=== PATIENT | male | born 1935 | race Caucasian/White ===

== ENCOUNTER 2017-12-01 13:43 | Observation (INO) | payer OTHER, MEDICARE ==
--- NOTE | 2017-12-01 14:15 | PDOC ---
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 PAtient fell and hit left forehead where a large hematoma is bulging. Patient alert and oriented. Primary: Dr. Shelly Green [phone] [place]: Dr. Robson Varma [phone] Past History - Past Medical History Allergies/Adverse Reactions: Allergies Allergy/AdvReac Type Severity Reaction Status Date / Time No Known Drug Allergies Allergy Verified 01/06/15 12:52 Home Medications: Ambulatory Orders Aspirin Coated [Ecotrin -] 81 mg PO DAILY 12/20/11 Lisinopril [Prinivil] 5 mg PO DAILY 12/20/11 Atorvastatin Ca [Lipitor] 40 mg PO HS 11/07/14 Carvedilol [Coreg] 6.25 mg PO BID 11/07/14 Warfarin Sodium [Coumadin] 2.5 mg PO HS 11/07/14 Hydrochlorothiazide [Hctz -] 12.5 mg PO DAILY 01/06/15 Amoxicillin/Potassium Clav [Augmentin 500-125 Tablet] 500 mg PO BID 12/01/17 Phenazopyridine HCl [Pyridium] 100 mg PO TID 12/01/17 Tamsulosin HCl [Flomax] 0.4 mg PO DAILY 12/01/17 Timolol 0.25% [Timoptic 0.25%] 1 drop OP BID 12/01/17 Anemia: Yes Cancer: Yes (prostate cancer) Cardiac Disorders: Yes (cabg x4, AAA, mitral valve repair & aortic valve repair , bovine valve) CVA: Yes COPD: (A-FIB) CHF: (v tach-TRANSFER TO [place] FOR ICD) HTN: Yes - Surgical History Abdominal Surgery: Yes Cardiac Surgery: Yes (VALVE REPAIR, DEFIB, AAA, BYPASS X 4.) Orthopedic Surgery: Yes (LEFT CARPAL TUNNEL, ACL REPAIR RIGHT KNEE) - Suicide/Smoking/Psychosocial Hx Smoking Status: No Smoking History: Unknown if ever smoked Have you smoked in the past 12 months: No Number of Cigarettes Smoked Daily: 0 Information on smoking cessation initiated: No Hx Alcohol Use: No Drug/Substance Use Hx: No Substance Use Type: None Hx Substance Use Treatment: No Review of Systems - Review of Systems Able to Perform ROS?: Yes Is the patient limited Sudanese proficient: No Constitutional: No: Symptoms Reported HEENTM: No: Symptoms Reported Respiratory: No: Symptoms reported Cardiac (ROS): No: Symptoms Reported ABD/GI: No: Symptoms Reported : No: Symptoms Reported Musculoskeletal: No: Symptoms Reported Integumentary: No: Symptoms Reported Neurological: No: Symptoms reported *Physical Exam - Vital Signs Last Vital Signs Temp Pulse Resp BP Pulse Ox 98.0 F 70 16 132/72 98 12/01/17 13:52 12/01/17 13:52 12/01/17 13:52 12/01/17 13:52 12/01/17 13:52 - Physical Exam General Appearance: Yes: Appropriately Dressed, Thin. No: Apparent Distress HEENT: positive: EOMI, MICKEY, Normal ENT Inspection, Other (hematoma over left forhead 5cm) Respiratory/Chest: positive: Lungs Clear, Normal Breath Sounds. negative: Chest Tender, Respiratory Distress Cardiovascular: positive: Irregularly Irregular Gastrointestinal/Abdominal: positive: Normal Bowel Sounds, Flat, Soft. negative : Tender Extremity: positive: Normal Capillary Refill, Normal Inspection, Normal Range of Motion Integumentary: positive: Normal Color, Dry, Warm Neurologic: positive: Fully Oriented, Alert, Normal Mood/Affect, Normal Response ED Treatment Course - LABORATORY CBC & Chemistry Diagram: 12/01/17 14:50 12/01/17 14:50 - RADIOLOGY Radiology Studies Ordered: Category Date Time Status CERVICAL SPINE CT W/O CONTR [CT] Stat CT Scan 12/01/17 13:[address] WITHOUT CONTRAST [CT] Stat CT Scan 12/01/17 13:50 Ordered Medical Decision Making - Medical Decision Making 12/01/17 16:49 Ct head and c-spine: normal BAsic labs, warfarin level. Elevated troponins at 0.08 EKG: A-Fib with pvcs, left axis deviation, RBBB Will admit to hospitalist to telemetry observation. *DC/Admit/Observation/Transfer Diagnosis at time of Disposition: Syncope and collapse - Discharge Dispostion Decision to Admit order: Yes - Referrals Referrals: ON STAFF,NOT [Primary Care Provider] - - Patient Instructions - Post Discharge Activity
[2017-12-01 15:14] LABS: BASO % 0.7 % (0-2.0); EOS % 2.8 % (0-4.5); HEMATOCRIT 27.1 % (35.4-49); HEMOGLOBIN 9.1 GM/dL (11.7-16.9); LYMPH % 11.5 % (8-40); MCH 33.1 pg (25.7-33.7); MCHC 33.7 g/dl (32.0-35.9); MEAN PLT VOLUME 9.6 fl (7.5-11.1); MONO % 10.1 % (3.8-10.2); NEUT % 74.9 % (42.8-82.8); PLATELET COUNT 170 K/MM3 (134-434); RBC 2.76 M/mm3 (4.00-5.60); RDW 17.4 % (11.9-15.9); WHITE BLOOD COUNT 5.2 K/mm3 (4.0-10.0)
[2017-12-01 15:21] LABS: INR 1.31 (0.82-1.09); PROTHROMBIN TIME (PATIENT) 14.8 SEC (9.7-13.0)
[2017-12-01 15:24] LABS: ACTIVATED PTT 27.9 SECONDS (25.2-36.5)
[2017-12-01 15:27] LABS: ANION GAP 8 (8-16); BLOOD UREA NITROGEN 49 mg/dL (7-18); CHLORIDE 108 mmol/L (98-107); CO2 24 mmol/L (21-32); CREATININE 1.7 mg/dL (0.7-1.3); GLUCOSE,RANDOM 114 mg/dL (74-106); SGPT/ALT 34 U/L (12-78); SODIUM 140 mmol/L (136-145)
[2017-12-01 15:28] LABS: BILIRUBIN,TOTAL 1.3 mg/dL (0.2-1.0); TOT PROT 6.5 g/dl (6.4-8.2)
[2017-12-01 15:31] LABS: ALK PHOS 169 U/L (45-117)
[2017-12-01 15:33] LABS: MAGNESIUM 2.1 mg/dL (1.8-2.4); POTASSIUM 5.3 mmol/L (3.5-5.1); SGOT/AST 63 U/L (15-37)
--- NOTE | 2017-12-01 16:30 | PDOC ---
Attending Attestation - Resident Resident Name: Juan Smith - ED Attending Attestation I have performed the following: I have examined & evaluated the patient, The case was reviewed & discussed with the resident, I agree w/resident's findings & plan, Exceptions are as noted - HPI HPI: 12/01/17 16:28 agree with residents hpi - Physicial Exam PE: 12/01/17 16:28 agree with residents PE - Medical Decision Making 12/01/17 16:28 82 years old multiple medical problems pacemaker defibrillator presents with syncope versus seizure Positive head trauma head CT negative for any intracranial pathology. Indeterminate troponin EKG demonstrates atrial fib with premature ventricular complexes left axis deviation right bundle-branch block. No ST elevations or T- wave inversions. We'll admit to medicine on telemetry consult cardiology for further management <Chepe Hamilton - Last Filed: 12/01/17 16:27> - HPI HPI: 12/01/17 16:34 The patient is an 82 year old with a significant past medical history of quad bypass (), prostate CA in , aortic and mitral valve replacement in , AAA stent in , LAFT Malcolm stroke in , Vtcah s/p ICD in , a-Fib in and Left ilio-femoral bypass with saphenous vein, who presents to the ED after syncope vs "seizure-like activity" with injury to his head today. Primary: Dr. 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 Robson Varma [phone] - Physicial Exam PE: ROS: A complete review of 10 out of 10 review of systems is taken and is negative apart from what is previously mentioned below and in the HPI. - Medical Decision Making 12/01/17 16:36 Documentation prepared by Lola العلي, acting as site medical director for Chepe Hamilton MD, <Lola العلي - Last Filed: 12/01/17 16:37>
--- NOTE | 2017-12-01 16:36 | HP ---
CHIEF COMPLAINT: Syncope PCP: Shelly Green MD HISTORY OF PRESENT ILLNESS: This is an 82 year old male with PMHx of quad bypass (02/1990), prostate cancer , aortic and mitral valve replacement, AAA stent, CVA, vtach s/p ICD, a.fib, left ilio-femoral bypass with saphenous vein, who presented to the ED after a syncopal episode. The patient reports being in the bathroom and losing consciousness and hitting his forehead on the floor. The reports the patient regained consciousness after about one minute. She does state the patient had some jerking movements. Off note: the patient was started on Coumadin today. The patient was seen on 10/18 by urology, Dr. Russell and had a stricture removal. On 10/[address] scan that showed a 1/6cm stone and a left stent was placed. On 11/08 he had a sol catheter placed for urinary retention. On clots were noted and the sol was replaced. On 11/28 the sol catheter was replaced and a new left stent was placed. On 11/30 clots were noted again in the sol and the sol was removed. On 11/30 the patient had labs and was noted to have an elevated Cr. ER course was notable for: (1) Temp 98, pulse 70, BP 132/72, resp 16, O2 98% on RA (2) INR 1.31 (3) K 5.3, Cr 1.7 (4) Trop 0.08 Recent Travel: denies PAST MEDICAL HISTORY: as above PAST SURGICAL HISTORY: as above Social History: Smoking: denies Alcohol: denies Drugs: denies Family History: Allergies No Known Drug Allergies Allergy (Verified 01/06/15 12:52) HOME MEDICATIONS: Home Medications Medication Instructions Recorded Aspirin Coated [Ecotrin -] 81 mg PO DAILY 12/20/11 Lisinopril [Prinivil] 5 mg PO DAILY 12/20/11 Atorvastatin Ca [Lipitor] 40 mg PO HS 11/07/14 Carvedilol [Coreg] 6.25 mg PO BID 11/07/14 Warfarin Sodium [Coumadin] 2.5 mg PO HS 11/07/14 Hydrochlorothiazide [Hctz -] 12.5 mg PO DAILY 01/06/15 Amoxicillin/Potassium Clav 500 mg PO BID 12/01/17 [Augmentin 500-125 Tablet] Phenazopyridine HCl [Pyridium] 100 mg PO TID 12/01/17 Tamsulosin HCl [Flomax] 0.4 mg PO DAILY 12/01/17 Timolol 0.25% [Timoptic 0.25%] 1 drop OP BID 12/01/17 REVIEW OF SYSTEMS CONSTITUTIONAL: Absent: fever, chills, diaphoresis, generalized weakness, malaise, loss of appetite, weight change HEENT: Forehead hematoma Absent: rhinorrhea, nasal congestion, throat pain, throat swelling, difficulty swallowing, mouth swelling, ear pain, eye pain, visual changes CARDIOVASCULAR: Syncopal episode with head trauma today. Absent: chest pain, palpitations, irregular heart rate, lightheadedness, peripheral edema RESPIRATORY: Absent: cough, shortness of breath, dyspnea with exertion, orthopnea, wheezing, stridor, hemoptysis GASTROINTESTINAL: Absent: abdominal pain, abdominal distension, nausea, vomiting, diarrhea, constipation, melena, hematochezia GENITOURINARY: Absent: dysuria, frequency, urgency, hesitancy, hematuria, flank pain, genital pain MUSCULOSKELETAL: Absent: myalgia, arthralgia, joint swelling, back pain, neck pain SKIN: Absent: rash, itching, pallor HEMATOLOGIC/IMMUNOLOGIC: Absent: easy bleeding, easy bruising, lymphadenopathy, frequent infections ENDOCRINE: Absent: unexplained weight gain, unexplained weight loss, heat intolerance, cold intolerance NEUROLOGIC: Absent: headache, focal weakness or paresthesias, dizziness, unsteady gait, seizure, mental status changes, bladder or bowel incontinence PSYCHIATRIC: Absent: anxiety, depression, suicidal or homicidal ideation, hallucinations. PHYSICAL EXAMINATION Vital Signs - 24 hr 12/01/17 13:52 Temperature 98.0 F Pulse Rate 70 Respiratory 16 Rate Blood Pressure 132/72 O2 Sat by Pulse 98 Oximetry (%) GENERAL: Awake, alert, and fully oriented, in no acute distress. HEAD: Normal with no signs of trauma. EYES: Pupils equal, round and reactive to light, extraocular movements intact, sclera anicteric, conjunctiva clear. No lid lag. EARS, NOSE, THROAT: Ears normal, nares patent, oropharynx clear without exudates. Moist mucous membranes. NECK: Normal range of motion, supple without lymphadenopathy, JVD, or masses. LUNGS: Breath sounds equal, clear to auscultation bilaterally. No wheezes, and no crackles. No accessory muscle use. HEART: Regular rate and rhythm, normal S1 and S2 without murmur, rub or gallop. ABDOMEN: Soft, nontender, not distended, normoactive bowel sounds, no guarding, no rebound, no masses. No hepatomegaly or splenomegaly. MUSCULOSKELETAL: Normal range of motion at all joints. No bony deformities or tenderness. No CVA tenderness. UPPER EXTREMITIES: 2+ pulses, warm, well-perfused. No cyanosis. No clubbing. No peripheral edema. LOWER EXTREMITIES: 2+ b/l lower extremity edema. 2+ pulses, warm, well- perfused. No calf tenderness. NEUROLOGICAL: Normal speech. PSYCHIATRIC: Cooperative. Good eye contact. Appropriate mood and affect. SKIN: Warm, dry, normal turgor, no rashes or lesions noted, normal capillary refill. Laboratory Results - last 24 hr 12/01/17 12/01/17 12/01/17 14:50 14:50 14:50 WBC 5.2 RBC 2.76 L Hgb 9.1 L Hct 27.1 L MCV 98.0 H MCH 33.1 MCHC 33.7 RDW 17.4 H Plt Count 170 D MPV 9.6 D Absolute Neuts (auto) 3.9 Neutrophils % 74.9 Lymphocytes % 11.5 D Monocytes % 10.1 Eosinophils % 2.8 D Basophils % 0.7 D Nucleated RBC % 0 PT with INR 14.80 H INR 1.31 H PTT (Actin FS) 27.9 Sodium 140 Potassium 5.3 H D Chloride 108 H Carbon Dioxide 24 Anion Gap 8 BUN 49 H Creatinine 1.7 H Creat Clearance w eGFR 38.68 Random Glucose 114 H Calcium 9.0 Magnesium 2.1 Total Bilirubin 1.3 H AST 63 H D ALT 34 Alkaline Phosphatase 169 H Troponin I 0.08 H D Total Protein 6.5 Albumin 3.0 L Assessment: This is an 82 year old male with PMHx of quad bypass (02/1990), prostate cancer, aortic and mitral valve replacement, AAA stent, CVA, vtach s/p ICD, a.fib, left ilio-femoral bypass with saphenous vein, who presented to the ED after a syncopal episode. Plan: 1) Syncope with head trauma - Forehead hematoma - Head CT with no evidence of acute intracranial hemorrhage, edema, midline shift, mass effect, or skull fracture - Repeat head CT as patient is taking Coumadin - Cervical spine CT with no acute bony abnormalities - Interrogate AICD - F/u carotid dopplers - F/u ECHO - Check orthostatics - R/o infectious etiology, awaiting UA and urine culture - Appreciate neuro consult 2) Elevated troponins - Flat trending - Demand ischemia in the setting on FELICE? - Continue to trend - F/u ECHO - F/u cardiology consult 3) FELICE - Will need to follow-up with outpatient urologist for previous Cr values - Renal ultrasound from today with left nephrolithiasis with no evidence of hydronephrosis or acute pathology - F/u urine studies - F/u nephrology consult - F/u urology consult 4) A.fib - Was started on Coumadin today? Per patient - INR subtherapeutic - Will hold tonights dose of Coumadin until repeat head CT 5) Vtach s/p AICD 6) F/E/N: - Hyperkalemia, monitor - Sodium controlled diet Visit type - Emergency Visit Emergency Visit: Yes ED Registration Date: 12/01/17 Care time: The patient presented to the Emergency Department on the above date and was hospitalized for further evaluation of their emergent condition. - New Patient This patient is new to me today: Yes Date on this admission: 12/02/17 - Critical Care Critical Care patient: No Hospitalist Screening - Colonoscopy Questionnaire Colonoscopy Questionnaire: Colonoscopy Questionnaire - Patient: 50 - 75 years old and never had a screening colonoscopy: No
[2017-12-01 17:34] LABS: URINE APPEARANCE CLOUDY; URINE BILIRUBIN NEGATIVE (<2.0 mg/dL); URINE COLOR AMBER; URINE GLUCOSE (UA) NEGATIVE (NEGATIVE); URINE KETONE NEGATIVE (NEGATIVE); URINE LEUK ESTERASE NEGATIVE (NEGATIVE); URINE NITRITE POSITIVE (NEGATIVE); URINE PROTEIN 2+ (NEGATIVE)
[2017-12-01 17:41] LABS: URINE BACTERIA RARE /hpf (NONE SEEN)
[2017-12-01 17:44] LABS: URINE CREATININE 66.6 mg/dL (20-370)
[2017-12-01 18:27] VITALS: BMI 25.2
[2017-12-01] MEDS ORDERED: CEFTRIAXONE 1 GM in DEXTROSE 5%-WATER - 50 ML IVPB ONE (20:38)
--- NOTE | 2017-12-01 20:38 | CONSULT ---
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 PMH sig for HTN, Chol and ASHD. S/P AR and CABG x 4. s/p PPM and defibrillator but has never had syncope. Maintained on: Aspirin 81; Lisinopril; Atorvastatin; Carvedilol; Warfarin; hydrochlorothiazide; and tamsulosin. In recent weeks Pt has had 2 surgeries for a large kidney stone including placement and removal of a ureteral stent. Sent home yesterday on amoxicillin. This AM had loss of consciousness on the toilet following defecation with head trauma. Rapidly reoriented. IN ER: CT of head (reviewed) shows mild atrophy, normal for age, and a large left frontal scalp hematoma. CT of cervical spine shows degenerative changes without fractures. VALERIE: Large left frontal scalp hematoma. Sl reduced neck ROM without tenderness. No bruits. S/P PPM/defibrillator NEURO: MS/speech: Normal CN II-XII: normal aside from reduced hearing. Motor: No drift or tremor. Normal strength. Normal reflexes except absent left AJ. Toes downgoing. Coord: No FTN dystaxia Sensory: Normal Gait: Normal IMP: Essentially normal neurological exam sig for possible S1 radiculopathy on the left. Syncope, probably on a vasovagal basis. Toxic-metabolic encephalopathy (UTI). SUUGEST: Cardiology consultation and interrogation of the defibrillator. Telemetry Check orthostatic BP's Antibiotics and hydration for UTI. Thank you very much, Wesley Smith MD
--- NOTE | 2017-12-01 20:46 | PN ---
Progress Note (short form) - Note Progress Note: NEUROLOGY ADDENDUM: Noted that patient is NOT on coumadin with INR=1.31 Please confirm AFib and resume anticoagulation to INR 2-2.5 Contact cardiology with any questions. Thank you, Dr. Smith
[2017-12-01] MEDS ORDERED: cefTRIAXone SODIUM 1 GM VIAL ONE (21:52)
[2017-12-01] MEDS ORDERED: DEXTROSE 5%-WATER - 50 ML IVPB ONE (21:53)
[2017-12-01] MEDS ORDERED: ATORVASTATIN CA 40 MG TABLET (FP) PO SCH (22:00)
[2017-12-01] MEDS: CARVEDILOL 6.25 MG TABLET (FP) PO SCH (22:06)
[2017-12-01] MEDS: TAMSULOSIN HCL 0.4 MG CAP.ER.24H (FP) PO SCH (22:29)
[2017-12-01] MEDS: PHENAZOPYRIDINE HCL 100 MG TABLET (FP) PO SCH (22:30)
[2017-12-01] MEDS: TIMOLOL 0.25% OPHTHALMIC SOL 5 ML BOTTLE OD SCH (22:31)
[2017-12-02 07:34] LABS: HEMATOCRIT 26.1 % (35.4-49); HEMOGLOBIN 8.9 GM/dL (11.7-16.9); MCH 33.1 pg (25.7-33.7); MEAN CELL VOLUME 97.4 fl (80-96); MEAN PLT VOLUME 8.9 fl (7.5-11.1); PLATELET COUNT 137 K/MM3 (134-434); RBC 2.68 M/mm3 (4.00-5.60); RDW 16.9 % (11.9-15.9); WHITE BLOOD COUNT 4.9 K/mm3 (4.0-10.0)
[2017-12-02 07:46] LABS: INR 1.24 (0.82-1.09)
--- NOTE | 2017-12-02 07:46 | PN ---
Progress Note (short form) - Note Progress Note: Subjective: The patient was seen and examined at the bedside, he reports he is feeling "fine but have felt better" Current Medications Generic Name Dose Route Start Last Admin Trade Name Selvin PRN Reason Stop Dose Admin Aspirin 81 mg 12/02/17 10:00 12/02/17 09:47 Ecotrin - PO 81 mg DAILY AUDIE Administration Atorvastatin Calcium 40 mg 12/01/17 22:00 12/01/17 22:05 Lipitor - PO 40 mg HS AUDIE Administration Carvedilol 6.25 mg 12/01/17 22:00 12/02/17 09:47 Coreg - PO 6.25 mg BID AUDIE Administration Enoxaparin Sodium 75 mg 12/02/17 11:30 Lovenox - SQ Q12H AUDIE Hydrochlorothiazide 12.5 mg 12/02/17 10:00 12/02/17 09:47 Hctz - PO 12.5 mg DAILY AUDIE Administration Lisinopril 5 mg 12/02/17 10:00 12/02/17 09:47 Prinivil PO 5 mg DAILY AUDIE Administration Phenazopyridine HCl 100 mg 12/01/17 22:00 12/02/17 09:47 Pyridium - PO 100 mg TID AUDIE Administration Tamsulosin HCl 0.4 mg 12/02/17 10:00 12/02/17 10:50 Flomax - PO Not Given DAILY AUDIE Timolol Maleate 1 drop 12/01/17 22:00 12/02/17 09:48 Timoptic 0.25% OD 1 drop BID AUDIE Administration Objective: Vital Signs Period Temp Pulse Resp BP Sys/Rodrigues Pulse Ox Last 24 Hr 97.3 F-98.1 F 64-86 16-86 109-132/58-72 97-99 Physical Exam: CBCD WBC 4.9 K/mm3 (4.0-10.0) 12/02/17 05:28 RBC 2.68 M/mm3 (4.00-5.60) L 12/02/17 05:28 Hgb 8.9 GM/dL (11.7-16.9) L 12/02/17 05:28 Hct 26.1 % (35.4-49) L 12/02/17 05:28 MCV 97.4 fl (80-96) H 12/02/17 05:28 MCHC 34.0 g/dl (32.0-35.9) 12/02/17 05:28 RDW 16.9 % (11.9-15.9) H 12/02/17 05:28 Plt Count 137 K/MM3 (134-434) 12/02/17 05:28 MPV 8.9 fl (7.5-11.1) 12/02/17 05:28 CMP Sodium 141 mmol/L (136-145) 12/02/17 05:28 Potassium 4.0 mmol/L (3.5-5.1) D 12/02/17 05:28 Chloride 108 mmol/L (98-107) H 12/02/17 05:28 Carbon Dioxide 24 mmol/L (21-32) 12/02/17 05:28 Anion Gap 9 (8-16) 12/02/17 05:28 BUN 43 mg/dL (7-18) H 12/02/17 05:28 Creatinine 1.5 mg/dL (0.7-1.3) H 12/02/17 05:28 Creat Clearance w eGFR 44.69 (>60) 12/02/17 05:28 Random Glucose 101 mg/dL (74-106) 12/02/17 05:28 Calcium 9.0 mg/dL (8.5-10.1) 12/02/17 05:28 Total Bilirubin 1.1 mg/dL (0.2-1.0) H 12/02/17 05:28 AST 25 U/L (15-37) D 12/02/17 05:28 ALT 31 U/L (12-78) 12/02/17 05:28 Alkaline Phosphatase 168 U/L (45-117) H 12/02/17 05:28 Total Protein 6.2 g/dl (6.4-8.2) L 12/02/17 05:28 Albumin 3.0 g/dl (3.4-5.0) L 12/02/17 05:28 CARDIAC ENZYMES Creatine Kinase 122 IU/L (39-308) 12/02/17 03:00 Troponin I 0.09 ng/ml (0.00-0.05) H 12/02/17 09:09 Assessment: This is an 82 year old male with PMHx of quad bypass (02/1990), prostate cancer, aortic and mitral valve replacement, AAA stent, CVA, vtach s/p ICD, a.fib, left ilio-femoral bypass with saphenous vein, who presented to the ED after a syncopal episode. Plan: 1) Syncope with head trauma - Forehead hematoma - Head CT with no evidence of acute intracranial hemorrhage, edema, midline shift, mass effect, or skull fracture - Repeat head CT with no acute intracranial bleed or fracture - Cervical spine CT with no acute bony abnormalities - Interrogate AICD - F/u carotid dopplers - F/u ECHO - Check orthostatics - Appreciate neuro consult 2) Elevated troponins - Flat trending - Demand ischemia in the setting on FELICE? - Continue to trend - F/u ECHO - F/u cardiology consult 3) B/l lower extremity edema - F/u doppler to r/o dvt ( reports it just started 2 weeks ago) - May be 2/2 worsening heart failure? reports patient is due to ECHO and that his last one had an EF in the 20s - F/u BNP - Awaiting cardiology and nephrology consult to discuss giving Lasix - F/u Chest X-ray to evaluate for effusions 3) UTI - UA with +nitrites, neg leuk estrase, 348 WBC - Given the patient has a stent placed, will continue abx until culture returns - No CVA tenderness, fever, or chills - Continue Ceftriaxone 3) FELICE - Improving - Will need to follow-up with outpatient urologist for previous Cr values - Renal ultrasound from today with left nephrolithiasis with no evidence of hydronephrosis or acute pathology - F/u urine studies - F/u nephrology consult - F/u urology consult 4) Permanent A.fib - Diagnosed in 2012 - Has been on Coumadin, but was recently switched to Lovenox due to multiple urologic procedures, was supposed to restart Coumadin yesterday - INR subtherapeutic - Start full dose Lovenox 5) Vtach s/p AICD 6) F/E/N: - Hyperkalemia- resolved - Sodium controlled diet Visit type - Emergency Visit Emergency Visit: Yes ED Registration Date: 12/01/17 Care time: The patient presented to the Emergency Department on the above date and was hospitalized for further evaluation of their emergent condition. - New Patient This patient is new to me today: No - Critical Care Critical Care patient: No
[2017-12-02 09:26] LABS: ANION GAP 9 (8-16); BLOOD UREA NITROGEN 43 mg/dL (7-18); CHLORIDE 108 mmol/L (98-107); CO2 24 mmol/L (21-32); CREATININE 1.5 mg/dL (0.7-1.3); GLUCOSE,RANDOM 101 mg/dL (74-106); MAGNESIUM 2.1 mg/dL (1.8-2.4); PHOSPHOROUS 3.1 mg/dL (2.5-4.9); SGOT/AST 25 U/L (15-37); SODIUM 141 mmol/L (136-145)
[2017-12-02 09:46] LABS: ALK PHOS 168 U/L (45-117); BILIRUBIN,TOTAL 1.1 mg/dL (0.2-1.0); SGPT/ALT 31 U/L (12-78); TOT PROT 6.2 g/dl (6.4-8.2)
[2017-12-02] MEDS: CARVEDILOL 6.25 MG TABLET (FP) PO SCH (09:47)
[2017-12-02] MEDS: TAMSULOSIN HCL 0.4 MG CAP.ER.24H (FP) PO SCH ×2 (09:47→10:50)
[2017-12-02] MEDS: PHENAZOPYRIDINE HCL 100 MG TABLET (FP) PO SCH ×2 (09:47→13:56)
[2017-12-02] MEDS: TIMOLOL 0.25% OPHTHALMIC SOL 5 ML BOTTLE OD SCH (09:48)
[2017-12-02] MEDS ORDERED: LISINOPRIL 5 MG TABLET (FP) PO SCH (10:00)
[2017-12-02] MEDS ORDERED: ASPIRIN COATED 81 MG TABLET.EC PO SCH (10:00)
[2017-12-02] MEDS ORDERED: HYDROCHLOROTHIAZIDE 12.5 MG CAPSULE (FP) PO SCH (10:00)
--- NOTE | 2017-12-02 10:11 | EKG ---
Test Reason : Blood Pressure : / mmHG Vent. Rate : 074 BPM Atrial Rate : 070 BPM P-R Int : 000 ms QRS Dur : 216 ms QT Int : 490 ms P-R-T Axes : 000 -86 063 degrees QTc Int : 543 ms ATRIAL FIBRILLATION WITH PREMATURE VENTRICULAR OR ABERRANTLY CONDUCTED COMPLEXES LEFT AXIS DEVIATION RIGHT BUNDLE BRANCH BLOCK ABNORMAL ECG WHEN COMPARED WITH ECG OF 06-JAN-2015 12:30, PREVIOUS ECG HAS UNDETERMINED RHYTHM, NEEDS REVIEW QUESTIONABLE CHANGE IN QRS DURATION Confirmed by MANUELITO AGUSTIN MD ([id number]) on 12/02/2017 10:11:18 AM Referred By: Confirmed By:MANUELITO AGUSTIN MD
[2017-12-02] MEDS ORDERED: ENOXAPARIN NA (PORCINE) 80 MG/0.8 ML DISP.SYRIN SQ SCH (11:30)
--- NOTE | 2017-12-02 13:13 | CON.NEP ---
Consult Consult Specialty:: nephrology Reason for Consultation:: felice - History of Present Illness History of Present Illness: 82M with pmh of quad bypass (), prostate CA in aortic and mitral valve replacement in , AAA stent , LAFT Malcolm stroke , Vtcah s/p ICD in , a- Fib in and Left ilio-femoral bypass with saphenous vein. He s also being followed by urology for a large left ureteral stone which required stent and then laser lithotrypsy recently. He had a sol which was blocked and removed 2 days ago. Apparently had some debris. HJkalli went to urinate and sat on the toilet and then passed out. Does not remember being dizzy at the time though his blood pressure is usually low. - History Source History Provided By: Patient, Family Member - Past Medical History Cardio/Vascular: Yes: AFIB, Aneurysm, CAD, HTN, Hyperlipdemia Renal/: Yes: Renal Inusuff, BPH Additional Medical History: prostate cancer S/p Lupron, casodex and radiation, TIA, anticoagulation therapy; glaucoma; DVT LE - Past Surgical History Past Surgical History: Yes: AAA Repair, AICD, CABG, Permanent Pacemaker, Valve Replacement - Alcohol/Substance Use Hx Alcohol Use: No - Smoking History Smoking history: Unknown if ever smoked Have you smoked in the past 12 months: No Aproximately how many cigarettes per day: 0 - Social History Usual Living Arrangement: With Spouse 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 History of Recent Travel: No Home Medications - Allergies Allergies/Adverse Reactions: Allergies Allergy/AdvReac Type Severity Reaction Status Date / Time No Known Drug Allergies Allergy Verified 01/06/15 12:52 - Home Medications Home Medications: Ambulatory Orders Aspirin Coated [Ecotrin -] 81 mg PO DAILY 12/20/11 Lisinopril [Prinivil] 5 mg PO DAILY 12/20/11 Atorvastatin Ca [Lipitor] 40 mg PO HS 11/07/14 Carvedilol [Coreg] 6.25 mg PO BID 11/07/14 Warfarin Sodium [Coumadin] 2.5 mg PO HS 11/07/14 Hydrochlorothiazide [Hctz -] 12.5 mg PO DAILY 01/06/15 Amoxicillin/Potassium Clav [Augmentin 500-125 Tablet] 500 mg PO BID 12/01/17 Phenazopyridine HCl [Pyridium] 100 mg PO TID 12/01/17 Tamsulosin HCl [Flomax] 0.4 mg PO DAILY 12/01/17 Timolol 0.25% [Timoptic 0.25%] 1 drop OP BID 12/01/17 Review of Systems - Review of Systems Constitutional: reports: No Symptoms Eyes: reports: No Symptoms HENT: reports: No Symptoms Neck: reports: No Symptoms Cardiovascular: reports: Edema Respiratory: reports: No Symptoms Gastrointestinal: reports: No Symptoms Genitourinary: reports: Other (had a sol) Breasts: reports: No Symptoms Reported Musculoskeletal: reports: No Symptoms Integumentary: reports: No Symptoms Neurological: reports: Syncope Endocrine: reports: No Symptoms Hematology/Lymphatic: reports: No Symptoms Psychiatric: reports: No Symptoms Nephrology Consult - Height Height: 5 ft 8 in - Weight Weight: 166 lb - BMI Body Mass Index (BMI): 25.2 - Lab Results CBC,BMP: CBC, BMP 12/02/17 05:28 12/02/17 05:28 Anion Gap: Anion Gap Anion Gap 9 (8-16) 12/02/17 05:28 - Imaging Chest X-ray: Report Reviewed Cat Scan: Report Reviewed (head ct- no intracranial lesion) - Physical Examination Vital Signs: Vital Signs Temperature 97.7 F 12/02/17 08:00 Pulse Rate 82 12/02/17 08:00 Respiratory Rate 18 12/02/17 09:00 Blood Pressure 109/69 12/02/17 08:00 O2 Sat by Pulse Oximetry (%) 99 12/02/17 09:00 Constitutional: Yes: Well Nourished, No Distress, Calm Eyes: Yes: Conjunctiva Clear HENT: Yes: Other (hematoma on forehead) Neck: Yes: Supple Cardiovascular: Yes: Pulse Irregular, Murmur Respiratory: Yes: Regular, CTA Bilaterally Gastrointestinal: Yes: Normal Bowel Sounds Renal/: Yes: WNL Musculoskeletal: Yes: WNL Extremities: Yes: WNL Edema: Yes Edema: LLE: 2+, RLE: 2+ Wound/Incision: Yes: Clean/Dry Neurological: Yes: Alert, Oriented Psychiatric: Yes: Alert, Oriented Assessment/Plan IMPRESSION -FELICE possibly from occluded sol which is already improved -Likely has CKD especially since he has had several procedures requiring contrast -Possible UTI since he had a sol -s/p syncope- may have dropped his BP, ?vasovagal- he was urinating sitting -complex cardiovascular history -nephrolithiasis PLAN monitor without sol if renal function not improving further obtain bladder scan agree with antibniotics follow cultures and adjust abx avoid hypotension monitor hgb MV
[2017-12-02] MEDS ORDERED: PT OWN MED DRAWER 7, Y5N ONE (13:50)
[2017-12-02 14:06] LABS: N-TERMINAL BNP 14849.35 pg/ml (5-450)
--- NOTE | 2017-12-02 14:52 | CON.CARD ---
Consult Consult Specialty:: Cardiology Referred by:: Anisha Jaimes Reason for Consultation:: syncope - History of Present Illness History of Present Illness: 82M with pmh of CAD s/p quad bypass (), chronic systolic CHF, prostate CA in , aortic and mitral valve replacement in 03, AAA stent 04, LAFT Malcolm stroke 11, Vtcah s/p ICD in at [facility], a-Fib in and Left ilio-femoral bypass with saphenous vein who presents with syncope. Was home when passed out. Had no chest pain, palpitations, or dizziness prior. Just collapsed and hit his head and reports "seizure like" activity. +Large hematoma on left forehead -AICD interrogated and was shocked at time of syncope for what appears to be VTACH. - History Source History Provided By: Patient, Family Member, Medical Record - Past Medical History Cardio/Vascular: Yes: AFIB, Aneurysm, CAD, HTN, Hyperlipdemia Renal/: Yes: Renal Inusuff, BPH Additional Medical History: prostate cancer S/p Lupron, casodex and radiation, TIA, anticoagulation therapy; glaucoma; DVT LE - Past Surgical History Past Surgical History: Yes: AAA Repair, AICD, CABG, Permanent Pacemaker, Valve Replacement - Alcohol/Substance Use Hx Alcohol Use: No - Smoking History Smoking history: Unknown if ever smoked Have you smoked in the past 12 months: No Aproximately how many cigarettes per day: 0 - Social History Usual Living Arrangement: With Spouse 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 History of Recent Travel: No Home Medications - Allergies Allergies/Adverse Reactions: Allergies Allergy/AdvReac Type Severity Reaction Status Date / Time No Known Drug Allergies Allergy Verified 01/06/15 12:52 - Home Medications Home Medications: Ambulatory Orders Aspirin Coated [Ecotrin -] 81 mg PO DAILY 12/20/11 Lisinopril [Prinivil] 5 mg PO DAILY 12/20/11 Atorvastatin Ca [Lipitor] 40 mg PO HS 11/07/14 Carvedilol [Coreg] 6.25 mg PO BID 11/07/14 Warfarin Sodium [Coumadin] 2.5 mg PO HS 11/07/14 Hydrochlorothiazide [Hctz -] 12.5 mg PO DAILY 01/06/15 Amoxicillin/Potassium Clav [Augmentin 500-125 Tablet] 500 mg PO BID 12/01/17 Phenazopyridine HCl [Pyridium] 100 mg PO TID 12/01/17 Tamsulosin HCl [Flomax] 0.4 mg PO DAILY 12/01/17 Timolol 0.25% [Timoptic 0.25%] 1 drop OP BID 12/01/17 Vital Signs: Vital Signs Temperature 97.7 F 12/02/17 08:00 Pulse Rate 82 12/02/17 08:00 Respiratory Rate 18 12/02/17 09:00 Blood Pressure 109/69 12/02/17 08:00 O2 Sat by Pulse Oximetry (%) 99 12/02/17 09:00 Constitutional: Yes: No Distress Neck: Yes: WNL Respiratory: Yes: CTA Bilaterally Gastrointestinal: Yes: Soft Cardiovascular: Yes: Pulse Irregular JVD: No Carotid Bruit: No PMI: Non-Displaced Heart Sounds: Yes: S1, S2 Murmur: No: Systolic Murmur Edema: Yes Edema: LLE: 1+, RLE: 1+ - Other Data Labs, Other Data: CBC, BMP 12/02/17 05:28 12/02/17 05:28 INR, PTT INR 1.24 (0.82-1.09) H 12/02/17 05:28 Troponin, BNP 12/01/17 12/01/17 12/01/17 14:50 16:57 21:20 Troponin I 0.08 H D 0.09 H 0.09 H B-Natriuretic Peptide 12/02/17 12/02/17 12/02/17 03:00 09:09 09:09 Troponin I 0.11 H 0.09 H B-Natriuretic Peptide 70157.35 H Cancelled Troponin, BNP 12/01/17 12/01/17 12/01/17 14:50 16:57 21:20 Troponin I 0.08 H D 0.09 H 0.09 H B-Natriuretic Peptide 12/02/17 12/02/17 12/02/17 03:00 09:09 09:09 Troponin I 0.11 H 0.09 H B-Natriuretic Peptide 66243.35 H Cancelled Imaging - Results Chest X-ray: Report Reviewed EKG: Image Reviewed Problem List - Problems (1) Syncope and collapse Code(s): R55 - SYNCOPE AND COLLAPSE Assessment/Plan 82M with pmh of CAD s/p quad bypass (), prostate CA in 99, aortic and mitral valve replacement in 03, AAA stent 04, LAFT Malcolm stroke 11, Vtcah s/p ICD in at [facility], a-Fib in and Left ilio-femoral bypass with saphenous vein who presents with syncope. Was home when passed out. Had no chest pain, palpitations, or dizziness prior. Just collapsed and hit his head and reports "seizure like" activity. +Large hematoma on left forehead -AICD interrogated and was shocked at time of syncope for what appears to be VTACH. 1) Syncope due to VTach -received what appears to be appropriate shock Currently stable and asymptomatic Will plan for transfer to [facility] as likely will need ischemia evaluation (possible cath) and arrhythmia evaluation. Will likely start amiodarone after transfer Continue beta samuel and will uptitrate if can. Continue aspirin/statin Coumadin on hold CT head no subdural hematoma
[2017-12-02 15:29] VITALS: TEMP 97.9
[2017-12-02 15:40] VITALS: BP 107/59; PULSE 65
--- NOTE | 2017-12-03 10:53 | DS ---
Physical Examination Vital Signs: Vital Signs Temperature 97.9 F 12/02/17 14:00 Pulse Rate 83 12/02/17 14:00 Respiratory Rate 18 12/02/17 09:00 Blood Pressure 108/65 12/02/17 14:00 O2 Sat by Pulse Oximetry (%) 99 12/02/17 09:00 Labs: CBC, BMP 12/02/17 05:28 12/02/17 05:28 Discharge Summary Reason For Visit: SYNCOPE AND COLLAPSE Condition: Guarded - Instructions Referrals: ON STAFF,NOT [Primary Care Provider] - Disposition: TRANSFER ACUTE CARE/OTHER HOSP - Home Medications Comprehensive Discharge Medication List: Ambulatory Orders Aspirin Coated [Ecotrin -] 81 mg PO DAILY 12/20/11 Lisinopril [Prinivil] 5 mg PO DAILY 12/20/11 Atorvastatin Ca [Lipitor] 40 mg PO HS 11/07/14 Carvedilol [Coreg] 6.25 mg PO BID 11/07/14 Warfarin Sodium [Coumadin] 2.5 mg PO HS 11/07/14 Hydrochlorothiazide [Hctz -] 12.5 mg PO DAILY 01/06/15 Amoxicillin/Potassium Clav [Augmentin 500-125 Tablet] 500 mg PO BID 12/01/17 Phenazopyridine HCl [Pyridium] 100 mg PO TID 12/01/17 Tamsulosin HCl [Flomax] 0.4 mg PO DAILY 12/01/17 Timolol 0.25% [Timoptic 0.25%] 1 drop OP BID 12/01/17
== END 2017-12-02 16:27 | disposition short-term general hospital (02) ==
LOC: JER 13:43 → JERBED 16:35 → J4W 18:13
PROVIDERS: ADMIT Internal Medicine; ATTEND Registered Nurse
PROC: 3E03329 Introduction of Other Anti-infective into Peripheral Vein, Percutaneous Approach (ICD-10-PCS; principal; 2017-12-01)
PROC: 3E013GC Introduction of Other Therapeutic Substance into Subcutaneous Tissue, Percutaneous Approach (ICD-10-PCS; 2017-12-01)
DX: R55 Syncope and collapse (principal); S00.83XA Contusion of other part of head, initial encounter; R77.8 Other specified abnormalities of plasma proteins; I10 Essential (primary) hypertension; I25.10 Atherosclerotic heart disease of native coronary artery without angina pectoris; I25.2 Old myocardial infarction; I48.2 Chronic atrial fibrillation; I50.22 Chronic systolic (congestive) heart failure; E78.5 Hyperlipidemia, unspecified; D64.9 Anemia, unspecified; N17.9 Acute kidney failure, unspecified; N39.0 Urinary tract infection, site not specified; N20.0 Calculus of kidney; Z95.2 Presence of prosthetic heart valve; G92 Toxic encephalopathy; Z95.810 Presence of automatic (implantable) cardiac defibrillator; Z95.1 Presence of aortocoronary bypass graft; Z85.46 Personal history of malignant neoplasm of prostate; Z86.73 Personal history of transient ischemic attack (TIA), and cerebral infarction without residual deficits; Z79.01 Long term (current) use of anticoagulants; Z79.82 Long term (current) use of aspirin; W19.XXXA Unspecified fall, initial encounter; Y93.9 Activity, unspecified; Y92.9 Unspecified place or not applicable; Z86.79 Personal history of other diseases of the circulatory system
CPT/HCPCS: 36415; 70450-TC; 72125-TC; 76775-TC; 80053; 81003; 81015; 82436; 82550; 82570; 83735; 83880; 84100; 84133; 84300; 84484; 85025; 85027; 85610; 85730; 86850; 86900; 86901; 87086; 93005; 93010; 93880-TC; 96365; 96372; 99285-25; G0378

== ENCOUNTER 2017-12-24 20:42 | Inpatient (IN) | payer OTHER, MEDICARE ==
[2017-12-24] MEDS: SODIUM CHLORIDE 1,000 ML IV STA ×2 (20:50→22:50)
--- NOTE | 2017-12-24 20:50 | PDOC ---
History of Present Illness - General Chief Complaint: Rectal Bleed Stated Complaint: RECTAL BLEEDING Time Seen by Provider: 12/24/17 20:50 - History of Present Illness Initial Comments: 12/24/17 20:55 This is an 82 year old male with PMHx of quad bypass (02/1990), prostate cancer , aortic and mitral valve replacement, AAA stent, CVA, vtach s/p ICD, a.fib, left ilio-femoral bypass with saphenous vein, with recent discharge on 12/16 from [facility] s/p ablation and pacemaker c/o rectal bleeding x 3 hours. patient now with active bleeding from rectum. reports that patient usually have episodes of rectal bleeding with BM this time patient is noted to have copious bleeding. last hgb at [facility] prior to discharge 7.9 as per . denies SOB , chest pain, weakness. as per patient with b/l LE edema and congested chest since recent hospital stay. patient is currently not on anticoagulant therapy. last eloquis dose 1 week ago. 12/29/17 06:46 Past History - Past Medical History Allergies/Adverse Reactions: Allergies Allergy/AdvReac Type Severity Reaction Status Date / Time No Known Drug Allergies Allergy Verified 12/24/17 20:55 Home Medications: Ambulatory Orders Atorvastatin Ca [Lipitor] 40 mg PO HS 11/07/14 Tamsulosin HCl [Flomax] 0.4 mg PO DAILY 12/01/17 Timolol 0.25% [Timoptic 0.25%] 1 drop OP BID 12/01/17 Apixaban [Eliquis -] 2.5 mg PO BID #60 tablet 12/28/17 Carvedilol [Coreg -] 3.125 mg PO BID #60 tablet 12/28/17 Furosemide [Lasix -] 20 mg PO DAILY #30 tablet 12/28/17 Mesalamine Enema [Rowasa Enema -] 4 gm AR HS #52 enema 12/28/17 Mupirocin Ointment [Bactroban 2% Ointment -] 1 applic TP BID #1 applic 12/28/17 Sucralfate Oral Suspension [Carafate Oral Suspension -] 1 gm PO QID #28 ml 12/28 Anemia: Yes Cancer: Yes (prostate cancer) Cardiac Disorders: Yes (cabg x4, AAA, mitral valve repair & aortic valve repair , bovine valve) CVA: Yes COPD: (A-FIB) CHF: (v tach-TRANSFER TO [place] FOR ICD) HTN: Yes - Surgical History Abdominal Surgery: Yes Cardiac Surgery: Yes (VALVE REPAIR, DEFIB, AAA, BYPASS X 4.) Neurologic Surgery: No Orthopedic Surgery: Yes (LEFT CARPAL TUNNEL, ACL REPAIR RIGHT KNEE) - Immunization History Immunization Up to Date: No - Suicide/Smoking/Psychosocial Hx Smoking Status: No Smoking History: Unknown if ever smoked Have you smoked in the past 12 months: No Number of Cigarettes Smoked Daily: 0 Hx Alcohol Use: No Drug/Substance Use Hx: No Substance Use Type: None Hx Substance Use Treatment: No Review of Systems - Review of Systems Able to Perform ROS?: Yes Is the patient limited [place] proficient: No Constitutional: No: Symptoms Reported, See HPI, Chills, Diaphoresis, Fever, Loss of Appetite, Malaise, Night Sweats, Weakness, Weight Stable, Unintentional Wgt. Loss, Unexplained wgt Loss, Other : Yes: Other (rectal bleeding) *Physical Exam - Vital Signs 12/24/17 21:24 Last Vital Signs Temp Pulse Resp BP Pulse Ox 98.1 F 88 17 96/52 97 12/24/17 20:50 12/24/17 20:50 12/24/17 20:50 12/24/17 20:50 12/24/17 20:50 - Physical Exam General Appearance: Yes: Appropriately Dressed Respiratory/Chest: positive: Crackles (at the bases) Cardiovascular: positive: Regular Rate, Murmur Gastrointestinal/Abdominal: positive: Normal Bowel Sounds, Soft Rectal Exam: positive: other (active bleeding noted at the rectum. no external hemorrhoids noted) Extremity: positive: Swelling (b/l lower extremity + 3 edemqa) Integumentary: positive: Pale Neurologic: positive: Alert, Normal Mood/Affect Heart Score/ECG Review - History History: Slightly suspicious - Electrocardiogram EKG: Normal - Age Age: >/= 65 - Risk Factors Risk Factors Heart Score: Yes Hx Hypertension, Yes Positive family hx of cardiac disease Based on the list above the patient has:: >/=3 risk factors or Hx atherosclerotic disease - Troponin Troponin: 1-3x normal limit - Score Heart Score - Total: 5 - ECG Intrepretation Rhythm: Regular Rhythm Comment:: 12/24/17 22:51 AV dual paced rhythm: 80bpm ED Treatment Course - LABORATORY CBC & Chemistry Diagram: 12/28/17 12:14 12/28/17 05:30 Progress Note - Progress Note Progress Note: A: rectal bleeding P: cbc cmp type screen guaiac conservative IVF considering edema Medical Decision Making - Medical Decision Making 12/24/17 23:16 patient to be admitted for GI service evaluation, chf exacerbation with peripheral edema. patient to be admitted under hospitalist service. 0 *DC/Admit/Observation/Transfer Diagnosis at time of Disposition: Rectal bleeding, Elevated troponin Acute exacerbation of CHF (congestive heart failure) Qualifiers: Heart failure type: unspecified Qualified Code(s): I50.9 - Heart failure, unspecified - Discharge Dispostion Condition at time of disposition: Stable Decision to Admit order: Yes - Prescriptions - Referrals - Patient Instructions - Post Discharge Activity
[2017-12-24] MEDS ORDERED: SODIUM CHLORIDE 250 ML IV STA (21:14)
[2017-12-24 21:45] LABS: BASO % 0.4 % (0-2.0); EOS % 0.8 % (0-4.5); HEMATOCRIT 23.3 % (35.4-49); HEMOGLOBIN 7.7 GM/dL (11.7-16.9); LYMPH % 9.3 % (8-40); MCH 32.1 pg (25.7-33.7); MCHC 32.9 g/dl (32.0-35.9); MEAN CELL VOLUME 97.5 fl (80-96); MEAN PLT VOLUME 9.1 fl (7.5-11.1); MONO % 11.4 % (3.8-10.2); NEUT % 78.1 % (42.8-82.8); PLATELET COUNT 132 K/MM3 (134-434); RBC 2.39 M/mm3 (4.00-5.60); RDW 18.2 % (11.9-15.9); WHITE BLOOD COUNT 7.5 K/mm3 (4.0-10.0)
[2017-12-24 22:03] LABS: INR 1.27 (0.83-1.09); PROTHROMBIN TIME (PATIENT) 14.3 SEC (9.7-13.0)
[2017-12-24 22:11] LABS: ALBUMIN 2.5 g/dl (3.4-5.0); ANION GAP 11 (8-16); BILIRUBIN,TOTAL 1.3 mg/dL (0.2-1.0); BLOOD UREA NITROGEN 69 mg/dL (7-18); CALCIUM 8.6 mg/dL (8.5-10.1); CHLORIDE 109 mmol/L (98-107); CO2 24 mmol/L (21-32); CREATININE 2.3 mg/dL (0.7-1.3); GLUCOSE,RANDOM 99 mg/dL (74-106); SGPT/ALT 69 U/L (12-78); SODIUM 144 mmol/L (136-145)
[2017-12-24 22:12] LABS: URINE APPEARANCE CLOUDY; URINE BILIRUBIN NEGATIVE (<2.0 mg/dL); URINE COLOR YELLOW; URINE GLUCOSE (UA) NEGATIVE (NEGATIVE); URINE KETONE NEGATIVE (NEGATIVE); URINE NITRITE NEGATIVE (NEGATIVE); URINE UROBILINOGEN NEGATIVE mg/dL (0.2-1.0)
[2017-12-24 22:17] LABS: ALK PHOS 197 U/L (45-117); POTASSIUM 4.4 mmol/L (3.5-5.1); SGOT/AST 51 U/L (15-37); TOT PROT 5.4 g/dl (6.4-8.2)
[2017-12-24 22:42] LABS: URINE LEUK ESTERASE 2+ (NEGATIVE); URINE PROTEIN 2+ (NEGATIVE)
[2017-12-24 22:45] LABS: URINE MUCUS RARE
[2017-12-24] MEDS ORDERED: FUROSEMIDE 40 MG/4 ML INJECTABLE VIAL IVPUSH ONE (22:53)
[2017-12-25] MEDS ORDERED: FUROSEMIDE 40 MG/4 ML INJECTABLE VIAL ONE ×2 (00:31→06:10)
[2017-12-25] MEDS ORDERED: CEFTRIAXONE 2 GM in DEXTROSE 5%-WATER 100 ML IVPB ONE (01:30)
[2017-12-25] MEDS ORDERED: CEFTRIAXONE 2 GM/100 ML BAG IVPB ONE (01:51)
--- NOTE | 2017-12-25 02:10 | HP ---
CHIEF COMPLAINT: Bleeding per rectum PCP: HISTORY OF PRESENT ILLNESS: 82 yo male with PMH CABG (X4), Prostate CA (claims remission for many years), renal calculus with ureteral stent (s/p lithotripsy) aortic and mitral valve replacements, a-fib (s/p ablation and pacemaker), CVA, ICD insertion for VTach, Left ileo-femoral bypass graft, presented to the ED with bright red blood per rectum that began this afternoon after a bowel movement. He states that at baseline he has some bleeding sometimes with bowel movements, though it is usually minimal and self-limiting. He states that this episode is much worse and longer than ever before, and that he has probably lost about a pint of blood. Pt states he was discharged from [facility] last week after an ablation and pacemaker placement. He was on eliquis until 8 days ago when they stopped it. Since the discharge he has been having some progressive swelling in his legs , and states that he was not discharged on any lasix. He also has a recent hx of Left renal calculus which he underwent lithotripsy recently and stent placement. He states he has been having hematuria since then that has not improved or worsened. He states that his Hbg was 7.9 last week at [facility]. Also claims his Cr was 2.1 in the office 2 days ago. Pt also states that at baseline he has some constipation, 3 days ago he states he took some colace and senna. Since that time his stools have been somewhat loose. ER course was notable for: (1) Still having some minimal bleeding with (2) 250 cc NS bolus, 40 mg IV Lasix (3) CXR noted with possible small effusion on left base, CT Abdomen yesterday ( free pelvic fluid and diverticulosis, no masses or diverticulitis) Recent Travel: none PAST MEDICAL HISTORY: Prostate CA (claims remission for many years), a-fib (s/p ablation and pacemaker ), CVA, PAST SURGICAL HISTORY: Left ileo-femoral bypass graft CABG (X4) aortic and mitral valve replacements ICD insertion for VTach Social History: Smoking: none Alcohol: none Drugs: none Family History: Allergies No Known Drug Allergies Allergy (Verified 12/24/17 20:55) HOME MEDICATIONS: Home Medications Medication Instructions Recorded Aspirin Coated [Ecotrin -] 81 mg PO DAILY 12/20/11 Lisinopril [Prinivil] 5 mg PO DAILY 12/20/11 Atorvastatin Ca [Lipitor] 40 mg PO HS 11/07/14 Carvedilol [Coreg] 6.25 mg PO BID 11/07/14 Warfarin Sodium [Coumadin] 2.5 mg PO HS 11/07/14 Hydrochlorothiazide [Hctz -] 12.5 mg PO DAILY 01/06/15 Amoxicillin/Potassium Clav 500 mg PO BID 12/01/17 [Augmentin 500-125 Tablet] Phenazopyridine HCl [Pyridium] 100 mg PO TID 12/01/17 Tamsulosin HCl [Flomax] 0.4 mg PO DAILY 12/01/17 Timolol 0.25% [Timoptic 0.25%] 1 drop OP BID 12/01/17 REVIEW OF SYSTEMS CONSTITUTIONAL: Absent: fever, chills, diaphoresis, generalized weakness, malaise, loss of appetite, weight change HEENT: Absent: rhinorrhea, nasal congestion, throat pain, throat swelling, difficulty swallowing, mouth swelling, ear pain, eye pain, visual changes CARDIOVASCULAR: Absent: chest pain, syncope, palpitations, irregular heart rate, lightheadedness , peripheral edema RESPIRATORY: Absent: cough, shortness of breath, dyspnea with exertion, orthopnea, wheezing, stridor, hemoptysis GASTROINTESTINAL:hematochezia Absent: abdominal pain, abdominal distension, nausea, vomiting, diarrhea, constipation, melena, GENITOURINARY: hematuria Absent: dysuria, frequency, urgency, hesitancy, , flank pain, genital pain MUSCULOSKELETAL: Absent: myalgia, arthralgia, joint swelling, back pain, neck pain SKIN: Absent: rash, itching, pallor HEMATOLOGIC/IMMUNOLOGIC: Absent: easy bleeding, easy bruising, lymphadenopathy, frequent infections ENDOCRINE: Absent: unexplained weight gain, unexplained weight loss, heat intolerance, cold intolerance NEUROLOGIC: Absent: headache, focal weakness or paresthesias, dizziness, unsteady gait, seizure, mental status changes, bladder or bowel incontinence PSYCHIATRIC: Absent: anxiety, depression, suicidal or homicidal ideation, hallucinations. PHYSICAL EXAMINATION Vital Signs - 24 hr 12/24/17 20:50 Temperature 98.1 F Pulse Rate 88 Respiratory 17 Rate Blood Pressure 96/52 O2 Sat by Pulse 97 Oximetry (%) GENERAL: A&O, pale, no acute distress HEAD: Normocephalic, small hematoma on left forehead residual from fall few weeks ago. EYES: PERRL, EOMI, no scleral icterus, residual bruising below eyes b/l (says is improving) EARS, NOSE, THROAT: oropharynx clear without exudates. DRY mucous membranes. NECK: supple without lymphadenopathy LUNGS: Some rhonchi moreso in the left base, otherwise CTA HEART: Regular rate, systolic murmur ABDOMEN: Soft, nontender to palpation, normoactive bowel sounds MUSCULOSKELETAL: No bony deformities or tenderness. No CVA tenderness. UPPER EXTREMITIES: 2+ pulses, warm, well-perfused. No cyanosis. No clubbing. No peripheral edema. LOWER EXTREMITIES: 2+ pulses, warm, well-perfused. No calf tenderness. 2+ pitting edema, worse on Left NEUROLOGICAL: Cranial nerves II-XII grossly intact. Normal speech. RECTAL: Bright red blood noted on diaper with few clots present on perirectal area, small nodule felt on inferior wall of anal canal PSYCHIATRIC: Cooperative. Good eye contact. Appropriate mood and affect. SKIN: Warm, dry, normal turgor, no rashes or lesions noted Laboratory Results - last 24 hr 12/24/17 12/24/17 12/24/17 21:05 21:05 21:05 WBC 7.5 RBC 2.39 L Hgb 7.7 L Hct 23.3 L MCV 97.5 H MCH 32.1 MCHC 32.9 RDW 18.2 H Plt Count 132 L MPV 9.1 Absolute Neuts (auto) 5.8 Neutrophils % 78.1 Lymphocytes % 9.3 Monocytes % 11.4 H Eosinophils % 0.8 Basophils % 0.4 Nucleated RBC % 0 PT with INR 14.30 H INR 1.27 H Sodium 144 Potassium 4.4 Chloride 109 H Carbon Dioxide 24 Anion Gap 11 BUN 69 H D Creatinine 2.3 H Creat Clearance w eGFR 27.29 Random Glucose 99 Calcium 8.6 Total Bilirubin 1.3 H AST 51 H D ALT 69 D Alkaline Phosphatase 197 H D Troponin I B-Natriuretic Peptide Total Protein 5.4 L Albumin 2.5 L Urine Color Urine Appearance Urine pH Ur Specific [place] Urine Protein Urine Glucose (UA) Urine Ketones Urine Blood Urine Nitrite Urine Bilirubin Urine Urobilinogen Ur Leukocyte Esterase Urine WBC (Auto) Urine RBC (Auto) Urine Mucus Stool Occult Blood Blood Type Antibody Screen 12/24/17 12/24/17 12/24/17 21:05 21:05 21:05 WBC RBC Hgb Hct MCV MCH MCHC RDW Plt Count MPV Absolute Neuts (auto) Neutrophils % Lymphocytes % Monocytes % Eosinophils % Basophils % Nucleated RBC % PT with INR INR Sodium Potassium Chloride Carbon Dioxide Anion Gap BUN Creatinine Creat Clearance w eGFR Random Glucose Calcium Total Bilirubin AST ALT Alkaline Phosphatase Troponin I 0.26 H D B-Natriuretic Peptide 35350.23 H Total Protein Albumin Urine Color Urine Appearance Urine pH Ur Specific [place] Urine Protein Urine Glucose (UA) Urine Ketones Urine Blood Urine Nitrite Urine Bilirubin Urine Urobilinogen Ur Leukocyte Esterase Urine WBC (Auto) Urine RBC (Auto) Urine Mucus Stool Occult Blood Blood Type A POSITIVE Antibody Screen Negative 12/24/17 12/24/17 21:11 22:00 WBC RBC Hgb Hct MCV MCH MCHC RDW Plt Count MPV Absolute Neuts (auto) Neutrophils % Lymphocytes % Monocytes % Eosinophils % Basophils % Nucleated RBC % PT with INR INR Sodium Potassium Chloride Carbon Dioxide Anion Gap BUN Creatinine Creat Clearance w eGFR Random Glucose Calcium Total Bilirubin AST ALT Alkaline Phosphatase Troponin I B-Natriuretic Peptide Total Protein Albumin Urine Color Yellow Urine Appearance Cloudy Urine pH 5.0 Ur Specific [place] 1.015 Urine Protein 2+ H Urine Glucose (UA) Negative Urine Ketones Negative Urine Blood 3+ H Urine Nitrite Negative Urine Bilirubin Negative Urine Urobilinogen Negative Ur Leukocyte Esterase 2+ H Urine WBC (Auto) 137 Urine RBC (Auto) 597 Urine Mucus Rare Stool Occult Blood Positive Blood Type Antibody Screen ASSESSMENT/PLAN: 82 yo male with PMH CABG (X4), Prostate CA (claims remission for many years), renal calculus with L ureteral stent, aortic and mitral valve replacements, a- fib (s/p ablation and pacemaker), CVA, ICD insertion for VTach, Left ileo- femoral bypass graft, admitted for evaluation of gross blood per rectum and acute on chronic CHF exacerbation Hematochezia with anemia most likely blood loss anemia -Pt with hx of blood on bowel movements, though this is stated much worse -Likely caused by Diverticulosis, as seen on CT yesterday -Could less likely also be caused by hemmorrhoids or malignancy -GI consult ordered -Hbg 7.7, noted down from 7.9 last week at [facility] -Acute bleeding decreased now, though states about a pint lost today at home -Transfuse 1 units PRBCs Acute on Chronic CHF -Pt's states most recent echo showed EF of 20% -Pt discharged last week without any home lasix dosing -2+ pitting edema b/l LE, somewhat worse in left leg -CXR noted with mild effusion on left base -Repeat in AM after transfusion -Lasix 40 mg IV given in ED -Lasix 40 mg IV BID -Cardiology consult ordered -Telemetry monitoring -Fluid and salt restriction (currently NPO for bleed) Afib -S/p ablation and pacemaker placement -Pt recently had other meds stopped at [facility] and started on Amiodarone 200 mg PO Daily -Dual paced rythm noted on ECG CKD -unknown cause, could possibly be due to nephrotic syndrome -Nephrology consult ordered Renal Calculi with stent s/p lithotripsy -Urology consult ordered -Pt scheduled for f/u procedure this week DVT Prophylaxis -SCD's as tolerated as pt acutely bleeding FEN -No fluids -No abnormalities -NPO until GI recommendation Disposition Med/Surg Visit type - Emergency Visit Emergency Visit: Yes ED Registration Date: 12/24/17 Care time: The patient presented to the Emergency Department on the above date and was hospitalized for further evaluation of their emergent condition. - New Patient This patient is new to me today: Yes Date on this admission: 12/25/17 - Critical Care Critical Care patient: No Hospitalist Screening - Colonoscopy Questionnaire Colonoscopy Questionnaire: Colonoscopy Questionnaire - Patient: 50 - 75 years old and never had a screening colonoscopy: No History of colon or rectal polyps, or CA: No History of IBD, Crohn's disease or UC: No History of abdominal radiation therapy as a child: No - Relative: 1 with colon or rectal CA, or polyps at age 60 or younger: Unknown Colon or rectal CA diagnosed at age 45 or younger: Unknown Multiple relatives with colon or rectal CA: Unknown - Outcome: Screening Result: Negative Screen
--- NOTE | 2017-12-25 02:59 | PN ---
Teaching Attending Note Name of Resident: Arpan Dickerson ATTENDING PHYSICIAN STATEMENT I saw and evaluated the patient. I reviewed the resident's note and discussed the case with the resident. I agree with the resident's findings and plan as documented. SUBJECTIVE: Pateint is an 82 year old man who presents with rectal bleeding for one day. He has a PMH of quad bypass (02/1990), prostate cancer, aortic and mitral valve replacement, AAA stent, CVA, vtach s/p ICD, A.fib, left ilio-femoral bypass with saphenous vein, with recent discharge on 12/16/18 from [facility] after ablation and pacemaker placement. reports that patient usually has episodes of rectal bleeding with BM, but this time patient is noted to have copious bleeding. Last hgb at [facility] prior to discharge was 7.9 as per . He denies SOB, chest pain, weakness. As per patient has had leg edema and crackle since recent hospital stay. His lasix was recently stopped as well as his anticoagulant therapy. Has had gross hematuria since recent left ureteral stent? Last eloquis dose 1 week ago. Fell down recently while on coumadin. OBJECTIVE: Alert but weak Vital Signs Period Temp Pulse Resp BP Sys/Rodrigues Pulse Ox Last 24 Hr 98.1 F 88 17 96/52 97 HEENT: No Jaundice, hematoma on forehead, periorbital ecchymosis; pallor; no redness or discharge, PERRLA, EOMI. Normocephalic, atraumatic. External ears are normal and hearing is diminished. No nasal discharge. Neck: Supple, nontender. No palpable adenopathy or thyromegaly. No JVD Chest: Good effort. Bibasilar rales - R>L; Clear to percussion. Heart: Irregular. No S3 or rub; 2/6 RENNY Abdomen: Not distended, soft, nontender and no HSM. No rebound or guarding. Normoactive bowel sounds. Ext: Peripheral pulses intact. No leg edema - L>R. Skin: Warm and dry. No petechiae, rash or ecchymosis. Neuro: Alert. Oriented x3. CN 2-12 grossly intact. Sensation grossly intact in all four extremities and DTR are symmetric. Current Medications Generic Name Dose Route Start Last Admin Trade Name Freq PRN Reason Stop Dose Admin Furosemide 40 mg 12/25/17 06:00 Lasix Injection - IVPUSH BIDLASIX AUDIE Home Medications Medication Instructions Recorded Aspirin Coated [Ecotrin -] 81 mg PO DAILY 12/20/11 Lisinopril [Prinivil] 5 mg PO DAILY 12/20/11 Atorvastatin Ca [Lipitor] 40 mg PO HS 11/07/14 Carvedilol [Coreg] 6.25 mg PO BID 11/07/14 Warfarin Sodium [Coumadin] 2.5 mg PO HS 11/07/14 Hydrochlorothiazide [Hctz -] 12.5 mg PO DAILY 01/06/15 Amoxicillin/Potassium Clav 500 mg PO BID 12/01/17 [Augmentin 500-125 Tablet] Phenazopyridine HCl [Pyridium] 100 mg PO TID 12/01/17 Tamsulosin HCl [Flomax] 0.4 mg PO DAILY 12/01/17 Timolol 0.25% [Timoptic 0.25%] 1 drop OP BID 12/01/17 Abnormal Lab Results 12/24/17 12/24/17 12/24/17 21:05 21:05 21:05 RBC 2.39 L Hgb 7.7 L Hct 23.3 L MCV 97.5 H RDW 18.2 H Plt Count 132 L Monocytes % 11.4 H PT with INR 14.30 H INR 1.27 H Chloride 109 H BUN 69 H D Creatinine 2.3 H Total Bilirubin 1.3 H AST 51 H D Alkaline Phosphatase 197 H D Troponin I B-Natriuretic Peptide Total Protein 5.4 L Albumin 2.5 L Urine Protein Urine Blood Ur Leukocyte Esterase Crossmatch 12/24/17 12/24/17 12/24/17 21:05 21:05 21:05 RBC Hgb Hct MCV RDW Plt Count Monocytes % PT with INR INR Chloride BUN Creatinine Total Bilirubin AST Alkaline Phosphatase Troponin I 0.26 H D B-Natriuretic Peptide 65161.23 H Total Protein Albumin Urine Protein Urine Blood Ur Leukocyte Esterase Crossmatch See Detail 12/24/17 22:00 RBC Hgb Hct MCV RDW Plt Count Monocytes % PT with INR INR Chloride BUN Creatinine Total Bilirubin AST Alkaline Phosphatase Troponin I B-Natriuretic Peptide Total Protein Albumin Urine Protein 2+ H Urine Blood 3+ H Ur Leukocyte Esterase 2+ H Crossmatch ASSESSMENT AND PLAN: 1. Rectal Bleeding etc - Likely related to recent exposure to anticoagulants, but needs GI evaluation. Keep him NPO. Will give IV protonix, transfuse 1 unit PRBC slowly - has CAD,CHF and ongoing hematemesis and hematuria. Will treat with Zosyn for UTI pending culture (recent hospital stay). Unclear why his lasix was stopped recently in view of CHF. CXR shows cardiomegaly and pulmonary congestion. No evidence of ACS on EKG, but troponin is elevated, so will rule out ACS on telemetry. Will diurese gently with IV lasix - CKD and low albumin likely making edema worse. Implement fall precautions. Consult GI, ID, Urology and Cardiology. 2. Hypoalbuminemia - Possibly due to combined effects of malnutrition and inflammation associated with comorbid chronic conditions. Will ensure adequate dietary protein intake and also consult hire car driver. 3. CKD? - Cause unclear. Consult nephrology and avoid nephrotoxic agents such as NSAIDS, aminoglycosides, contrast dyes and certain Alternative medicine products. 4. DVT prophylaxis - SCD and Heparin 5000u sq tid. 5. Advance directives - Full code
[2017-12-25] MEDS ORDERED: FUROSEMIDE 40 MG/4 ML INJECTABLE VIAL IVPUSH SCH (06:00)
[2017-12-25 06:38] LABS: BASO % 0.7 % (0-2.0); EOS % 0.5 % (0-4.5); HEMATOCRIT 25.5 % (35.4-49); HEMOGLOBIN 8.7 GM/dL (11.7-16.9); LYMPH % 9.1 % (8-40); MCH 32.8 pg (25.7-33.7); MCHC 34.1 g/dl (32.0-35.9); MEAN CELL VOLUME 96.3 fl (80-96); MEAN PLT VOLUME 8.4 fl (7.5-11.1); MONO % 10.6 % (3.8-10.2); NEUT % 79.1 % (42.8-82.8); PLATELET COUNT 108 K/MM3 (134-434); RBC 2.65 M/mm3 (4.00-5.60); RDW 17.3 % (11.9-15.9)
[2017-12-25 07:07] LABS: ALBUMIN 2.5 g/dl (3.4-5.0); ANION GAP 11 (8-16); BLOOD UREA NITROGEN 62 mg/dL (7-18); CALCIUM 8.3 mg/dL (8.5-10.1); CHLORIDE 109 mmol/L (98-107); CO2 25 mmol/L (21-32); CREATININE 2.2 mg/dL (0.7-1.3); GLUCOSE,RANDOM 95 mg/dL (74-106); MAGNESIUM 2.2 mg/dL (1.8-2.4); PHOSPHOROUS 3.6 mg/dL (2.5-4.9); POTASSIUM 3.3 mmol/L (3.5-5.1); SGOT/AST 46 U/L (15-37); SGPT/ALT 67 U/L (12-78); SODIUM 145 mmol/L (136-145)
[2017-12-25 07:08] LABS: ALK PHOS 190 U/L (45-117); BILIRUBIN,TOTAL 1.5 mg/dL (0.2-1.0); TOT PROT 5.3 g/dl (6.4-8.2)
[2017-12-25] MEDS ORDERED: TAMSULOSIN HCL 0.4 MG CAP.ER.24H (FP) PO SCH (08:30)
[2017-12-25] MEDS: TAMSULOSIN HCL 0.4 MG CAP.ER.24H (FP) PO SCH (08:48)
[2017-12-25] MEDS ORDERED: ASPIRIN COATED 81 MG TABLET.EC PO SCH (10:00)
[2017-12-25] MEDS: AMIODARONE HCL 200 MG TABLET (FP) PO SCH (10:24)
--- NOTE | 2017-12-25 14:00 | EKG ---
Test Reason : Blood Pressure : / mmHG Vent. Rate : 080 BPM Atrial Rate : 073 BPM P-R Int : 000 ms QRS Dur : 198 ms QT Int : 542 ms P-R-T Axes : 000 -46 100 degrees QTc Int : 625 ms AV dual-paced rhythm ABNORMAL ECG WHEN COMPARED WITH ECG OF 01-DEC-2017 14:50, ELECTRONIC VENTRICULAR PACEMAKER HAS REPLACED ATRIAL FIBRILLATION Confirmed by TOI LEZAMA MD ([id number]) on 12/25/2017 1:59:44 PM Referred By: Confirmed By:TOI LEZAMA MD
--- NOTE | 2017-12-25 14:17 | CON.CARD ---
Consult Consult Specialty:: Cardiology Reason for Consultation:: GIB. AFIB - History of Present Illness Chief Complaint: BRBPR History of Present Illness: This is an 82 year old male with a PMH of sCHF (Ef 25%), CAD, S/P CABG x4 in 1989, bioprothetic AVR, mitral valve repair, AAA s/p repair, VT in 2011 with ICD ([employer] placed at [place] [facility]), AFIB (was on AC), Prostate (s/p Lupron, casodex, developed radiation proctitis), S/P CVS in 2010, and PVD (S/P left ilio-fem bypass). He was recently hospitalized at [facility] for an ICD shock and syncope, transferred to [facility], and discharged 12/15/17. During the hospitalization, he was started on amiodarone and anticoagulation was held because of hematuria. He was seen by , and was scheduled for a urethral stent removal next week at [facility]. He was D/C's to [facility]. He presents now a GIB with BRBPR. He denies cardiac symptoms at this time. - Past Medical History Cardio/Vascular: Yes: AFIB, Aneurysm, CAD, HTN, Hyperlipdemia Renal/: Yes: Renal Inusuff, BPH Additional Medical History: prostate cancer S/p Lupron, casodex and radiation, TIA, anticoagulation therapy; glaucoma; DVT LE - Past Surgical History Past Surgical History: Yes: AAA Repair, AICD, CABG, Permanent Pacemaker, Valve Replacement - Alcohol/Substance Use Hx Alcohol Use: No - Smoking History Smoking history: Unknown if ever smoked Have you smoked in the past 12 months: No Aproximately how many cigarettes per day: 0 - Social History Usual Living Arrangement: With Spouse 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 History of Recent Travel: No Home Medications - Allergies Allergies/Adverse Reactions: Allergies Allergy/AdvReac Type Severity Reaction Status Date / Time No Known Drug Allergies Allergy Verified 12/24/17 20:55 - Home Medications Home Medications: Ambulatory Orders Aspirin Coated [Ecotrin -] 81 mg PO DAILY 12/20/11 Atorvastatin Ca [Lipitor] 40 mg PO HS 11/07/14 Tamsulosin HCl [Flomax] 0.4 mg PO DAILY 12/01/17 Timolol 0.25% [Timoptic 0.25%] 1 drop OP BID 12/01/17 Review of Systems Findings/Remarks: As per HPI Vital Signs: Vital Signs Temperature 98.2 F 12/25/17 06:05 Pulse Rate 81 12/25/17 10:07 Respiratory Rate 17 12/25/17 06:05 Blood Pressure 108/62 12/25/17 06:05 O2 Sat by Pulse Oximetry (%) 97 12/25/17 10:07 Constitutional: Yes: No Distress, Thin HENT: Yes: WNL Neck: Yes: WNL Respiratory: Yes: Rhonchi (Scattered rhonchi) Gastrointestinal: Yes: Normal Bowel Sounds Cardiovascular: Yes: Regular Rate and Rhythm (S1S2 1/6 RENNY RUSB) Extremities: Yes: WNL Edema: LLE: Trace, RLE: Trace Neurological: Yes: Alert, Oriented (Grossly nonfocal) - Other Data Labs, Other Data: CBC, BMP 12/25/17 06:00 12/25/17 06:00 INR, PTT INR 1.27 (0.83-1.09) H 12/24/17 21:05 Troponin, BNP 12/24/17 12/24/17 12/25/17 21:05 21:05 06:00 Troponin I 0.26 H D 0.26 H B-Natriuretic Peptide 67352.23 H Troponin, BNP 12/24/17 12/24/17 12/25/17 21:05 21:05 06:00 Troponin I 0.26 H D 0.26 H B-Natriuretic Peptide 92160.23 H Assessment/Plan 82 year old male with a PMH of sCHF (Ef 25%), CAD, S/P CABG x4 in 1989, bioprothetic AVR, mitral valve repair, AAA s/p repair, VT in 2011 with ICD ( [employer] placed at [facility]), AFIB (was on AC), Prostate (s/p Lupron, casodex, developed radiation proctitis), S/P CVS in 2010, and PVD (S/P left ilio-fem bypass). He was recently hospitalized at [facility] for an ICD shock and syncope, transferred to [facility], and discharged 12/15/17. During the hospitalization, he was started on amiodarone and anticoagulation was held because of hematuria. He was seen by , and was scheduled for a urethral stent removal next week at [facility]. He was D/C's to [facility] Now presents with BRBPR GI Bleed Continue to Hold A/C No aspirin at this time GI consult appreciated There are no direct cardiac contraindications to Colonoscopy and/or endoscopy Arrhythmia Continue amiodarone 200 mg daily HLD Continue Atorvastatin 40 mg PO daily
[2017-12-25] MEDS ORDERED: CEFTRIAXONE 1 GM/50 ML BAG ONE (14:32)
[2017-12-25] MEDS: CEFTRIAXONE 1 GM in DEXTROSE 5%-WATER 100 ML IVPB SCH (14:38)
--- NOTE | 2017-12-25 14:44 | CON.GI ---
Consult Consult Specialty:: GI Reason for Consultation:: hematochezia - History of Present Illness History of Present Illness: Chart reviewed. Recent events, procedures and hospitalizations noted. Histroy provided by the patient and his . Per H&P: 82 yo male with PMH CABG (X4), Prostate CA (claims remission for many years), renal calculus with ureteral stent (s/p lithotripsy) aortic and mitral valve replacements, a-fib (s/p ablation and pacemaker), CVA, ICD insertion for VTach, Left ileo-femoral bypass graft, presented to the ED with bright red blood per rectum that began this afternoon after a bowel movement. He states that at baseline he has some bleeding sometimes with bowel movements, though it is usually minimal and self-limiting. He states that this episode is much worse and longer than ever before, and that he has probably lost about a pint of blood. Pt states he was discharged from [facility] last week after an ablation and pacemaker placement. He was on eliquis until 8 days ago when they stopped it. Since the discharge he has been having some progressive swelling in his legs , and states that he was not discharged on any lasix. He also has a recent hx of Left renal calculus which he underwent lithotripsy recently and stent placement. He states he has been having hematuria since then that has not improved or worsened. He states that his Hbg was 7.9 [facility] [place] [facility] [place] Also claims his Cr was 2.1 in the office 2 days ago. Pt also states that at baseline he has some constipation, 3 days ago he states he took some colace and senna. Since that time his stools have been somewhat loose. 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 He reports large volume, spontaneous, painless brbpr with and w/o bowel movements. Not associated with nausea, vomiting, or abdominal pain. No fever, chills, jauindice, chest pain, palpitations, or SOB. Was on eliquis up until 1 week ago. BRBPR noted on exam. - History Source History Provided By: Patient, Family Member, Medical Record - Past Medical History Cardio/Vascular: Yes: AFIB, Aneurysm, CAD, HTN, Hyperlipdemia Renal/: Yes: Renal Inusuff, BPH Additional Medical History: prostate cancer S/p Lupron, casodex and radiation, TIA, anticoagulation therapy; glaucoma; DVT LE - Past Surgical History Past Surgical History: Yes: AAA Repair, AICD, CABG, Permanent Pacemaker, Valve Replacement - Alcohol/Substance Use Hx Alcohol Use: No - Smoking History Smoking history: Unknown if ever smoked Have you smoked in the past 12 months: No Aproximately how many cigarettes per day: 0 - Social History Usual Living Arrangement: With Spouse 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 History of Recent Travel: No Home Medications - Allergies Allergies/Adverse Reactions: Allergies Allergy/AdvReac Type Severity Reaction Status Date / Time No Known Drug Allergies Allergy Verified 12/24/17 20:55 - Home Medications Home Medications: Ambulatory Orders Aspirin Coated [Ecotrin -] 81 mg PO DAILY 12/20/11 Atorvastatin Ca [Lipitor] 40 mg PO HS 11/07/14 Tamsulosin HCl [Flomax] 0.4 mg PO DAILY 12/01/17 Timolol 0.25% [Timoptic 0.25%] 1 drop OP BID 12/01/17 Family Disease History - Family Disease History Family History: Unremarkable (non-contrib) Review of Systems Findings/Remarks: as per h&P, ed, hpi Physical Exam-GI Vital Signs: Vital Signs Temperature 98.2 F 12/25/17 06:05 Pulse Rate 81 12/25/17 10:07 Respiratory Rate 17 12/25/17 06:05 Blood Pressure 108/62 12/25/17 06:05 O2 Sat by Pulse Oximetry (%) 97 12/25/17 10:07 Constitutional: Yes: No Distress, Calm, Cachectic, Pallor, Thin HENT: Yes: Other (b/l resolving bematomas) Neck: Yes: Supple Cardiovascular: Yes: Regular Rate and Rhythm Respiratory: Yes: Regular Gastrointestinal Inspection: No: Ascites, Distention ...Auscultate: Yes: Normoactive Bowel Sounds ...Palpate: Yes: Soft. No: Firm/Rigid, Guarding, Mass, Tenderness, Tenderness, Epigastium, Tenderness, Rebound ...Rectal Exam: Yes: Other (brbpr) Neurological: Yes: Alert, Oriented Labs: CBC, BMP 12/25/17 06:00 12/25/17 06:00 INR, PTT INR 1.27 (0.83-1.09) H 12/24/17 21:05 Laboratory Last Values WBC 7.0 K/mm3 (4.0-10.0) 12/25/17 06:00 RBC 2.65 M/mm3 (4.00-5.60) L 12/25/17 06:00 Hgb 8.7 GM/dL (11.7-16.9) L 12/25/17 06:00 Hct 25.5 % (35.4-49) L 12/25/17 06:00 MCV 96.3 fl (80-96) H 12/25/17 06:00 MCH 32.8 pg (25.7-33.7) 12/25/17 06:00 MCHC 34.1 g/dl (32.0-35.9) 12/25/17 06:00 RDW 17.3 % (11.9-15.9) H 12/25/17 06:00 Plt Count 108 K/MM3 (134-434) L 12/25/17 06:00 MPV 8.4 fl (7.5-11.1) 12/25/17 06:00 Absolute Neuts (auto) 5.5 # 12/25/17 06:00 Neutrophils % 79.1 % (42.8-82.8) 12/25/17 06:00 Lymphocytes % 9.1 % (8-40) 12/25/17 06:00 Monocytes % 10.6 % (3.8-10.2) H 12/25/17 06:00 Eosinophils % 0.5 % (0-4.5) 12/25/17 06:00 Basophils % 0.7 % (0-2.0) 12/25/17 06:00 Nucleated RBC % 0 % (0-0) 12/25/17 06:00 PT with INR 14.30 SEC (9.7-13.0) H 12/24/17 21:05 INR 1.27 (0.83-1.09) H 12/24/17 21:05 Sodium 145 mmol/L (136-145) 12/25/17 06:00 Potassium 3.3 mmol/L (3.5-5.1) L D 12/25/17 06:00 Chloride 109 mmol/L (98-107) H 12/25/17 06:00 Carbon Dioxide 25 mmol/L (21-32) 12/25/17 06:00 Anion Gap 11 (8-16) 12/25/17 06:00 BUN 62 mg/dL (7-18) H 12/25/17 06:00 Creatinine 2.2 mg/dL (0.7-1.3) H 12/25/17 06:00 Creat Clearance w eGFR 28.73 (>60) 12/25/17 06:00 Random Glucose 95 mg/dL (74-106) 12/25/17 06:00 Calcium 8.3 mg/dL (8.5-10.1) L 12/25/17 06:00 Phosphorus 3.6 mg/dL (2.5-4.9) 12/25/17 06:00 Magnesium 2.2 mg/dL (1.8-2.4) 12/25/17 06:00 Total Bilirubin 1.5 mg/dL (0.2-1.0) H 12/25/17 06:00 AST 46 U/L (15-37) H 12/25/17 06:00 ALT 67 U/L (12-78) 12/25/17 06:00 Alkaline Phosphatase 190 U/L (45-117) H 12/25/17 06:00 Troponin I 0.26 ng/ml (0.00-0.05) H 12/25/17 06:00 B-Natriuretic Peptide 03767.23 pg/ml (5-450) H 12/24/17 21:05 Total Protein 5.3 g/dl (6.4-8.2) L 12/25/17 06:00 Albumin 2.5 g/dl (3.4-5.0) L 12/25/17 06:00 Urine Color Yellow 12/24/17 22:00 Urine Appearance Cloudy 12/24/17 22:00 Urine pH 5.0 (5.0-8.0) 12/24/17 22:00 Ur Specific Richardson 1.015 (1.001-1.035) 12/24/17 22:00 Urine Protein 2+ (NEGATIVE) H 12/24/17 22:00 Urine Glucose (UA) Negative (NEGATIVE) 12/24/17 22:00 Urine Ketones Negative (NEGATIVE) 12/24/17 22:00 Urine Blood 3+ (NEGATIVE) H 12/24/17 22:00 Urine Nitrite Negative (NEGATIVE) 12/24/17 22:00 Urine Bilirubin Negative (<2.0 mg/dL) 12/24/17 22:00 Urine Urobilinogen Negative mg/dL (0.2-1.0) 12/24/17 22:00 Ur Leukocyte Esterase 2+ (NEGATIVE) H 12/24/17 22:00 Urine WBC (Auto) 137 /hpf (3-5) 12/24/17 22:00 Urine RBC (Auto) 597 /hpf (0-3) 12/24/17 22:00 Urine Mucus Rare 12/24/17 22:00 Stool Occult Blood Positive (NEGATIVE) 12/24/17 21:11 Blood Type A POSITIVE 12/24/17 21:05 Antibody Screen Negative 12/24/17 21:05 Crossmatch See Detail 12/24/17 21:05 Assessment/Plan An 82M on ASA with hematochezia. Hx of radiation proctopathy and sigmoid diverticulosis. Last colonoscopy 1 y ago was normal. Plan flex sig today Transfuse to Hgb above 7 Hold ASA
--- NOTE | 2017-12-25 15:27 | HOSP ---
Subjective - Review of Symptoms Subjective: pt seen and examined. He denies further hematoschzia, sob, chest pain. Physical Examination Vital Signs: Vital Signs Temperature 98.2 F 12/25/17 06:05 Pulse Rate 81 12/25/17 10:07 Respiratory Rate 17 12/25/17 06:05 Blood Pressure 108/62 12/25/17 06:05 O2 Sat by Pulse Oximetry (%) 97 12/25/17 10:07 Findings/Remarks: PE Neuro: alert, awake, cn 2-12intact HEENT: bilateral cheek bone ecchymosis , frontal head bruise Pulm: scattered crackles, mostly clear CV: s1 s2 irregular rate Abd: s nt nd +bs Ext: LLE +2 >in ankle area Labs: CBC, BMP 12/25/17 06:00 12/25/17 06:00 Hospitalist Encounter Assessment: Assessment: 82 year old male with BRBPR Plan: 1. Rectal bleeding - For flex sigmoidoscopy today - Continue protonix - Transfused 1uprbc 12/24 - GI seeing 2. A fib - Cont home meds - Off AC - DC ASA - Cont amiodarone 3. prostate ca, proctatitis - Flomax 4. FELICE - Baseline cr 1.3 - Kidney bladder us ordered - Stop lasix - Caution fluids d/t CHF - Urine studies ordered - D/W renal 5. HLD - Statin 6. Hypokalemia - Replete 40meq x1 7. CHF, systolic - Currently, does not appear overloaded - Stop lasix - Caution with fluids 8. UTI - Started ceftriaxone - Follow urine cx
--- NOTE | 2017-12-25 15:54 | CONSULT ---
Consult Consult Specialty:: Nephrology Reason for Consultation:: FELICE - History of Present Illness Chief Complaint: rectal bleeding History of Present Illness: Pt is an 82 year old male with pmhx of CAD, prostate cancer, aortic and mitral valve replacement, AAA with stent, CVA, a-fib, and PVD who presents to the ER with rectal bleeding. He does get rectal bleeding with bowel movements at times. The bleeding however did not stop this time. He was found to have elevated creatinine and I was called to evaluate him. He does have history of nephrolithiasis and had a stent recently placed. He denies shortness of breath. He does have lower ext edema. - History Source History Provided By: Patient, Family Member, Medical Record - Past Medical History Cardio/Vascular: Yes: AFIB, Aneurysm, CAD, HTN, Hyperlipdemia Renal/: Yes: Renal Inusuff, BPH Additional Medical History: prostate cancer S/p Lupron, casodex and radiation, TIA, anticoagulation therapy; glaucoma; DVT LE - Past Surgical History Past Surgical History: Yes: AAA Repair, AICD, CABG, Permanent Pacemaker, Valve Replacement - Alcohol/Substance Use Hx Alcohol Use: No - Smoking History Smoking history: Unknown if ever smoked Have you smoked in the past 12 months: No Aproximately how many cigarettes per day: 0 - Social History Usual Living Arrangement: With Spouse 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 History of Recent Travel: No Home Medications - Allergies Allergies/Adverse Reactions: Allergies Allergy/AdvReac Type Severity Reaction Status Date / Time No Known Drug Allergies Allergy Verified 12/24/17 20:55 - Home Medications Home Medications: Ambulatory Orders Aspirin Coated [Ecotrin -] 81 mg PO DAILY 12/20/11 Atorvastatin Ca [Lipitor] 40 mg PO HS 11/07/14 Tamsulosin HCl [Flomax] 0.4 mg PO DAILY 12/01/17 Timolol 0.25% [Timoptic 0.25%] 1 drop OP BID 12/01/17 Family Disease History - Family Disease History Family History: Denies Review of Systems - Review of Systems Constitutional: reports: No Symptoms Eyes: reports: No Symptoms HENT: reports: No Symptoms Neck: reports: No Symptoms Cardiovascular: reports: No Symptoms Respiratory: reports: No Symptoms Gastrointestinal: reports: Rectal Bleeding Genitourinary: reports: No Symptoms Musculoskeletal: reports: No Symptoms Integumentary: reports: No Symptoms Neurological: reports: No Symptoms Endocrine: reports: No Symptoms Physical Exam Vital Signs: Vital Signs Temperature 98.2 F 12/25/17 06:05 Pulse Rate 81 12/25/17 10:07 Respiratory Rate 17 12/25/17 06:05 Blood Pressure 108/62 12/25/17 06:05 O2 Sat by Pulse Oximetry (%) 97 12/25/17 10:07 Constitutional: Yes: Calm Eyes: Yes: Conjunctiva Clear HENT: Yes: Atraumatic Cardiovascular: Yes: Murmur, S1, S2 Respiratory: Yes: CTA Bilaterally Gastrointestinal: Yes: Soft Renal/: Yes: Incontinence Musculoskeletal: Yes: Muscle Weakness Edema: Yes Edema: LLE: 1+, RLE: 1+ Neurological: Yes: Oriented Psychiatric: Yes: Oriented Labs: CBC, BMP 12/25/17 06:00 12/25/17 06:00 Laboratory Tests 01/13/15 01/14/15 01/15/15 05:35 06:00 07:35 Hgb Sodium Potassium BUN Creatinine 0.9 D 0.9 0.9 B-Natriuretic Peptide 12/01/17 12/02/17 12/24/17 14:50 05:28 21:05 Hgb 7.7 L Sodium Potassium BUN Creatinine 1.7 H 1.5 H B-Natriuretic Peptide 12/24/17 12/24/17 12/25/17 21:05 21:05 06:00 Hgb 8.7 L Sodium 144 Potassium 4.4 BUN 69 H D Creatinine 2.3 H B-Natriuretic Peptide 40646.23 H 12/25/17 06:00 Hgb Sodium 145 Potassium 3.3 L D BUN 62 H Creatinine 2.2 H B-Natriuretic Peptide Imaging - Results Chest X-ray: Report Reviewed Problem List - Problems (1) FELICE (acute kidney injury) Code(s): N17.9 - ACUTE KIDNEY FAILURE, UNSPECIFIED (2) Rectal bleeding Code(s): K62.5 - HEMORRHAGE OF ANUS AND RECTUM Assessment/Plan Current Medications Generic Name Dose Route Start Last Admin Trade Name Freq PRN Reason Stop Dose Admin Amiodarone HCl 200 mg 12/25/17 10:00 12/25/17 10:24 Cordarone - PO 200 mg DAILY AUDIE Administration Atorvastatin Calcium 40 mg 12/25/17 22:00 Lipitor - PO HS AUDIE Ceftriaxone Sodium 1 gm/ 100 mls @ 200 mls/hr 12/25/17 12:30 12/25/17 14:38 Dextrose IVPB 200 mls/hr DAILY AUDIE Administration Protocol Tamsulosin HCl 0.4 mg 12/25/17 08:30 12/25/17 08:48 Flomax - PO 0.4 mg DAILY@0830 AUDIE Administration Impression 1. FELICE 2. hx prostate cancer 3. GI bleed 4. anemia 5. HLD 6. valvular heart disease 7. nephrolithiasis s/p stent Plan - renal function is starting to improve - repeat in am - GI eval for bleeding - hold lasix for now - check ua and urine lytes - follow renal ultrasound - discussed with medical team Dr Boles
[2017-12-25] MEDS ORDERED: POTASSIUM CHLORIDE ORAL LIQUID 20 MEQ/15 ML PO ONE (16:15)
[2017-12-25] MEDS ORDERED: PROPOFOL 20 ML ONE (16:48)
[2017-12-25] MEDS ORDERED: MIDAZOLAM HCL 2 MG/2 ML SINGLE DOSE VIAL ONE (16:57)
[2017-12-25] MEDS ORDERED: EPINEPHrine INTRACARD 1:10,000 1 MG/10 ML DISP.SYRIN IVPUSH ONE (17:30)
--- NOTE | 2017-12-25 18:34 | PROC ---
Endoscopy Procedure Endoscopy procedure completed. Please see scanned procedure report. A pulsating bleeding vessel in the rectum brar-affected by radiation proctopathy was found, 7 clipps in total were deployed, however they would not grab the scarred rectal mucosa. The bleeding vessel then was injected with 6 cc of epinephrine, which slowed the rate of bleeding. A heater probe @20 with multiple applications to the now oozing blood vessel was applied with complete hemostasis achieved and observed for 5 minutes. All the loose clips were retrieved from the rectum with a [place]irano basket. ICU x 24 hrs 2 units of PRBC in process Liquid carafate IN QID Rowasa IN QHS
--- NOTE | 2017-12-25 22:37 | CONSULT ---
Consultation: REQUESTING PROVIDER: CONSULT REQUEST: We have been asked to medically evaluate this patient for ( Hematochezia). HISTORY OF PRESENT ILLNESS: Pt is an 82 y/o gentleman with an extensive past medical history of CAD, prostate cancer(s/p Lupron, casodex, developed radiation proctitis), aortic and mitral valve replacement, AAA with stent, CVA, a-fib, and PVD (Left ileo- femoral bypass graft). Pt was recently discharged from [facility] on 12/16/18 after ablation and pacemaker placement. Pt presented to [facility] c/o BRBPR x 2 hours. Pt subsequently underwent a flexible sigmoidoscopy w/ Dr Church earlier today which revealed a pulsating bleeding vessel in the rectum. Bleeding vessel was injected with 6 cc of epinephrine and cauterized until hemostasis. Pt 's Hgb on admission was 7.7. Pt has been receiving PRBC's. REVIEW OF SYSTEMS: CONSTITUTIONAL: Absent: fever, chills, diaphoresis, generalized weakness, malaise, loss of appetite, weight change HEENT: Absent: rhinorrhea, nasal congestion, throat pain, throat swelling, difficulty swallowing, mouth swelling, ear pain, eye pain, visual changes CARDIOVASCULAR: PRESENT: palpitations, irregular heart rate, peripheral edema RESPIRATORY: Absent: cough, shortness of breath, dyspnea with exertion, orthopnea, wheezing, stridor, hemoptysis GASTROINTESTINAL: Absent: abdominal pain, abdominal distension, nausea, vomiting, diarrhea, constipation, melena, hematochezia GENITOURINARY: PRESENT: hematuria, flank pain MUSCULOSKELETAL: Absent: myalgia, arthralgia, joint swelling, back pain, neck pain SKIN: Absent: rash, itching, pallor HEMATOLOGIC/IMMUNOLOGIC: PRESENT: easy bleeding, easy bruising ENDOCRINE: Absent: unexplained weight gain, unexplained weight loss, heat intolerance, cold intolerance NEUROLOGIC: Absent: headache, focal weakness or paresthesias, dizziness, unsteady gait, seizure, mental status changes, bladder or bowel incontinence PSYCHIATRIC: Absent: anxiety, depression, suicidal or homicidal ideation, hallucinations. PHYSICAL EXAMINATION Vital Signs - 24 hr 12/25/17 12/25/17 12/25/17 03:00 03:25 05:11 Temperature 98.0 F 98.0 F 97.2 F L Pulse Rate Pulse Rate [ 80 80 80 Right] Respiratory 17 17 16 Rate Blood Pressure Blood Pressure 106/61 105/62 102/62 [Right Arm] O2 Sat by Pulse 99 100 Oximetry (%) 12/25/17 12/25/17 12/25/17 05:35 06:05 10:07 Temperature 98.1 F 98.2 F Pulse Rate Pulse Rate [ 88 82 81 Right] Respiratory 18 17 Rate Blood Pressure Blood Pressure 104/61 108/62 [Right Arm] O2 Sat by Pulse 98 98 97 Oximetry (%) 12/25/17 12/25/17 12/25/17 18:45 19:00 19:15 Temperature 97.6 F 97.6 F Pulse Rate 84 80 80 Pulse Rate [ Right] Respiratory 16 20 16 Rate Blood Pressure 81/54 87/53 93/55 Blood Pressure [Right Arm] O2 Sat by Pulse 100 100 100 Oximetry (%) 12/25/17 12/25/17 12/25/17 19:30 19:45 20:40 Temperature 97.6 F 97.8 F Pulse Rate 80 86 80 Pulse Rate [ Right] Respiratory 16 16 20 Rate Blood Pressure 78/56 86/56 88/48 Blood Pressure [Right Arm] O2 Sat by Pulse 100 94 L Oximetry (%) GENERAL: AAOX3 HEAD: Bruising left side of face EYES:Glasses. PERRLA, EOMI. EARS, NOSE, THROAT: MMM NECK: Supple. no JVD. LUNGS: CTA B/L HEART: Pacemaker. RRR ABDOMEN: Soft, nontender, not distended, normoactive bowel sounds, no guarding, no rebound, no masses. No hepatomegaly or splenomegaly. MUSCULOSKELETAL: Normal range of motion at all joints. No bony deformities or tenderness. No CVA tenderness. UPPER EXTREMITIES: 2+ pulses, warm, well-perfused. No cyanosis. No clubbing. Cap refill <2 seconds. No peripheral edema. LOWER EXTREMITIES: 2+ pulses, warm, well-perfused. No calf tenderness. No peripheral edema. NEUROLOGICAL: Cranial nerves II-XII intact. Normal speech. Normal gait. PSYCHIATRIC: Cooperative. Good eye contact. Appropriate mood and affect. SKIN: Warm, dry, normal turgor, no rashes or lesions noted. Laboratory Results - last 24 hr 12/24/17 12/24/17 12/24/17 21:05 21:05 21:05 WBC RBC Hgb Hct MCV MCH MCHC RDW Plt Count MPV Absolute Neuts (auto) Neutrophils % Lymphocytes % Monocytes % Eosinophils % Basophils % Nucleated RBC % PT with INR 14.30 H INR 1.27 H Sodium 144 Potassium 4.4 Chloride 109 H Carbon Dioxide 24 Anion Gap 11 BUN 69 H D Creatinine 2.3 H Creat Clearance w eGFR 27.29 Random Glucose 99 Calcium 8.6 Phosphorus Magnesium Total Bilirubin 1.3 H AST 51 H D ALT 69 D Alkaline Phosphatase 197 H D Troponin I B-Natriuretic Peptide Total Protein 5.4 L Albumin 2.5 L Urine Color Urine Appearance Urine pH Ur Specific [place] Urine Protein Urine Glucose (UA) Urine Ketones Urine Blood Urine Nitrite Urine Bilirubin Urine Urobilinogen Ur Leukocyte Esterase Urine WBC (Auto) Urine RBC (Auto) Urine Mucus Blood Type A POSITIVE Antibody Screen Negative Crossmatch See Detail 12/24/17 12/24/17 12/24/17 21:05 21:05 22:00 WBC RBC Hgb Hct MCV MCH MCHC RDW Plt Count MPV Absolute Neuts (auto) Neutrophils % Lymphocytes % Monocytes % Eosinophils % Basophils % Nucleated RBC % PT with INR INR Sodium Potassium Chloride Carbon Dioxide Anion Gap BUN Creatinine Creat Clearance w eGFR Random Glucose Calcium Phosphorus Magnesium Total Bilirubin AST ALT Alkaline Phosphatase Troponin I 0.26 H D B-Natriuretic Peptide 00338.23 H Total Protein Albumin Urine Color Yellow Urine Appearance Cloudy Urine pH 5.0 Ur Specific [place] 1.015 Urine Protein 2+ H Urine Glucose (UA) Negative Urine Ketones Negative Urine Blood 3+ H Urine Nitrite Negative Urine Bilirubin Negative Urine Urobilinogen Negative Ur Leukocyte Esterase 2+ H Urine WBC (Auto) 137 Urine RBC (Auto) 597 Urine Mucus Rare Blood Type Antibody Screen Crossmatch 12/25/17 12/25/17 12/25/17 06:00 06:00 06:00 WBC 7.0 RBC 2.65 L Hgb 8.7 L Hct 25.5 L MCV 96.3 H MCH 32.8 MCHC 34.1 RDW 17.3 H Plt Count 108 L MPV 8.4 Absolute Neuts (auto) 5.5 Neutrophils % 79.1 Lymphocytes % 9.1 Monocytes % 10.6 H Eosinophils % 0.5 Basophils % 0.7 Nucleated RBC % 0 PT with INR INR Sodium 145 Potassium 3.3 L D Chloride 109 H Carbon Dioxide 25 Anion Gap 11 BUN 62 H Creatinine 2.2 H Creat Clearance w eGFR 28.73 Random Glucose 95 Calcium 8.3 L Phosphorus 3.6 Magnesium 2.2 Total Bilirubin 1.5 H AST 46 H ALT 67 Alkaline Phosphatase 190 H Troponin I 0.26 H B-Natriuretic Peptide Total Protein 5.3 L Albumin 2.5 L Urine Color Urine Appearance Urine pH Ur Specific [place] Urine Protein Urine Glucose (UA) Urine Ketones Urine Blood Urine Nitrite Urine Bilirubin Urine Urobilinogen Ur Leukocyte Esterase Urine WBC (Auto) Urine RBC (Auto) Urine Mucus Blood Type Antibody Screen Crossmatch Active Medications Generic Name Dose Route Start Last Admin Trade Name Freq PRN Reason Stop Dose Admin Amiodarone HCl 200 mg 12/25/17 10:00 12/25/17 10:24 Cordarone - PO 200 mg DAILY [facility] Administration Atorvastatin Calcium 40 mg 12/25/17 22:00 Lipitor - PO HS [facility] Ceftriaxone Sodium 1 gm/ 100 mls @ 200 mls/hr 12/25/17 12:30 12/25/17 14:38 Dextrose IVPB 200 mls/hr DAILY [facility] Administration Protocol Mesalamine 4 gm 12/25/17 22:00 Rowasa Enema - KS HS [facility] Sucralfate 1 gm 12/25/17 22:00 Carafate Oral Suspension - PO QID [facility] Tamsulosin HCl 0.4 mg 12/25/17 08:30 12/25/17 08:48 Flomax - PO 0.4 mg DAILY@0830 [facility] Administration Timolol Maleate 1 drop 12/26/17 10:00 Timoptic 0.5% OU BID [facility] ASSESSMENT/PLAN: Hematochezia with anemia 2/2 radiation proctitis -s/p Flexible sigmoidoscopy w/ cauterization. -Hbg 7.7 on admission, now 8.7. -Transfuse if Hgb below 7 -Hold Aspirin -CBC Q12H - Received 3 U PRBC A fib Amiodarone 200 mg PO Daily -AC on hold s/p GI Bleed -Cardio On Board -EKG 12/24--> No longer in A-Fib Chest X-ray 12/24--> No acute chest pathology. 4. FELICE possibly 2/2 distributive shock 2/2 CHF -Nephro on board - lasix on hold -Bladder/Renal Ultrasound FEN No Fluids Monitor Electrolytes NPO DVT ppx: Mechanical Dispo: We will continue to follow the patient. Thank you for this consultative opportunity. Visit type - Emergency Visit Emergency Visit: Yes ED Registration Date: 12/24/17 Care time: The patient presented to the Emergency Department on the above date and was hospitalized for further evaluation of their emergent condition. - New Patient This patient is new to me today: Yes Date on this admission: 12/25/17 - Critical Care Critical Care patient: Yes Total Critical Care Time (in minutes): 35 Critical Care Statement: The care of this patient involved high complexity decision making to prevent further life threatening deterioration of the patient 's condition and/or to evaluate & treat vital organ system(s) failure or risk of failure.
[2017-12-25] MEDS: ATORVASTATIN CA 40 MG TABLET (FP) PO SCH (23:39)
[2017-12-25] MEDS: SUCRALFATE 1 GM/10 ML UNIT DOSE CUPS PO SCH (23:39)
[2017-12-25] MEDS: MESALAMINE 4 GM/60 ML ENEMA PR SCH (23:40)
[2017-12-26] MEDS: MESALAMINE 4 GM/60 ML ENEMA PR SCH ×2 (01:00→21:12)
[2017-12-26 06:20] LABS: BASO % 0.3 % (0-2.0); EOS % 0.7 % (0-4.5); HEMATOCRIT 24.7 % (35.4-49); HEMOGLOBIN 8.5 GM/dL (11.7-16.9); LYMPH % 8.7 % (8-40); MCH 31.7 pg (25.7-33.7); MCHC 34.3 g/dl (32.0-35.9); MEAN CELL VOLUME 92.3 fl (80-96); MEAN PLT VOLUME 8.6 fl (7.5-11.1); MONO % 9.7 % (3.8-10.2); NEUT % 80.6 % (42.8-82.8); PLATELET COUNT 93 K/MM3 (134-434); RBC 2.68 M/mm3 (4.00-5.60); RDW 18.2 % (11.9-15.9); WHITE BLOOD COUNT 7.5 K/mm3 (4.0-10.0)
[2017-12-26 06:46] LABS: ALBUMIN 2.1 g/dl (3.4-5.0); ANION GAP 9 (8-16); BLOOD UREA NITROGEN 54 mg/dL (7-18); CHLORIDE 110 mmol/L (98-107); CO2 28 mmol/L (21-32); GLUCOSE,RANDOM 92 mg/dL (74-106); MAGNESIUM 2.3 mg/dL (1.8-2.4); PHOSPHOROUS 3.9 mg/dL (2.5-4.9); POTASSIUM 3.4 mmol/L (3.5-5.1); SGOT/AST 38 U/L (15-37); SODIUM 147 mmol/L (136-145)
[2017-12-26 06:49] LABS: ALK PHOS 145 U/L (45-117); BILIRUBIN,TOTAL 2.3 mg/dL (0.2-1.0); CREATININE 1.9 mg/dL (0.7-1.3); SGPT/ALT 48 U/L (12-78); TOT PROT 4.4 g/dl (6.4-8.2)
--- NOTE | 2017-12-26 07:35 | PN ---
Physical Exam: SUBJECTIVE: Patient seen and examined at bedside in ICU. OBJECTIVE: Vital Signs Period Temp Pulse Resp BP Sys/Rodrigues Pulse Ox Last 24 Hr 97.6 F-98.2 F 79-104 16-20 78-130/40-82 94-100 GENERAL: The patient is awake, alert, and fully oriented, in no acute distress. LUNGS: Bibasilar rhonchi HEART: Irregular, S1, S2 ABDOMEN: Soft, nontender, nondistended EXTREMITIES: 2+ pulses, warm, well-perfused, no edema, no calf tenderness NEUROLOGICAL: Cranial nerves II through XII grossly intact. Normal speech Laboratory Results - last 24 hr 12/24/17 12/26/17 12/26/17 21:05 05:30 05:30 WBC 7.5 RBC 2.68 L Hgb 8.5 L Hct 24.7 L MCV 92.3 MCH 31.7 MCHC 34.3 RDW 18.2 H Plt Count 93 L MPV 8.6 Absolute Neuts (auto) 6.0 Neutrophils % 80.6 Lymphocytes % 8.7 Monocytes % 9.7 Eosinophils % 0.7 Basophils % 0.3 Nucleated RBC % 0 Sodium 147 H Potassium 3.4 L Chloride 110 H Carbon Dioxide 28 Anion Gap 9 BUN 54 H Creatinine 1.9 H Creat Clearance w eGFR 34.02 Random Glucose 92 Calcium 8.0 L Phosphorus 3.9 Magnesium 2.3 Total Bilirubin 2.3 H AST 38 H ALT 48 D Alkaline Phosphatase 145 H D Total Protein 4.4 L Albumin 2.1 L Blood Type A POSITIVE Antibody Screen Negative Crossmatch See Detail Active Medications Generic Name Dose Route Start Last Admin Trade Name Freq PRN Reason Stop Dose Admin Amiodarone HCl 200 mg 12/25/17 10:00 12/25/17 10:24 Cordarone - PO 200 mg DAILY AUDIE Administration Atorvastatin Calcium 40 mg 12/25/17 22:00 12/25/17 23:39 Lipitor - PO 40 mg HS AUDIE Administration Ceftriaxone Sodium 1 gm/ 100 mls @ 200 mls/hr 12/25/17 12:30 12/25/17 14:38 Dextrose IVPB 200 mls/hr DAILY AUDIE Administration Protocol Mesalamine 4 gm 12/25/17 22:00 12/26/17 01:00 Rowasa Enema - [place] 4 gm HS AUDIE Administration Sucralfate 1 gm 12/25/17 22:00 12/25/17 23:39 Carafate Oral Suspension - PO 1 gm QID AUDIE Administration Tamsulosin HCl 0.4 mg 12/25/17 08:30 12/25/17 08:48 Flomax - PO 0.4 mg DAILY@0830 AUDIE Administration Timolol Maleate 1 drop 12/26/17 10:00 Timoptic 0.5% OU BID [facility] ASSESSMENT/PLAN: 82 year old male with a PMH of CAD s/p CABG x 4 in 1989, sCHF (Ef 25%), bioprosthetic AVR, mitral valve repair, AAA s/p repair, VT in 2011 with ICD, afib (was on Eliquis), 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 Now admitted for lower GI bleed and FELICE. Rectal bleeding --multifactorial: h/o radiation proctitis, on aspirin and Eliquis --12/25 endoscopy: pulsating bleeding vessel in rectum, hemostasis achieved --last transfused 12/25; total 3 units PRBC so far --repeat cbc today at 5pm --liquid carafate OK QID --mesalamine OK QHS Acute on chronic kidney injury --Cr 2.3 on admission, 1.9 today, baseline ~1.5 --12/25 US renal: minimal to mild right hydro; post-void residual 400ccs; left nephroureteral stent; trace ascites right abdomen --continue to hold lasix --continue tamsulosin Left renal calculus s/p lithotripsy and ureteral stent --stent in place, was scheduled to be removed next week at outside hospital --consider urology consult when more stable Urinary tract infection/prostatitis --pyuria, culture pending --continue ceftriaxone (day #2) Atrial fibrillation --continue amiodarone PO --had been on Eliquis Coronary artery disease --no ASA due to bleeding --continue statin Chronic systolic heart failure --appears euvolemic --holding lasix for now --monitor closely for signs of volume overload Hypokalemia --repleted FEN Fluids: PO intake adequate Electrolytes: replete as indicated Nutrition: full liquids DVT prophylaxis: SCDs, oob, ambulation Physical therapy Dispo: continues to require ICU level care. Full code. Visit type - Emergency Visit Emergency Visit: Yes ED Registration Date: 12/24/17 Care time: The patient presented to the Emergency Department on the above date and was hospitalized for further evaluation of their emergent condition. - New Patient This patient is new to me today: Yes Date on this admission: 12/26/17 - Critical Care Critical Care patient: Yes Total Critical Care Time (in minutes): 45 Critical Care Statement: The care of this patient involved high complexity decision making to prevent further life threatening deterioration of the patient 's condition and/or to evaluate & treat vital organ system(s) failure or risk of failure.
[2017-12-26] MEDS ORDERED: DEXTROSE 5%-WATER 100 ML IVPB ONE (07:47)
[2017-12-26] MEDS ORDERED: PT OWN MED DRAWER 7, Y5N ONE ×3 (07:47→11:57)
[2017-12-26] MEDS ORDERED: cefTRIAXone SODIUM 1 GM VIAL ONE (07:47)
[2017-12-26] MEDS ORDERED: POTASSIUM CHLORIDE TABS 20 MEQ TABLET.ER (FP) PO ONE (08:00)
[2017-12-26] MEDS: TAMSULOSIN HCL 0.4 MG CAP.ER.24H (FP) PO SCH (08:27)
[2017-12-26] MEDS: AMIODARONE HCL 200 MG TABLET (FP) PO SCH (09:01)
[2017-12-26] MEDS: SUCRALFATE 1 GM/10 ML UNIT DOSE CUPS PO SCH ×4 (09:10→21:13)
[2017-12-26] MEDS: CEFTRIAXONE 1 GM in DEXTROSE 5%-WATER 100 ML IVPB SCH (09:10)
[2017-12-26 09:51] LABS: URINE APPEARANCE TURBID; URINE BILIRUBIN NEGATIVE (<2.0 mg/dL); URINE COLOR RED; URINE GLUCOSE (UA) 1+ (NEGATIVE); URINE KETONE NEGATIVE (NEGATIVE); URINE NITRITE NEGATIVE (NEGATIVE); URINE UROBILINOGEN NEGATIVE mg/dL (0.2-1.0)
[2017-12-26] MEDS ORDERED: fentaNYL CITRATE 250 MCG/5 ML VIAL ONE (09:54)
[2017-12-26 09:55] LABS: URINE LEUK ESTERASE 1+ (NEGATIVE); URINE PROTEIN 2+ (NEGATIVE)
[2017-12-26] MEDS ORDERED: TIMOLOL 0.5% OPHTHALMIC SOL 5 ML BOTTLE OU SCH (10:00)
[2017-12-26 10:39] LABS: URINE CREATININE 74.3 mg/dL (20-370)
--- NOTE | 2017-12-26 11:47 | PN ---
Progress Note, Physician Chief Complaint: no aicd shocks. comfortable tele with some ATP. History of Present Illness: 82 year old male with a PMH of sCHF (Ef 25%), CAD, S/P CABG x4 in 1989, bioprothetic AVR, mitral valve repair, AAA s/p repair, VT in 2011 with ICD ( [employer] placed at [place]), AFIB (was on AC), Prostate (s/p Lupron, casodex, developed radiation proctitis), S/P CVS in 2010, and PVD (S/P left ilio-fem bypass). He was recently hospitalized at [facility] for an ICD shock and syncope, transferred to [facility], and discharged 12/15/17. During the hospitalization, he was started on amiodarone and anticoagulation was held because of hematuria. He was seen by , and was scheduled for a urethral stent removal next week at [facility]. He was D/C's to Rehab. Now presents with BRBPR Underwent flex sig 12/25/17 with visible bleeding, s/p complex cautery. - Current Medication List Current Medications: Active Medications Amiodarone HCl (Cordarone -) 200 mg PO DAILY [facility] Last Admin: 12/26/17 09:01 Dose: 200 mg Atorvastatin Calcium (Lipitor -) 40 mg PO HS [facility] Last Admin: 12/25/17 23:39 Dose: 40 mg Ceftriaxone Sodium 1 gm/ (Dextrose) 100 mls @ 200 mls/hr IVPB DAILY [facility]; Protocol Last Admin: 12/26/17 09:10 Dose: 200 mls/hr Mesalamine (Rowasa Enema -) 4 gm [place] HS [facility] Last Admin: 12/26/17 01:00 Dose: 4 gm Sucralfate (Carafate Oral Suspension -) 1 gm PO QID [facility] Last Admin: 12/26/17 09:10 Dose: 1 gm Tamsulosin HCl (Flomax -) 0.4 mg PO DAILY@0830 [facility] Last Admin: 12/26/17 08:27 Dose: 0.4 mg Timolol Maleate (Timoptic 0.5%) 1 drop OU BID [facility] - Objective Vital Signs: Vital Signs Temperature 98.2 F 12/26/17 06:00 Pulse Rate 80 12/26/17 10:00 Respiratory Rate 14 12/26/17 10:00 Blood Pressure 93/54 12/26/17 10:00 O2 Sat by Pulse Oximetry (%) 100 12/26/17 09:00 Constitutional: Yes: No Distress, Calm Eyes: Yes: Conjunctiva Clear, EOM Intact HENT: Yes: Atraumatic, Normocephalic Neck: Yes: Trachea Midline Cardiovascular: Yes: Regular Rate and Rhythm Respiratory: Yes: CTA Bilaterally Gastrointestinal: Yes: Normal Bowel Sounds, Soft Musculoskeletal: Yes: WNL Extremities: Yes: WNL Edema: No Peripheral Pulses WNL: Yes Labs: CBC, BMP 12/26/17 05:30 12/26/17 05:30 INR, PTT INR 1.27 (0.83-1.09) H 12/24/17 21:05 Assessment/Plan 82 year old male with a PMH of sCHF (Ef 25%), CAD, S/P CABG x4 in 1989, bioprothetic AVR, mitral valve repair, AAA s/p repair, VT in 2011 with ICD ( [employer] placed at [place] [facility]), AFIB (was on AC), Prostate (s/p Lupron, casodex, developed radiation proctitis), S/P CVS in 2010, and PVD (S/P left ilio-fem bypass). He was recently hospitalized at [facility] for an ICD shock and syncope, transferred to [facility], and discharged 12/15/17. During the hospitalization, he was started on amiodarone and anticoagulation was held because of hematuria. He was seen by , and was scheduled for a urethral stent removal next week at [facility]. He was D/C's to Rehab. Now presents with BRBPR Colonoscopy showed bleeding vessel underwent cautery. GI Bleed Continue to Hold A/C, but will need to restart Eliquis at some point when considered stable from GI. No aspirin at this time GI consult appreciated Arrhythmia Continue amiodarone 200 mg daily HLD Continue Atorvastatin 40 mg PO daily
--- NOTE | 2017-12-26 12:26 | PN ---
Teaching Attending Note Name of Resident: Isidro Buckley ATTENDING PHYSICIAN STATEMENT I saw and evaluated the patient. I reviewed the resident's note and discussed the case with the resident. I agree with the resident's findings and plan as documented. SUBJECTIVE: Patient seen and examined in the ICU. Awake and alert. No active bleeding noted this AM. No CP or SOB. Telemetry noted. Findings discussed with Cardiology. Remains NPO. Still with some discomfort in his heels. Intake & Output 12/23/17 12/24/17 12/25/17 12/26/17 23:59 23:59 23:59 23:59 Intake Total 1300 Output Total 400 800 Balance 900 -800 Weight 167 lb 167 lb 156 lb 1 oz Last Vital Signs Temp Pulse Resp BP Pulse Ox 98.2 F 80 14 93/54 100 12/26/17 06:00 12/26/17 10:00 12/26/17 10:00 12/26/17 10:00 12/26/17 09:00 Active Medications Amiodarone HCl (Cordarone -) 200 mg PO DAILY [facility] Last Admin: 12/26/17 09:01 Dose: 200 mg Atorvastatin Calcium (Lipitor -) 40 mg PO HS [facility] Last Admin: 12/25/17 23:39 Dose: 40 mg Ceftriaxone Sodium 1 gm/ (Dextrose) 100 mls @ 200 mls/hr IVPB DAILY [facility]; Protocol Last Admin: 12/26/17 09:10 Dose: 200 mls/hr Mesalamine (Rowasa Enema -) 4 gm [place] HS [facility] Last Admin: 12/26/17 01:00 Dose: 4 gm Sucralfate (Carafate Oral Suspension -) 1 gm PO QID [facility] Last Admin: 12/26/17 09:10 Dose: 1 gm Tamsulosin HCl (Flomax -) 0.4 mg PO DAILY@0830 [facility] Last Admin: 12/26/17 08:27 Dose: 0.4 mg Timolol Maleate (Timoptic 0.5%) 1 drop OU BID [facility] HEENT: (-) Icterus,, PERRLA, EOMI. Neck: Supple, nontender. No palpable adenopathy or thyromegaly. No JVD Chest: Few bibasilar rhonchi Heart: Irregular. No S3 or rub; 2/6 RENNY Abdomen: Not distended, soft, nontender and no HSM. No rebound or guarding. Normoactive bowel sounds. Ext: Peripheral pulses intact. No leg edema - L>R. Skin: Warm and dry. No petechiae, rash or ecchymosis. Neuro: Alert. Non-focal Laboratory Results - last 24 hr 12/24/17 12/26/17 12/26/17 21:05 05:30 05:30 WBC 7.5 RBC 2.68 L Hgb 8.5 L Hct 24.7 L MCV 92.3 MCH 31.7 MCHC 34.3 RDW 18.2 H Plt Count 93 L MPV 8.6 Absolute Neuts (auto) 6.0 Neutrophils % 80.6 Lymphocytes % 8.7 Monocytes % 9.7 Eosinophils % 0.7 Basophils % 0.3 Nucleated RBC % 0 Sodium 147 H Potassium 3.4 L Chloride 110 H Carbon Dioxide 28 Anion Gap 9 BUN 54 H Creatinine 1.9 H Creat Clearance w eGFR 34.02 Random Glucose 92 Calcium 8.0 L Phosphorus 3.9 Magnesium 2.3 Total Bilirubin 2.3 H AST 38 H ALT 48 D Alkaline Phosphatase 145 H D Total Protein 4.4 L Albumin 2.1 L Urine Color Urine Appearance Urine pH Ur Specific [place] Urine Protein Urine Glucose (UA) Urine Ketones Urine Blood Urine Nitrite Urine Bilirubin Urine Urobilinogen Ur Leukocyte Esterase Urine WBC (Auto) Urine RBC (Auto) U Random Total Protein Ur Random Sodium Ur Random Potassium Ur Random Chloride Urine Creatinine Blood Type A POSITIVE Antibody Screen Negative Crossmatch See Detail 12/26/17 12/26/17 12/26/17 06:10 06:10 06:10 WBC RBC Hgb Hct MCV MCH MCHC RDW Plt Count MPV Absolute Neuts (auto) Neutrophils % Lymphocytes % Monocytes % Eosinophils % Basophils % Nucleated RBC % Sodium Potassium Chloride Carbon Dioxide Anion Gap BUN Creatinine Creat Clearance w eGFR Random Glucose Calcium Phosphorus Magnesium Total Bilirubin AST ALT Alkaline Phosphatase Total Protein Albumin Urine Color Red Urine Appearance Turbid Urine pH 5.0 Ur Specific [place] 1.015 Urine Protein 2+ H Urine Glucose (UA) 1+ H Urine Ketones Negative Urine Blood 3+ H Urine Nitrite Negative Urine Bilirubin Negative Urine Urobilinogen Negative Ur Leukocyte Esterase 1+ H Urine WBC (Auto) 24 Urine RBC (Auto) 209 U Random Total Protein 141 H Ur Random Sodium 24 Ur Random Potassium 33.0 Ur Random Chloride 13 Urine Creatinine 74.3 Cancelled Blood Type Antibody Screen Crossmatch ASSESSMENT AND PLAN: GI bleeding etc likely due to radiation injury and being on antiplatelets/ anticoagulants FELICE on possible CKD Left renal calculus / ureteral stent UTI Hypoalbuminemia CAD CHF Transfusion to 9 gm/dL O2 as needed Wound care evaluation Amiodarone Rocephin daily PO when cleared by GI Restart AC when cleared by GI ICU monitoring Dr Cintron Critical care time spent in reviewing chart, evaluating patient and formulating plan - 36 minutes.
[2017-12-26] MEDS ORDERED: ONDANSETRON 4 MG/2 ML VIAL IVPUSH ONE (13:26)
[2017-12-26 14:44] VITALS: BMI 23.7
--- NOTE | 2017-12-26 14:53 | PN ---
Progress Note, Physician History of Present Illness: Pt seen and examined at bedside. He is awake and alert. He had endoscopy and a bleeding vessel was found. - Current Medication List Current Medications: Active Medications Amiodarone HCl (Cordarone -) 200 mg PO DAILY [facility] Last Admin: 12/26/17 09:01 Dose: 200 mg Atorvastatin Calcium (Lipitor -) 40 mg PO HS [facility] Last Admin: 12/25/17 23:39 Dose: 40 mg Ceftriaxone Sodium 1 gm/ (Dextrose) 100 mls @ 200 mls/hr IVPB DAILY [facility]; Protocol Last Admin: 12/26/17 09:10 Dose: 200 mls/hr Mesalamine (Rowasa Enema -) 4 gm [place] HS [facility] Last Admin: 12/26/17 01:00 Dose: 4 gm Sucralfate (Carafate Oral Suspension -) 1 gm PO QID [facility] Last Admin: 12/26/17 09:10 Dose: 1 gm Tamsulosin HCl (Flomax -) 0.4 mg PO DAILY@0830 [facility] Last Admin: 12/26/17 08:27 Dose: 0.4 mg Timolol Maleate (Timoptic 0.5%) 1 drop OU BID [facility] - Objective Vital Signs: Vital Signs Temperature 98.2 F 12/26/17 06:00 Pulse Rate 80 12/26/17 10:00 Respiratory Rate 14 12/26/17 10:00 Blood Pressure 93/54 12/26/17 10:00 O2 Sat by Pulse Oximetry (%) 100 12/26/17 09:00 Constitutional: Yes: Calm Eyes: Yes: Conjunctiva Clear HENT: Yes: Atraumatic Neck: Yes: Supple Cardiovascular: Yes: S1, S2 Respiratory: Yes: CTA Bilaterally Gastrointestinal: Yes: Normal Bowel Sounds, Soft Genitourinary: Yes: WNL Musculoskeletal: Yes: WNL Edema: No Neurological: Yes: Oriented Psychiatric: Yes: Oriented Labs: CBC, BMP 12/26/17 05:30 12/26/17 05:30 INR, PTT INR 1.27 (0.83-1.09) H 12/24/17 21:05 Problem List - Problems (1) FELICE (acute kidney injury) Code(s): N17.9 - ACUTE KIDNEY FAILURE, UNSPECIFIED (2) Rectal bleeding Code(s): K62.5 - HEMORRHAGE OF ANUS AND RECTUM Assessment/Plan Current Medications Generic Name Dose Route Start Last Admin Trade Name Freq PRN Reason Stop Dose Admin Amiodarone HCl 200 mg 12/25/17 10:00 12/26/17 09:01 Cordarone - PO 200 mg DAILY AUDIE Administration Atorvastatin Calcium 40 mg 12/25/17 22:00 12/25/17 23:39 Lipitor - PO 40 mg HS AUDIE Administration Ceftriaxone Sodium 1 gm/ 100 mls @ 200 mls/hr 12/25/17 12:30 12/26/17 09:10 Dextrose IVPB 200 mls/hr DAILY AUDIE Administration Protocol Mesalamine 4 gm 12/25/17 22:00 12/26/17 01:00 Rowasa Enema - [place] 4 gm HS AUDIE Administration Sucralfate 1 gm 12/25/17 22:00 12/26/17 09:10 Carafate Oral Suspension - PO 1 gm QID AUDIE Administration Tamsulosin HCl 0.4 mg 12/25/17 08:30 12/26/17 08:27 Flomax - PO 0.4 mg DAILY@0830 AUDIE Administration Timolol Maleate 1 drop 12/26/17 10:00 Timoptic 0.5% OU BID AUDIE Impression 1. FELICE 2. hx prostate cancer 3. GI bleed 4. anemia 5. HLD 6. valvular heart disease 7. nephrolithiasis s/p stent Plan - renal function is improving - pt has elevated residual urine and possible hydro on u/s, sol was placed - consider urology eval - monitor renal function - monitor hg and transfuse as needed - GI follow up - discussed with family Dr Boles
--- NOTE | 2017-12-26 16:06 | PN ---
Physical Exam: SUBJECTIVE: Patient seen and examined this am in icu. Pt fully alert, at bedside. C/o heel pain b/l. Denies cp or sob. OBJECTIVE: Vital Signs Period Temp Pulse Resp BP Sys/Rodrigues Pulse Ox Last 24 Hr 97.6 F-98.2 F 79-104 13-20 78-130/40-82 94-100 GENERAL: aaox3 HEAD: NC/AT EYES: EOMI, PERRLA. ENT: MMM NECK: Supple LUNGS: CTA B/L HEART: Irregular ABDOMEN: NT, No HSM, ND EXTREMITIES: 1+ edema lower extremities. Bandages b/l feet NEUROLOGICAL: no neuro deficits PSYCH: Normal mood, normal affect. SKIN: Bruising face. Laboratory Results - last 24 hr 12/24/17 12/26/17 12/26/17 21:05 05:30 05:30 WBC 7.5 RBC 2.68 L Hgb 8.5 L Hct 24.7 L MCV 92.3 MCH 31.7 MCHC 34.3 RDW 18.2 H Plt Count 93 L MPV 8.6 Absolute Neuts (auto) 6.0 Neutrophils % 80.6 Lymphocytes % 8.7 Monocytes % 9.7 Eosinophils % 0.7 Basophils % 0.3 Nucleated RBC % 0 Sodium 147 H Potassium 3.4 L Chloride 110 H Carbon Dioxide 28 Anion Gap 9 BUN 54 H Creatinine 1.9 H Creat Clearance w eGFR 34.02 Random Glucose 92 Calcium 8.0 L Phosphorus 3.9 Magnesium 2.3 Total Bilirubin 2.3 H AST 38 H ALT 48 D Alkaline Phosphatase 145 H D Troponin I Total Protein 4.4 L Albumin 2.1 L Urine Color Urine Appearance Urine pH Ur Specific [place] Urine Protein Urine Glucose (UA) Urine Ketones Urine Blood Urine Nitrite Urine Bilirubin Urine Urobilinogen Ur Leukocyte Esterase Urine WBC (Auto) Urine RBC (Auto) U Random Total Protein Ur Random Sodium Ur Random Potassium Ur Random Chloride Urine Creatinine Blood Type A POSITIVE Antibody Screen Negative Crossmatch See Detail 12/26/17 12/26/17 12/26/17 06:10 06:10 06:10 WBC RBC Hgb Hct MCV MCH MCHC RDW Plt Count MPV Absolute Neuts (auto) Neutrophils % Lymphocytes % Monocytes % Eosinophils % Basophils % Nucleated RBC % Sodium Potassium Chloride Carbon Dioxide Anion Gap BUN Creatinine Creat Clearance w eGFR Random Glucose Calcium Phosphorus Magnesium Total Bilirubin AST ALT Alkaline Phosphatase Troponin I Total Protein Albumin Urine Color Red Urine Appearance Turbid Urine pH 5.0 Ur Specific [place] 1.015 Urine Protein 2+ H Urine Glucose (UA) 1+ H Urine Ketones Negative Urine Blood 3+ H Urine Nitrite Negative Urine Bilirubin Negative Urine Urobilinogen Negative Ur Leukocyte Esterase 1+ H Urine WBC (Auto) 24 Urine RBC (Auto) 209 U Random Total Protein 141 H Ur Random Sodium 24 Ur Random Potassium 33.0 Ur Random Chloride 13 Urine Creatinine 74.3 Cancelled Blood Type Antibody Screen Crossmatch 12/26/17 12:28 WBC RBC Hgb Hct MCV MCH MCHC RDW Plt Count MPV Absolute Neuts (auto) Neutrophils % Lymphocytes % Monocytes % Eosinophils % Basophils % Nucleated RBC % Sodium Potassium Chloride Carbon Dioxide Anion Gap BUN Creatinine Creat Clearance w eGFR Random Glucose Calcium Phosphorus Magnesium Total Bilirubin AST ALT Alkaline Phosphatase Troponin I 0.32 H Total Protein Albumin Urine Color Urine Appearance Urine pH Ur Specific [place] Urine Protein Urine Glucose (UA) Urine Ketones Urine Blood Urine Nitrite Urine Bilirubin Urine Urobilinogen Ur Leukocyte Esterase Urine WBC (Auto) Urine RBC (Auto) U Random Total Protein Ur Random Sodium Ur Random Potassium Ur Random Chloride Urine Creatinine Blood Type Antibody Screen Crossmatch Active Medications Generic Name Dose Route Start Last Admin Trade Name Freq PRN Reason Stop Dose Admin Amiodarone HCl 200 mg 12/25/17 10:00 12/26/17 09:01 Cordarone - PO 200 mg DAILY AUDIE Administration Atorvastatin Calcium 40 mg 12/25/17 22:00 12/25/17 23:39 Lipitor - PO 40 mg HS AUDIE Administration Ceftriaxone Sodium 1 gm/ 100 mls @ 200 mls/hr 12/25/17 12:30 12/26/17 09:10 Dextrose IVPB 200 mls/hr DAILY AUDIE Administration Protocol Mesalamine 4 gm 12/25/17 22:00 12/26/17 01:00 Rowasa Enema - [place] 4 gm HS AUDIE Administration Sucralfate 1 gm 12/25/17 22:00 12/26/17 15:00 Carafate Oral Suspension - PO 1 gm QID AUDIE Administration Tamsulosin HCl 0.4 mg 12/25/17 08:30 12/26/17 08:27 Flomax - PO 0.4 mg DAILY@0830 AUDIE Administration Timolol Maleate 1 drop 12/26/17 10:00 Timoptic 0.5% OU BID AUDIE ASSESSMENT/PLAN: -s/p Flexible sigmoidoscopy w/ cauterization. -Hbg 7.7 on admission, now 8.8 (12/26/17). Transfuse until Hgb of 9. -Transfuse if Hgb below 7 -Hold Aspirin -CBC Q12H - Received 3 U PRBC A fib Amiodarone 200 mg PO Daily -AC on hold s/p GI Bleed. Spoke w/ Dr Church today, will withhold AC for 2-3 days. -Cardio On Board -EKG 12/24--> No longer in A-Fib Chest X-ray 12/24--> No acute chest pathology. FELICE possibly 2/2 distributive shock 2/2 CHF -Nephro on board - lasix gtt switched to 80 mg po tid. -Bladder/Renal Ultrasound--> non obstructing left renal calculi. Left ureteral stent is seen in place within urinary bladder lumen. post-void residual volume 400 ml.Trace amount of ascites within right abdomen. -Ceftriaxone 1 gm FEN No Fluids Monitor Electrolytes Full Liquid Diet DVT ppx: Mechanical Dispo: Continue to monitor in icu. Visit type - Emergency Visit Emergency Visit: Yes ED Registration Date: 12/24/17 Care time: The patient presented to the Emergency Department on the above date and was hospitalized for further evaluation of their emergent condition. - New Patient This patient is new to me today: No - Critical Care Critical Care patient: Yes Total Critical Care Time (in minutes): 35 Critical Care Statement: The care of this patient involved high complexity decision making to prevent further life threatening deterioration of the patient 's condition and/or to evaluate & treat vital organ system(s) failure or risk of failure.
[2017-12-26] MEDS: ATORVASTATIN CA 40 MG TABLET (FP) PO SCH (21:12)
[2017-12-26] MEDS: TIMOLOL 0.5% OPHTHALMIC SOL 5 ML BOTTLE OU SCH (21:12)
[2017-12-26 21:19] LABS: HEMOGLOBIN 9.8 GM/dL (11.7-16.9); MCH 31.3 pg (25.7-33.7); MCHC 33.8 g/dl (32.0-35.9); MEAN CELL VOLUME 92.6 fl (80-96); MEAN PLT VOLUME 9.2 fl (7.5-11.1); PLATELET COUNT 116 K/MM3 (134-434); RBC 3.13 M/mm3 (4.00-5.60); RDW 18.5 % (11.9-15.9); WHITE BLOOD COUNT 7.4 K/mm3 (4.0-10.0)
[2017-12-26] MEDS ORDERED: TIMOLOL 0.25% OPHTHALMIC SOL 5 ML BOTTLE OU SCH (22:00)
[2017-12-26] MEDS ORDERED: ATORVASTATIN CA 40 MG TABLET (FP) PO SCH (22:00)
[2017-12-27 06:18] LABS: HEMATOCRIT 25.8 % (35.4-49); MCH 31.9 pg (25.7-33.7); MCHC 34.7 g/dl (32.0-35.9); MEAN CELL VOLUME 91.7 fl (80-96); MEAN PLT VOLUME 9.1 fl (7.5-11.1); PLATELET COUNT 89 K/MM3 (134-434); RBC 2.81 M/mm3 (4.00-5.60); RDW 18.1 % (11.9-15.9); WHITE BLOOD COUNT 7.4 K/mm3 (4.0-10.0)
[2017-12-27 06:36] LABS: ALBUMIN 2.2 g/dl (3.4-5.0); ANION GAP 7 (8-16); BLOOD UREA NITROGEN 47 mg/dL (7-18); CALCIUM 8.3 mg/dL (8.5-10.1); CHLORIDE 110 mmol/L (98-107); CO2 28 mmol/L (21-32); GLUCOSE,RANDOM 111 mg/dL (74-106); MAGNESIUM 2.2 mg/dL (1.8-2.4); PHOSPHOROUS 2.8 mg/dL (2.5-4.9); SGOT/AST 45 U/L (15-37); SGPT/ALT 52 U/L (12-78); SODIUM 145 mmol/L (136-145)
[2017-12-27 06:40] LABS: ALK PHOS 171 U/L (45-117); BILIRUBIN,TOTAL 1.7 mg/dL (0.2-1.0); CREATININE 1.9 mg/dL (0.7-1.3); TOT PROT 4.7 g/dl (6.4-8.2)
[2017-12-27] MEDS ORDERED: PT OWN MED DRAWER 7, Y5N ONE ×5 (08:41→23:12)
[2017-12-27] MEDS ORDERED: DEXTROSE 5%-WATER 100 ML IVPB ONE (08:41)
[2017-12-27] MEDS ORDERED: cefTRIAXone SODIUM 1 GM VIAL ONE (08:41)
[2017-12-27] MEDS: TAMSULOSIN HCL 0.4 MG CAP.ER.24H (FP) PO SCH (08:47)
--- NOTE | 2017-12-27 09:18 | PN ---
Physical Exam: SUBJECTIVE: Patient seen and examined. Complaining of bilateral heel pain, states he developed pressure ulcers during prolonged inpatient stay at [facility]. Also developed buttock pressure ulcers at [facility]. OBJECTIVE: Vital Signs Period Temp Pulse Resp BP Sys/Rodrigues Pulse Ox Last 24 Hr 97.8 F-98.0 F 80-87 14-22 85-100/54-72 100 GENERAL: The patient is awake, alert, and fully oriented, in no acute distress. LUNGS: Bilateral crackles intermediate up; mild expiratory wheezing HEART: Regular rate and rhythm, S1, S2 ABDOMEN: Soft, nontender, nondistended LOWER EXTREMITIES: * 3+ pitting edema bilaterally, right pedal edema * Left heel: stage III pressure ulcer * Right heel: DTI - blood filled blister * Right foot: Stage II - fluid filled blister 3rd toe * Left foot: Skin tear 3rd toe * Buttocks: pressure wounds not visualized, dressings c/d/i Laboratory Results - last 24 hr 12/24/17 12/26/17 12/26/17 21:05 06:10 06:10 WBC RBC Hgb Hct MCV MCH MCHC RDW Plt Count MPV Sodium Potassium Chloride Carbon Dioxide Anion Gap BUN Creatinine Creat Clearance w eGFR Random Glucose Calcium Phosphorus Magnesium Total Bilirubin AST ALT Alkaline Phosphatase Troponin I Total Protein Albumin Urine Color Red Urine Appearance Turbid Urine pH 5.0 Ur Specific [place] 1.015 Urine Protein 2+ H Urine Glucose (UA) 1+ H Urine Ketones Negative Urine Blood 3+ H Urine Nitrite Negative Urine Bilirubin Negative Urine Urobilinogen Negative Ur Leukocyte Esterase 1+ H Urine WBC (Auto) 24 Urine RBC (Auto) 209 U Random Total Protein 141 H Ur Random Sodium 24 Ur Random Potassium 33.0 Ur Random Chloride 13 Urine Creatinine 74.3 Blood Type A POSITIVE Antibody Screen Negative Crossmatch See Detail 12/26/17 12/26/17 12/26/17 06:10 12:28 21:00 WBC 7.4 RBC 3.13 L Hgb 9.8 L Hct 29.0 L D MCV 92.6 MCH 31.3 MCHC 33.8 RDW 18.5 H Plt Count 116 L D MPV 9.2 Sodium Potassium Chloride Carbon Dioxide Anion Gap BUN Creatinine Creat Clearance w eGFR Random Glucose Calcium Phosphorus Magnesium Total Bilirubin AST ALT Alkaline Phosphatase Troponin I 0.32 H Total Protein Albumin Urine Color Urine Appearance Urine pH Ur Specific [place] Urine Protein Urine Glucose (UA) Urine Ketones Urine Blood Urine Nitrite Urine Bilirubin Urine Urobilinogen Ur Leukocyte Esterase Urine WBC (Auto) Urine RBC (Auto) U Random Total Protein Ur Random Sodium Ur Random Potassium Ur Random Chloride Urine Creatinine Cancelled Blood Type Antibody Screen Crossmatch 12/27/17 12/27/17 12/27/17 05:30 05:30 05:30 WBC 7.4 RBC 2.81 L Hgb 9.0 L Hct 25.8 L MCV 91.7 MCH 31.9 MCHC 34.7 RDW 18.1 H Plt Count 89 L D MPV 9.1 Sodium 145 Potassium 4.0 Chloride 110 H Carbon Dioxide 28 Anion Gap 7 L BUN 47 H Creatinine 1.9 H Creat Clearance w eGFR 34.02 Random Glucose 111 H D Calcium 8.3 L Phosphorus 2.8 D Magnesium 2.2 Total Bilirubin 1.7 H AST 45 H ALT 52 Alkaline Phosphatase 171 H D Troponin I 0.29 H Total Protein 4.7 L Albumin 2.2 L Urine Color Urine Appearance Urine pH Ur Specific [place] Urine Protein Urine Glucose (UA) Urine Ketones Urine Blood Urine Nitrite Urine Bilirubin Urine Urobilinogen Ur Leukocyte Esterase Urine WBC (Auto) Urine RBC (Auto) U Random Total Protein Ur Random Sodium Ur Random Potassium Ur Random Chloride Urine Creatinine Blood Type Antibody Screen Crossmatch Active Medications Generic Name Dose Route Start Last Admin Trade Name Freq PRN Reason Stop Dose Admin Amiodarone HCl 200 mg 12/25/17 10:00 12/26/17 09:01 Cordarone - PO 200 mg DAILY AUDIE Administration Atorvastatin Calcium 40 mg 12/25/17 22:00 12/26/17 21:12 Lipitor - PO 40 mg HS AUDIE Administration Ceftriaxone Sodium 1 gm/ 100 mls @ 200 mls/hr 12/25/17 12:30 12/26/17 09:10 Dextrose IVPB 200 mls/hr DAILY AUDIE Administration Protocol Mesalamine 4 gm 12/25/17 22:00 12/26/17 21:12 Rowasa Enema - NM 4 gm HS AUDIE Administration Sucralfate 1 gm 12/25/17 22:00 12/26/17 21:13 Carafate Oral Suspension - PO 1 gm QID AUDIE Administration Tamsulosin HCl 0.4 mg 12/25/17 08:30 12/27/17 08:47 Flomax - PO 0.4 mg DAILY@0830 AUDIE Administration Timolol Maleate 1 drop 12/26/17 22:00 12/26/17 21:12 Timoptic 0.5% OU 1 drop BID AUDIE Administration ASSESSMENT/PLAN: 82 year old male with a PMH of CAD s/p CABG x 4 in 1989, sCHF (Ef 25%), bioprosthetic AVR, mitral valve repair, AAA s/p repair, VT in 2011 with ICD, afib (was on Eliquis), 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). Now admitted for lower GI bleed and FELICE. Rectal bleeding --multifactorial: h/o radiation proctitis, on aspirin and Eliquis --12/25 endoscopy: pulsating bleeding vessel in rectum, hemostasis achieved --last transfused 12/25; total 3 units PRBC so far; Hgb 9.8 last night, 9.0 this morning --liquid carafate NM QID --mesalamine NM QHS --GI following Acute on chronic kidney injury Left ureteral stent --Cr 2.3 on admission, 1.9 today, since stay at [facility], baseline is now ~2 --12/25 renal: minimal to mild right hydro; post-void residual 400ccs; left nephroureteral stent; trace ascites right abdomen --renal following; will do bladder scan, if not large residual may give low dose PO lasix --continue tamsulosin Left renal calculus s/p lithotripsy and ureteral stent --stent in place, was scheduled to be removed next week at outside hospital --urology consult requested Urinary tract infection/prostatitis --pyuria --afebrile, no leukocytosis and urine culture negative --observe off antibiotics Atrial fibrillation --continue amiodarone PO --had been on Eliquis Coronary artery disease --no ASA due to bleeding --continue statin Chronic systolic heart failure --bilateral lower extremity edema, bilateral rales and mild expiratory wheezing --would benefit from lasix, but concern for renal function --keep legs elevated --compression stockings Peripheral vascular disease s/p left ilio-fem bypass --has been treated in past by Dr. Blakely; made appt for patient [facility] with Dr. Blakely Jan. at 3:00pm Pressure ulcers --Allevyn heel protectors both heels --mupirocin and sterile dressing to skin tear on right toe --xerofoam and sterile dressing to blister on left toe --optifoam to buttocks --follow up outpatient at [facility] Hypokalemia --resolved FEN Fluids: PO intake adequate Electrolytes: replete as indicated Nutrition: full liquids DVT prophylaxis: SCDs, oob, ambulation Physical therapy Dispo: continues to require ICU level care. Full code. Visit type - Emergency Visit Emergency Visit: Yes ED Registration Date: 12/24/17 Care time: The patient presented to the Emergency Department on the above date and was hospitalized for further evaluation of their emergent condition. - New Patient This patient is new to me today: No - Critical Care Critical Care patient: Yes Total Critical Care Time (in minutes): 60 Critical Care Statement: The care of this patient involved high complexity decision making to prevent further life threatening deterioration of the patient 's condition and/or to evaluate & treat vital organ system(s) failure or risk of failure.
[2017-12-27] MEDS: AMIODARONE HCL 200 MG TABLET (FP) PO SCH (09:28)
[2017-12-27] MEDS: SUCRALFATE 1 GM/10 ML UNIT DOSE CUPS PO SCH ×4 (09:28→23:00)
[2017-12-27] MEDS: TIMOLOL 0.5% OPHTHALMIC SOL 5 ML BOTTLE OU SCH ×2 (09:30→23:00)
[2017-12-27] MEDS ORDERED: TAMSULOSIN HCL 0.4 MG CAP.ER.24H (FP) PO SCH (10:00)
--- NOTE | 2017-12-27 12:02 | PN ---
Teaching Attending Note Name of Resident: Isidro [facility] ATTENDING PHYSICIAN STATEMENT I saw and evaluated the patient. I reviewed the resident's note and discussed the case with the resident. I agree with the resident's findings and plan as documented. SUBJECTIVE: Pt seen and examined in the ICU. Had 3 bowel movements overnight, all without blood. Tolerating PO. OBJECTIVE: Vital Signs Period Temp Pulse Resp BP Sys/Rodrigues Pulse Ox Last 24 Hr 97.8 F-98.0 F 80-87 16-22 85-100/59-72 100 Intake & Output 12/24/17 12/25/17 12/26/17 12/27/17 23:59 23:59 23:59 23:59 Intake Total 1300 1300 100 Output Total 400 1650 300 Balance 900 -350 -200 Weight 75.75 kg 75.75 kg 70.76 kg 73.51 kg Gen: NAD at rest Heart: RRR Lung: decreased breath sounds at the bases Abd: soft, nontender Ext: + edema CBC, BMP 12/27/17 05:30 12/27/17 05:30 Active Medications Amiodarone HCl (Cordarone -) 200 mg PO DAILY [facility] Last Admin: 12/27/17 09:28 Dose: 200 mg Atorvastatin Calcium (Lipitor -) 40 mg PO HS [facility] Last Admin: 12/26/17 21:12 Dose: 40 mg Mesalamine (Rowasa Enema -) 4 gm MN HS [facility] Last Admin: 12/26/17 21:12 Dose: 4 gm Sucralfate (Carafate Oral Suspension -) 1 gm PO QID [facility] Last Admin: 12/27/17 09:28 Dose: 1 gm Tamsulosin HCl (Flomax -) 0.4 mg PO DAILY@0830 [facility] Last Admin: 12/27/17 08:47 Dose: 0.4 mg Timolol Maleate (Timoptic 0.5%) 1 drop OU BID [facility] Last Admin: 12/27/17 09:30 Dose: 1 drop ASSESSMENT AND PLAN: Lower GI Bleed Acute Blood Loss Anemia Acute on Chronic Renal Failure LV Systolic Dysfunction CAD s/p CABG h/o AVR/MV repair Atrial Fibrillation h/o VT s/p ICD Prostate Ca/Radiation Proctitis h/o CVA - monitor H/H - PO as tolerated - rate control - resume anticoagulation when ok with GI - monitor urine output, creatinine - DVT prophylaxis - wound care - can monitor on telemetry
--- NOTE | 2017-12-27 12:50 | PN ---
Progress Note, Physician History of Present Illness: Pt seen and examined at bedside. He denies shortness of breath. He does complain of edema of his legs. He denies chest pain. - Current Medication List Current Medications: Active Medications Amiodarone HCl (Cordarone -) 200 mg PO DAILY [facility] Last Admin: 12/27/17 09:28 Dose: 200 mg Atorvastatin Calcium (Lipitor -) 40 mg PO [facility] Last Admin: 12/26/17 21:12 Dose: 40 mg Mesalamine (Rowasa Enema -) 4 gm NV HS [facility] Last Admin: 12/26/17 21:12 Dose: 4 gm Mupirocin (Bactroban 2% Ointment -) 1 applic TP DAILY [facility] Sucralfate (Carafate Oral Suspension -) 1 gm PO QID [facility] Last Admin: 12/27/17 09:28 Dose: 1 gm Tamsulosin HCl (Flomax -) 0.4 mg PO DAILY@0830 [facility] Last Admin: 12/27/17 08:47 Dose: 0.4 mg Timolol Maleate (Timoptic 0.5%) 1 drop OU BID [facility] Last Admin: 12/27/17 09:30 Dose: 1 drop - Objective Vital Signs: Vital Signs Temperature 97.8 F 12/27/17 06:00 Pulse Rate 80 12/27/17 06:00 Respiratory Rate 18 12/27/17 06:00 Blood Pressure 92/65 12/27/17 06:00 O2 Sat by Pulse Oximetry (%) 100 12/26/17 20:30 Constitutional: Yes: Calm Eyes: Yes: Conjunctiva Clear HENT: Yes: Atraumatic Neck: Yes: Supple Cardiovascular: Yes: S1, S2 Respiratory: Yes: On Nasal O2, Rhonchi Gastrointestinal: Yes: Soft Genitourinary: Yes: WNL Musculoskeletal: Yes: WNL Edema: Yes Edema: LLE: 1+, RLE: 1+ Neurological: Yes: Oriented Psychiatric: Yes: Oriented Labs: CBC, BMP 12/27/17 05:30 12/27/17 05:30 INR, PTT INR 1.27 (0.83-1.09) H 12/24/17 21:05 Problem List - Problems (1) FELICE (acute kidney injury) Code(s): N17.9 - ACUTE KIDNEY FAILURE, UNSPECIFIED (2) Rectal bleeding Code(s): K62.5 - HEMORRHAGE OF ANUS AND RECTUM Assessment/Plan Current Medications Generic Name Dose Route Start Last Admin Trade Name Freq PRN Reason Stop Dose Admin Amiodarone HCl 200 mg 12/25/17 10:00 12/27/17 09:28 Cordarone - PO 200 mg DAILY AUDIE Administration Atorvastatin Calcium 40 mg 12/25/17 22:00 12/26/17 21:12 Lipitor - PO 40 mg HS AUDIE Administration Mesalamine 4 gm 12/25/17 22:00 12/26/17 21:12 Rowasa Enema - NV 4 gm HS AUDIE Administration Mupirocin 1 applic 12/28/17 10:00 Bactroban 2% Ointment - TP DAILY [facility] Sucralfate 1 gm 12/25/17 22:00 12/27/17 09:28 Carafate Oral Suspension - PO 1 gm QID AUDIE Administration Tamsulosin HCl 0.4 mg 12/25/17 08:30 12/27/17 08:47 Flomax - PO 0.4 mg DAILY@0830 AUDIE Administration Timolol Maleate 1 drop 12/26/17 22:00 12/27/17 09:30 Timoptic 0.5% OU 1 drop BID AUDIE Administration Impression 1. FELICE 2. hx prostate cancer 3. GI bleed 4. anemia 5. HLD 6. valvular heart disease 7. nephrolithiasis s/p stent Plan - renal function is close to baseline - per pts he had a compliance intern of about 2.1 on discharge from [facility] - check bladder scan and if PVR is not too high give 40 mg of lasix PO - repeat labs in am - urology eval - monitor hg - discussed with family Dr Boles
--- NOTE | 2017-12-27 14:01 | PN ---
Progress Note, Physician Chief Complaint: Heel pain History of Present Illness: This is an 82 year old male with a PMH of sCHF (Ef 25%), CAD, S/P CABG x4 in 1989, bioprothetic AVR, mitral valve repair, AAA s/p repair, VT in 2011 with ICD ([employer] placed at [facility]), AFIB (was on AC), Prostate (s/p Lupron, casodex, developed radiation proctitis), S/P CVS in 2010, and PVD (S/P left ilio-fem bypass). He was recently hospitalized at [facility] for an ICD shock and syncope, transferred to [facility], and discharged 12/15/17. During the hospitalization, he was started on amiodarone and anticoagulation was held because of hematuria. He was seen by , and was scheduled for a urethral stent removal next week at [facility]. He was D/C's to [facility]. He presents now a [facility] with BRBPR. He denies cardiac symptoms at this time. 12/27/17 Increase LE edema. Weight increased by 3 Kg. Will start IV Lasix 40 mg IVSS BID. - Current Medication List Current Medications: Active Medications Amiodarone HCl (Cordarone -) 200 mg PO DAILY [facility] Last Admin: 12/27/17 09:28 Dose: 200 mg Atorvastatin Calcium (Lipitor -) 40 mg PO HS [facility] Last Admin: 12/26/17 21:12 Dose: 40 mg Mesalamine (Rowasa Enema -) 4 gm [place] HS [facility] Last Admin: 12/26/17 21:12 Dose: 4 gm Mupirocin (Bactroban 2% Ointment -) 1 applic TP BID [facility] Sucralfate (Carafate Oral Suspension -) 1 gm PO QID [facility] Last Admin: 12/27/17 09:28 Dose: 1 gm Tamsulosin HCl (Flomax -) 0.4 mg PO DAILY@0830 [facility] Last Admin: 12/27/17 08:47 Dose: 0.4 mg Timolol Maleate (Timoptic 0.5%) 1 drop OU BID [facility] Last Admin: 12/27/17 09:30 Dose: 1 drop - Objective Vital Signs: Vital Signs Temperature 97.8 F 12/27/17 06:00 Pulse Rate 80 12/27/17 12:00 Respiratory Rate 18 12/27/17 12:00 Blood Pressure 90/50 12/27/17 12:00 O2 Sat by Pulse Oximetry (%) 95 12/27/17 09:00 Constitutional: Yes: No Distress HENT: Yes: WNL Neck: Yes: WNL Cardiovascular: Yes: Regular Rate and Rhythm (NL S1S2, 1/6 navjot) Respiratory: Yes: Rales (Bibasilar) Gastrointestinal: Yes: Normal Bowel Sounds Edema: LLE: 1+, RLE: 1+ Neurological: Yes: Alert, Oriented (Nonfocal) Labs: CBC, BMP 12/27/17 05:30 12/27/17 05:30 INR, PTT INR 1.27 (0.83-1.09) H 12/24/17 21:05 Assessment/Plan 82 year old male with a PMH of sCHF (Ef 25%), CAD, S/P CABG x4 in 1989, bioprothetic AVR, mitral valve repair, AAA s/p repair, VT in 2011 with ICD ( [employer] placed at [facility]), AFIB (was on AC), Prostate (s/p Lupron, casodex, developed radiation proctitis), S/P CVS in 2010, and PVD (S/P left ilio-fem bypass). He was recently hospitalized at [facility] for an ICD shock and syncope, transferred to [facility], and discharged 12/15/17. During the hospitalization, he was started on amiodarone and anticoagulation was held because of hematuria. He was seen by , and was scheduled for a urethral stent removal next week at [facility]. He was D/C's to [facility] Now presents with BRBPR Systolic CHF 12/27/17 Increase LE edema. Weight increased by 3 Kg. Will start IV Lasix 40 mg IVSS BID. Daily Wt's/Lytes/I's/Os Eventually would restart COREG once more euvolemic. GI Bleed Holding A/C as per GI No aspirin at this time Given high CHADs score and past CVA, would restart AC as soon as deemed safe by GI Would use Eliquis 2.5 mg PO BID Would hold off on aspirin for now Arrhythmia Continue amiodarone 200 mg daily HLD Continue Atorvastatin 40 mg PO daily
--- NOTE | 2017-12-27 14:07 | CONSULT ---
Consult Consult Specialty:: Plastic Surgery Referred by:: Dr Jun Chance. Reason for Consultation:: Bilateral Pressure Heel injury, Present on Admission - History of Present Illness Chief Complaint: Recent GI bleed, Underwent Endoscopy and Cauterization of Bleeder in Rectal area. History of Present Illness: Recently discharged from [facility] under AAA 3 stent/Ablation . Patient brought to ER for active bleeding and admitted.Undergone Cauterization successfully. Reason for consultation : Bilateral Heel Pressure Injury Management . Laboratory Tests 12/26/17 12/26/17 12/26/17 05:30 05:30 21:00 Hgb 8.5 L Hct 24.7 L RDW 18.2 H Plt Count 93 L 116 L D Sodium 147 H Chloride 110 H BUN 54 H Creatinine 1.9 H Creat Clearance w eGFR 34.02 Calcium 8.0 L Total Bilirubin 2.3 H AST 38 H Alkaline Phosphatase 145 H D Total Protein 4.4 L Albumin 2.1 L 12/27/17 12/27/17 05:30 05:30 Hgb 9.0 L Hct 25.8 L RDW 18.1 H Plt Count 89 L D Sodium 145 Chloride 110 H BUN 47 H Creatinine 1.9 H Creat Clearance w eGFR 34.02 Calcium 8.3 L Total Bilirubin 1.7 H AST 45 H Alkaline Phosphatase 171 H D Total Protein Albumin Patient seen in ICU IN PRESENCE OF FAMILY > Previous Medical conditions reviewed including heart failure resulting lower extremity swellings NUTRITION : Poor, low albumin, total proteins. Low HB Hct, required 3 Units of PC. High Alkaline Phosphatase Examination : Right heel Pressure Injury , blister skin intact, no active drainage, no erythema, no odor. Unstage-able Pressure Injury ( Impression 2nd degree or deeper injury) Left Heel: Blister skin is peeled of, Underlying dermis visible, pink color, not indurated, minimal discharge, edges flat, Dorcas-wound skin intact, Plan 1. Pressure relief; Keep heels off Hard surface. 2. Avoid Breaking Blister skin 3. Use mild antiseptic for skin cleaning, no friction, no massage 4. Encourage leg exercise as demonstrated, full flexion, full extension at ankle level to encourage CALF Pump function assisting drainage of leg edema 5. Cover with soft padded dressing 6 .Observe daily for blister skin, if breaks than mild cleaning, non adherent dressing Healing dependent on patient's general status, nutrition, movements exercise Follow Up in wound clinic at [facility] 2weeks - Past Medical History Cardio/Vascular: Yes: AFIB, Aneurysm, CAD, HTN, Hyperlipdemia Renal/: Yes: Renal Inusuff, BPH Additional Medical History: prostate cancer S/p Lupron, casodex and radiation, TIA, anticoagulation therapy; glaucoma; DVT LE - Past Surgical History Past Surgical History: Yes: AAA Repair, AICD, CABG, Permanent Pacemaker, Valve Replacement - Alcohol/Substance Use Hx Alcohol Use: No - Smoking History Smoking history: Never smoked Have you smoked in the past 12 months: No Aproximately how many cigarettes per day: 0 - Social History Usual Living Arrangement: With Spouse 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 History of Recent Travel: No Home Medications - Allergies Allergies/Adverse Reactions: Allergies Allergy/AdvReac Type Severity Reaction Status Date / Time No Known Drug Allergies Allergy Verified 12/24/17 20:55 - Home Medications Home Medications: Ambulatory Orders Aspirin Coated [Ecotrin -] 81 mg PO DAILY 12/20/11 Atorvastatin Ca [Lipitor] 40 mg PO HS 11/07/14 Tamsulosin HCl [Flomax] 0.4 mg PO DAILY 12/01/17 Timolol 0.25% [Timoptic 0.25%] 1 drop OP BID 12/01/17 Physical Exam Vital Signs: Vital Signs Temperature 97.8 F 12/27/17 06:00 Pulse Rate 80 12/27/17 12:00 Respiratory Rate 18 12/27/17 12:00 Blood Pressure 90/50 12/27/17 12:00 O2 Sat by Pulse Oximetry (%) 95 12/27/17 09:00 Labs: CBC, BMP 12/27/17 05:30 12/27/17 05:30
[2017-12-27] MEDS ORDERED: FUROSEMIDE 40 MG TABLET (FP) PO ONE (14:46)
[2017-12-27] MEDS: MUPIROCIN 2% TOPICAL OINTMENT 22 GM TUBE TP SCH ×2 (14:51→22:00)
--- NOTE | 2017-12-27 17:23 | PN ---
Progress Note (short form) - Note Progress Note: No events. No overt bleeding. HGB stable. at bedside. Endoscopic findings discussed with her and the pt again. Diet as tolerated, maintain regular soft stools, continue current management.
--- NOTE | 2017-12-27 19:06 | PN ---
Physical Exam: SUBJECTIVE: Patient seen and examined this am and evening in icu. C/o b/l heel pain. States he is feeling better, walking around unit. Denies cp or sob. Son at bedside. OBJECTIVE: Vital Signs Period Temp Pulse Resp BP Sys/Rodrigues Pulse Ox Last 24 Hr 97.8 F-98.7 F 80-87 13-22 85-101/50-72 95-100 GENERAL: aaox3, pleasent. HEAD: NC/AT EYES: EOMI, PERRLA.Glasses. ENT: MMM NECK: Supple LUNGS: CTA B/L HEART: Irregular ABDOMEN: NT, No HSM, ND EXTREMITIES: 1+ edema lower extremities. Bandages b/l feet, Ulcers present on both feet. Blistering 3rd toe right foor. NEUROLOGICAL: no neuro deficits PSYCH: Normal mood, normal affect. SKIN: Bruising face. Laboratory Results - last 24 hr 12/26/17 12/27/17 12/27/17 21:00 05:30 05:30 WBC 7.4 7.4 RBC 3.13 L 2.81 L Hgb 9.8 L 9.0 L Hct 29.0 L D 25.8 L MCV 92.6 91.7 MCH 31.3 31.9 MCHC 33.8 34.7 RDW 18.5 H 18.1 H Plt Count 116 L D 89 L D MPV 9.2 9.1 Sodium 145 Potassium 4.0 Chloride 110 H Carbon Dioxide 28 Anion Gap 7 L BUN 47 H Creatinine 1.9 H Creat Clearance w eGFR 34.02 Random Glucose 111 H D Calcium 8.3 L Phosphorus 2.8 D Magnesium 2.2 Total Bilirubin 1.7 H AST 45 H ALT 52 Alkaline Phosphatase 171 H D Troponin I Total Protein 4.7 L Albumin 2.2 L 12/27/17 05:30 WBC RBC Hgb Hct MCV MCH MCHC RDW Plt Count MPV Sodium Potassium Chloride Carbon Dioxide Anion Gap BUN Creatinine Creat Clearance w eGFR Random Glucose Calcium Phosphorus Magnesium Total Bilirubin AST ALT Alkaline Phosphatase Troponin I 0.29 H Total Protein Albumin Active Medications Generic Name Dose Route Start Last Admin Trade Name Freq PRN Reason Stop Dose Admin Amiodarone HCl 200 mg 12/25/17 10:00 12/27/17 09:28 Cordarone - PO 200 mg DAILY AUDIE Administration Apixaban 2.5 mg 12/27/17 22:00 Eliquis - PO BID AUDIE Atorvastatin Calcium 40 mg 12/25/17 22:00 12/26/17 21:12 Lipitor - PO 40 mg HS AUDIE Administration Furosemide 40 mg 12/28/17 06:00 Lasix Injection - IVPUSH BID@0600,1400 AUDIE Mesalamine 4 gm 12/25/17 22:00 12/26/17 21:12 Rowasa Enema - AR 4 gm HS AUDIE Administration Mupirocin 1 applic 12/27/17 13:15 12/27/17 14:51 Bactroban 2% Ointment - TP 1 applic BID AUDIE Administration Sucralfate 1 gm 12/25/17 22:00 12/27/17 18:15 Carafate Oral Suspension - PO 1 gm QID AUDIE Administration Tamsulosin HCl 0.4 mg 12/25/17 08:30 12/27/17 08:47 Flomax - PO 0.4 mg DAILY@0830 AUDIE Administration Timolol Maleate 1 drop 12/26/17 22:00 12/27/17 09:30 Timoptic 0.5% OU 1 drop BID AUDIE Administration ASSESSMENT/PLAN: -s/p Flexible sigmoidoscopy w/ cauterization w/ Dr Church. -Hbg 7.7 on admission, now 9 (12/27/17). -Transfuse if Hgb below 7 - Received 3 U PRBC Cardio-A fib -Amiodarone 200 mg PO Daily -Eliquis restart tonight 12/27 22:00 -Cardio On Board -EKG 12/24--> No longer in A-Fib -Chest X-ray 12/24--> No acute chest pathology. 12/27--> CP angles sharp, soft tissues intact -Per Dr Norton Cardio--> Increased LE edema. Weight increased by 3 Kg. IV Lasix 40 mg IVSS BID started. -Will restart Coreg when Euvolemic Renal- FELICE possibly 2/2 distributive shock 2/2 CHF -Nephro on board -Bladder/Renal Ultrasound--> non obstructing left renal calculi. Left ureteral stent is seen in place within urinary bladder lumen. post-void residual volume 400 ml.Trace amount of ascites within right abdomen. Nephrolithiasis--> Left renal calculus s/p lithotripsy and ureteral stent --stent in place, Follows Dr Russell, to be removed later this month --Urology consult requested FEN No Fluids Monitor Electrolytes Soft Diet DVT ppx: Eliquis 2.5 bid Dispo: To be transfered to tele. Visit type - Emergency Visit Emergency Visit: Yes ED Registration Date: 12/24/17 Care time: The patient presented to the Emergency Department on the above date and was hospitalized for further evaluation of their emergent condition. - New Patient This patient is new to me today: No - Critical Care Critical Care patient: Yes Total Critical Care Time (in minutes): 35 Critical Care Statement: The care of this patient involved high complexity decision making to prevent further life threatening deterioration of the patient 's condition and/or to evaluate & treat vital organ system(s) failure or risk of failure.
[2017-12-27] MEDS: ATORVASTATIN CA 40 MG TABLET (FP) PO SCH (22:08)
[2017-12-27] MEDS: APIXABAN 2.5 MG TABLET PO SCH (22:08)
[2017-12-27] MEDS: MESALAMINE 4 GM/60 ML ENEMA PR SCH (22:08)
[2017-12-28 02:48] VITALS: TEMP 98.9
[2017-12-28] MEDS ORDERED: FUROSEMIDE 40 MG/4 ML INJECTABLE VIAL IVPUSH SCH (06:00)
[2017-12-28 06:16] LABS: HEMATOCRIT 25.3 % (35.4-49); HEMOGLOBIN 8.7 GM/dL (11.7-16.9); MCH 31.9 pg (25.7-33.7); MCHC 34.4 g/dl (32.0-35.9); MEAN CELL VOLUME 92.6 fl (80-96); MEAN PLT VOLUME 8.7 fl (7.5-11.1); PLATELET COUNT 85 K/MM3 (134-434); RBC 2.73 M/mm3 (4.00-5.60); RDW 17.4 % (11.9-15.9); WHITE BLOOD COUNT 6.9 K/mm3 (4.0-10.0)
[2017-12-28 06:42] LABS: CHLORIDE 107 mmol/L (98-107); POTASSIUM 3.8 mmol/L (3.5-5.1); SODIUM 144 mmol/L (136-145)
[2017-12-28 06:47] LABS: ALBUMIN 2.3 g/dl (3.4-5.0); ALK PHOS 193 U/L (45-117); ANION GAP 6 (8-16); BILIRUBIN,TOTAL 1.2 mg/dL (0.2-1.0); BLOOD UREA NITROGEN 49 mg/dL (7-18); CO2 31 mmol/L (21-32); CREATININE 1.9 mg/dL (0.7-1.3); GLUCOSE,RANDOM 103 mg/dL (74-106); MAGNESIUM 2.2 mg/dL (1.8-2.4); PHOSPHOROUS 2.2 mg/dL (2.5-4.9); SGOT/AST 53 U/L (15-37); SGPT/ALT 58 U/L (12-78); TOT PROT 4.9 g/dl (6.4-8.2)
[2017-12-28] MEDS ORDERED: PT OWN MED DRAWER 7, Y5N ONE ×2 (08:29→12:54)
[2017-12-28 08:52] VITALS: BP 96/43
[2017-12-28 08:54] VITALS: PULSE 80
[2017-12-28] MEDS: AMIODARONE HCL 200 MG TABLET (FP) PO SCH (09:20)
[2017-12-28] MEDS: TAMSULOSIN HCL 0.4 MG CAP.ER.24H (FP) PO SCH (09:20)
[2017-12-28] MEDS: MUPIROCIN 2% TOPICAL OINTMENT 22 GM TUBE TP SCH (09:20)
[2017-12-28] MEDS: SUCRALFATE 1 GM/10 ML UNIT DOSE CUPS PO SCH ×2 (09:20→14:25)
[2017-12-28] MEDS: APIXABAN 2.5 MG TABLET PO SCH (09:20)
[2017-12-28] MEDS: TIMOLOL 0.5% OPHTHALMIC SOL 5 ML BOTTLE OU SCH (09:21)
--- NOTE | 2017-12-28 09:32 | PN ---
Physical Exam: SUBJECTIVE: Patient seen and examined in ICU. Pt reports feeling great. He is eager to go home. OBJECTIVE: Vital Signs Period Temp Pulse Resp BP Sys/Rodrigues Pulse Ox Last 24 Hr 98.4 F-98.9 F 80-80 13-18 85-103/43-65 95-95 PE Neuro: alert, awake, cn 2-12intact HEENT: bilateral cheek bone ecchymosis Pulm: scattered crackles L>R CV: s1 s2 irregular Abd: s nt nd +bs Ext: LLE +1 edema Skin: b/l heel wounds, posterior back dressing in place Laboratory Results - last 24 hr 12/24/17 12/28/17 12/28/17 21:05 05:30 05:30 WBC 6.9 RBC 2.73 L Hgb 8.7 L Hct 25.3 L MCV 92.6 MCH 31.9 MCHC 34.4 RDW 17.4 H Plt Count 85 L MPV 8.7 Sodium 144 Potassium 3.8 Chloride 107 Carbon Dioxide 31 Anion Gap 6 L BUN 49 H Creatinine 1.9 H Creat Clearance w eGFR 34.02 Random Glucose 103 Calcium 8.0 L Phosphorus 2.2 L D Magnesium 2.2 Total Bilirubin 1.2 H AST 53 H ALT 58 Alkaline Phosphatase 193 H D Total Protein 4.9 L Albumin 2.3 L Blood Type A POSITIVE Antibody Screen Negative Crossmatch See Detail Active Medications Generic Name Dose Route Start Last Admin Trade Name Freq PRN Reason Stop Dose Admin Amiodarone HCl 200 mg 12/25/17 10:00 12/28/17 09:20 Cordarone - PO 200 mg DAILY AUDIE Administration Apixaban 2.5 mg 12/27/17 22:00 12/28/17 09:20 Eliquis - PO 2.5 mg BID AUDIE Administration Atorvastatin Calcium 40 mg 12/25/17 22:00 12/27/17 22:08 Lipitor - PO 40 mg HS AUDIE Administration Furosemide 40 mg 12/28/17 06:00 12/28/17 06:41 Lasix Injection - IVPUSH 40 mg BID@0600,1400 AUDIE Administration Mesalamine 4 gm 12/25/17 22:00 12/27/17 22:08 Rowasa Enema - DE 4 gm HS AUDIE Administration Mupirocin 1 applic 12/27/17 13:15 12/28/17 09:20 Bactroban 2% Ointment - TP 1 applic BID AUDIE Administration Sucralfate 1 gm 12/25/17 22:00 12/28/17 09:20 Carafate Oral Suspension - PO 1 gm QID AUDIE Administration Tamsulosin HCl 0.4 mg 12/25/17 08:30 12/28/17 09:20 Flomax - PO 0.4 mg DAILY@0830 AUDIE Administration Timolol Maleate 1 drop 12/26/17 22:00 12/28/17 09:21 Timoptic 0.5% OU 1 drop BID AUDIE Administration Assessment: 82 year old male with a PMH of CAD s/p CABG x 4 in 1989, sCHF (Ef 25 %), bioprosthetic AVR, mitral valve repair, AAA s/p repair, VT in 2011 with ICD , afib (was on Eliquis), 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 Plan: 1. Acute GI bleed, hx of h/o radiation proctitis, on aspirin and Eliquis s/p endoscopy - Mild drop in hemoglobin - Eliquis restarted last night - Repeat CBC @12noon - 4 units prbc transfused thus far - Continue Liquid carafate DE QID - Continue Rowasa DE HS - 12/25 endoscopy: pulsating bleeding vessel in rectum with hemostasis achieved - GI seeing 2. FELICE on CKD - Cr around baseline - Cont Lasix BID - Renal US noted - Renal following 3. Left renal calculus s/p lithotripsy and ureteral stent - Stent in place, was scheduled to be removed next week at outside hospital - Pt reports chronic hematuria - Cont flomax 4. Urinary tract infection/prostatitis - Urine cx neg - Stable off abx 5. Atrial fibrillation - Continue amiodarone PO - Eliquis 2.5mg resumed 12/27 6. CAD - No ASA d/t gi bleed - Statin - Resume Coreg once euovolemic 7. Chronic systolic heart failure - Continue lasix 40mg IV BID - Will need to d/w cardiology if continue home po lasix with outpt follow up next week, as not part of home meds 8. Peripheral vascular disease s/p left ilio-fem bypass - [facility]. Blakely Jan. at 3:00pm 9. Pressure ulcers - Allevyn heel protectors both heels - Mupirocin and sterile dressing to skin tear on right toe - Xerofoam and sterile dressing to blister on left toe - Optifoam to buttocks - Follow up outpatient [facility] 10. Hypokalemia - Resolved Visit type - Emergency Visit Emergency Visit: Yes ED Registration Date: 12/24/17 Care time: The patient presented to the Emergency Department on the above date and was hospitalized for further evaluation of their emergent condition. - New Patient This patient is new to me today: Yes Date on this admission: 12/28/17 - Critical Care Critical Care patient: No
[2017-12-28] MEDS ORDERED: MUPIROCIN 2% TOPICAL OINTMENT 22 GM TUBE TP SCH (10:00)
--- NOTE | 2017-12-28 11:49 | PN ---
Teaching Attending Note Name of Resident: Isidro Buckley ATTENDING PHYSICIAN STATEMENT I saw and evaluated the patient. I reviewed the resident's note and discussed the case with the resident. I agree with the resident's findings and plan as documented. SUBJECTIVE: Patient seen and examined in the ICU. Feels overall better. CBC reveals slight drift of H&H. Tolerating PO intake. OBJECTIVE: Intake & Output 12/25/17 12/26/17 12/27/17 12/28/17 23:59 23:59 23:59 23:59 Intake Total 1300 1300 600 Output Total 400 1715 259 0929 Balance 900 -350 -300 -1050 Weight 167 lb 156 lb 162 lb 1 oz 161 lb Last Vital Signs Temp Pulse Resp BP Pulse Ox 98.9 F 80 14 96/43 95 12/28/17 04:00 12/28/17 08:34 12/28/17 08:52 12/28/17 08:34 12/28/17 08:52 Active Medications Amiodarone HCl (Cordarone -) 200 mg PO DAILY [facility] Last Admin: 12/28/17 09:20 Dose: 200 mg Apixaban (Eliquis -) 2.5 mg PO BID [facility] Last Admin: 12/28/17 09:20 Dose: 2.5 mg Atorvastatin Calcium (Lipitor -) 40 mg PO HS [facility] Last Admin: 12/27/17 22:08 Dose: 40 mg Furosemide (Lasix Injection -) 40 mg IVPUSH BID@0600,1400 [facility] Last Admin: 12/28/17 06:41 Dose: 40 mg Mesalamine (Rowasa Enema -) 4 gm [place] HS [facility] Last Admin: 12/27/17 22:08 Dose: 4 gm Mupirocin (Bactroban 2% Ointment -) 1 applic TP BID [facility] Last Admin: 12/28/17 09:20 Dose: 1 applic Sucralfate (Carafate Oral Suspension -) 1 gm PO QID [facility] Last Admin: 12/28/17 09:20 Dose: 1 gm Tamsulosin HCl (Flomax -) 0.4 mg PO DAILY@0830 [facility] Last Admin: 12/28/17 09:20 Dose: 0.4 mg Timolol Maleate (Timoptic 0.5%) 1 drop OU BID [facility] Last Admin: 12/28/17 09:21 Dose: 1 drop Gen: NAD at rest Heart: RRR Lung: decreased breath sounds at the bases Abd: soft, nontender Ext: + edema Laboratory Results - last 24 hr 12/24/17 12/28/17 12/28/17 21:05 05:30 05:30 WBC 6.9 RBC 2.73 L Hgb 8.7 L Hct 25.3 L MCV 92.6 MCH 31.9 MCHC 34.4 RDW 17.4 H Plt Count 85 L MPV 8.7 Sodium 144 Potassium 3.8 Chloride 107 Carbon Dioxide 31 Anion Gap 6 L BUN 49 H Creatinine 1.9 H Creat Clearance w eGFR 34.02 Random Glucose 103 Calcium 8.0 L Phosphorus 2.2 L D Magnesium 2.2 Total Bilirubin 1.2 H AST 53 H ALT 58 Alkaline Phosphatase 193 H D Total Protein 4.9 L Albumin 2.3 L Blood Type A POSITIVE Antibody Screen Negative Crossmatch See Detail ASSESSMENT AND PLAN: Lower GI Bleed Acute Blood Loss Anemia Acute on Chronic Renal Failure LV Systolic Dysfunction CAD s/p CABG h/o AVR/MV repair Atrial Fibrillation h/o VT s/p ICD Prostate Ca/Radiation Proctitis h/o CVA - Follow repeat CBC - PO as tolerated - rate control - AC - Local wound care - D/C planning Dr Cintron
[2017-12-28 12:39] LABS: BASO % 0.2 % (0-2.0); EOS % 1.1 % (0-4.5); HEMATOCRIT 26.1 % (35.4-49); HEMOGLOBIN 8.9 GM/dL (11.7-16.9); MCH 31.7 pg (25.7-33.7); MCHC 34.1 g/dl (32.0-35.9); MEAN CELL VOLUME 92.8 fl (80-96); MEAN PLT VOLUME 8.7 fl (7.5-11.1); MONO % 9.6 % (3.8-10.2); NEUT % 81.1 % (42.8-82.8); PLATELET COUNT 101 K/MM3 (134-434); RBC 2.81 M/mm3 (4.00-5.60); RDW 17.4 % (11.9-15.9); WHITE BLOOD COUNT 7.3 K/mm3 (4.0-10.0)
--- NOTE | 2017-12-28 13:14 | CON.GU ---
Consult - History of Present Illness History of Present Illness: 82 yo male with h/o stones s/p recent left laser litho and stent placement at [facility]. Now admitted with rectal bleed. also with h/o prostate cancer s/ p XRT 20 yrs ago. No flank pain. Renal sono with mild rt hydro and left stones. voiding with freq - Past Medical History Cardio/Vascular: Yes: AFIB, Aneurysm, CAD, HTN, Hyperlipdemia Renal/: Yes: Renal Inusuff, BPH Additional Medical History: prostate cancer S/p Lupron, casodex and radiation, TIA, anticoagulation therapy; glaucoma; DVT LE - Past Surgical History Past Surgical History: Yes: AAA Repair, AICD, CABG, Permanent Pacemaker, Valve Replacement - Alcohol/Substance Use Hx Alcohol Use: No - Smoking History Smoking history: Never smoked Have you smoked in the past 12 months: No Aproximately how many cigarettes per day: 0 - Social History Usual Living Arrangement: With Spouse 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 History of Recent Travel: No Home Medications - Allergies Allergies/Adverse Reactions: Allergies Allergy/AdvReac Type Severity Reaction Status Date / Time No Known Drug Allergies Allergy Verified 12/24/17 20:55 - Home Medications Home Medications: Ambulatory Orders Aspirin Coated [Ecotrin -] 81 mg PO DAILY 12/20/11 Atorvastatin Ca [Lipitor] 40 mg PO HS 11/07/14 Tamsulosin HCl [Flomax] 0.4 mg PO DAILY 12/01/17 Timolol 0.25% [Timoptic 0.25%] 1 drop OP BID 12/01/17 Review of Systems - Review of Systems Genitourinary: reports: Frequency Physical Exam- Vital Signs: Vital Signs Temperature 98.9 F 12/28/17 04:00 Pulse Rate 80 12/28/17 08:34 Respiratory Rate 14 12/28/17 08:52 Blood Pressure 96/43 12/28/17 08:34 O2 Sat by Pulse Oximetry (%) 95 12/28/17 08:52 Renal/: Yes: Other (no CVAT) Labs: CBC, BMP 12/28/17 12:14 12/28/17 05:30 Imaging - Results Ultrasound: Report Reviewed Problem List - Problems (1) Kidney stone on left side Assessment/Plan: pt to f/u with his Urologist for stent removal after this hospitalization. No further w/u Code(s): N20.0 - CALCULUS OF KIDNEY
[2017-12-28] MEDS ORDERED: RAMIPRIL 1.25 MG CAPSULE PO SCH (14:00)
--- NOTE | 2017-12-28 14:32 | PN ---
Progress Note (short form) - Note Progress Note: No events. No overt bleeding. HGB stable. Diet as tolerated, maintain regular soft stools, continue Rowasa and carafate
[2017-12-28] MEDS ORDERED: SUCRALFATE 1 GM/10 ML UNIT DOSE CUPS PO SCH (18:00)
--- NOTE | 2017-12-28 18:04 | PN ---
Progress Note, Physician History of Present Illness: Pt seen and examined at bedside. He is awake and alert. He feels that his lower ext edema is a little better. - Objective Vital Signs: Vital Signs Temperature 98.9 F 12/28/17 04:00 Pulse Rate 80 12/28/17 08:34 Respiratory Rate 14 12/28/17 08:52 Blood Pressure 96/43 12/28/17 08:34 O2 Sat by Pulse Oximetry (%) 95 12/28/17 08:52 Constitutional: Yes: Calm Eyes: Yes: Conjunctiva Clear HENT: Yes: Atraumatic Neck: Yes: Supple Cardiovascular: Yes: S1, S2 Respiratory: Yes: CTA Bilaterally, On Nasal O2 Gastrointestinal: Yes: Soft Genitourinary: Yes: WNL Musculoskeletal: Yes: WNL Edema: Yes Edema: LLE: 1+, RLE: 1+ Integumentary: Yes: Venous Stasis Changes Neurological: Yes: Oriented Psychiatric: Yes: Oriented Labs: CBC, BMP 12/28/17 12:14 12/28/17 05:30 INR, PTT INR 1.27 (0.83-1.09) H 12/24/17 21:05 Problem List - Problems (1) FELICE (acute kidney injury) Code(s): N17.9 - ACUTE KIDNEY FAILURE, UNSPECIFIED (2) Rectal bleeding Code(s): K62.5 - HEMORRHAGE OF ANUS AND RECTUM Assessment/Plan Impression 1. FELICE 2. hx prostate cancer 3. GI bleed 4. anemia 5. HLD 6. valvular heart disease 7. nephrolithiasis s/p stent 8. CKD Plan - pt will be discharged on 20 mg of lasix - discussed with medical team - will need outpt follow up, pt will come to office in a few weeks - discussed plan with his and daughter - renal function is stable - pt will need to follow with is urology for stent removal Dr Boles
--- NOTE | 2017-12-28 18:17 | DS ---
Physical Exam: SUBJECTIVE: Patient seen and examined. happy to go home. outpt follow up discussed in detail. OBJECTIVE: Vital Signs Period Temp Pulse Resp BP Sys/Rodrigues Pulse Ox Last 24 Hr 98.4 F-98.9 F 80-80 14-16 85-103/43-65 95-95 PE Neuro: alert, awake, cn 2-12intact HEENT: bilateral cheek bone ecchymosis Pulm: scattered crackles L>R CV: s1 s2 irregular Abd: s nt nd +bs LOWER EXTREMITIES: * 3+ pitting edema bilaterally, right pedal edema * Left heel: stage III pressure ulcer * Right heel: DTI - blood filled blister * Right foot: Stage II - fluid filled blister 3rd toe * Left foot: Skin tear 3rd toe * Buttocks: pressure wounds not visualized, dressings c/d/i Laboratory Results - last 24 hr 12/24/17 12/28/17 12/28/17 21:05 05:30 05:30 WBC 6.9 RBC 2.73 L Hgb 8.7 L Hct 25.3 L MCV 92.6 MCH 31.9 MCHC 34.4 RDW 17.4 H Plt Count 85 L MPV 8.7 Absolute Neuts (auto) Neutrophils % Lymphocytes % Monocytes % Eosinophils % Basophils % Nucleated RBC % Sodium 144 Potassium 3.8 Chloride 107 Carbon Dioxide 31 Anion Gap 6 L BUN 49 H Creatinine 1.9 H Creat Clearance w eGFR 34.02 Random Glucose 103 Calcium 8.0 L Phosphorus 2.2 L D Magnesium 2.2 Total Bilirubin 1.2 H AST 53 H ALT 58 Alkaline Phosphatase 193 H D Total Protein 4.9 L Albumin 2.3 L Blood Type A POSITIVE Antibody Screen Negative Crossmatch See Detail 12/28/17 12:14 WBC 7.3 RBC 2.81 L Hgb 8.9 L Hct 26.1 L MCV 92.8 MCH 31.7 MCHC 34.1 RDW 17.4 H Plt Count 101 L MPV 8.7 Absolute Neuts (auto) 5.9 Neutrophils % 81.1 Lymphocytes % 8.0 Monocytes % 9.6 Eosinophils % 1.1 Basophils % 0.2 Nucleated RBC % 0 Sodium Potassium Chloride Carbon Dioxide Anion Gap BUN Creatinine Creat Clearance w eGFR Random Glucose Calcium Phosphorus Magnesium Total Bilirubin AST ALT Alkaline Phosphatase Total Protein Albumin Blood Type Antibody Screen Crossmatch HOSPITAL COURSE: Date of Admission:12/24/17 Date of Discharge: 12/28/17 Minutes to complete discharge: 37 Discharge Summary Reason For Visit: ACUTE ON CHRONIC CONGESTIVE HEART FAILURE Hospital Course: Initial hospital Course Briefly, this 82 year old man who presented with rectal bleeding for one day. He had a PMH of quad bypass (02/1990), prostate cancer, aortic and mitral valve replacement, AAA stent, CVA, vtach s/p ICD, A.fib, left ilio-femoral bypass with saphenous vein, with recent discharge on 12/16/18 from [facility] after ablation and pacemaker placement. reported pt usually has episodes of rectal bleeding with BM, but this time patient is noted to have copious bleeding. Last hgb at [facility] prior to discharge was 7.9 as per . As per patient has had leg edema and crackle since recent hospital stay. His lasix was recently stopped as well as his anticoagulant therapy. Has had gross hematuria since recent left ureteral stent? Last eloquis dose 1 week ago. Fell down recently while on coumadin. 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 Plan: 1. Acute GI bleed, hx of h/o radiation proctitis, on aspirin and Eliquis s/p endoscopy - Hgb stable on discharge - Eliquis 2.5mg BID - Continue Liquid carafate [place] QID for 1 more week - Continue Rowasa [place] HS for total of 8 weeks - 12/25 endoscopy: pulsating bleeding vessel in rectum with hemostasis achieved - Outpt follow up in 1 week 2. FELICE on CKD - Cr around baseline - Daily lasix 20mg started - Renal pt follow up as outpt referral enclosed 3. Left renal calculus s/p lithotripsy and ureteral stent - Stent in place, was scheduled to be removed next week at outside hospital - Pt reports chronic hematuria - Cont flomax 4. Urinary tract infection/prostatitis - Urine cx neg - Stable off abx 5. Atrial fibrillation - Continue amiodarone PO - Eliquis 2.5mg resumed 12/27 6. CAD - No ASA d/t gi bleed - Statin - Start coreg 3.125mg BID - Start lasix 20mg daily - Outpt follow up with Dr. Varma, pt and aware 7. Chronic systolic heart failure - Home with lasix 20mg daily 8. Peripheral vascular disease s/p left ilio-fem bypass - [facility]. Blakely Jan.17 at 3:00pm 9. Pressure ulcers - Allevyn heel protectors both heels - Mupirocin and sterile dressing to skin tear on right toe - Xerofoam and sterile dressing to blister on left toe - Optifoam to buttocks - Follow up outpatient at [facility] in 2 weeks 10. Hypokalemia - Resolved Dispo: - Home with [facility]NS - Meds and follow up as listed - Pt, and daughter aware and agree to above plan Condition: Stable - Instructions Diet, Activity, Other Instructions: Please return to the ED for any new, persistent, or worsening symptoms. Follow up with your PCP in 1 week Resume new and home medications as directed on home medication list GI follow up with Dr. Church next week Follow up with Cardiology Dr. Varma next week, he will adjust medications and add as needed Follow up with Dr. Boles (Kidney doctor) in 1 - 2 weeks Referral information enclosed Referrals: Robson Varma MD [Staff Physician] - 1 Week (Follow up with cardiology next week ) Oscar Church MD [Staff Physician] - 1 Week (Follow up with GI in 1 week ) Francine Boles MD [Staff Physician] - Disposition: VNS/HOME HEALTH CARE - Home Medications Comprehensive Discharge Medication List: Ambulatory Orders Atorvastatin Ca [Lipitor] 40 mg PO HS 11/07/14 Tamsulosin HCl [Flomax] 0.4 mg PO DAILY 12/01/17 Timolol 0.25% [Timoptic 0.25%] 1 drop OP BID 12/01/17 Apixaban [Eliquis -] 2.5 mg PO BID #60 tablet 12/28/17 Carvedilol [Coreg -] 3.125 mg PO BID #60 tablet 12/28/17 Furosemide [Lasix -] 20 mg PO DAILY #30 tablet 12/28/17 Mesalamine Enema [Rowasa Enema -] 4 gm [place] HS #52 enema 12/28/17 Mupirocin Ointment [Bactroban 2% Ointment -] 1 applic TP BID #1 applic 12/28/17 Sucralfate Oral Suspension [Carafate Oral Suspension -] 1 gm PO QID #28 ml 12/28 This patient is new to me today: No Emergency Visit: Yes ED Registration Date: 12/24/17 Care time: The patient presented to the Emergency Department on the above date and was hospitalized for further evaluation of their emergent condition. Critical Care patient: No - Discharge Referral Referred to [facility] No
--- NOTE | 2017-12-28 19:56 | PN ---
Physical Exam: SUBJECTIVE: Patient seen and examined this am and early afternoon. Pt sitting in chair, states leg swelling has resided. Anxious to go home, endorses no cp or sob. at bedside. Very pleasent. Pt has been discharged. OBJECTIVE: Vital Signs Period Temp Pulse Resp BP Sys/Rodrigues Pulse Ox Last 24 Hr 98.4 F-98.9 F 80-80 14-16 85-103/43-65 95 GENERAL: aaox3, pleasent, anxious to leave hospital. HEAD: NC/AT EYES: EOMI, PERRLA.Glasses. ENT: MMM NECK: Supple LUNGS: CTA B/L HEART: Irregular ABDOMEN: NT, No HSM, ND EXTREMITIES: 1+ edema lower extremities. Bandages b/l feet, Ulcers present on both feet. Blistering 3rd toe right foor. NEUROLOGICAL: no neuro deficits PSYCH: Normal mood, normal affect. SKIN: Bruising face. Laboratory Results - last 24 hr 12/24/17 12/28/17 12/28/17 21:05 05:30 05:30 WBC 6.9 RBC 2.73 L Hgb 8.7 L Hct 25.3 L MCV 92.6 MCH 31.9 MCHC 34.4 RDW 17.4 H Plt Count 85 L MPV 8.7 Absolute Neuts (auto) Neutrophils % Lymphocytes % Monocytes % Eosinophils % Basophils % Nucleated RBC % Sodium 144 Potassium 3.8 Chloride 107 Carbon Dioxide 31 Anion Gap 6 L BUN 49 H Creatinine 1.9 H Creat Clearance w eGFR 34.02 Random Glucose 103 Calcium 8.0 L Phosphorus 2.2 L D Magnesium 2.2 Total Bilirubin 1.2 H AST 53 H ALT 58 Alkaline Phosphatase 193 H D Total Protein 4.9 L Albumin 2.3 L Blood Type A POSITIVE Antibody Screen Negative Crossmatch See Detail 12/28/17 12:14 WBC 7.3 RBC 2.81 L Hgb 8.9 L Hct 26.1 L MCV 92.8 MCH 31.7 MCHC 34.1 RDW 17.4 H Plt Count 101 L MPV 8.7 Absolute Neuts (auto) 5.9 Neutrophils % 81.1 Lymphocytes % 8.0 Monocytes % 9.6 Eosinophils % 1.1 Basophils % 0.2 Nucleated RBC % 0 Sodium Potassium Chloride Carbon Dioxide Anion Gap BUN Creatinine Creat Clearance w eGFR Random Glucose Calcium Phosphorus Magnesium Total Bilirubin AST ALT Alkaline Phosphatase Total Protein Albumin Blood Type Antibody Screen Crossmatch ASSESSMENT/PLAN: G.I -s/p Flexible sigmoidoscopy w/ cauterization w/ Dr Church. -Hbg 7.7 on admission, 8.7 on discharge (12/28/17). -Transfuse if Hgb below 7 - Received 3 U PRBC -Liquid carafate [place] QID for 1 more week -Continue Rowasa [place] HS for total of 8 weeks Cardio-A fib -Amiodarone 200 mg PO Daily -Eliquis 2.5 BID -Cardio On Board--> Dr Norton -EKG 12/24--> No longer in A-Fib -Chest X-ray 12/24--> No acute chest pathology. 12/27--> CP angles sharp, soft tissues intact -Coreg 3.125 mg po bid, Lasix 20 mg po daily - Outpt follow up with Dr. Varma, pt and aware Renal- FELICE possibly 2/2 distributive shock 2/2 CHF -Nephro on board -Bladder/Renal Ultrasound--> non obstructing left renal calculi. Left ureteral stent is seen in place within urinary bladder lumen. post-void residual volume 400 ml.Trace amount of ascites within right abdomen. -F/U Dr Boles outpatient Nephrolithiasis--> Left renal calculus s/p lithotripsy and ureteral stent --stent in place, Follows Dr Russell, to be removed later this month --Pt seen by this afternoon. PVD -[facility] with Dr. Blakely Jan. at 3:00pm FEN No Fluids Monitor Electrolytes Soft Diet DVT ppx: Eliquis 2.5 bid Dispo: Pt has been discharged . Visit type - Emergency Visit Emergency Visit: Yes ED Registration Date: 12/24/17 Care time: The patient presented to the Emergency Department on the above date and was hospitalized for further evaluation of their emergent condition. - New Patient This patient is new to me today: No - Critical Care Critical Care patient: Yes Total Critical Care Time (in minutes): 35 Critical Care Statement: The care of this patient involved high complexity decision making to prevent further life threatening deterioration of the patient 's condition and/or to evaluate & treat vital organ system(s) failure or risk of failure.
[2017-12-28] MEDS ORDERED: MESALAMINE 4 GM/60 ML ENEMA PR SCH (22:00)
[2017-12-28] MEDS ORDERED: TIMOLOL 0.5% OPHTHALMIC SOL 5 ML BOTTLE OU SCH (22:00)
[2017-12-28] MEDS ORDERED: ATORVASTATIN CA 40 MG TABLET (FP) PO SCH (22:00)
[2017-12-29] MEDS ORDERED: FUROSEMIDE 40 MG TABLET (FP) PO ONE (06:00)
[2017-12-29] MEDS ORDERED: TAMSULOSIN HCL 0.4 MG CAP.ER.24H (FP) PO SCH (08:30)
[2017-12-29] MEDS ORDERED: AMIODARONE HCL 200 MG TABLET (FP) PO SCH (10:00)
== END 2017-12-28 15:15 | disposition home health service (06) | DRG 393 ==
LOC: JER 20:42 → JERBED 22:52 → JICU 12-25 18:45
PROVIDERS: ADMIT Internal Medicine; ATTEND Nurse Practitioner Acute Care
PROC: 30233N1 Transfusion of Nonautologous Red Blood Cells into Peripheral Vein, Percutaneous Approach (ICD-10-PCS; 2017-12-25)
PROC: 0W3P8ZZ Control Bleeding in Gastrointestinal Tract, Via Natural or Artificial Opening Endoscopic (ICD-10-PCS; principal; 2017-12-25 16:15)
DX: K62.7 Radiation proctitis (principal); L89.623 Pressure ulcer of left heel, stage 3; K92.2 Gastrointestinal hemorrhage, unspecified; N17.9 Acute kidney failure, unspecified; D62 Acute posthemorrhagic anemia; N39.0 Urinary tract infection, site not specified; I50.22 Chronic systolic (congestive) heart failure; E78.5 Hyperlipidemia, unspecified; N18.9 Chronic kidney disease, unspecified; I25.10 Atherosclerotic heart disease of native coronary artery without angina pectoris; Z95.1 Presence of aortocoronary bypass graft; I48.91 Unspecified atrial fibrillation; E87.6 Hypokalemia; K57.90 Diverticulosis of intestine, part unspecified, without perforation or abscess without bleeding; E88.09 Other disorders of plasma-protein metabolism, not elsewhere classified
CPT/HCPCS: 36415; 36430; 71045-TC-FY; 74176-TC; 76775-TC; 76856-TC; 80053; 81003; 81015; 82272; 82436; 82570; 83735; 83880; 84100; 84133; 84156; 84300; 84484; 85025; 85027; 85610; 86850; 86900; 86901; 86922; 87086; 93005; 93010; 97116-GP; 97161-GP; 99285-25; J7030; P9038; P9058

== ENCOUNTER 2017-12-31 08:54 | Inpatient (IN) | payer OTHER, MEDICARE ==
[2017-12-31 09:49] LABS: BASO % 0.5 % (0-2.0); EOS % 1.4 % (0-4.5); HEMATOCRIT 26.9 % (35.4-49); LYMPH % 16.3 % (8-40); MCH 31.9 pg (25.7-33.7); MCHC 33.4 g/dl (32.0-35.9); MEAN CELL VOLUME 95.5 fl (80-96); MEAN PLT VOLUME 9.1 fl (7.5-11.1); NEUT % 67.8 % (42.8-82.8); PLATELET COUNT 119 K/MM3 (134-434); RBC 2.81 M/mm3 (4.00-5.60); RDW 18.3 % (11.9-15.9); WHITE BLOOD COUNT 7.6 K/mm3 (4.0-10.0)
--- NOTE | 2017-12-31 09:55 | PDOC ---
History of Present Illness - General Chief Complaint: Bleeding from Anus Stated Complaint: RECTAL BLEEDING Time Seen by Provider: 12/31/17 09:34 - History of Present Illness Initial Comments: 12/31/17 09:50 82 year old man with past medcial history of quadruple bypass (1989), prostate cancer, aortic and mitral valve replacement, PAD, a fib, with recent ablation and pacemake placement on 12/16/17 and sigmoidoscopy w/ cauterization approx 1 week ago for rectal bleeding who presents with 2 hours of bright red rectal bleeding. Patient is on Eliquis, restarted on 12/27/17. The patient notes that after the sigmoidoscpy and cauterization he was on a stool softener and had loose stools without bleeding for 4-5 days. At 0300 today he had his first well formed bowel movement; it was not bloody. At 0800 he starting having a steady stream of bright red blood per rectum that required 3 depends diapers to be changed. As of 1014 the bleeding stopped. The patient denies dark tarry stools, nausea, vomiting, abdominal pain or chest pain. He has no other complaints at bedside. PMHX: as in HPI PSHX: none Meds: Allergies: none Tob: none Etoh:none Rec drugs: none PCP: Mendez Past History - Past Medical History Allergies/Adverse Reactions: Allergies Allergy/AdvReac Type Severity Reaction Status Date / Time No Known Drug Allergies Allergy Verified 12/31/17 09:16 Home Medications: Ambulatory Orders Atorvastatin Ca [Lipitor] 40 mg PO HS 11/07/14 Tamsulosin HCl [Flomax] 0.4 mg PO DAILY 12/01/17 Timolol 0.25% [Timoptic 0.25%] 1 drop OP BID 12/01/17 Apixaban [Eliquis -] 2.5 mg PO BID #60 tablet 12/28/17 Carvedilol [Coreg -] 3.125 mg PO BID #60 tablet 12/28/17 Furosemide [Lasix -] 20 mg PO DAILY #30 tablet 12/28/17 Mesalamine Enema [Rowasa Enema -] 4 gm IN HS #52 enema 12/28/17 Mupirocin Ointment [Bactroban 2% Ointment -] 1 applic TP BID #1 applic 12/28/17 Sucralfate Oral Suspension [Carafate Oral Suspension -] 1 gm PO QID #28 ml 12/28 Anemia: Yes Asthma: No Cancer: Yes (prostate cancer) Cardiac Disorders: Yes (cabg x4, AAA, mitral valve repair & aortic valve repair , bovine valve) CVA: Yes COPD: (A-FIB) CHF: (v tach-TRANSFER TO [place] FOR ICD) Dementia: No Diabetes: No GI Disorders: Yes Disorders: No HTN: Yes Hypercholesterolemia: Yes Liver Disease: No Seizures: No Thyroid Disease: No - Surgical History Abdominal Surgery: Yes Appendectomy: No Cardiac Surgery: Yes (VALVE REPAIR, DEFIB, AAA, BYPASS X 4.) Cholecystectomy: No Lung Surgery: No Neurologic Surgery: No Orthopedic Surgery: Yes (LEFT CARPAL TUNNEL, ACL REPAIR RIGHT KNEE) - Immunization History Immunization Up to Date: No - Suicide/Smoking/Psychosocial Hx Smoking Status: No Smoking History: Unknown if ever smoked Have you smoked in the past 12 months: No Number of Cigarettes Smoked Daily: 0 Information on smoking cessation initiated: No Hx Alcohol Use: No Drug/Substance Use Hx: No Substance Use Type: None Hx Substance Use Treatment: No Review of Systems - Review of Systems Able to Perform ROS?: Yes Is the patient limited Portuguese proficient: No Constitutional: No: Chills, Diaphoresis, Fever HEENTM: No: Blurred Vision, Tinnitus Respiratory: No: Cough, Orthopnea, Shortness of Breath Cardiac (ROS): No: Chest Pain ABD/GI: Yes: See HPI, Rectal Bleeding. No: Nausea, Vomiting : No: Incontinence Musculoskeletal: No: Back Pain Neurological: No: Headache *Physical Exam - Vital Signs Last Vital Signs Temp Pulse Resp BP Pulse Ox 98.2 F 80 16 105/64 98 12/31/17 09:17 12/31/17 09:17 12/31/17 09:17 12/31/17 09:17 12/31/17 09:17 - Physical Exam Comments: 12/31/17 10:44 conjunctival pallor gross bright red blood from anus, no stool visualized, no hemorrhoids. 3+ pitting edema on ankles and feet, palpaable pulses. R middle toe dorsal aspect ulcer stage 1 slight abrasion/scaling around L heel bilteral feet dressing with compression silicon a&D cream ptached on wounds bilateral hipps - wounds slight, not ulcerated. lugns CTAB no abd tenderness 12/31/17 11:22 ED Treatment Course - LABORATORY CBC & Chemistry Diagram: 12/31/17 17:25 12/31/17 09:40 - ADDITIONAL ORDERS Additional order review: 12/31/17 09:40 RBC 2.81 L MCV 95.5 MCHC 33.4 RDW 18.3 H MPV 9.1 Neutrophils % 67.8 Lymphocytes % 16.3 D Monocytes % 14.0 H Eosinophils % 1.4 Basophils % 0.5 Medical Decision Making - Medical Decision Making 82 year old man with past medcial history of quadruple bypass (1989), prostate cancer, aortic and mitral valve replacement, PAD, a fib, with recent ablation and pacemake placement on 12/16/17 and sigmoidoscopy w/ cauterization approx 1 week ago for rectal bleeding who presents with 2 hours of bright red rectal bleeding. Patient is on Eliquis, restarted on 12/27/17. DDX: W/U: - cbc, cmp, PT/INR, PTT, Type& Screen - EKG ED Course: Patient assessed with stable vitals. 12/31/17 10:44 Spoke with consult gastroenterology Dr. Amador. Wants to admit patient. Patient reassessed, stable, informed of dispo. Agrees to plan. 12/31/17 11:[address] Corona *DC/Admit/Observation/Transfer Diagnosis at time of Disposition: GI bleed - Discharge Dispostion Condition at time of disposition: Stable Decision to Admit order: Yes - Referrals - Patient Instructions - Post Discharge Activity
[2017-12-31 10:03] LABS: INR 1.12 (0.83-1.09); PROTHROMBIN TIME (PATIENT) 12.6 SEC (9.7-13.0)
--- NOTE | 2017-12-31 10:03 | PDOC ---
Attending Attestation - Resident Resident Name: Rocío Vanessa - ED Attending Attestation I have performed the following: I have examined & evaluated the patient, The case was reviewed & discussed with the resident, I agree w/resident's findings & plan, Exceptions are as noted - HPI HPI: 12/31/17 10:45 The patient is an 82 year old male with past medical history of quadruple bypass , s/p aortic and mitral valve replacement, PAD, atrial fibrillation (on Eliquis) , s/p pacemaker on 12/16/2017, and recent episode of rectal bleeding s/p sigmoidoscopy and cauterization upon last admission on 12/24/2017 who presents to the ED today with rectal bleeding since 8 am today. The patient was discharged on 12/28 and reports having first normal BM this morning at 3 am. At 8 am he reports a constant stream of bright red blood per rectum which he saturated four depends with. He denies any clots and reports the bleeding has since stopped. Denies any melena, hematemesis, nausea, vomiting, or diarrhea. Denies any fever or chills. - Physicial Exam PE: 12/31/17 10:01 agree with resident exam - Medical Decision Making 12/31/17 10:01 82yo M with MMP presents to the ED with 4 episodes of BRBPR in diaper after BM. Pt is on eliquis. Vitals with borderline low BP 106/64. Per Dr. Vanessa, exam with brb in rectal vault, but no active bleeding. Likely 2/2 recent sigmoidoscopy but eliquis complicates situation. Will check labs, call Dr. Church , and reassess. 12/31/17 11:12 Case discussed with [facility] Brothers, pt admiited to Dr. Soto Case discussed in detail with admitting physician including history, physical exam and ancillary studies. Admitting physician has assumed care for the patient, will follow all pending diagnostics and will complete the evaluation and treatment. Discharge Disposition - Diagnosis GI bleed - Discharge Dispostion Condition at time of disposition: Stable Last Admission D/C Date: 12/28/17 Decision to Admit order: Yes - Referrals - Patient Instructions - Post Discharge Activity Heart Score/ECG Review #1 12/31/17 13:49 Twelve-lead EKG was performed and reviewed by me. AV dual paced rhythm, rate 82.
[2017-12-31 10:05] LABS: ACTIVATED PTT 19.7 SECONDS (25.2-36.5)
[2017-12-31 10:11] LABS: ALBUMIN 2.4 g/dl (3.4-5.0); ALK PHOS 218 U/L (45-117); ANION GAP 9 (8-16); BILIRUBIN,TOTAL 1.1 mg/dL (0.2-1.0); BLOOD UREA NITROGEN 53 mg/dL (7-18); CALCIUM 8.5 mg/dL (8.5-10.1); CHLORIDE 105 mmol/L (98-107); CO2 28 mmol/L (21-32); GLUCOSE,RANDOM 103 mg/dL (74-106); POTASSIUM 4.5 mmol/L (3.5-5.1); SGOT/AST 84 U/L (15-37); SGPT/ALT 79 U/L (12-78); SODIUM 142 mmol/L (136-145); TOT PROT 5.4 g/dl (6.4-8.2)
[2017-12-31] MEDS ORDERED: AMIODARONE HCL 200 MG TABLET (FP) PO ONE (10:49)
[2017-12-31] MEDS ORDERED: TAMSULOSIN HCL 0.4 MG CAP.ER.24H (FP) PO ONE (10:50)
--- NOTE | 2017-12-31 11:28 | HP ---
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 Now presents with recurring acute gi bleed. Pt reports first soft formed stool this morning at 3 am. When he woke up he had a bowel movement at 8am and incurring rectal bleeding. He used 3 depends. The bleeding was less severe from previous admission last week. Pt denies sob, cp, abd pain, n/v, GUIDRY, dizziness. Currently, pt having additional hematochezia episode, this time with large clot expelled. 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 History of Recent Travel: No Home Medications - Allergies Allergies/Adverse Reactions: Allergies Allergy/AdvReac Type Severity Reaction Status Date / Time No Known Drug Allergies Allergy Verified 12/31/17 09:16 - Home Medications Home Medications: Ambulatory Orders Atorvastatin Ca [Lipitor] 40 mg PO HS 11/07/14 Tamsulosin HCl [Flomax] 0.4 mg PO DAILY 12/01/17 Timolol 0.25% [Timoptic 0.25%] 1 drop OP BID 07/20/18 Apixaban [Eliquis -] 2.5 mg PO BID #60 tablet 12/28/17 Carvedilol [Coreg -] 3.125 mg PO BID #60 tablet 12/28/17 Furosemide [Lasix -] 20 mg PO DAILY #30 tablet 12/28/17 Mesalamine Enema [Rowasa Enema -] 4 gm NE HS #52 enema 12/28/17 Mupirocin Ointment [Bactroban 2% Ointment -] 1 applic TP BID #1 applic 12/28/17 Sucralfate Oral Suspension [Carafate Oral Suspension -] 1 gm PO QID #28 ml 12/28 Review of Systems - Review of Systems Constitutional: reports: No Symptoms Eyes: reports: No Symptoms HENT: reports: No Symptoms Neck: reports: No Symptoms Cardiovascular: reports: No Symptoms Respiratory: reports: No Symptoms Gastrointestinal: reports: Rectal Bleeding Genitourinary: reports: No Symptoms Musculoskeletal: reports: No Symptoms Integumentary: reports: Wound Neurological: reports: No Symptoms Endocrine: reports: No Symptoms Hematology/Lymphatic: reports: No Symptoms Psychiatric: reports: No Symptoms Physical Examination Vital Signs: Vital Signs Temperature 98.2 F 12/31/17 09:17 Pulse Rate 80 12/31/17 09:17 Respiratory Rate 16 12/31/17 09:17 Blood Pressure 105/64 12/31/17 09:17 O2 Sat by Pulse Oximetry (%) 98 12/31/17 09:17 Constitutional: Yes: Calm Eyes: Yes: Conjunctiva Clear HENT: Yes: Atraumatic Neck: Yes: Supple Cardiovascular: Yes: Pulse Irregular, S1, S2 Respiratory: Yes: Regular, Rhonchi Gastrointestinal: Yes: Normal Bowel Sounds, Soft ...Rectal Exam: Yes: Guaiac Positive, Other (active rectal bleeding with clot) Renal/: Yes: WNL Musculoskeletal: Yes: WNL Extremities: Yes: Other (wound to bilateral heels) Edema: Yes Edema: LLE: 2+, RLE: 2+ Wound/Incision: Yes: Clean/Dry, Dressing Dry and Intact Neurological: Yes: Alert, Cran Nerves II-XII Intact Psychiatric: Yes: Alert, Oriented Labs: CBC, BMP 12/31/17 09:40 12/31/17 09:40 Assessment/Plan Assessment: 82 year old male with a PMH of CAD s/p CABG x 4 in 1989, sCHF (Ef 25 %), bioprosthetic AVR, mitral valve repair, AAA s/p repair, VT in 2011 with ICD , afib (was on Eliquis), 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 Now presents with recurring acute gi bleed. Plan: 1. Acute GI bleed, hx of h/o radiation proctitis, on eliquis - Serial q3hr CBC - GI aware, will see pt - Hgb stable at this time, transfuse as needed - Stop eliquis - Continue Liquid carafate NE QID - Hold Rowasa NE HS, was to continue for total of 8 weeks 2. FELICE on CKD - Cr around baseline - Cont daily lasix 20mg 3. Left renal calculus s/p lithotripsy and ureteral stent - Stent in place, plan for outpt urologist to remove once dc from [facility] - Pt reports chronic hematuria - Cont flomax 5. Atrial fibrillation - Continue amiodarone PO 6. CAD - Cont coreg 3.125mg BID - Cont lasix 20mg daily - Cardiology consulted 7. Chronic systolic heart failure - Increased le edema from discharge, no resp changes - Cont low dose lasix 20mg daily 8. Peripheral vascular disease s/p left ilio-fem bypass - [facility] with Dr. Blakely Jan.17 at 3:00pm 9. Pressure ulcers - Allevyn heel protectors both heels - Mupirocin and sterile dressing to skin tear on right toe - Xerofoam and sterile dressing to blister on left toe - Optifoam to buttocks - Follow up outpatient at [facility] in 2 weeks Visit type - Emergency Visit Emergency Visit: Yes Care time: The patient presented to the Emergency Department on the above date and was hospitalized for further evaluation of their emergent condition. - New Patient This patient is new to me today: Yes Date on this admission: 12/31/17 - Critical Care Critical Care patient: No Hospitalist Screening - Colonoscopy Questionnaire Colonoscopy Questionnaire: Colonoscopy Questionnaire - Patient: 50 - 75 years old and never had a screening colonoscopy: No History of colon or rectal polyps, or CA: Unknown History of IBD, Crohn's disease or UC: Unknown History of abdominal radiation therapy as a child: Unknown - Relative: 1 with colon or rectal CA, or polyps at age 60 or younger: Unknown Colon or rectal CA diagnosed at age 45 or younger: Unknown Multiple relatives with colon or rectal CA: Unknown - Outcome: Screening Result: Negative Screen
[2017-12-31] MEDS ORDERED: MORPHINE SULFATE 2 MG/ML VIAL IVPUSH PRN (11:39)
[2017-12-31] MEDS ORDERED: AMIODARONE HCL 200 MG TABLET (FP) ONE (12:41)
[2017-12-31] MEDS ORDERED: TAMSULOSIN HCL 0.4 MG CAP.ER.24H (FP) ONE (12:42)
[2017-12-31] MEDS ORDERED: PANTOPRAZOLE SODIUM 40 MG VIAL ONE (12:42)
[2017-12-31] MEDS: PANTOPRAZOLE SODIUM 40 MG VIAL IVPUSH SCH (12:46)
[2017-12-31] MEDS ORDERED: SUCRALFATE 1 GM TABLET (FP) ONE (13:38)
--- NOTE | 2017-12-31 13:50 | CONSULT ---
Consult Consult Specialty:: General surgery Referred by:: Zev Reason for Consultation:: recurrent rectal bleed - History of Present Illness Chief Complaint: Rectal bleed History of Present Illness: 82 yo male PMH quadruple bypass, s/p aortic and mitral valve replacement, PAD, atrial fibrillation (on Eliquis), s/p pacemaker on 12/16/2017, and recent episode of rectal bleeding s/p sigmoidoscopy and cauterization upon last admission on 04/2018 returned to the ED today with rectal bleeding since 8 am today. He resumed his eloquis after discharge on 12/28 and reports having first normal BM this morning at 3 am. At 8 am he reports a constant stream of bright red blood per rectum which he saturated four depends with. He denies any clots and reports the bleeding has since stopped. Denies any melena, hematemesis, nausea, vomiting, or diarrhea. Denies any fever or chills. We were asked to assess. - History Source History Provided By: Patient, Medical Record Limitations to Obtaining History: No Limitations - Past Medical History Cardio/Vascular: Yes: AFIB, Aneurysm, CAD, HTN, Hyperlipdemia Gastrointestinal: Yes: GI Bleed Renal/: Yes: Renal Inusuff, BPH Additional Medical History: prostate cancer S/p Lupron, casodex and radiation, TIA, anticoagulation therapy; glaucoma; DVT LE - Past Surgical History Past Surgical History: Yes: AAA Repair, AICD, CABG, Permanent Pacemaker, Valve Replacement - Alcohol/Substance Use Hx Alcohol Use: No History of Substance Use: reports: None - Smoking History Smoking history: Unknown if ever smoked Have you smoked in the past 12 months: No Aproximately how many cigarettes per day: 0 - Social History Usual Living Arrangement: With Spouse ADL: Support Services 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 History of Recent Travel: No Home Medications - Allergies Allergies/Adverse Reactions: Allergies Allergy/AdvReac Type Severity Reaction Status Date / Time No Known Drug Allergies Allergy Verified 12/31/17 09:16 - Home Medications Home Medications: Ambulatory Orders Atorvastatin Ca [Lipitor] 40 mg PO HS 11/07/14 Tamsulosin HCl [Flomax] 0.4 mg PO DAILY 12/01/17 Timolol 0.25% [Timoptic 0.25%] 1 drop OP BID 12/01/17 Apixaban [Eliquis -] 2.5 mg PO BID #60 tablet 12/28/17 Carvedilol [Coreg -] 3.125 mg PO BID #60 tablet 12/28/17 Furosemide [Lasix -] 20 mg PO DAILY #30 tablet 12/28/17 Mesalamine Enema [Rowasa Enema -] 4 gm ND HS #52 enema 12/28/17 Mupirocin Ointment [Bactroban 2% Ointment -] 1 applic TP BID #1 applic 12/28/17 Sucralfate Oral Suspension [Carafate Oral Suspension -] 1 gm PO QID #28 ml 12/28 Review of Systems - Review of Systems Constitutional: denies: Chills, Fever Eyes: denies: Blind Spots, Recent Change in Vision HENT: denies: Difficult Swallowing, Throat Pain Neck: denies: Pain on Movement, Tenderness Cardiovascular: denies: Chest Pain, Palpitations Respiratory: denies: Cough, SOB Gastrointestinal: reports: Rectal Bleeding. denies: Constipation, Diarrhea Genitourinary: denies: Discharge, Dysuria Breasts: reports: No Symptoms Reported. denies: Pain Musculoskeletal: denies: Muscle Pain, Muscle Weakness Integumentary: denies: Erythema, Pallor, Rash Neurological: denies: Seizure, Syncope Endocrine: denies: Unexplained Weight Gain, Unexplained Weight Loss Hematology/Lymphatic: denies: Easily Bruised, Excessive Bleeding Psychiatric: denies: Anxiety, Depression Physical Exam Vital Signs: Vital Signs Temperature 98.2 F 12/31/17 09:17 Pulse Rate 80 12/31/17 13:05 Respiratory Rate 18 12/31/17 13:05 Blood Pressure 97/52 12/31/17 13:05 O2 Sat by Pulse Oximetry (%) 98 12/31/17 13:05 Constitutional: Yes: Well Nourished, No Distress, Calm Eyes: Yes: Conjunctiva Clear, EOM Intact HENT: Yes: Atraumatic, Normocephalic Neck: Yes: Supple, Trachea Midline Cardiovascular: Yes: Tachycardia, Pulse Irregular, S1, S2 Respiratory: Yes: Regular, CTA Bilaterally Gastrointestinal: Yes: Normal Bowel Sounds, Soft, Rectal Bleeding. No: Tenderness, Tenderness, Epigastrium, Tenderness, Rebound ...Rectal Exam: Yes: Guaiac Positive, Hemorrhoids/External, Hemorrhoids/Internal , Sphincter Tone Normal Renal/: No: CVA Tenderness - Left, CVA Tenderness - Right Extremities: No: Cool, Cyanosis Edema: No Peripheral Pulses WNL: Yes Integumentary: No: Jaundice, Tattoos, Venous Stasis Changes Neurological: Yes: Alert, Oriented Psychiatric: Yes: Alert, Oriented Labs: CBC, BMP 12/31/17 09:40 12/31/17 09:40 Problem List - Problems (1) Rectal bleeding Assessment/Plan: 82 yo male with recurrent Rectal bleeding (same site versus new bleeding area) likely localized to rectum secondary to eloquis Consider a monitored setting NPO and IVF resuscitation Trend CBC Transfuse as indicated Hold eloquis GI for repeat endoscopy IR consult for embolization will follow Thank you for the opportunity to participate in the care of this patient. Code(s): K62.5 - HEMORRHAGE OF ANUS AND RECTUM (2) FELICE (acute kidney injury) Code(s): N17.9 - ACUTE KIDNEY FAILURE, UNSPECIFIED (3) Acute exacerbation of CHF (congestive heart failure) Code(s): I50.9 - HEART FAILURE, UNSPECIFIED Qualifiers: Heart failure type: unspecified Qualified Code(s): I50.9 - Heart failure, unspecified (4) DVT (deep venous thrombosis) Code(s): I82.409 - ACUTE EMBOLISM AND THOMBOS UNSP DEEP VN UNSP LOWER EXTREMITY (5) Kidney stone on left side Code(s): N20.0 - CALCULUS OF KIDNEY (6) PAD (peripheral artery disease) Code(s): I73.9 - PERIPHERAL VASCULAR DISEASE, UNSPECIFIED
[2017-12-31] MEDS ORDERED: SUCRALFATE 1 GM/10 ML UNIT DOSE CUPS PO SCH (14:00)
[2017-12-31 14:10] LABS: BASO % 0.4 % (0-2.0); EOS % 1.2 % (0-4.5); HEMATOCRIT 25.8 % (35.4-49); HEMOGLOBIN 8.7 GM/dL (11.7-16.9); LYMPH % 13.6 % (8-40); MCH 31.8 pg (25.7-33.7); MCHC 33.6 g/dl (32.0-35.9); MEAN CELL VOLUME 94.6 fl (80-96); MEAN PLT VOLUME 8.8 fl (7.5-11.1); NEUT % 71.8 % (42.8-82.8); PLATELET COUNT 101 K/MM3 (134-434); RBC 2.73 M/mm3 (4.00-5.60); RDW 17.7 % (11.9-15.9); WHITE BLOOD COUNT 6.4 K/mm3 (4.0-10.0)
--- NOTE | 2017-12-31 15:14 | CON.GI ---
Consult Consult Specialty:: Gastroenterology ( covering for Dr. Church) Referred by:: Simi Brothers NP Reason for Consultation:: Rectal bleeding - History of Present Illness Chief Complaint: Brisk bright red rectal bleeding began at 8AM History of Present Illness: 82M awoke at 8AM with brisk bright red rectal bleeding that soaked 4 depends diapers and prompted him to come to the ER. He had a semiformed brown BM at 3AM. He was recently hospitalized her for the same and underwent a flexible sigmoidoscopy with Dr. Church on 12/25/17 that revealed the bleeding to be emanating from a rectal artery. 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 The bleeding stopped after long pulses of heater probe cautery. He also noted sigmoid diverticulosis. His Eliquis was restarted on 12/29 when he was discharged. The bleeding had originally started after he was switched from coumadin to eliquis. He has a h/o atrial fibrillation and underwent an ablation at [facility] in 11/[address] Pearce after his AICD went off on 11/30/17 and caused multiple facial ecchymoses. His tells me that his AICD is locked into a real time trader pacing mode which is awaiting revision. He had porcine AVR and MVR done at [facility] in 05/17 and a CABG at [facility] in . He also has hematuria since undergoing left ureteral stone lithotripsy and stent insertion in 11/29. His PMD is Dr. Robson Varma. He last had an EGD and a colonoscopy with Dr Parks at [facility] in 09/29. Only RT proctitis was noted. Never had polyps. 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: CVA (left hemiparesis in 2010 which completely resolved) Cardio/Vascular: Yes: AFIB (ablation performed at [facility] Dr Pearce 11/29, has AICD locked into real time trader pacing mode, originally placed 12/24), Aneurysm (stented AAA 04/17), Aortic Stenosis (porcine AVR 05/17 [facility]), CAD (CABG [place]), Deep Vein Thrombosis, HTN, Hyperlipdemia, Mitral Insufficiency ( porcine MVR 05/17 [facility]), Other (peripheral vascular disease with left fem- pop bypass [address] Dr Blakely) Gastrointestinal: Yes: Diverticulosis, GI Bleed (12/25/17 heater probe cautery by flex sig to control rectal arterial bleed in setting of RT proctitis) Renal/: Yes: Renal Inusuff, BPH, Renal Calculi (ureteral stone lithotripsy and stenting 10/30 with hematuria since then) Additional Medical History: prostate cancer S/p Lupron & RT 20 years ago, casodex. glaucoma. cataracts. DVT LE. peripheral vascular disease - Past Surgical History Past Surgical History: Yes: AAA Repair (graft inserted femoral approach), AICD, Bypass (LLE fem-pop Dr Blakely 2014), CABG, Colonoscopy, Permanent Pacemaker , Upper Endoscopy, Valve Replacement (porcine AVR and MVR at [facility] 05/17) - Alcohol/Substance Use Hx Alcohol Use: No History of Substance Use: reports: None - Smoking History Smoking history: Unknown if ever smoked Have you smoked in the past 12 months: No Aproximately how many cigarettes per day: 0 - Social History Usual Living Arrangement: With Spouse ADL: Support Services 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 Place of : [place] History of Recent Travel: No Home Medications - Allergies Allergies/Adverse Reactions: Allergies Allergy/AdvReac Type Severity Reaction Status Date / Time No Known Drug Allergies Allergy Verified 12/31/17 09:16 - Home Medications Home Medications: Ambulatory Orders Atorvastatin Ca [Lipitor] 40 mg PO HS 11/07/14 Tamsulosin HCl [Flomax] 0.4 mg PO DAILY 12/01/17 Timolol 0.25% [Timoptic 0.25%] 1 drop OP BID 12/01/17 Apixaban [Eliquis -] 2.5 mg PO BID #60 tablet 12/28/17 Carvedilol [Coreg -] 3.125 mg PO BID #60 tablet 12/28/17 Furosemide [Lasix -] 20 mg PO DAILY #30 tablet 12/28/17 Mesalamine Enema [Rowasa Enema -] 4 gm UT HS #52 enema 12/28/17 Mupirocin Ointment [Bactroban 2% Ointment -] 1 applic TP BID #1 applic 12/28/17 Sucralfate Oral Suspension [Carafate Oral Suspension -] 1 gm PO QID #28 ml 12/28 Family Disease History - Family Disease History Family Disease History: Heart Disease: Mother ( 83 of [place]), Other: Father ( lived to 90), Mother Review of Systems - Review of Systems Constitutional: reports: Weakness Eyes: reports: Blurred Vision HENT: reports: No Symptoms Neck: reports: No Symptoms Cardiovascular: reports: Palpitations Respiratory: reports: No Symptoms Gastrointestinal: reports: Rectal Bleeding Genitourinary: reports: Hematuria Musculoskeletal: reports: Joint Pain Hematology/Lymphatic: reports: Easily Bruised Physical Exam-GI Vital Signs: Vital Signs Temperature 98.2 F 12/31/17 09:17 Pulse Rate 80 12/31/17 13:05 Respiratory Rate 18 12/31/17 13:05 Blood Pressure 97/52 12/31/17 13:05 O2 Sat by Pulse Oximetry (%) 98 12/31/17 13:05 CBC,CMP WBC 6.4 K/mm3 (4.0-10.0) 12/31/17 13:55 RBC 2.73 M/mm3 (4.00-5.60) L 12/31/17 13:55 Hgb 8.7 GM/dL (11.7-16.9) L 12/31/17 13:55 Hct 25.8 % (35.4-49) L 12/31/17 13:55 MCV 94.6 fl (80-96) 12/31/17 13:55 MCH 31.8 pg (25.7-33.7) 12/31/17 13:55 MCHC 33.6 g/dl (32.0-35.9) 12/31/17 13:55 RDW 17.7 % (11.9-15.9) H 12/31/17 13:55 Plt Count 101 K/MM3 (134-434) L 12/31/17 13:55 MPV 8.8 fl (7.5-11.1) 12/31/17 13:55 Absolute Neuts (auto) 4.6 K/mm3 (1.5-8.0) 12/31/17 13:55 Neutrophils % 71.8 % (42.8-82.8) 12/31/17 13:55 Lymphocytes % 13.6 % (8-40) 12/31/17 13:55 Monocytes % 13.0 % (3.8-10.2) H 12/31/17 13:55 Eosinophils % 1.2 % (0-4.5) 12/31/17 13:55 Basophils % 0.4 % (0-2.0) 12/31/17 13:55 Nucleated RBC % 0 % (0-0) 12/31/17 13:55 Sodium 142 mmol/L (136-145) 12/31/17 09:40 Potassium 4.5 mmol/L (3.5-5.1) 12/31/17 09:40 Chloride 105 mmol/L (98-107) 12/31/17 09:40 Carbon Dioxide 28 mmol/L (21-32) 12/31/17 09:40 Anion Gap 9 (8-16) 12/31/17 09:40 BUN 53 mg/dL (7-18) H 12/31/17 09:40 Creatinine 2.0 mg/dL (0.7-1.3) H 12/31/17 09:40 Creat Clearance w eGFR 32.07 (>60) 12/31/17 09:40 Random Glucose 103 mg/dL (74-106) 12/31/17 09:40 Calcium 8.5 mg/dL (8.5-10.1) 12/31/17 09:40 Total Bilirubin 1.1 mg/dL (0.2-1.0) H 12/31/17 09:40 AST 84 U/L (15-37) H D 12/31/17 09:40 ALT 79 U/L (12-78) H D 12/31/17 09:40 Alkaline Phosphatase 218 U/L (45-117) H D 12/31/17 09:40 Total Protein 5.4 g/dl (6.4-8.2) L 12/31/17 09:40 Albumin 2.4 g/dl (3.4-5.0) L 12/31/17 09:40 Current Medications Generic Name Dose Route Start Last Admin Trade Name Freq PRN Reason Stop Dose Admin Atorvastatin Calcium 40 mg 12/31/17 22:00 Lipitor - PO HS AUDIE Carvedilol 3.125 mg 12/31/17 22:00 Coreg - PO BID AUDIE Furosemide 20 mg 01/01/18 10:00 Lasix - PO DAILY [facility] Morphine Sulfate 1 mg 12/31/17 11:39 Morphine Sulfate IVPUSH Q4H PRN PAIN LEVEL 4 - 6 Mupirocin 1 applic 12/31/17 22:00 Bactroban 2% Ointment - TP BID [facility] Pantoprazole Sodium 40 mg 12/31/17 11:45 12/31/17 12:46 Protonix Iv IVPUSH 40 mg DAILY AUDIE Administration Sucralfate 1 gm 12/31/17 14:00 12/31/17 14:01 Carafate Oral Suspension - PO 1 gm QID AUDIE Administration Tamsulosin HCl 0.4 mg 01/01/18 10:00 Flomax - PO DAILY [facility] Timolol Maleate 1 drop 12/31/17 22:00 Timoptic 0.25% OD BID [facility] Constitutional: Yes: Anxious Eyes: Yes: Conjunctiva Clear HENT: Yes: Normocephalic Neck: Yes: Supple Cardiovascular: Yes: Regular Rate and Rhythm (with left sided AICD), S1 (wnl), S2 (wnl), Other (healed median sternotomy incision) Respiratory: Yes: CTA Bilaterally Gastrointestinal Inspection: Yes: WNL ...Auscultate: Yes: Normoactive Bowel Sounds ...Palpate: Yes: Soft, Other (nontender) ...Rectal Exam: Yes: Guaiac Positive (fresh and clotted blood elicited), Sphincter Tone Poor, Other (no masses felt) Genitourinary: Yes: Hematuria Edema: No Integumentary: Yes: Other (multiple facial ecchymoses) Neurological: Yes: Alert, Oriented Labs: CBC, BMP 12/31/17 13:55 12/31/17 09:40 INR, PTT INR 1.12 (0.83-1.09) H 12/31/17 09:40 Laboratory Tests 12/31/17 12/31/17 12/31/17 09:40 09:40 09:40 WBC Hgb 9.0 L Plt Count PT with INR 12.60 BUN 53 H Creatinine 2.0 H Total Bilirubin 1.1 H AST 84 H D ALT 79 H D Alkaline Phosphatase 218 H D 12/31/17 13:55 WBC 6.4 Hgb 8.7 L Plt Count 101 L PT with INR BUN Creatinine Total Bilirubin AST ALT Alkaline Phosphatase Problem List - Problems (1) Rectal bleeding Assessment/Plan: Suspect that the bleeding is from an ulceration at the heater probe cautery site in the setting of Eliquis effect. I inserted a sol catheter with and inflated a 30cc balloon with sterile saline in the rectum to tamponade the bleeding in the hopes of averting IR embolization or surgical intervention until the Eliquis effect wears off. A/C will likely need to be held until a repeat sigmoidoscopy confirms full healing of this bleeding site. I answered all of the patient's, his 's and daughter's questions. Will keep NPO and give IV fluids. Dr Church will return tomorrow. Code(s): K62.5 - HEMORRHAGE OF ANUS AND RECTUM (2) Abnormal liver function tests Assessment/Plan: This may be congestive hepatopathy but will order sonogram and liver testing. This could reflect fatty liver infiltration associated with amiodarone. Code(s): R94.5 - ABNORMAL RESULTS OF LIVER FUNCTION STUDIES (3) Radiation proctitis Code(s): K62.7 - RADIATION PROCTITIS (4) Hematuria Code(s): R31.9 - HEMATURIA, UNSPECIFIED (5) History of aortic valve replacement with porcine valve Code(s): Z95.3 - PRESENCE OF XENOGENIC HEART VALVE (6) History of mitral valve replacement with porcine valve Code(s): Z95.3 - PRESENCE OF XENOGENIC HEART VALVE (7) S/P CABG (coronary artery bypass graft) Code(s): Z95.1 - PRESENCE OF AORTOCORONARY BYPASS GRAFT (8) Atrial fibrillation Code(s): I48.91 - UNSPECIFIED ATRIAL FIBRILLATION (9) AICD (automatic cardioverter/defibrillator) present Code(s): Z95.810 - PRESENCE OF AUTOMATIC (IMPLANTABLE) CARDIAC DEFIBRILLATOR (10) Peripheral vascular disease Code(s): I73.9 - PERIPHERAL VASCULAR DISEASE, UNSPECIFIED (11) Diverticula of colon Code(s): K57.30 - DVRTCLOS OF LG INT W/O PERFORATION OR ABSCESS W/O BLEEDING (12) Glaucoma Code(s): H40.9 - UNSPECIFIED GLAUCOMA (14) History of prostate cancer Code(s): Z85.46 - PERSONAL HISTORY OF MALIGNANT NEOPLASM OF PROSTATE (15) Hypertension Code(s): I10 - ESSENTIAL (PRIMARY) HYPERTENSION (16) Hyperlipidemia Code(s): E78.5 - HYPERLIPIDEMIA, UNSPECIFIED (17) Cataract Code(s): H26.9 - UNSPECIFIED CATARACT (18) History of AAA (abdominal aortic aneurysm) repair Code(s): Z98.890 - OTHER SPECIFIED POSTPROCEDURAL STATES (19) Renal insufficiency Code(s): N28.9 - DISORDER OF KIDNEY AND URETER, UNSPECIFIED
[2017-12-31] MEDS ORDERED: SODIUM CHLORIDE 250 ML IV STA (16:20)
[2017-12-31] MEDS: DEXTROSE 5%-0.45% SALINE 1,000 ML IV SCH (16:28)
[2017-12-31 17:35] LABS: BASO % 0.8 % (0-2.0); EOS % 1.4 % (0-4.5); LYMPH % 13.8 % (8-40); MCH 31.6 pg (25.7-33.7); MCHC 32.9 g/dl (32.0-35.9); MEAN CELL VOLUME 96.1 fl (80-96); MEAN PLT VOLUME 8.7 fl (7.5-11.1); MONO % 11.4 % (3.8-10.2); NEUT % 72.6 % (42.8-82.8); PLATELET COUNT 84 K/MM3 (134-434); RBC 2.19 M/mm3 (4.00-5.60); RDW 18.3 % (11.9-15.9); WHITE BLOOD COUNT 4.6 K/mm3 (4.0-10.0)
[2017-12-31 17:38] LABS: HEMOGLOBIN 6.9 GM/dL (11.7-16.9)
--- NOTE | 2017-12-31 18:11 | CON.CARD ---
Consult Consult Specialty:: Cardiology Referred by:: hospitalist Reason for Consultation:: GI bleed on eliquis - History of Present Illness Chief Complaint: gi bleeding History of Present Illness: 82 year old male with a PMH of sCHF (Ef 25%), CAD, S/P CABG x4 in 1989, bioprothetic AVR, mitral valve repair, AAA s/p repair, VT in 2011 with ICD ( [employer] placed at [place] [facility]), AFIB (was on AC), Prostate (s/p Lupron, casodex, developed radiation proctitis), S/P CVS in 2010, and PVD (S/P left ilio-fem bypass). He was recently hospitalized at [facility] for an ICD shock and syncope, transferred to [facility], and discharged 12/15/17. During the hospitalization, he was started on amiodarone as per family had a VT ablation and anticoagulation was held because of hematuria. He was seen by , and was scheduled for a urethral stent removal next week at [facility]. Readmitted to [facility] last week with BRBPR, found on endoscopy to have a bleeding sigmoid vessel which was cauterized. 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: CVA (left hemiparesis in 2010 which completely resolved) Cardio/Vascular: Yes: AFIB (ablation performed at [facility] Dr Pearce 11/29, has AICD locked into federal appellate clerk pacing mode, originally placed 12/24), Aneurysm (stented AAA 04/17), Aortic Stenosis (porcine AVR 05/17 [facility]), CAD (CABG [place]), Deep Vein Thrombosis, HTN, Hyperlipdemia, Mitral Insufficiency ( porcine MVR 05/17 [facility]), Other (peripheral vascular disease with left fem- pop bypass [address] Dr Blakely) Gastrointestinal: Yes: Diverticulosis, GI Bleed (12/25/17 heater probe cautery by flex sig to control rectal arterial bleed in setting of RT proctitis) Renal/: Yes: Renal Inusuff, BPH, Renal Calculi (ureteral stone lithotripsy and stenting 10/30 with hematuria since then) Additional Medical History: prostate cancer S/p Lupron & RT 20 years ago, casodex. glaucoma. cataracts. DVT LE. peripheral vascular disease - Past Surgical History Past Surgical History: Yes: AAA Repair (graft inserted femoral approach), AICD, Bypass (LLE fem-pop Dr Blakely 2014), CABG, Colonoscopy, Permanent Pacemaker , Upper Endoscopy, Valve Replacement (porcine AVR and MVR at [facility] 05/17) - Alcohol/Substance Use Hx Alcohol Use: No History of Substance Use: reports: None - Smoking History Smoking history: Unknown if ever smoked Have you smoked in the past 12 months: No Aproximately how many cigarettes per day: 0 - Social History Usual Living Arrangement: With Spouse ADL: Support Services 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 History of Recent Travel: No Home Medications - Allergies Allergies/Adverse Reactions: Allergies Allergy/AdvReac Type Severity Reaction Status Date / Time No Known Drug Allergies Allergy Verified 12/31/17 09:16 - Home Medications Home Medications: Ambulatory Orders Atorvastatin Ca [Lipitor] 40 mg PO HS 11/07/14 Tamsulosin HCl [Flomax] 0.4 mg PO DAILY 12/01/17 Timolol 0.25% [Timoptic 0.25%] 1 drop OP BID 12/01/17 Apixaban [Eliquis -] 2.5 mg PO BID #60 tablet 12/28/17 Carvedilol [Coreg -] 3.125 mg PO BID #60 tablet 12/28/17 Furosemide [Lasix -] 20 mg PO DAILY #30 tablet 12/28/17 Mesalamine Enema [Rowasa Enema -] 4 gm UT HS #52 enema 12/28/17 Mupirocin Ointment [Bactroban 2% Ointment -] 1 applic TP BID #1 applic 12/28/17 Sucralfate Oral Suspension [Carafate Oral Suspension -] 1 gm PO QID #28 ml 12/28 Family Disease History - Family Disease History Family Disease History: Heart Disease: Mother ( 83 of [place]), Other: Father ( lived to 90), Mother Review of Systems - Review of Systems Constitutional: reports: Malaise, Weakness. denies: No Symptoms, Chills, Diaphoresis, Fever, Lethargy, Loss of Appetite, Night Sweats, Unintentional Wgt. Loss, Other Eyes: denies: No Symptoms, Blind Spots, Blurred Vision, Double Vision, Eye Pain , Floaters, Photophobia, Recent Change in Vision, Other HENT: denies: No Symptoms, Difficult Swallowing, Ear Discharge, Ear Pain, Epistaxis, Gingival Bleeding, Hearing Loss, Mouth Swelling, Nasal Congestion, Ocular Prosthesis, Throat Pain, Toothache, Ringing in Ears, Other Neck: denies: No Symptoms, Decreased ROM, Lumps, Pain on Movement, Stiffness, Swollen Glands, Tenderness, Other Cardiovascular: denies: No Symptoms, Chest Pain, Edema, Palpitations, Shortness of Breath, Other Respiratory: denies: No Symptoms, Cough, Exercise Intolerance, Hemoptysis, Orthopnea, PND, Snoring, SOB, SOB on Exertion, Wheezing, Other Gastrointestinal: reports: Rectal Bleeding. denies: No Symptoms, Abdominal Pain , Bloating, Constipation, Diarrhea, Dysphagia, Indigestion, Melena, Nausea, Vomiting, Vomiting Blood, Other Genitourinary: denies: No Symptoms, Burning, Discharge, Dysuria, Flank Pain, Frequency, Hematuria, Incontinence, Lesions, Menses, Pain, Testicular Mass, Testicular Pain, Testicular Swelling, Urgency, Vaginal Bleeding, Other Breasts: denies: No Symptoms Reported, See HPI, Breast Implants, Discharge from Nipple, Lumps, Pain, Skin Changes, Other Musculoskeletal: denies: No Symptoms, Back Pain, Crepitus, Decreased ROM, Extremity Pain, Joint Pain, Joint Swelling, Muscle Pain, Muscle Cramps, Muscle Weakness, Other Integumentary: denies: No Symptoms, Blister, Bruising, Change in Color, Eczema, Erythema, Incision, Lesions, Lump, Pallor, Pruritis, Rash, Wound, Other Neurological: denies: No Symptoms, Change in LOC, Change in Speech, Confusion, Dizziness, Headache, Incoordination, Numbness, Parasthesia, Pre-Existing Deficit , Seizure, Syncope, Tremors, Unsteady Gait, Weakness, Other Endocrine: denies: No Symptoms, Excessive Sweating, Flushing, Increased Hunger, Increased Thirst, Intolerance to Cold, Intolerance to Heat, Unexplained Weight Gain, Unexplained Weight Loss, Other Hematology/Lymphatic: denies: No Symptoms, Easily Bruised, Excessive Bleeding, Swollen Glands, Other Psychiatric: denies: No Symptoms, Altered Sleep Pattern, Anxiety, Depression, Hallucinations, Panic, Paranoia, Suicidal, Other - Risk Factors Known Risk Factors: Yes: Age, Hypercholesterolemia, Hypertension Vital Signs: Vital Signs Temperature 98.2 F 12/31/17 09:17 Pulse Rate 82 12/31/17 17:48 Respiratory Rate 20 12/31/17 17:48 Blood Pressure 101/63 12/31/17 17:48 O2 Sat by Pulse Oximetry (%) 98 12/31/17 17:48 Constitutional: Yes: No Distress, Calm Eyes: Yes: Conjunctiva Clear, EOM Intact, PERRL HENT: Yes: Atraumatic, Normocephalic Neck: Yes: Supple, Trachea Midline Respiratory: Yes: Regular, CTA Bilaterally. No: Rales, Rhonchi, Wheezes Gastrointestinal: Yes: Normal Bowel Sounds, Soft. No: Distention, Tenderness Cardiovascular: Yes: Pulse Irregular. No: Regular Rate and Rhythm, Bradycardia , Tachycardia, Gallop, Rub, Varicosities JVD: No Carotid Bruit: No PMI: Non-Displaced Heart Sounds: Yes: S1, S2. No: Split S2, S3, S4, Clicks, Gallop, Rub, Bruit Murmur: Yes: Systolic Murmur Musculoskeletal: Yes: Muscle Weakness Extremities: Yes: WNL Edema: No Peripheral Pulses WNL: Yes Neurological: Yes: Alert, Oriented Psychiatric: Yes: Alert, Oriented - Other Data Labs, Other Data: CBC, BMP 12/31/17 17:25 12/31/17 09:40 INR, PTT INR 1.12 (0.83-1.09) H 12/31/17 09:40 ekg-vpaced Imaging - Results Chest X-ray: Report Reviewed, Image Reviewed EKG: Report Reviewed, Image Reviewed Other: Report Reviewed, Image Reviewed Assessment/Plan 82 year old male with a PMH of sCHF (Ef 25%), CAD, S/P CABG x4 in 1989, bioprothetic AVR, mitral valve repair, AAA s/p repair, VT in 2011 with ICD ( [employer] placed at [place] [facility]), AFIB (was on AC), Prostate (s/p Lupron, casodex, developed radiation proctitis), S/P CVS in 2010, and PVD (S/P left ilio-fem bypass). He was recently hospitalized at [facility] for an ICD shock and syncope, transferred to [facility], and discharged 12/15/17. During the hospitalization, he was started on amiodarone as per family had a VT ablation and anticoagulation was held because of hematuria. He was seen by , and was scheduled for a urethral stent removal next week at [facility]. Readmitted to [facility] last week with BRBPR, found on endoscopy to have a bleeding sigmoid vessel which was cauterized. Pt was discharged home and restarted Eliquis yesterday, Has taken 2 doses so far yesterday GI Bleed Stop AC GI/surgery evaluated May need IR embolization Monitor on ICU/tele given h/o CAD and severe anemia Systolic CHF currently euvolemic Cont coreg does not require diuresis at this time Arrhythmia-presumed VT s/p ablation and initiation of amio recently Resume home amiodarone 200 mg daily HLD Continue Atorvastatin 40 mg PO daily
[2017-12-31] MEDS ORDERED: FUROSEMIDE 20 MG TABLET (FP) PO ONE (18:18)
--- NOTE | 2017-12-31 19:15 | EKG ---
Test Reason : Blood Pressure : / mmHG Vent. Rate : 082 BPM Atrial Rate : 063 BPM P-R Int : 000 ms QRS Dur : 216 ms QT Int : 536 ms P-R-T Axes : 120 -56 111 degrees QTc Int : 626 ms AV dual-paced rhythm WITH OCCASIONAL ventricular-paced complexes ABNORMAL ECG Confirmed by MD SHIRA, TONI ([id number]) on 12/31/2017 7:14:52 PM Referred By: Confirmed By:TONI SILVA MD
[2017-12-31 21:04] LABS: BASO % 0.4 % (0-2.0); EOS % 0.6 % (0-4.5); HEMATOCRIT 28.1 % (35.4-49); HEMOGLOBIN 9.4 GM/dL (11.7-16.9); MCH 32.1 pg (25.7-33.7); MCHC 33.6 g/dl (32.0-35.9); MEAN CELL VOLUME 95.5 fl (80-96); MEAN PLT VOLUME 9.1 fl (7.5-11.1); MONO % 9.3 % (3.8-10.2); NEUT % 81.7 % (42.8-82.8); PLATELET COUNT 115 K/MM3 (134-434); RBC 2.95 M/mm3 (4.00-5.60); RDW 18.1 % (11.9-15.9); WHITE BLOOD COUNT 9.5 K/mm3 (4.0-10.0)
[2017-12-31] MEDS ORDERED: MELATONIN 5 MG TABLETS PO PRN (21:51)
[2017-12-31 22:37] LABS: BASO % 0.3 % (0-2.0); EOS % 0.2 % (0-4.5); HEMATOCRIT 26.6 % (35.4-49); LYMPH % 6.5 % (8-40); MCH 32.2 pg (25.7-33.7); MCHC 33.8 g/dl (32.0-35.9); MEAN CELL VOLUME 95.2 fl (80-96); MEAN PLT VOLUME 9.2 fl (7.5-11.1); MONO % 9.3 % (3.8-10.2); NEUT % 83.7 % (42.8-82.8); PLATELET COUNT 114 K/MM3 (134-434); RBC 2.79 M/mm3 (4.00-5.60); RDW 17.8 % (11.9-15.9); WHITE BLOOD COUNT 9.8 K/mm3 (4.0-10.0)
[2017-12-31] MEDS: CARVEDILOL 3.125 MG TABLET (FP) PO SCH (23:17)
[2017-12-31] MEDS: ATORVASTATIN CA 40 MG TABLET (FP) PO SCH (23:17)
[2017-12-31] MEDS: TIMOLOL 0.25% OPHTHALMIC SOL 5 ML BOTTLE OD SCH (23:40)
[2017-12-31] MEDS: MUPIROCIN 2% TOPICAL OINTMENT 22 GM TUBE TP SCH (23:40)
[2018-01-01] MEDS ORDERED: ZOLPIDEM TARTRATE 5 MG TABLET PO ONE (03:23)
[2018-01-01] MEDS: DEXTROSE 5%-0.45% SALINE 1,000 ML IV SCH ×3 (07:11→22:08)
--- NOTE | 2018-01-01 08:23 | PN ---
Progress Note, Physician Chief Complaint: rectal bleeding History of Present Illness: 82 yo male PMH quadruple bypass, s/p aortic and mitral valve replacement, PAD, atrial fibrillation (on Eliquis), s/p pacemaker on 12/16/2017, and recent episode of rectal bleeding s/p sigmoidoscopy and cauterization upon last admission on 04/2018 returned to the ED today with rectal bleeding. stable overnight. - Current Medication List Current Medications: Active Medications Atorvastatin Calcium (Lipitor -) 40 mg PO HS [facility] Last Admin: 12/31/17 23:17 Dose: 40 mg Carvedilol (Coreg -) 3.125 mg PO BID [facility] Last Admin: 12/31/17 23:17 Dose: 3.125 mg Dextrose/Sodium Chloride (D5-1/2ns -) 1,000 mls @ 83 mls/hr IV ASDIR [facility] Last Admin: 01/01/18 07:11 Dose: 83 mls/hr Melatonin (Melatonin) 5 mg PO HS PRN PRN Reason: INSOMNIA Morphine Sulfate (Morphine Sulfate) 1 mg IVPUSH Q4H PRN PRN Reason: PAIN LEVEL 4 - 6 Mupirocin (Bactroban 2% Ointment -) 1 applic TP BID [facility] Last Admin: 12/31/17 23:40 Dose: 1 applic Pantoprazole Sodium (Protonix Iv) 40 mg IVPUSH DAILY [facility] Last Admin: 12/31/17 12:46 Dose: 40 mg Tamsulosin HCl (Flomax -) 0.4 mg PO DAILY [facility] Timolol Maleate (Timoptic 0.25%) 1 drop OD BID [facility] Last Admin: 12/31/17 23:40 Dose: 1 drop - Objective Vital Signs: Vital Signs Temperature 97.7 F 01/01/18 05:00 Pulse Rate 82 01/01/18 05:00 Respiratory Rate 20 01/01/18 05:00 Blood Pressure 115/59 01/01/18 05:00 O2 Sat by Pulse Oximetry (%) 96 12/31/17 21:00 Vital Signs Period Temp Pulse Resp BP Sys/Rodrigues Pulse Ox Last 24 Hr 97.7 F-98.4 F 80-82 16-20 97-115/43-64 96-98 Intake & Output 12/31/17 01/01/18 01/01/18 23:59 07:59 15:59 Intake Total 332 581 Output Total 200 300 Balance 132 281 Weight 157 lb 164 lb Intake: IV 332 581 D5-1/2Ns - 1,000 ml @ 83 332 581 mls/hr IV ASDIR AUDIE Rx#: [id number] Output: Urine 200 300 Void 200 300 Other: Voiding Method Urinal Bowel Movement No No Height 5 ft 7 in Body Mass Index (BMI) 24.5 Weight Measurement Method Stated by Caregiver Constitutional: Yes: Well Nourished, No Distress, Calm Eyes: Yes: Conjunctiva Clear, EOM Intact HENT: Yes: Atraumatic, Normocephalic Neck: Yes: Supple, Trachea Midline Cardiovascular: Yes: Regular Rate and Rhythm, S1, S2 Respiratory: Yes: Regular, CTA Bilaterally Gastrointestinal: Yes: Normal Bowel Sounds, Soft. No: Tenderness, Tenderness, Epigastrium, Tenderness, Rebound ...Rectal Exam: Yes: Sphincter Tone Normal, Other (large caliber sol inplace, no active bleeding noted, no blood on the examining finger. there are clots in the sol tubing.). No: Induration, Inflammation, Mass Musculoskeletal: No: Muscle Pain, Muscle Weakness Extremities: Yes: Cool, Cyanosis Neurological: Yes: Alert, Oriented Psychiatric: Yes: Alert, Oriented Labs: CBC, BMP 12/31/17 22:30 12/31/17 09:40 INR, PTT INR 1.12 (0.83-1.09) H 12/31/17 09:40 Problem List - Problems (1) Rectal bleeding Assessment/Plan: 82 yo male with recurrent rectal bleeding (same site versus new bleeding area) likely localized to rectum secondary to eloquis. 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 He was NOT transfused 2 units RBC because repeat H&H rebounded (9gr -->6.9gr-->9gr). There is no longer an active bleed off eloquis. Per conversation with IR accessing the rectal supply without the BRADY is prohibitively difficult and risky. Surgical intervention at this point is not indicated. 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 Diet as tolerated IVF resuscitation Trend CBC Transfuse as indicated Hold eloquis - he will need and alternative GI for repeat endoscopy will follow Code(s): K62.5 - HEMORRHAGE OF ANUS AND RECTUM (2) FELICE (acute kidney injury) Code(s): N17.9 - ACUTE KIDNEY FAILURE, UNSPECIFIED (3) Acute exacerbation of CHF (congestive heart failure) Code(s): I50.9 - HEART FAILURE, UNSPECIFIED Qualifiers: Heart failure type: unspecified Qualified Code(s): I50.9 - Heart failure, unspecified (4) DVT (deep venous thrombosis) Code(s): I82.409 - ACUTE EMBOLISM AND THOMBOS UNSP DEEP VN UNSP LOWER EXTREMITY (5) Kidney stone on left side Code(s): N20.0 - CALCULUS OF KIDNEY (6) PAD (peripheral artery disease) Code(s): I73.9 - PERIPHERAL VASCULAR DISEASE, UNSPECIFIED
[2018-01-01 08:44] LABS: BASO % 0.2 % (0-2.0); EOS % 0.4 % (0-4.5); HEMATOCRIT 24.7 % (35.4-49); HEMOGLOBIN 8.5 GM/dL (11.7-16.9); LYMPH % 8.8 % (8-40); MCH 32.4 pg (25.7-33.7); MCHC 34.3 g/dl (32.0-35.9); MEAN CELL VOLUME 94.5 fl (80-96); MEAN PLT VOLUME 9.2 fl (7.5-11.1); NEUT % 81.6 % (42.8-82.8); PLATELET COUNT 99 K/MM3 (134-434); RBC 2.62 M/mm3 (4.00-5.60); RDW 18.6 % (11.9-15.9); WHITE BLOOD COUNT 8.6 K/mm3 (4.0-10.0)
[2018-01-01 09:06] LABS: CHLORIDE 103 mmol/L (98-107); POTASSIUM 3.8 mmol/L (3.5-5.1); SODIUM 142 mmol/L (136-145)
[2018-01-01 09:11] LABS: INR 1.12 (0.83-1.09); PROTHROMBIN TIME (PATIENT) 12.7 SEC (9.7-13.0)
[2018-01-01 09:12] LABS: ALBUMIN 2.3 g/dl (3.4-5.0); ALK PHOS 193 U/L (45-117); ANION GAP 8 (8-16); BILIRUBIN,TOTAL 1.4 mg/dL (0.2-1.0); BLOOD UREA NITROGEN 44 mg/dL (7-18); CALCIUM 8.3 mg/dL (8.5-10.1); CO2 31 mmol/L (21-32); CREATININE 1.8 mg/dL (0.7-1.3); GLUCOSE,RANDOM 116 mg/dL (74-106); MAGNESIUM 2.3 mg/dL (1.8-2.4); PHOSPHOROUS 3.6 mg/dL (2.5-4.9); SGOT/AST 67 U/L (15-37); SGPT/ALT 75 U/L (12-78); TOT PROT 5.2 g/dl (6.4-8.2)
[2018-01-01] MEDS ORDERED: FUROSEMIDE 20 MG TABLET (FP) PO SCH (10:00)
--- NOTE | 2018-01-01 10:18 | CONSULT ---
Consult - text type - Consultation Consultation Note: case reviewed patient s/p endovascular repair of AAA which causes occlusion of the BRADY. risk of a endovascular procedure is higher, attempts at endoscopic treatment should be the primary aim for treatment of re-bleeds. discussed with Dr Bhatti
[2018-01-01] MEDS ORDERED: PT OWN MED DRAWER 7, Y5N ONE ×3 (10:34→21:02)
[2018-01-01] MEDS: MUPIROCIN 2% TOPICAL OINTMENT 22 GM TUBE TP SCH ×2 (10:36→21:59)
[2018-01-01] MEDS: TAMSULOSIN HCL 0.4 MG CAP.ER.24H (FP) PO SCH (10:37)
[2018-01-01] MEDS: PANTOPRAZOLE SODIUM 40 MG VIAL IVPUSH SCH (10:37)
[2018-01-01] MEDS: CARVEDILOL 3.125 MG TABLET (FP) PO SCH ×2 (10:37→21:59)
[2018-01-01] MEDS: TIMOLOL 0.25% OPHTHALMIC SOL 5 ML BOTTLE OD SCH (10:38)
[2018-01-01] MEDS: AMIODARONE HCL 200 MG TABLET (FP) PO SCH (13:00)
--- NOTE | 2018-01-01 15:07 | PN ---
Progress Note, Physician Chief Complaint: no complaints no further bleeding. - Current Medication List Current Medications: Active Medications Amiodarone HCl (Cordarone -) 200 mg PO DAILY [facility] Last Admin: 01/01/18 13:00 Dose: 200 mg Atorvastatin Calcium (Lipitor -) 40 mg PO HS [facility] Last Admin: 12/31/17 23:17 Dose: 40 mg Carvedilol (Coreg -) 3.125 mg PO BID [facility] Last Admin: 01/01/18 10:37 Dose: 3.125 mg Dextrose/Sodium Chloride (D5-1/2ns -) 1,000 mls @ 83 mls/hr IV ASDIR [facility] Last Admin: 01/01/18 07:11 Dose: 83 mls/hr Melatonin (Melatonin) 5 mg PO HS PRN PRN Reason: INSOMNIA Morphine Sulfate (Morphine Sulfate) 1 mg IVPUSH Q4H PRN PRN Reason: PAIN LEVEL 4 - 6 Mupirocin (Bactroban 2% Ointment -) 1 applic TP BID [facility] Last Admin: 01/01/18 10:36 Dose: 1 applic Pantoprazole Sodium (Protonix Iv) 40 mg IVPUSH DAILY [facility] Last Admin: 01/01/18 10:37 Dose: 40 mg Tamsulosin HCl (Flomax -) 0.4 mg PO DAILY [facility] Last Admin: 01/01/18 10:37 Dose: 0.4 mg Timolol Maleate (Timoptic 0.25%) 1 drop OU BID [facility] - Objective Vital Signs: Vital Signs Temperature 97.2 F L 01/01/18 09:00 Pulse Rate 105 H 01/01/18 09:00 Respiratory Rate 20 01/01/18 09:00 Blood Pressure 86/55 01/01/18 09:00 O2 Sat by Pulse Oximetry (%) 96 12/31/17 21:00 Constitutional: Yes: No Distress, Calm Eyes: Yes: EOM Intact HENT: Yes: Atraumatic, Normocephalic Neck: Yes: Supple, Trachea Midline Cardiovascular: Yes: Regular Rate and Rhythm Respiratory: Yes: Regular, CTA Bilaterally Gastrointestinal: Yes: Normal Bowel Sounds, Soft Extremities: Yes: WNL Edema: No Peripheral Pulses WNL: Yes Labs: CBC, BMP 01/01/18 07:30 01/01/18 07:30 INR, PTT INR 1.12 (0.83-1.09) H 01/01/18 07:30 Assessment/Plan GI Bleed Stop AC. he is not a candidate for continued AC for stroke prevention in atrial fibrillation at this time. Discussed with patient and . GI/surgery evaluated Cannot undergo IR embolization due to endovascular stent. Systolic CHF currently euvolemic Cont coreg does not require diuresis at this time Arrhythmia-presumed VT s/p ablation and initiation of amio recently Resume home amiodarone 200 mg daily HLD Continue Atorvastatin 40 mg PO daily Will see as needed. Call us with questions.
--- NOTE | 2018-01-01 15:08 | PN ---
Progress Note (short form) - Note Progress Note: Chart reviewed. Events noted. No events overnight. HGB remains stable. No laura bleeding. Pain-free. Will continue with rectal balloon tamponade, miralax tid, clear liquid diet, daily HGB abd close monitoring. Strongly reconsider continuing anticoagulation in light of 2 admissions for GI bleeding within 1 week.
--- NOTE | 2018-01-01 15:35 | PN ---
Physical Exam: SUBJECTIVE: Patient seen and examined. Feels well, no more episodes of bleeding since tube placed OBJECTIVE: Vital Signs Period Temp Pulse Resp BP Sys/Rodrigues Pulse Ox Last 24 Hr 97.2 F-98.4 F 80-105 20-20 86-115/43-63 96-98 PE Neuro: alert, awake, cn 2-12intact Pulm: diffuse crackles, clear CV: s1 s2 irregular rate Abd: s nt nd + bs : rectal tube in place, scant serosanguinous leakage, bag with mild laura red blood, no clots Ext: b/l heel wounds, + 1 b/l edema Laboratory Results - last 24 hr 12/31/17 01/01/18 01/01/18 22:30 07:30 07:30 WBC 9.8 8.6 RBC 2.79 L 2.62 L Hgb 9.0 L 8.5 L Hct 26.6 L 24.7 L MCV 95.2 94.5 MCH 32.2 32.4 MCHC 33.8 34.3 RDW 17.8 H 18.6 H Plt Count 114 L 99 L MPV 9.2 9.2 Absolute Neuts (auto) 8.2 H 7.1 Neutrophils % 83.7 H 81.6 Lymphocytes % 6.5 L 8.8 D Monocytes % 9.3 9.0 Eosinophils % 0.2 0.4 D Basophils % 0.3 0.2 Nucleated RBC % 0 0 PT with INR 12.70 INR 1.12 H Sodium Potassium Chloride Carbon Dioxide Anion Gap BUN Creatinine Creat Clearance w eGFR Random Glucose Calcium Phosphorus Magnesium Ferritin Total Bilirubin GGT AST ALT Alkaline Phosphatase Total Protein Albumin Blood Type Antibody Screen Crossmatch 01/01/18 01/01/18 07:30 07:30 WBC RBC Hgb Hct MCV MCH MCHC RDW Plt Count MPV Absolute Neuts (auto) Neutrophils % Lymphocytes % Monocytes % Eosinophils % Basophils % Nucleated RBC % PT with INR INR Sodium 142 Potassium 3.8 Chloride 103 Carbon Dioxide 31 Anion Gap 8 BUN 44 H Creatinine 1.8 H Creat Clearance w eGFR 36.21 Random Glucose 116 H Calcium 8.3 L Phosphorus 3.6 D Magnesium 2.3 Ferritin 128.2 Total Bilirubin 1.4 H GGT 346 H AST 67 H D ALT 75 Alkaline Phosphatase 193 H D Total Protein 5.2 L Albumin 2.3 L Blood Type Antibody Screen Crossmatch Active Medications Generic Name Dose Route Start Last Admin Trade Name Freq PRN Reason Stop Dose Admin Amiodarone HCl 200 mg 01/01/18 12:30 01/01/18 13:00 Cordarone - PO 200 mg DAILY AUDIE Administration Atorvastatin Calcium 40 mg 12/31/17 22:00 12/31/17 23:17 Lipitor - PO 40 mg HS AUDIE Administration Carvedilol 3.125 mg 12/31/17 22:00 01/01/18 10:37 Coreg - PO 3.125 mg BID AUDIE Administration Dextrose/Sodium Chloride 1,000 mls @ 83 mls/hr 12/31/17 16:00 01/01/18 07:11 D5-1/2ns - IV 83 mls/hr ASDIR AUDIE Administration Melatonin 5 mg 12/31/17 21:51 Melatonin PO HS PRN INSOMNIA Morphine Sulfate 1 mg 12/31/17 11:39 Morphine Sulfate IVPUSH Q4H PRN PAIN LEVEL 4 - 6 Mupirocin 1 applic 12/31/17 22:00 01/01/18 10:36 Bactroban 2% Ointment - TP 1 applic BID AUDIE Administration Pantoprazole Sodium 40 mg 12/31/17 11:45 01/01/18 10:37 Protonix Iv IVPUSH 40 mg DAILY AUDIE Administration Tamsulosin HCl 0.4 mg 01/01/18 10:00 01/01/18 10:37 Flomax - PO 0.4 mg DAILY AUDIE Administration Timolol Maleate 1 drop 01/01/18 12:25 Timoptic 0.25% OU BID [facility] Assessment: 82 year old male with a PMH of CAD s/p CABG x 4 in 1989, sCHF (Ef 25 %), bioprosthetic AVR, mitral valve repair, AAA s/p repair, VT in 2011 with ICD , afib (was on Eliquis), prostate CA complicated by radiation proctitis, s/p CVA in 2010, PVD and DVT, CKD, left renal calculus s/p lithotripsy and ureteral stent (scheduled for a stent removal next week at [facility]), recently discharged on 12/29 after resolution of GI bleed s/p 12/25 endoscopy: pulsating bleeding vessel in rectum with hemostasis achieved. Now presents with recurring acute gi bleed. Plan: 1. Acute GI bleed, hx of h/o radiation proctitis, on eliquis - Hgb stable, bleeding ceased - Maintain rectal balloon for tamponade, deflate Monday - Continue Liquid carafate OR QID - Hold Rowasa OR HS, was to continue for total of 8 weeks - D/w GI , can start clears only - IR note reviewed and appreciated 2. FELICE on CKD - Cr around baseline - Hold lasix 20mg 3. Left renal calculus s/p lithotripsy and ureteral stent - Stent in place, plan for outpt urologist to remove once dc from [facility] - Pt reports chronic hematuria - Cont flomax 5. Atrial fibrillation - Continue amiodarone 200mg daily - Consider discontinue AC as 2 episodes of GI bleeding in 1 week 6. CAD - Cont coreg 3.125mg BID - Cont lasix 20mg daily 7. Chronic systolic heart failure - No exacerbation today - Hold lasix 20mg daily 8. Peripheral vascular disease s/p left ilio-fem bypass - [facility]. Blakely Jan.17 at 3:00pm 9. Pressure ulcers - Allevyn heel protectors both heels - Mupirocin and sterile dressing to skin tear on right toe - Xerofoam and sterile dressing to blister on left toe - Optifoam to buttocks - Follow up outpatient [facility] in 2 weeks Visit type - Emergency Visit Emergency Visit: Yes ED Registration Date: 12/31/17 Care time: The patient presented to the Emergency Department on the above date and was hospitalized for further evaluation of their emergent condition. - New Patient This patient is new to me today: No - Critical Care Critical Care patient: No
[2018-01-01] MEDS: ATORVASTATIN CA 40 MG TABLET (FP) PO SCH (21:59)
[2018-01-01] MEDS: TIMOLOL 0.25% OPHTHALMIC SOL 5 ML BOTTLE OU SCH (21:59)
[2018-01-01] MEDS ORDERED: ZOLPIDEM TARTRATE 5 MG TABLET PO PRN (23:30)
[2018-01-02 06:06] LABS: HBSAG SCREEN Negative (Negative); HEP B CORE AB, TOT Negative (Negative); SERUM IRON SATURATION 12 % (15-55); TOTAL IRON BINDING CAPACITY 248 ug/dL (250-450); UIBC 218 ug/dL (111-343)
[2018-01-02 08:23] LABS: BASO % 0.2 % (0-2.0); EOS % 0.7 % (0-4.5); HEMATOCRIT 25.5 % (35.4-49); HEMOGLOBIN 8.5 GM/dL (11.7-16.9); LYMPH % 9.5 % (8-40); MCH 31.5 pg (25.7-33.7); MCHC 33.2 g/dl (32.0-35.9); MEAN PLT VOLUME 9.2 fl (7.5-11.1); NEUT % 79.6 % (42.8-82.8); PLATELET COUNT 103 K/MM3 (134-434); RBC 2.68 M/mm3 (4.00-5.60); RDW 18.6 % (11.9-15.9); WHITE BLOOD COUNT 7.5 K/mm3 (4.0-10.0)
[2018-01-02] MEDS: DEXTROSE 5%-0.45% SALINE 1,000 ML IV SCH (08:31)
[2018-01-02 08:51] LABS: ANION GAP 10 (8-16); BLOOD UREA NITROGEN 42 mg/dL (7-18); CALCIUM 8.5 mg/dL (8.5-10.1); CHLORIDE 106 mmol/L (98-107); CO2 27 mmol/L (21-32); GLUCOSE,RANDOM 100 mg/dL (74-106); POTASSIUM 4.6 mmol/L (3.5-5.1); SODIUM 143 mmol/L (136-145)
[2018-01-02 08:54] LABS: CREATININE 1.7 mg/dL (0.7-1.3)
--- NOTE | 2018-01-02 09:43 | PN ---
Progress Note, Physician Chief Complaint: rectal bleeding History of Present Illness: 82 yo male PMH quadruple bypass, s/p aortic and mitral valve replacement, PAD, atrial fibrillation (on Eliquis), s/p pacemaker on 12/16/2017, and recent episode of rectal bleeding s/p sigmoidoscopy and cauterization upon last admission on 04/2018 returned to the ED today with rectal bleeding. stable overnight. continued rectal baloon tamponade. - Current Medication List Current Medications: Active Medications Amiodarone HCl (Cordarone -) 200 mg PO DAILY [facility] Last Admin: 01/01/18 13:00 Dose: 200 mg Atorvastatin Calcium (Lipitor -) 40 mg PO HS [facility] Last Admin: 01/01/18 21:59 Dose: 40 mg Carvedilol (Coreg -) 3.125 mg PO BID [facility] Last Admin: 01/01/18 21:59 Dose: 3.125 mg Dextrose/Sodium Chloride (D5-1/2ns -) 1,000 mls @ 83 mls/hr IV ASDIR [facility] Last Admin: 01/02/18 08:31 Dose: 83 mls/hr Melatonin (Melatonin) 5 mg PO HS PRN PRN Reason: INSOMNIA Morphine Sulfate (Morphine Sulfate) 1 mg IVPUSH Q4H PRN PRN Reason: PAIN LEVEL 4 - 6 Mupirocin (Bactroban 2% Ointment -) 1 applic TP BID [facility] Last Admin: 01/01/18 21:59 Dose: 1 applic Pantoprazole Sodium (Protonix Iv) 40 mg IVPUSH DAILY [facility] Last Admin: 01/01/18 10:37 Dose: 40 mg Tamsulosin HCl (Flomax -) 0.4 mg PO DAILY [facility] Last Admin: 01/01/18 10:37 Dose: 0.4 mg Timolol Maleate (Timoptic 0.25%) 1 drop OU BID [facility] Last Admin: 01/01/18 21:59 Dose: 1 drop Zolpidem Tartrate (Ambien -) 5 mg PO HS PRN PRN Reason: INSOMNIA Last Admin: 01/01/18 23:01 Dose: 5 mg - Objective Vital Signs: Vital Signs Temperature 97.5 F L 01/02/18 07:09 Pulse Rate 106 H 01/02/18 07:09 Respiratory Rate 20 01/02/18 07:09 Blood Pressure 92/75 01/02/18 07:09 O2 Sat by Pulse Oximetry (%) 97 01/01/18 21:00 Vital Signs Period Temp Pulse Resp BP Sys/Rodrigues Pulse Ox Last 24 Hr 97.3 F-98.2 F 80-106 18-20 89-106/63-75 97 Intake & Output 01/01/18 01/02/18 01/02/18 23:59 07:59 15:59 Intake Total 950 Output Total 300 Balance 950 -300 Weight 162 lb 1 oz Intake: IV 950 D5-1/2Ns - 1,000 ml @ 83 950 mls/hr IV ASDIR AUDIE Rx#: [id number] Output: Urine 300 Void 300 Other: Voiding Method Urinal Weight Measurement Method [facility] Constitutional: Yes: Well Nourished, No Distress, Calm Eyes: Yes: Conjunctiva Clear, EOM Intact HENT: Yes: Atraumatic, Normocephalic Neck: Yes: Supple, Trachea Midline Cardiovascular: Yes: Regular Rate and Rhythm, S1, S2 Respiratory: Yes: Regular, CTA Bilaterally Gastrointestinal: Yes: Normal Bowel Sounds, Soft. No: Distention, Tenderness ...Rectal Exam: Yes: Deferred, Other (sol present) Genitourinary: No: CVA Tenderness - Left, CVA Tenderness - Right Musculoskeletal: No: Muscle Pain, Muscle Weakness Extremities: No: Cool, Cyanosis Edema: No Peripheral Pulses WNL: Yes Peripheral Pulses: Left Radial: 2+, Right Radial: 2+, Left Doralis Pedis: 2+, Right Dorsalis Pedis: 2+ Integumentary: No: Erythema, Jaundice, Rash Neurological: Yes: Alert, Oriented Psychiatric: Yes: Alert, Oriented Labs: CBC, BMP 01/02/18 07:25 01/02/18 07:25 INR, PTT INR 1.12 (0.83-1.09) H 01/01/18 07:30 Problem List - Problems (1) Radiation induced proctitis Assessment/Plan: 82 yo male with recurrent rectal bleeding secondary to radiation proctitis while on eloquis. He was NOT transfused 2 units RBC because repeat H&H rebounded (9gr -->6.9gr-->9gr). now 8.5gr. There is no longer an active bleed off eloquis. Per conversation with IR accessing the rectal supply without the BRADY is prohibitively difficult and risky. Surgical intervention at this point is not indicated. However, a skilled nursing plan regarding resuming anticogulation must be determined. Diet as tolerated IVF resuscitation Trend CBC Transfuse as indicated Hold eloquis - consider D/C anticoulation versus change to coumadin GI for repeat endoscopy will follow Code(s): K62.7 - RADIATION PROCTITIS (2) Rectal bleeding Code(s): K62.5 - HEMORRHAGE OF ANUS AND RECTUM (3) FELICE (acute kidney injury) Code(s): N17.9 - ACUTE KIDNEY FAILURE, UNSPECIFIED (4) Acute exacerbation of CHF (congestive heart failure) Code(s): I50.9 - HEART FAILURE, UNSPECIFIED Qualifiers: Heart failure type: unspecified Qualified Code(s): I50.9 - Heart failure, unspecified (5) DVT (deep venous thrombosis) Code(s): I82.409 - ACUTE EMBOLISM AND THOMBOS UNSP DEEP VN UNSP LOWER EXTREMITY (6) Kidney stone on left side Code(s): N20.0 - CALCULUS OF KIDNEY (7) PAD (peripheral artery disease) Code(s): I73.9 - PERIPHERAL VASCULAR DISEASE, UNSPECIFIED
[2018-01-02] MEDS ORDERED: PT OWN MED DRAWER 7, Y5N ONE ×2 (10:04→21:55)
[2018-01-02] MEDS: TIMOLOL 0.25% OPHTHALMIC SOL 5 ML BOTTLE OU SCH ×2 (10:11→21:56)
[2018-01-02] MEDS: AMIODARONE HCL 200 MG TABLET (FP) PO SCH (10:11)
[2018-01-02] MEDS: PANTOPRAZOLE SODIUM 40 MG VIAL IVPUSH SCH (10:11)
[2018-01-02] MEDS: TAMSULOSIN HCL 0.4 MG CAP.ER.24H (FP) PO SCH (10:11)
[2018-01-02] MEDS: CARVEDILOL 3.125 MG TABLET (FP) PO SCH ×2 (10:11→21:57)
[2018-01-02] MEDS: MUPIROCIN 2% TOPICAL OINTMENT 22 GM TUBE TP SCH ×2 (10:23→21:57)
--- NOTE | 2018-01-02 11:34 | PN ---
Physical Exam: SUBJECTIVE: Patient seen and examined. Intermitted disorientation and confusion earlier this am per daughter. Likely due to ambien. Feels well now denies further blurry vision, mentating appropriately, OBJECTIVE: Vital Signs Period Temp Pulse Resp BP Sys/Rodrigues Pulse Ox Last 24 Hr 97.3 F-98.2 F 80-106 18-20 89-106/63-75 97 PE Neuro: alert, awake, cn 2-12intact Pulm: CTAB CV: s1 s2 irregular rate Abd: s nt nd + bs : rectal tube in place, laura red blood in sol back, no leakage on DR Ext: b/l heel wounds, toe wound open, no le edema Laboratory Results - last 24 hr 01/01/18 01/02/18 01/02/18 07:30 07:25 07:25 WBC 7.5 RBC 2.68 L Hgb 8.5 L Hct 25.5 L MCV 95.0 MCH 31.5 MCHC 33.2 RDW 18.6 H Plt Count 103 L MPV 9.2 Absolute Neuts (auto) 6.0 Neutrophils % 79.6 Lymphocytes % 9.5 Monocytes % 10.0 Eosinophils % 0.7 Basophils % 0.2 Nucleated RBC % 0 Sodium 143 Potassium 4.6 D Chloride 106 Carbon Dioxide 27 Anion Gap 10 BUN 42 H Creatinine 1.7 H Creat Clearance w eGFR 38.68 Random Glucose 100 Calcium 8.5 Iron 30 L TIBC 248 L Iron Saturation 12 L Hepatitis A Ab Total Negative Hep Bs Antigen Negative Hep Bs Antibody Non reactive Hep B Core Total Ab Negative Hep C Ab Diagnostic 0.1 Liver Fibrosis Interp Active Medications Generic Name Dose Route Start Last Admin Trade Name Selvin PRN Reason Stop Dose Admin Amiodarone HCl 200 mg 01/01/18 12:30 01/02/18 10:11 Cordarone - PO 200 mg DAILY AUDIE Administration Atorvastatin Calcium 40 mg 12/31/17 22:00 01/01/18 21:59 Lipitor - PO 40 mg HS AUDIE Administration Carvedilol 3.125 mg 12/31/17 22:00 01/02/18 10:11 Coreg - PO 3.125 mg BID AUDIE Administration Iron Sucrose 200 mg/ Sodium 100 mls @ 100 mls/hr 01/02/18 11:32 Chloride IVPB 01/02/18 12:31 ONCE ONE Melatonin 5 mg 12/31/17 21:51 Melatonin PO HS PRN INSOMNIA Morphine Sulfate 1 mg 12/31/17 11:39 Morphine Sulfate IVPUSH Q4H PRN PAIN LEVEL 4 - 6 Mupirocin 1 applic 12/31/17 22:00 01/02/18 10:23 Bactroban 2% Ointment - TP 1 applic BID AUDIE Administration Pantoprazole Sodium 40 mg 12/31/17 11:45 01/02/18 10:11 Protonix Iv IVPUSH 40 mg DAILY AUDIE Administration Tamsulosin HCl 0.4 mg 01/01/18 10:00 01/02/18 10:11 Flomax - PO 0.4 mg DAILY AUDIE Administration Timolol Maleate 1 drop 01/01/18 12:25 01/02/18 10:11 Timoptic 0.25% OU 1 drop BID AUDIE Administration Zolpidem Tartrate 5 mg 01/01/18 23:30 01/01/18 23:01 Ambien - PO 5 mg HS PRN Administration INSOMNIA Assessment: 82 year old male with a PMH of CAD s/p CABG x 4 in 1989, sCHF (Ef 25 %), bioprosthetic AVR, mitral valve repair, AAA s/p repair, VT in 2011 with ICD , afib (was on Eliquis), 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 Now presents with recurring acute gi bleed. Plan: 1. Acute GI bleed, hx of h/o radiation proctitis, on eliquis - Maintain rectal balloon for tamponade, deflate Monday - Cannot undergo IR embolization due to endovascular stent - Hgb stable - Continue clears - Liquid carafate MD QID - PT no longer candidate for AC - Hold Rowasa MD HS, was to continue for total of 8 weeks 2. FELICE on CKD - Cr improving - Hold lasix 20mg - Stop fluids 3. Left renal calculus s/p lithotripsy and ureteral stent - Stent in place, plan for outpt urologist to remove once dc from [facility] - Cont flomax 5. Atrial fibrillation - Continue amiodarone 200mg daily - Off AC 6. CAD - Cont coreg 3.125mg BID 7. Chronic systolic heart failure - Stable - Hold lasix 20mg daily 8. Peripheral vascular disease s/p left ilio-fem bypass - [facility] with Dr. Blakely Jan.17 at 3:00pm 9. Pressure ulcers - Allevyn heel protectors both heels - Mupirocin and sterile dressing to skin tear on right toe - Xerofoam and sterile dressing to blister on left toe - Optifoam to buttocks - [facility] up outpatient [facility] in 2 weeks Visit type - Emergency Visit Emergency Visit: Yes ED Registration Date: 12/31/17 Care time: The patient presented to the Emergency Department on the above date and was hospitalized for further evaluation of their emergent condition. - New Patient This patient is new to me today: No - Critical Care Critical Care patient: No
[2018-01-02] MEDS ORDERED: ALBUTEROL SO4 0.083% IH SOL 2.5 MG/3 ML VIAL.NEB. NEB ONE (11:37)
[2018-01-02] MEDS ORDERED: IRON SUCROSE INJECTION 200 MG in SODIUM CHLORIDE 90 ML IVPB ONE (12:00)
[2018-01-02 15:08] VITALS: BMI 25.3
--- NOTE | 2018-01-02 20:30 | CONSULT ---
Consult Consult Specialty:: Nephrology Reason for Consultation:: CKD - History of Present Illness Chief Complaint: blood per rectum History of Present Illness: Pt is an 82 year old male with pmhx of CKD, prostate cancer, PAD, a-fib, and CAD who was recently discharged from the hospital after a GI bleed who again presents to rectal bleeding. He has history of CKD. I was called to evaluate him as wincher was above baseline. He was restarted on lasix prior to discharge. He denies shortness of breath or lower ext edema. His is at bedside and care was discussed with her. - History Source History Provided By: Patient, Family Member, Medical Record - Past Medical History TAX MANAGER: Yes: CVA (left hemiparesis in 2010 which completely resolved) Cardio/Vascular: Yes: AFIB (ablation performed at [facility] Dr Pearce 11/29, has AICD locked into time buyer pacing mode, originally placed 12/24), Aneurysm (stented AAA 04/17), Aortic Stenosis (porcine AVR 05/17 [facility]), CAD (CABG [place]), Deep Vein Thrombosis, HTN, Hyperlipdemia, Mitral Insufficiency ( porcine MVR 05/17 [facility]), Other (peripheral vascular disease with left fem- pop bypass [address] Dr Blakely) Gastrointestinal: Yes: Diverticulosis, GI Bleed (12/25/17 heater probe cautery by flex sig to control rectal arterial bleed in setting of RT proctitis) Renal/: Yes: Renal Inusuff, BPH, Renal Calculi (ureteral stone lithotripsy and stenting 10/30 with hematuria since then) Additional Medical History: prostate cancer S/p Lupron & RT 20 years ago, casodex. glaucoma. cataracts. DVT LE. peripheral vascular disease - Past Surgical History Past Surgical History: Yes: AAA Repair (graft inserted femoral approach), AICD, Bypass (LLE fem-pop Dr Blakely 2014), CABG, Colonoscopy, Permanent Pacemaker , Upper Endoscopy, Valve Replacement (porcine AVR and MVR at 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 History of Recent Travel: No Home Medications - Allergies Allergies/Adverse Reactions: Allergies Allergy/AdvReac Type Severity Reaction Status Date / Time No Known Drug Allergies Allergy Verified 12/31/17 09:16 - Home Medications Home Medications: Ambulatory Orders Atorvastatin Ca [Lipitor] 40 mg PO HS 11/07/14 Tamsulosin HCl [Flomax] 0.4 mg PO DAILY 12/01/17 Timolol 0.25% [Timoptic 0.25%] 1 drop OP BID 12/01/17 Apixaban [Eliquis -] 2.5 mg PO BID #60 tablet 12/28/17 Carvedilol [Coreg -] 3.125 mg PO BID #60 tablet 12/28/17 Furosemide [Lasix -] 20 mg PO DAILY #30 tablet 12/28/17 Mesalamine Enema [Rowasa Enema -] 4 gm MO HS #52 enema 12/28/17 Mupirocin Ointment [Bactroban 2% Ointment -] 1 applic TP BID #1 applic 12/28/17 Sucralfate Oral Suspension [Carafate Oral Suspension -] 1 gm PO QID #28 ml 12/28 Amiodarone HCl 200 mg PO DAILY 12/31/17 Family Disease History - Family Disease History Family Disease History: Heart Disease: Mother ( 83 of [place]), Other: Father ( lived to 90), Mother Review of Systems - Review of Systems Constitutional: reports: Malaise Eyes: reports: No Symptoms HENT: reports: No Symptoms Neck: reports: No Symptoms Cardiovascular: reports: No Symptoms Respiratory: reports: No Symptoms Gastrointestinal: reports: Rectal Bleeding. denies: Nausea, Vomiting Genitourinary: reports: No Symptoms Musculoskeletal: reports: Muscle Weakness Integumentary: reports: No Symptoms Neurological: reports: No Symptoms Endocrine: reports: No Symptoms Hematology/Lymphatic: reports: No Symptoms Psychiatric: reports: No Symptoms Physical Exam Vital Signs: Vital Signs Temperature 97.6 F 01/02/18 16:30 Pulse Rate 80 01/02/18 16:30 Respiratory Rate 20 01/02/18 16:30 Blood Pressure 93/43 01/02/18 16:30 O2 Sat by Pulse Oximetry (%) 97 01/01/18 21:00 Constitutional: Yes: Calm Eyes: Yes: Conjunctiva Clear HENT: Yes: Atraumatic Neck: Yes: Supple Cardiovascular: Yes: S1, S2 Respiratory: Yes: CTA Bilaterally Gastrointestinal: Yes: Soft Renal/: Yes: WNL Musculoskeletal: Yes: Muscle Weakness Edema: No Neurological: Yes: Oriented Psychiatric: Yes: Oriented Labs: CBC, BMP 01/02/18 07:25 01/02/18 07:25 Problem List - Problems (1) Atrial fibrillation Code(s): I48.91 - UNSPECIFIED ATRIAL FIBRILLATION (2) Hematuria Code(s): R31.9 - HEMATURIA, UNSPECIFIED (3) History of AAA (abdominal aortic aneurysm) repair Code(s): Z98.890 - OTHER SPECIFIED POSTPROCEDURAL STATES (5) Peripheral vascular disease Code(s): I73.9 - PERIPHERAL VASCULAR DISEASE, UNSPECIFIED (6) Renal insufficiency Code(s): N28.9 - DISORDER OF KIDNEY AND URETER, UNSPECIFIED Assessment/Plan Current Medications Generic Name Dose Route Start Last Admin Trade Name Freq PRN Reason Stop Dose Admin Amiodarone HCl 200 mg 01/01/18 12:30 01/02/18 10:11 Cordarone - PO 200 mg DAILY AUDIE Administration Atorvastatin Calcium 40 mg 12/31/17 22:00 01/01/18 21:59 Lipitor - PO 40 mg HS AUDIE Administration Carvedilol 3.125 mg 12/31/17 22:00 01/02/18 10:11 Coreg - PO 3.125 mg BID AUDIE Administration Melatonin 5 mg 12/31/17 21:51 Melatonin PO HS PRN INSOMNIA Morphine Sulfate 1 mg 12/31/17 11:39 Morphine Sulfate IVPUSH Q4H PRN PAIN LEVEL 4 - 6 Mupirocin 1 applic 12/31/17 22:00 01/02/18 10:23 Bactroban 2% Ointment - TP 1 applic BID AUDIE Administration Pantoprazole Sodium 40 mg 12/31/17 11:45 01/02/18 10:11 Protonix Iv IVPUSH 40 mg DAILY AUDIE Administration Tamsulosin HCl 0.4 mg 01/01/18 10:00 01/02/18 10:11 Flomax - PO 0.4 mg DAILY AUDIE Administration Timolol Maleate 1 drop 01/01/18 12:25 01/02/18 10:11 Timoptic 0.25% OU 1 drop BID AUDIE Administration Zolpidem Tartrate 5 mg 01/01/18 23:30 01/01/18 23:01 Ambien - PO 5 mg HS PRN Administration INSOMNIA Impression 1. CKD 2. hx prostate cancer 3. GI bleed 4. anemia 5. HLD 6. valvular heart disease 7. nephrolithiasis s/p stent Plan - renal function is now stable - will dose lasix PRN - GI workup for gi bleed - discussed with medical team - avoid nephrotoxins - will follow Dr Boles
[2018-01-02] MEDS: ATORVASTATIN CA 40 MG TABLET (FP) PO SCH (21:57)
[2018-01-03] MEDS ORDERED: PT OWN MED DRAWER 7, Y5N ONE ×2 (09:34→20:53)
[2018-01-03] MEDS: TIMOLOL 0.25% OPHTHALMIC SOL 5 ML BOTTLE OU SCH ×2 (09:47→09:57)
[2018-01-03] MEDS: AMIODARONE HCL 200 MG TABLET (FP) PO SCH (09:47)
[2018-01-03] MEDS: CARVEDILOL 3.125 MG TABLET (FP) PO SCH ×2 (09:47→23:04)
[2018-01-03] MEDS: TAMSULOSIN HCL 0.4 MG CAP.ER.24H (FP) PO SCH (09:47)
[2018-01-03] MEDS: PANTOPRAZOLE SODIUM 40 MG VIAL IVPUSH SCH (09:48)
[2018-01-03] MEDS: MUPIROCIN 2% TOPICAL OINTMENT 22 GM TUBE TP SCH ×2 (09:54→23:08)
[2018-01-03 10:08] LABS: BASO % 0.2 % (0-2.0); HEMOGLOBIN 8.4 GM/dL (11.7-16.9); LYMPH % 10.1 % (8-40); MCHC 33.6 g/dl (32.0-35.9); MEAN CELL VOLUME 95.1 fl (80-96); MEAN PLT VOLUME 9.4 fl (7.5-11.1); MONO % 9.6 % (3.8-10.2); NEUT % 79.1 % (42.8-82.8); PLATELET COUNT 112 K/MM3 (134-434); RBC 2.63 M/mm3 (4.00-5.60); WHITE BLOOD COUNT 6.3 K/mm3 (4.0-10.0)
[2018-01-03 10:28] LABS: ANION GAP 11 MMOL/L (8-16); BLOOD UREA NITROGEN 41 mg/dL (7-18); CALCIUM 8.3 mg/dL (8.5-10.1); CHLORIDE 103 mmol/L (98-107); CO2 26 mmol/L (21-32); CREATININE 1.7 mg/dL (0.7-1.3); GLUCOSE,RANDOM 103 mg/dL (74-106); POTASSIUM 3.7 mmol/L (3.5-5.1); SODIUM 140 mmol/L (136-145)
--- NOTE | 2018-01-03 11:48 | PN ---
Physical Exam: SUBJECTIVE: Patient seen and examined. He has no complaints. OBJECTIVE: Vital Signs Period Temp Pulse Resp BP Sys/Rodrigues Pulse Ox Last 24 Hr 97.6 F-98.4 F 80-90 18-20 93-113/43-72 96 GENERAL: The patient is awake, alert, and fully oriented, in no acute distress. LUNGS: Breath sounds equal, clear to auscultation bilaterally, no wheezes, no crackles, no accessory muscle use. HEART: Regular rate and rhythm, S1, S2 without murmur, rub or gallop. ABDOMEN: Soft, nontender, nondistended, normoactive bowel sounds, no guarding, no rebound, no hepatosplenomegaly, no masses. EXTREMITIES: 2+ pulses, warm, well-perfused, no edema. Laboratory Results - last 24 hr 01/01/18 01/03/18 01/03/18 07:30 09:50 09:50 WBC 6.3 RBC 2.63 L Hgb 8.4 L Hct 25.0 L MCV 95.1 MCH 32.0 MCHC 33.6 RDW 19.0 H Plt Count 112 L MPV 9.4 Absolute Neuts (auto) 5.0 Neutrophils % 79.1 Lymphocytes % 10.1 Monocytes % 9.6 Eosinophils % 1.0 Basophils % 0.2 Nucleated RBC % 0 Sodium 140 Potassium 3.7 Chloride 103 Carbon Dioxide 26 Anion Gap 11 BUN 41 H Creatinine 1.7 H Creat Clearance w eGFR 38.68 Random Glucose 103 Calcium 8.3 L VINCENT Screen Negative Smooth Musc &BLADE SHARPENER Intrp 11 Active Medications Generic Name Dose Route Start Last Admin Trade Name Freq PRN Reason Stop Dose Admin Amiodarone HCl 200 mg 01/01/18 12:30 01/03/18 09:47 Cordarone - PO 200 mg DAILY AUDIE Administration Atorvastatin Calcium 40 mg 12/31/17 22:00 01/02/18 21:57 Lipitor - PO 40 mg HS AUDIE Administration Carvedilol 3.125 mg 12/31/17 22:00 01/03/18 09:47 Coreg - PO 3.125 mg BID AUDIE Administration Morphine Sulfate 1 mg 12/31/17 11:39 Morphine Sulfate IVPUSH Q4H PRN PAIN LEVEL 4 - 6 Mupirocin 1 applic 12/31/17 22:00 01/03/18 09:54 Bactroban 2% Ointment - TP 1 applic BID AUDIE Administration Pantoprazole Sodium 40 mg 12/31/17 11:45 01/03/18 09:48 Protonix Iv IVPUSH 40 mg DAILY AUDIE Administration Tamsulosin HCl 0.4 mg 01/01/18 10:00 01/03/18 09:47 Flomax - PO 0.4 mg DAILY AUDIE Administration Timolol Maleate 1 drop 01/01/18 12:25 01/03/18 09:57 Timoptic 0.25% OU Not Given BID AUDIE ASSESSMENT/PLAN: This is an 82 year old man with a history of CAD, CABG, chronic systolic heart failure, bioprosthetic AV replacement, MV repair, AAA repair, ventricular tachycardia, ICD, atrial fib, prostate cancer, radiation proctitis, CVA, PAD, DVT, CKD, recent lithotripsy and ureteral stent for left ureteral stone, recent GI bleed secondary to bleeding vessel in rectum who presented to the ED with recurrent rectal bleeding. 1. Acute GI blood loss anemia - Patient had recurrent bleeding secondary to a bleeding rectal vessel complicated by radiation proctitis and anticoagulation for atrial fib - Eliquis discontinued - Hemoglobin stable - Maintain rectal balloon for tamponade - GI follow up for deflation/removal - Cannot undergo IR embolization secondary to endovascular stent 2. Acute kidney injury - Improved - Lasix held 3. Stage 3 CKD 4. Left ureteral calculus, s/p lithotripsy and ureteral stent - Stent in place - Contnue Flomax - Follow up with urologist after discharge for stent removal 5. Atrial fibrillation - Continue Coreg, Amiodarone - Eliquis discontinued - Not a candidate for anticoagulation secondary to recurrent GI bleeding 6. CAD, history of CABG - Continue Coreg, Lipitor 7. Chronic systolic heart failure - Stable - Continue Coreg - Lasix held secondary to FELICE 8. History of bioprosthetic AV replacement 9. History of MV repair 10. History of ventricular tachycardia - Has ICD 11. History of prostate cancer 12. History of CVA 13. PAD, history of left ilio-femoral bypass 14. Pressure ulcers of both heels, left buttock - Continue wound care Visit type - Emergency Visit Emergency Visit: Yes ED Registration Date: 12/31/17 Care time: The patient presented to the Emergency Department on the above date and was hospitalized for further evaluation of their emergent condition. - New Patient This patient is new to me today: Yes Date on this admission: 01/03/18 - Critical Care Critical Care patient: No - Discharge Referral Referred to [facility] No
--- NOTE | 2018-01-03 13:12 | PN ---
Progress Note, Physician History of Present Illness: Pt seen and examined at bedside. He is awake and alert. He denies shortness of breath. - Current Medication List Current Medications: Active Medications Amiodarone HCl (Cordarone -) 200 mg PO DAILY [facility] Last Admin: 01/03/18 09:47 Dose: 200 mg Atorvastatin Calcium (Lipitor -) 40 mg PO HS [facility] Last Admin: 01/02/18 21:57 Dose: 40 mg Carvedilol (Coreg -) 3.125 mg PO BID [facility] Last Admin: 01/03/18 09:47 Dose: 3.125 mg Morphine Sulfate (Morphine Sulfate) 1 mg IVPUSH Q4H PRN PRN Reason: PAIN LEVEL 4 - 6 Mupirocin (Bactroban 2% Ointment -) 1 applic TP BID [facility] Last Admin: 01/03/18 09:54 Dose: 1 applic Pantoprazole Sodium (Protonix Iv) 40 mg IVPUSH DAILY [facility] Last Admin: 01/03/18 09:48 Dose: 40 mg Tamsulosin HCl (Flomax -) 0.4 mg PO DAILY [facility] Last Admin: 01/03/18 09:47 Dose: 0.4 mg Timolol Maleate (Timoptic 0.5%) 1 drop OU BID [facility] - Objective Vital Signs: Vital Signs Temperature 97.6 F 01/03/18 05:30 Pulse Rate 80 01/03/18 05:30 Respiratory Rate 18 01/03/18 05:30 Blood Pressure 100/59 01/03/18 05:30 O2 Sat by Pulse Oximetry (%) 96 01/02/18 21:00 Constitutional: Yes: Calm Eyes: Yes: Conjunctiva Clear HENT: Yes: Atraumatic Neck: Yes: Supple Cardiovascular: Yes: S1, S2 Respiratory: Yes: CTA Bilaterally Gastrointestinal: Yes: Normal Bowel Sounds, Soft Genitourinary: Yes: WNL Musculoskeletal: Yes: WNL Edema: No Neurological: Yes: Oriented Psychiatric: Yes: Oriented Labs: CBC, BMP 01/03/18 09:50 01/03/18 09:50 INR, PTT INR 1.12 (0.83-1.09) H 01/01/18 07:30 Problem List - Problems (1) Atrial fibrillation Code(s): I48.91 - UNSPECIFIED ATRIAL FIBRILLATION (2) Hematuria Code(s): R31.9 - HEMATURIA, UNSPECIFIED (3) History of AAA (abdominal aortic aneurysm) repair Code(s): Z98.890 - OTHER SPECIFIED POSTPROCEDURAL STATES (5) Peripheral vascular disease Code(s): I73.9 - PERIPHERAL VASCULAR DISEASE, UNSPECIFIED (6) Renal insufficiency Code(s): N28.9 - DISORDER OF KIDNEY AND URETER, UNSPECIFIED Assessment/Plan Current Medications Generic Name Dose Route Start Last Admin Trade Name Freq PRN Reason Stop Dose Admin Amiodarone HCl 200 mg 01/01/18 12:30 01/03/18 09:47 Cordarone - PO 200 mg DAILY AUDIE Administration Atorvastatin Calcium 40 mg 12/31/17 22:00 01/02/18 21:57 Lipitor - PO 40 mg HS AUDIE Administration Carvedilol 3.125 mg 12/31/17 22:00 01/03/18 09:47 Coreg - PO 3.125 mg BID AUDIE Administration Morphine Sulfate 1 mg 12/31/17 11:39 Morphine Sulfate IVPUSH Q4H PRN PAIN LEVEL 4 - 6 Mupirocin 1 applic 12/31/17 22:00 01/03/18 09:54 Bactroban 2% Ointment - TP 1 applic BID AUDIE Administration Pantoprazole Sodium 40 mg 12/31/17 11:45 01/03/18 09:48 Protonix Iv IVPUSH 40 mg DAILY AUDIE Administration Tamsulosin HCl 0.4 mg 01/01/18 10:00 01/03/18 09:47 Flomax - PO 0.4 mg DAILY AUDIE Administration Timolol Maleate 1 drop 01/03/18 22:00 Timoptic 0.5% OU BID AUDIE Impression 1. CKD 2. hx prostate cancer 3. GI bleed 4. anemia 5. HLD 6. valvular heart disease 7. nephrolithiasis s/p stent Plan - volumes status stable - hold lasix today - monitor hg - renal function stable - discussed with - will follow Dr Boles
[2018-01-03] MEDS: TIMOLOL 0.5% OPHTHALMIC SOL 5 ML BOTTLE OU SCH ×2 (15:22→23:10)
--- NOTE | 2018-01-03 15:43 | PN ---
Progress Note (short form) - Note Progress Note: No events. Comfortable. Will remove rectal catheter, restart Rowasa/Carafate KS, Miralax TID. Low fat/ sodium diet. Discussed with the pt, his and nurse.
[2018-01-03] MEDS ORDERED: SUCRALFATE 1 GM/10 ML UNIT DOSE CUPS PO SCH (16:30)
[2018-01-03] MEDS: POLYETHYLENE GLYCOL 3350 119 GM BTL PO SCH ×2 (17:44→23:05)
[2018-01-03] MEDS: SUCRALFATE 1 GM/10 ML UNIT DOSE CUPS NR SCH ×2 (18:31→23:04)
[2018-01-03] MEDS ORDERED: MESALAMINE 4 GM/60 ML ENEMA PR ONE (22:00)
[2018-01-03] MEDS: ATORVASTATIN CA 40 MG TABLET (FP) PO SCH (23:04)
[2018-01-03] MEDS: MESALAMINE 4 GM/60 ML ENEMA PR SCH (23:06)
[2018-01-04] MEDS: SUCRALFATE 1 GM/10 ML UNIT DOSE CUPS NR SCH ×4 (06:47→21:03)
[2018-01-04] MEDS: POLYETHYLENE GLYCOL 3350 119 GM BTL PO SCH ×3 (06:47→21:06)
[2018-01-04 08:08] LABS: HEMATOCRIT 25.2 % (35.4-49); HEMOGLOBIN 8.3 GM/dL (11.7-16.9); MCH 31.6 pg (25.7-33.7); MEAN CELL VOLUME 95.7 fl (80-96); MEAN PLT VOLUME 9.2 fl (7.5-11.1); PLATELET COUNT 100 K/MM3 (134-434); RBC 2.64 M/mm3 (4.00-5.60); RDW 19.1 % (11.9-15.9); WHITE BLOOD COUNT 7.4 K/mm3 (4.0-10.0)
[2018-01-04] MEDS ORDERED: PT OWN MED DRAWER 7, Y5N ONE ×2 (09:54→20:28)
[2018-01-04] MEDS: PANTOPRAZOLE SODIUM 40 MG VIAL IVPUSH SCH (10:01)
[2018-01-04] MEDS: CARVEDILOL 3.125 MG TABLET (FP) PO SCH ×2 (10:02→21:03)
[2018-01-04] MEDS: AMIODARONE HCL 200 MG TABLET (FP) PO SCH (10:02)
[2018-01-04] MEDS: TAMSULOSIN HCL 0.4 MG CAP.ER.24H (FP) PO SCH (10:02)
[2018-01-04] MEDS: TIMOLOL 0.5% OPHTHALMIC SOL 5 ML BOTTLE OU SCH ×2 (10:07→21:03)
[2018-01-04] MEDS: MUPIROCIN 2% TOPICAL OINTMENT 22 GM TUBE TP SCH ×2 (10:07→21:04)
--- NOTE | 2018-01-04 12:07 | PN ---
Physical Exam: SUBJECTIVE: Patient seen and examined at the bedside. OBJECTIVE: Shortness of breath at rest: no wheezing, lungs diminished bilaterally with +2 bilateral lower ext edema Will order incentive spiromerter chest xray ordered, lasix 40mg x 1 (discussed with dr. rebollar) Vital Signs Period Temp Pulse Resp BP Sys/Rodrigues Pulse Ox Last 24 Hr 97.5 F-98.0 F 80-88 18-20 92-108/60-62 96 GENERAL: The patient is awake, alert, and fully oriented, in no acute distress. HEAD: Normal with no signs of trauma. EYES: PERRL, extraocular movements intact, sclera anicteric, conjunctiva clear. No ptosis. ENT: Ears normal, nares patent, oropharynx clear without exudates, moist mucous membranes. NECK: Trachea midline, full range of motion, supple. LUNGS: Breath sounds diminished bilaterally, not home oxygen dependent HEART: Regular rate and rhythm, S1, S2 without murmur, rub or gallop. ABDOMEN: Soft, nontender, nondistended, normoactive bowel sounds, no guarding, no rebound, no hepatosplenomegaly, no masses. EXTREMITIES: +2 bilateral lower ext edema NEUROLOGICAL: Normal speech, gait not observed. Laboratory Results - last 24 hr 12/31/17 01/04/18 09:30 07:00 WBC 7.4 RBC 2.64 L Hgb 8.3 L Hct 25.2 L MCV 95.7 MCH 31.6 MCHC 33.0 RDW 19.1 H Plt Count 100 L MPV 9.2 Crossmatch See Detail Active Medications Generic Name Dose Route Start Last Admin Trade Name Freq PRN Reason Stop Dose Admin Amiodarone HCl 200 mg 01/01/18 12:30 01/04/18 10:02 Cordarone - PO 200 mg DAILY AUDIE Administration Atorvastatin Calcium 40 mg 12/31/17 22:00 01/03/18 23:04 Lipitor - PO 40 mg HS AUDIE Administration Carvedilol 3.125 mg 12/31/17 22:00 01/04/18 10:02 Coreg - PO 3.125 mg BID AUDIE Administration Mesalamine 4 gm 01/03/18 22:00 01/03/18 23:06 Rowasa Enema - VT 4 gm HS AUDIE Administration Morphine Sulfate 1 mg 12/31/17 11:39 Morphine Sulfate IVPUSH Q4H PRN PAIN LEVEL 4 - 6 Mupirocin 1 applic 12/31/17 22:00 01/04/18 10:07 Bactroban 2% Ointment - TP 1 applic BID AUDIE Administration Pantoprazole Sodium 40 mg 12/31/17 11:45 01/04/18 10:01 Protonix Iv IVPUSH 40 mg DAILY AUDIE Administration Polyethylene Glycol 17 gm 01/03/18 15:45 01/04/18 06:47 Miralax (For Daily Use) - PO 17 gm TID AUDIE Administration Sucralfate 1 gm 01/03/18 16:30 01/04/18 06:47 Carafate Oral Suspension - NR 1 gm ACHS AUDIE Administration Tamsulosin HCl 0.4 mg 01/01/18 10:00 01/04/18 10:02 Flomax - PO 0.4 mg DAILY AUDIE Administration Timolol Maleate 1 drop 01/03/18 22:00 01/04/18 10:07 Timoptic 0.5% OU 1 drop BID AUDIE Administration ASSESSMENT/PLAN: Patient is a 82 year old male with past medical history of quadruple bypass ( 1989), prostate cancer, aortic and mitral valve replacement, PAD, atrial fib ( on eliquis), with recent ablation and pacemaker placement on 12/16/17, left renal calculus s/p lithotripsy and ureteral stent (scheduled for a stent removal next week at [facility]), sigmoidoscopy w/ cauterization for rectal bleeding. He presents to the ED on 12/31/2017 with bright red rectal bleeding. Patient recently discharged on 12/29 after resolution of GI bleed s/p 12/25 endoscopy. GI: GI bleed s/p sigmoidoscopy w/ cauterization for rectal bleeding hmg/hct stable. No further bleeding noted. Rectal sol removed. On Carafacte VT ac/hs. Tolerating diet. GI following. Cannot undergo IR embolization due to endovascular stent. Advance diet per GI. Eliquis discontinued. Renal FELICE on CKD, creat 1.7. Given Lasix 40mg x 1 today for shortness of breath. renal following. Monitor Left renal calculus s/p lithotripsy and ureteral stent, stent removal outpatient. On flomax. Card: Atrial fib. Rate controlled with amiodorone. eliquis discontinued. CAD: On coreg 3.125 mg BID Chronic systolic heart failure: Given lasix 40mg x 1, monitor intake and output. May need additional dose of lasix in a.m, as chest xray with increased congestion. monitor renal function. daily weights. fen tolerating PO monitor electrolytes advance diet per GI prophy physical therapy incentive spirometer Visit type - Emergency Visit Emergency Visit: Yes ED Registration Date: 12/31/17 Care time: The patient presented to the Emergency Department on the above date and was hospitalized for further evaluation of their emergent condition. - New Patient This patient is new to me today: Yes Date on this admission: 01/04/18 - Critical Care Critical Care patient: No - Discharge Referral Referred to [facility] No
[2018-01-04] MEDS ORDERED: FUROSEMIDE 40 MG TABLET (FP) PO ONE (12:30)
--- NOTE | 2018-01-04 14:51 | PN ---
Progress Note, Physician History of Present Illness: Pt seen and examined at bedside. He is awake and alert. He had some shortness of breath this morning. - Current Medication List Current Medications: Active Medications Amiodarone HCl (Cordarone -) 200 mg PO DAILY [facility] Last Admin: 01/04/18 10:02 Dose: 200 mg Atorvastatin Calcium (Lipitor -) 40 mg PO HS [facility] Last Admin: 01/03/18 23:04 Dose: 40 mg Carvedilol (Coreg -) 3.125 mg PO BID [facility] Last Admin: 01/04/18 10:02 Dose: 3.125 mg Mesalamine (Rowasa Enema -) 4 gm [place] HS [facility] Last Admin: 01/03/18 23:06 Dose: 4 gm Morphine Sulfate (Morphine Sulfate) 1 mg IVPUSH Q4H PRN PRN Reason: PAIN LEVEL 4 - 6 Mupirocin (Bactroban 2% Ointment -) 1 applic TP BID [facility] Last Admin: 01/04/18 10:07 Dose: 1 applic Pantoprazole Sodium (Protonix Iv) 40 mg IVPUSH DAILY [facility] Last Admin: 01/04/18 10:01 Dose: 40 mg Polyethylene Glycol (Miralax (For Daily Use) -) 17 gm PO TID [facility] Last Admin: 01/04/18 14:13 Dose: 17 gm Sucralfate (Carafate Oral Suspension -) 1 gm NR ACHS [facility] Last Admin: 01/04/18 14:12 Dose: 1 gm Tamsulosin HCl (Flomax -) 0.4 mg PO DAILY [facility] Last Admin: 01/04/18 10:02 Dose: 0.4 mg Timolol Maleate (Timoptic 0.5%) 1 drop OU BID [facility] Last Admin: 01/04/18 10:07 Dose: 1 drop - Objective Vital Signs: Vital Signs Temperature 97.6 F 01/04/18 07:32 Pulse Rate 80 01/04/18 07:32 Respiratory Rate 20 01/04/18 07:32 Blood Pressure 92/62 01/04/18 07:32 O2 Sat by Pulse Oximetry (%) 96 01/03/18 21:00 Constitutional: Yes: Calm Eyes: Yes: Conjunctiva Clear HENT: Yes: Atraumatic Neck: Yes: Supple Cardiovascular: Yes: S1, S2 Respiratory: Yes: CTA Bilaterally Gastrointestinal: Yes: Normal Bowel Sounds, Soft Genitourinary: Yes: WNL Musculoskeletal: Yes: WNL Edema: Yes Edema: LLE: 2+, RLE: 2+ Neurological: Yes: Oriented Psychiatric: Yes: Oriented Labs: CBC, BMP 01/04/18 07:00 01/03/18 09:50 INR, PTT INR 1.12 (0.83-1.09) H 01/01/18 07:30 Problem List - Problems (1) Atrial fibrillation Code(s): I48.91 - UNSPECIFIED ATRIAL FIBRILLATION (2) Hematuria Code(s): R31.9 - HEMATURIA, UNSPECIFIED (3) History of AAA (abdominal aortic aneurysm) repair Code(s): Z98.890 - OTHER SPECIFIED POSTPROCEDURAL STATES (5) Peripheral vascular disease Code(s): I73.9 - PERIPHERAL VASCULAR DISEASE, UNSPECIFIED (6) Renal insufficiency Code(s): N28.9 - DISORDER OF KIDNEY AND URETER, UNSPECIFIED Assessment/Plan Current Medications Generic Name Dose Route Start Last Admin Trade Name Freq PRN Reason Stop Dose Admin Amiodarone HCl 200 mg 01/01/18 12:30 01/04/18 10:02 Cordarone - PO 200 mg DAILY AUDIE Administration Atorvastatin Calcium 40 mg 12/31/17 22:00 01/03/18 23:04 Lipitor - PO 40 mg HS AUDIE Administration Carvedilol 3.125 mg 12/31/17 22:00 01/04/18 10:02 Coreg - PO 3.125 mg BID AUDIE Administration Mesalamine 4 gm 01/03/18 22:00 01/03/18 23:06 Rowasa Enema - [place] 4 gm HS AUDIE Administration Morphine Sulfate 1 mg 12/31/17 11:39 Morphine Sulfate IVPUSH Q4H PRN PAIN LEVEL 4 - 6 Mupirocin 1 applic 12/31/17 22:00 01/04/18 10:07 Bactroban 2% Ointment - TP 1 applic BID AUDIE Administration Pantoprazole Sodium 40 mg 12/31/17 11:45 01/04/18 10:01 Protonix Iv IVPUSH 40 mg DAILY AUDIE Administration Polyethylene Glycol 17 gm 01/03/18 15:45 01/04/18 14:13 Miralax (For Daily Use) - PO 17 gm TID AUDIE Administration Sucralfate 1 gm 01/03/18 16:30 01/04/18 14:12 Carafate Oral Suspension - NR 1 gm ACHS AUDIE Administration Tamsulosin HCl 0.4 mg 01/01/18 10:00 01/04/18 10:02 Flomax - PO 0.4 mg DAILY AUDIE Administration Timolol Maleate 1 drop 01/03/18 22:00 01/04/18 10:07 Timoptic 0.5% OU 1 drop BID AUDIE Administration Impression 1. CKD 2. hx prostate cancer 3. GI bleed 4. anemia 5. HLD 6. valvular heart disease 7. nephrolithiasis s/p stent Plan - will give 40 mg of lasix - check labs in am - will likely need another dose tomorrow - monitor hg - follow cxr - discussed with medical team - will follow Dr Boles
[2018-01-04] MEDS: ATORVASTATIN CA 40 MG TABLET (FP) PO SCH (21:03)
[2018-01-04] MEDS: MESALAMINE 4 GM/60 ML ENEMA PR SCH (21:03)
[2018-01-05] MEDS: POLYETHYLENE GLYCOL 3350 119 GM BTL PO SCH (06:20)
[2018-01-05] MEDS: SUCRALFATE 1 GM/10 ML UNIT DOSE CUPS NR SCH ×4 (06:20→22:33)
[2018-01-05 08:15] LABS: BASO % 0.1 % (0-2.0); HEMATOCRIT 24.6 % (35.4-49); HEMOGLOBIN 8.1 GM/dL (11.7-16.9); LYMPH % 11.1 % (8-40); MCH 31.6 pg (25.7-33.7); MEAN CELL VOLUME 95.9 fl (80-96); MEAN PLT VOLUME 9.3 fl (7.5-11.1); NEUT % 77.8 % (42.8-82.8); PLATELET COUNT 105 K/MM3 (134-434); RBC 2.56 M/mm3 (4.00-5.60); RDW 18.7 % (11.9-15.9); WHITE BLOOD COUNT 6.6 K/mm3 (4.0-10.0)
[2018-01-05 08:52] LABS: CHLORIDE 102 mmol/L (98-107); POTASSIUM 4.5 mmol/L (3.5-5.1); SODIUM 137 mmol/L (136-145)
[2018-01-05 09:04] LABS: ALBUMIN 2.3 g/dl (3.4-5.0); ALK PHOS 202 U/L (45-117); ANION GAP 6 MMOL/L (8-16); BILIRUBIN,TOTAL 1.6 mg/dL (0.2-1.0); BLOOD UREA NITROGEN 51 mg/dL (7-18); CO2 29 mmol/L (21-32); CREATININE 2.2 mg/dL (0.7-1.3); GLUCOSE,RANDOM 106 mg/dL (74-106); MAGNESIUM 2.3 mg/dL (1.8-2.4); SGOT/AST 58 U/L (15-37); SGPT/ALT 68 U/L (12-78); TOT PROT 5.3 g/dl (6.4-8.2)
[2018-01-05] MEDS ORDERED: PT OWN MED DRAWER 7, Y5N ONE ×3 (10:12→22:30)
[2018-01-05] MEDS: PANTOPRAZOLE SODIUM 40 MG VIAL IVPUSH SCH (10:28)
[2018-01-05] MEDS: CARVEDILOL 3.125 MG TABLET (FP) PO SCH ×2 (10:28→22:34)
[2018-01-05] MEDS: TIMOLOL 0.5% OPHTHALMIC SOL 5 ML BOTTLE OU SCH ×2 (10:28→22:34)
[2018-01-05] MEDS: AMIODARONE HCL 200 MG TABLET (FP) PO SCH (10:28)
[2018-01-05] MEDS: TAMSULOSIN HCL 0.4 MG CAP.ER.24H (FP) PO SCH (10:28)
--- NOTE | 2018-01-05 12:33 | PN ---
Physical Exam: SUBJECTIVE: Patient seen and examined. Fees well, would like to go home. OBJECTIVE: Vital Signs Period Temp Pulse Resp BP Sys/Rodrigues Pulse Ox Last 24 Hr 97.4 F-98.0 F 80-80 18-24 83-106/46-69 98 PE Neuro: alert, awake, cn 2-12intact Pulm: scattered rhonchi CV: s1 s2 irregular rate Abd: s nt nd + bs : rectal tube in place, laura red blood in sol back, no leakage on DR Ext: b/l heel wounds, toe wound open, +2 le edema Laboratory Results - last 24 hr 01/05/18 01/05/18 06:00 06:00 WBC 6.6 RBC 2.56 L Hgb 8.1 L Hct 24.6 L MCV 95.9 MCH 31.6 MCHC 33.0 RDW 18.7 H Plt Count 105 L MPV 9.3 Absolute Neuts (auto) 5.1 Neutrophils % 77.8 Lymphocytes % 11.1 Monocytes % 10.0 Eosinophils % 1.0 Basophils % 0.1 Nucleated RBC % 0 Sodium 137 Potassium 4.5 D Chloride 102 Carbon Dioxide 29 Anion Gap 6 L BUN 51 H Creatinine 2.2 H Creat Clearance w eGFR 28.73 Random Glucose 106 Calcium 8.0 L Magnesium 2.3 Total Bilirubin 1.6 H AST 58 H ALT 68 Alkaline Phosphatase 202 H Total Protein 5.3 L Albumin 2.3 L Active Medications Generic Name Dose Route Start Last Admin Trade Name Freq PRN Reason Stop Dose Admin Amiodarone HCl 200 mg 01/01/18 12:30 01/05/18 10:28 Cordarone - PO 200 mg DAILY AUDIE Administration Atorvastatin Calcium 40 mg 12/31/17 22:00 01/04/18 21:03 Lipitor - PO 40 mg HS AUDIE Administration Carvedilol 3.125 mg 12/31/17 22:00 01/05/18 10:28 Coreg - PO 3.125 mg BID AUDIE Administration Mesalamine 4 gm 01/03/18 22:00 01/04/18 21:03 Rowasa Enema - [place] 4 gm HS AUDIE Administration Morphine Sulfate 1 mg 12/31/17 11:39 01/04/18 21:09 Morphine Sulfate IVPUSH 1 mg Q4H PRN Administration PAIN LEVEL 4 - 6 Mupirocin 1 applic 12/31/17 22:00 01/04/18 21:04 Bactroban 2% Ointment - TP 1 applic BID AUDIE Administration Pantoprazole Sodium 40 mg 12/31/17 11:45 01/05/18 10:28 Protonix Iv IVPUSH 40 mg DAILY AUDIE Administration Sucralfate 1 gm 01/03/18 16:30 01/05/18 10:28 Carafate Oral Suspension - NR 1 gm ACHS AUDIE Administration Tamsulosin HCl 0.4 mg 01/01/18 10:00 01/05/18 10:28 Flomax - PO 0.4 mg DAILY AUDIE Administration Timolol Maleate 1 drop 01/03/18 22:00 01/05/18 10:28 Timoptic 0.5% OU 1 drop BID AUDIE Administration Assessment: 82 year old male with a PMH of CAD s/p CABG x 4 in 1989, sCHF (Ef 25 %), bioprosthetic AVR, mitral valve repair, AAA s/p repair, VT in 2011 with ICD , afib (was on Eliquis), 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 Now presents with recurring acute gi bleed. Plan: 1. Acute GI bleed, hx of h/o radiation proctitis, on eliquis - s/p rectal balloon for tamponade, removed 01/04 - Cannot undergo IR embolization due to endovascular stent - Monitor hgb - Liquid carafate ACHS - PT no longer candidate for AC - Contineue rowasa [place] HS 2. FELICE on CKD - Dose lasix yesterday - Additional dose today 3. Left renal calculus s/p lithotripsy and ureteral stent - Stent in place, plan for outpt urologist to remove once dc from [facility] - Cont flomax 5. Atrial fibrillation - Continue amiodarone 200mg daily - Off AC 6. CAD - Cont coreg 3.125mg BID 7. Chronic systolic heart failure - Stable - Lasix as above 8. Peripheral vascular disease s/p left ilio-fem bypass - [facility] Dr. Blakely Jan. at 3:00pm 9. Pressure ulcers - Allevyn heel protectors both heels - Mupirocin and sterile dressing to skin tear on right toe - Xerofoam and sterile dressing to blister on left toe - Optifoam to buttocks - Follow up outpatient [facility] in 2 weeks Visit type - Emergency Visit Emergency Visit: Yes ED Registration Date: 12/31/17 Care time: The patient presented to the Emergency Department on the above date and was hospitalized for further evaluation of their emergent condition. - New Patient This patient is new to me today: No - Critical Care Critical Care patient: No
--- NOTE | 2018-01-05 13:51 | PN ---
Progress Note (short form) - Note Progress Note: PULMONARY CONSULTATION DICTATED 01/05/18 IMP ACUTE ON CHRONIC CHF AFIB ANEMIA S/P AVR S/P MVR GI BLEED H/O PROSTATE CA RADIATION PROCTITIS ACUTE ON CKD PVD S/P FEM-POP H/O AAA S/P REPAIR PLAN LASIX INHALED BRONCHODILATORS PRN O2 F/U CHEST X-RAY STRICT I+OS MONITOR H+H MONITOR LYTES.RENAL FUNCTION DR URBAN Problem List - Problems (1) Acute on chronic congestive heart failure Code(s): I50.9 - HEART FAILURE, UNSPECIFIED (2) AICD (automatic cardioverter/defibrillator) present Code(s): Z95.810 - PRESENCE OF AUTOMATIC (IMPLANTABLE) CARDIAC DEFIBRILLATOR (3) Atrial fibrillation Code(s): I48.91 - UNSPECIFIED ATRIAL FIBRILLATION (4) GI bleed Code(s): K92.2 - GASTROINTESTINAL HEMORRHAGE, UNSPECIFIED (5) Hematuria Code(s): R31.9 - HEMATURIA, UNSPECIFIED (6) History of AAA (abdominal aortic aneurysm) repair Code(s): Z98.890 - OTHER SPECIFIED POSTPROCEDURAL STATES (8) History of aortic valve replacement with porcine valve Code(s): Z95.3 - PRESENCE OF XENOGENIC HEART VALVE (9) History of mitral valve replacement with porcine valve Code(s): Z95.3 - PRESENCE OF XENOGENIC HEART VALVE (10) History of prostate cancer Code(s): Z85.46 - PERSONAL HISTORY OF MALIGNANT NEOPLASM OF PROSTATE (11) Peripheral vascular disease Code(s): I73.9 - PERIPHERAL VASCULAR DISEASE, UNSPECIFIED (12) Radiation induced proctitis Code(s): K62.7 - RADIATION PROCTITIS (13) Acute exacerbation of CHF (congestive heart failure) Code(s): I50.9 - HEART FAILURE, UNSPECIFIED Qualifiers: Heart failure type: unspecified Qualified Code(s): I50.9 - Heart failure, unspecified (14) PAD (peripheral artery disease) Code(s): I73.9 - PERIPHERAL VASCULAR DISEASE, UNSPECIFIED (15) [id number] renal failure Code(s): N17.9 - ACUTE KIDNEY FAILURE, UNSPECIFIED; N18.9 - CHRONIC KIDNEY DISEASE, UNSPECIFIED
[2018-01-05] MEDS ORDERED: FUROSEMIDE 40 MG/4 ML INJECTABLE VIAL IVPUSH ONE (14:30)
--- NOTE | 2018-01-05 14:37 | PN ---
Progress Note, Physician History of Present Illness: Pt seen and examined at beside. He is awake and alert. He denies shortness of breath. - Current Medication List Current Medications: Active Medications Amiodarone HCl (Cordarone -) 200 mg PO DAILY [facility] Last Admin: 01/05/18 10:28 Dose: 200 mg Atorvastatin Calcium (Lipitor -) 40 mg PO HS [facility] Last Admin: 01/04/18 21:03 Dose: 40 mg Carvedilol (Coreg -) 3.125 mg PO BID [facility] Last Admin: 01/05/18 10:28 Dose: 3.125 mg Furosemide (Lasix Injection -) 40 mg IVPUSH ONCE ONE Stop: 01/05/18 14:31 Mesalamine (Rowasa Enema -) 4 gm [place] HS [facility] Last Admin: 01/04/18 21:03 Dose: 4 gm Morphine Sulfate (Morphine Sulfate) 1 mg IVPUSH Q4H PRN PRN Reason: PAIN LEVEL 4 - 6 Last Admin: 01/04/18 21:09 Dose: 1 mg Mupirocin (Bactroban 2% Ointment -) 1 applic TP BID [facility] Last Admin: 01/04/18 21:04 Dose: 1 applic Pantoprazole Sodium (Protonix -) 40 mg PO DAILY [facility] Polyethylene Glycol (Miralax (For Daily Use) -) 17 gm PO DAILY [facility] Sucralfate (Carafate Oral Suspension -) 1 gm NR ACHS [facility] Last Admin: 01/05/18 10:28 Dose: 1 gm Tamsulosin HCl (Flomax -) 0.4 mg PO DAILY [facility] Last Admin: 01/05/18 10:28 Dose: 0.4 mg Timolol Maleate (Timoptic 0.5%) 1 drop OU BID [facility] Last Admin: 01/05/18 10:28 Dose: 1 drop - Objective Vital Signs: Vital Signs Temperature 97.4 F L 01/05/18 10:00 Pulse Rate 80 01/05/18 10:00 Respiratory Rate 24 01/05/18 10:00 Blood Pressure 83/46 01/05/18 10:00 O2 Sat by Pulse Oximetry (%) 98 01/04/18 21:00 Constitutional: Yes: Anxious Eyes: Yes: Conjunctiva Clear HENT: Yes: Atraumatic Neck: Yes: Supple Cardiovascular: Yes: S1, S2 Respiratory: Yes: On Nasal O2 Gastrointestinal: Yes: Soft Genitourinary: Yes: WNL Musculoskeletal: Yes: WNL Extremities: Yes: WNL Edema: Yes Edema: LLE: 2+, RLE: 2+ Neurological: Yes: Oriented Psychiatric: Yes: Oriented Labs: CBC, BMP 01/05/18 06:00 01/05/18 06:00 INR, PTT INR 1.12 (0.83-1.09) H 01/01/18 07:30 Problem List - Problems (1) Atrial fibrillation Code(s): I48.91 - UNSPECIFIED ATRIAL FIBRILLATION (2) Hematuria Code(s): R31.9 - HEMATURIA, UNSPECIFIED (3) History of AAA (abdominal aortic aneurysm) repair Code(s): Z98.890 - OTHER SPECIFIED POSTPROCEDURAL STATES (5) Peripheral vascular disease Code(s): I73.9 - PERIPHERAL VASCULAR DISEASE, UNSPECIFIED (6) Renal insufficiency Code(s): N28.9 - DISORDER OF KIDNEY AND URETER, UNSPECIFIED Assessment/Plan Current Medications Generic Name Dose Route Start Last Admin Trade Name Freq PRN Reason Stop Dose Admin Amiodarone HCl 200 mg 01/01/18 12:30 01/05/18 10:28 Cordarone - PO 200 mg DAILY AUDIE Administration Atorvastatin Calcium 40 mg 12/31/17 22:00 01/04/18 21:03 Lipitor - PO 40 mg HS AUDIE Administration Carvedilol 3.125 mg 12/31/17 22:00 01/05/18 10:28 Coreg - PO 3.125 mg BID AUDIE Administration Furosemide 40 mg 01/05/18 14:30 Lasix Injection - IVPUSH 01/05/18 14:31 ONCE ONE Mesalamine 4 gm 01/03/18 22:00 01/04/18 21:03 Rowasa Enema - [place] 4 gm HS AUDIE Administration Morphine Sulfate 1 mg 12/31/17 11:39 01/04/18 21:09 Morphine Sulfate IVPUSH 1 mg Q4H PRN Administration PAIN LEVEL 4 - 6 Mupirocin 1 applic 12/31/17 22:00 01/04/18 21:04 Bactroban 2% Ointment - TP 1 applic BID AUDIE Administration Pantoprazole Sodium 40 mg 01/06/18 10:00 Protonix - PO DAILY AUDIE Polyethylene Glycol 17 gm 01/06/18 10:00 Miralax (For Daily Use) - PO DAILY AUDIE Sucralfate 1 gm 01/03/18 16:30 01/05/18 10:28 Carafate Oral Suspension - NR 1 gm ACHS AUDIE Administration Tamsulosin HCl 0.4 mg 01/01/18 10:00 01/05/18 10:28 Flomax - PO 0.4 mg DAILY AUDIE Administration Timolol Maleate 1 drop 01/03/18 22:00 01/05/18 10:28 Timoptic 0.5% OU 1 drop BID AUDIE Administration Impression 1. CKD 2. hx prostate cancer 3. GI bleed 4. anemia 5. HLD 6. valvular heart disease 7. nephrolithiasis s/p stent Plan - will give IV lasix - repeat labs in am - assess volume status - monitor hg - cxr reviewed - discussed with medical team - will follow Dr Boles
--- NOTE | 2018-01-05 15:29 | CONS ---
DATE OF CONSULTATION: 01/05/2018 REFERRING PHYSICIAN: HISTORY OF PRESENT ILLNESS: The patient is an 82-year-old white male with an extensive past medical history which includes ASHD; status post CABG x4 in 1989; bioprosthetic AVR; mitral valve repair; AAA, status post endovascular repair; ventricular tachycardia in 2011 with ICD; atrial fibrillation on AC; history of prostate CA, status post Lupron, Casodex and external beam radiation with subsequent development of radiation proctitis; status post syncope; CVS in 2010; PVD, status post iliofemoral bypass; hypertension; hyperlipidemia; history of DVT; admitted to [facility] on December 31 secondary to GI bleed. Patient was recently hospitalized at [facility] secondary to an ICD shock and syncope. He was at the time transferred to [facility] for which he was started on amiodarone and had VT ablation and anticoagulation. Anticoagulation apparently was held secondary to hematuria. He apparently was seen at the time by and was scheduled for urethral stent removal at [facility] next week. The patient was readmitted 1 week prior to this admission secondary to a GI bleed. He was noted to have a sigmoid vessel bleed, which was cauterized. At the time, he was discharged home and he restarted on Eliquis. He was readmitted on December 31 with bright red blood per rectum. Hospitalization was significant for he was evaluated by Dr. Amador who performed another cauterization with resolution of bleed. Patient is a nonsmoker. He denies any history of COPD or asthma in the past. There is no apparent history of occupational exposures. Of note is on January 04, he developed respiratory distress. At the time he was administered Lasix. He had a chest x-ray performed which revealed evidence of pulmonary vascular congestion. He denies any chest pain, nausea, vomiting or diaphoresis. He denies any fevers or chills. PAST MEDICAL HISTORY: Again as noted, ASHD, status post CABG x4; peripheral vascular disease, status post iliofemoral bypass; AAA, status post repair; cardiomyopathy, ejection fraction of 25%; bioprosthetic AV repair; status post mitral valve repair; prostate CA, status post Lupron, Casodex, as well as subsequent radiation proctitis, developed radiation proctitis; status post cardiovascular syncope 2010; peripheral vascular disease, femoropopliteal bypass; diverticula; GI bleed. On December 25 he was status post heater probe cautery by flexible sigmoidoscopy, chronic kidney disease and renal calculi. REVIEW OF SYSTEMS: No orthopnea, no PND at this time, no chest pain, no palpitations, no hemoptysis, no abdominal pain. MEDICATIONS: Current medications include Flomax, Rowasa, Cordarone, Bactroban, Coreg, Timoptic, MiraLAX, Lipitor, morphine, Carafate and Protonix. PHYSICAL EXAMINATION: General: The patient is an elderly white male chronically ill-appearing, thin, well-developed, awake, alert, in no acute distress. Vitals: He is afebrile. Blood pressure is 83/46, respiratory rate is 24. O2 saturation is 90% on room air. HEENT: Normocephalic, atraumatic. Neck: Supple. Heart: Irregular, irregular S1, S2. Chest: Deep bibasilar crackles. Abdomen: Soft, bowel sounds positive. Extremities: Bilateral lower extremity edema. LABORATORY STUDIES: WBC is 6.6, hemoglobin 8.1, hematocrit 24.6, platelet count 105,000. INR is 1.12. BUN 51, creatinine 2.2. AST is 58. Chest x-ray: Pulmonary vascular congestion bilaterally, cardiomegaly. IMPRESSION: 1. Respiratory distress, secondary to [id number]-[id number] congestive heart failure. 2. Arteriosclerotic heart disease, status post coronary artery bypass graft. 3. Anemia. 4. Atrial fibrillation. 5. Status post gastrointestinal bleed, status post cauterization. 6. Peripheral vascular disease, status post femoropopliteal bypass. 7. History of abdominal aortic aneurysm, status post repair. 8. Ixjce-ij-fyfnrba kidney disease. 9. Radiation proctitis, secondary to history of prostate cancer with external beam radiation. 10. History of prostate cancer. PLAN: Continue Lasix as per BP. Supplemental O2 to maintain O2 saturation 90% or greater. Follow up chest x-ray. Strict input and output. Monitor hemoglobin and hematocrit. Monitor electrolytes. Renal function. JOHN URBAN M.D. JOSE [id number]
[2018-01-05] MEDS: MUPIROCIN 2% TOPICAL OINTMENT 22 GM TUBE TP SCH ×2 (18:08→22:33)
[2018-01-05] MEDS: ATORVASTATIN CA 40 MG TABLET (FP) PO SCH (22:33)
[2018-01-05] MEDS: MESALAMINE 4 GM/60 ML ENEMA PR SCH (22:34)
[2018-01-06] MEDS ORDERED: ACETAMINOPHEN 325 MG TABLET (FP) PO ONE (01:58)
[2018-01-06] MEDS: SUCRALFATE 1 GM/10 ML UNIT DOSE CUPS NR SCH ×2 (06:16→12:13)
[2018-01-06 08:24] LABS: BASO % 0.2 % (0-2.0); HEMATOCRIT 24.8 % (35.4-49); HEMOGLOBIN 8.2 GM/dL (11.7-16.9); LYMPH % 10.4 % (8-40); MCH 31.6 pg (25.7-33.7); MCHC 33.1 g/dl (32.0-35.9); MEAN CELL VOLUME 95.6 fl (80-96); MEAN PLT VOLUME 9.4 fl (7.5-11.1); MONO % 9.2 % (3.8-10.2); NEUT % 79.2 % (42.8-82.8); PLATELET COUNT 108 K/MM3 (134-434); RBC 2.59 M/mm3 (4.00-5.60); WHITE BLOOD COUNT 6.8 K/mm3 (4.0-10.0)
[2018-01-06 08:49] LABS: ANION GAP 7 MMOL/L (8-16); BLOOD UREA NITROGEN 54 mg/dL (7-18); CALCIUM 8.1 mg/dL (8.5-10.1); CHLORIDE 103 mmol/L (98-107); CO2 29 mmol/L (21-32); GLUCOSE,RANDOM 96 mg/dL (74-106); POTASSIUM 4.3 mmol/L (3.5-5.1); SODIUM 139 mmol/L (136-145)
[2018-01-06 08:51] LABS: CREATININE 2.2 mg/dL (0.7-1.3)
[2018-01-06] MEDS ORDERED: PT OWN MED DRAWER 7, Y5N ONE (08:57)
[2018-01-06] MEDS: AMIODARONE HCL 200 MG TABLET (FP) PO SCH (09:14)
[2018-01-06] MEDS: TAMSULOSIN HCL 0.4 MG CAP.ER.24H (FP) PO SCH (09:14)
[2018-01-06] MEDS: CARVEDILOL 3.125 MG TABLET (FP) PO SCH (09:14)
[2018-01-06] MEDS: TIMOLOL 0.5% OPHTHALMIC SOL 5 ML BOTTLE OU SCH (09:14)
[2018-01-06] MEDS ORDERED: PANTOPRAZOLE 40 MG TABLET (FP) PO SCH (10:00)
[2018-01-06] MEDS ORDERED: POLYETHYLENE GLYCOL 3350 119 GM BTL PO SCH (10:00)
--- NOTE | 2018-01-06 11:04 | PN ---
Progress Note, Physician History of Present Illness: pulmonary alert,feeling better,less dyspneic - Current Medication List Current Medications: Active Medications Amiodarone HCl (Cordarone -) 200 mg PO DAILY [facility] Last Admin: 01/06/18 09:14 Dose: 200 mg Atorvastatin Calcium (Lipitor -) 40 mg PO HS [facility] Last Admin: 01/05/18 22:33 Dose: 40 mg Carvedilol (Coreg -) 3.125 mg PO BID [facility] Last Admin: 01/06/18 09:14 Dose: 3.125 mg Mesalamine (Row[place] Enema -) 4 gm [place] HS [facility] Last Admin: 01/05/18 22:34 Dose: 4 gm Morphine Sulfate (Morphine Sulfate) 1 mg IVPUSH Q4H PRN PRN Reason: PAIN LEVEL 4 - 6 Last Admin: 01/04/18 21:09 Dose: 1 mg Mupirocin (Bactroban 2% Ointment -) 1 applic TP BID [facility] Last Admin: 01/05/18 22:33 Dose: 1 applic Pantoprazole Sodium (Protonix -) 40 mg PO DAILY [facility] Last Admin: 01/06/18 09:14 Dose: 40 mg Polyethylene Glycol (Miralax (For Daily Use) -) 17 gm PO DAILY [facility] Last Admin: 01/06/18 09:17 Dose: Not Given Sucralfate (Carafate Oral Suspension -) 1 gm NR ACHS [facility] Last Admin: 01/06/18 06:16 Dose: 1 gm Tamsulosin HCl (Flomax -) 0.4 mg PO DAILY [facility] Last Admin: 01/06/18 09:14 Dose: 0.4 mg Timolol Maleate (Timoptic 0.5%) 1 drop OU BID [facility] Last Admin: 01/06/18 09:14 Dose: 1 drop - Objective Vital Signs: Vital Signs Temperature 97.6 F 01/06/18 07:55 Pulse Rate 82 01/06/18 07:55 Respiratory Rate 20 01/06/18 07:55 Blood Pressure 94/64 01/06/18 07:55 O2 Sat by Pulse Oximetry (%) 94 L 01/05/18 23:00 Constitutional: Yes: Well Nourished, Calm Eyes: Yes: WNL HENT: Yes: WNL Neck: Yes: WNL Cardiovascular: Yes: Pulse Irregular, S1, S2 Respiratory: Yes: Rales (bibasailar rales) Gastrointestinal: Yes: Normal Bowel Sounds, Soft Extremities: Yes: WNL Edema: No Labs: CBC, BMP 01/06/18 06:30 01/06/18 06:30 INR, PTT INR 1.12 (0.83-1.09) H 01/01/18 07:30 Problem List - Problems (1) Acute on chronic congestive heart failure Code(s): I50.9 - HEART FAILURE, UNSPECIFIED (2) AICD (automatic cardioverter/defibrillator) present Code(s): Z95.810 - PRESENCE OF AUTOMATIC (IMPLANTABLE) CARDIAC DEFIBRILLATOR (3) Atrial fibrillation Code(s): I48.91 - UNSPECIFIED ATRIAL FIBRILLATION (4) GI bleed Code(s): K92.2 - GASTROINTESTINAL HEMORRHAGE, UNSPECIFIED (5) Hematuria Code(s): R31.9 - HEMATURIA, UNSPECIFIED (6) History of AAA (abdominal aortic aneurysm) repair Code(s): Z98.890 - OTHER SPECIFIED POSTPROCEDURAL STATES (8) History of aortic valve replacement with porcine valve Code(s): Z95.3 - PRESENCE OF XENOGENIC HEART VALVE (9) History of mitral valve replacement with porcine valve Code(s): Z95.3 - PRESENCE OF XENOGENIC HEART VALVE (10) History of prostate cancer Code(s): Z85.46 - PERSONAL HISTORY OF MALIGNANT NEOPLASM OF PROSTATE (11) Peripheral vascular disease Code(s): I73.9 - PERIPHERAL VASCULAR DISEASE, UNSPECIFIED (12) Radiation induced proctitis Code(s): K62.7 - RADIATION PROCTITIS (13) Acute exacerbation of CHF (congestive heart failure) Code(s): I50.9 - HEART FAILURE, UNSPECIFIED Qualifiers: Heart failure type: unspecified Qualified Code(s): I50.9 - Heart failure, unspecified (14) PAD (peripheral artery disease) Code(s): I73.9 - PERIPHERAL VASCULAR DISEASE, UNSPECIFIED (15) Luxpv-ok-zlukxpv renal failure Code(s): N17.9 - ACUTE KIDNEY FAILURE, UNSPECIFIED; N18.9 - CHRONIC KIDNEY DISEASE, UNSPECIFIED Assessment/Plan MP ACUTE ON CHRONIC CHF AFIB ANEMIA S/P AVR S/P MVR GI BLEED H/O PROSTATE CA RADIATION PROCTITIS ACUTE ON CKD PVD S/P FEM-POP H/O AAA S/P REPAIR PLAN LASIX INHALED BRONCHODILATORS PRN O2 STRICT I+OS MONITOR H+H MONITOR LYTES.RENAL FUNCTION DR URBAN Problem List - Problems (1) Acute on chronic congestive heart failure Code(s): I50.9 - HEART FAILURE, UNSPECIFIED (2) AICD (automatic cardioverter/defibrillator) present Code(s): Z95.810 - PRESENCE OF AUTOMATIC (IMPLANTABLE) CARDIAC DEFIBRILLATOR (3) Atrial fibrillation Code(s): I48.91 - UNSPECIFIED ATRIAL FIBRILLATION (4) GI bleed Code(s): K92.2 - GASTROINTESTINAL HEMORRHAGE, UNSPECIFIED (5) Hematuria Code(s): R31.9 - HEMATURIA, UNSPECIFIED (6) History of AAA (abdominal aortic aneurysm) repair Code(s): Z98.890 - OTHER SPECIFIED POSTPROCEDURAL STATES (8) History of aortic valve replacement with porcine valve Code(s): Z95.3 - PRESENCE OF XENOGENIC HEART VALVE (9) History of mitral valve replacement with porcine valve Code(s): Z95.3 - PRESENCE OF XENOGENIC HEART VALVE (10) History of prostate cancer Code(s): Z85.46 - PERSONAL HISTORY OF MALIGNANT NEOPLASM OF PROSTATE (11) Peripheral vascular disease Code(s): I73.9 - PERIPHERAL VASCULAR DISEASE, UNSPECIFIED (12) Radiation induced proctitis Code(s): K62.7 - RADIATION PROCTITIS (13) Acute exacerbation of CHF (congestive heart failure) Code(s): I50.9 - HEART FAILURE, UNSPECIFIED Qualifiers: Heart failure type: unspecified Qualified Code(s): I50.9 - Heart failure, unspecified (14) PAD (peripheral artery disease) Code(s): I73.9 - PERIPHERAL VASCULAR DISEASE, UNSPECIFIED (15) Cwzye-dc-jaaowso renal failure Code(s): N17.9 - ACUTE KIDNEY FAILURE, UNSPECIFIED; N18.9 - CHRONIC KIDNEY DISEASE, UNSPECIFIED
[2018-01-06] MEDS ORDERED: POLYETHYLENE GLYCOL 3350 119 GM BTL PO PRN (12:02)
--- NOTE | 2018-01-06 12:40 | PN ---
Progress Note (short form) - Note Progress Note: RENAL Pt seen and examined at bedside he is comfortable still having hematuria but is otherwise well Last Vital Signs Temp Pulse Resp BP Pulse Ox 97.6 F 82 20 94/64 94 L 01/06/18 07:55 01/06/18 07:55 01/06/18 07:55 01/06/18 07:55 01/05/18 23:00 family at bedside lungs clear cvs s1s2 rr abd soft ext +ankle edema neuro a+ox3 CBC, BMP 01/06/18 06:30 01/06/18 06:30 Current Medications Generic Name Dose Route Start Last Admin Trade Name Freq PRN Reason Stop Dose Admin Amiodarone HCl 200 mg 01/01/18 12:30 01/06/18 09:14 Cordarone - PO 200 mg DAILY AUDIE Administration Atorvastatin Calcium 40 mg 12/31/17 22:00 01/05/18 22:33 Lipitor - PO 40 mg HS AUDIE Administration Carvedilol 3.125 mg 12/31/17 22:00 01/06/18 09:14 Coreg - PO 3.125 mg BID AUDIE Administration Mesalamine 4 gm 01/03/18 22:00 01/05/18 22:34 Rowasa Enema - [place] 4 gm HS AUDIE Administration Morphine Sulfate 1 mg 12/31/17 11:39 01/04/18 21:09 Morphine Sulfate IVPUSH 1 mg Q4H PRN Administration PAIN LEVEL 4 - 6 Mupirocin 1 applic 12/31/17 22:00 01/05/18 22:33 Bactroban 2% Ointment - TP 1 applic BID AUDIE Administration Pantoprazole Sodium 40 mg 01/06/18 10:00 01/06/18 09:14 Protonix - PO 40 mg DAILY AUDIE Administration Polyethylene Glycol 17 gm 01/06/18 12:02 Miralax (For Daily Use) - PO DAILY PRN CONSTIPATION Tamsulosin HCl 0.4 mg 01/01/18 10:00 01/06/18 09:14 Flomax - PO 0.4 mg DAILY AUDIE Administration Timolol Maleate 1 drop 01/03/18 22:00 01/06/18 09:14 Timoptic 0.5% OU 1 drop BID AUDIE Administration Impression 1. CKD 2. hx prostate cancer 3. GI bleed 4. anemia 5. HLD 6. valvular heart disease 7. nephrolithiasis s/p stent Plan can continiue lasix 40 mg po daily pt has appointment to see Dr Boles on 01/17/2018 hemoglobin relatively stable MV
--- NOTE | 2018-01-06 12:40 | DS ---
Physical Exam: SUBJECTIVE: Patient seen and examined at the bedside. Feels good today, no discomfort. No chest pain or shortness of breath. and daughter at the bedside. OBJECTIVE: Vital Signs Period Temp Pulse Resp BP Sys/Rodrigues Pulse Ox Last 24 Hr 97.6 F-98.2 F 80-82 16-20 91-110/54-69 94 PHYSICAL EXAM GENERAL: The patient is awake, alert, and fully oriented, in no acute distress. HEAD: Normal with no signs of trauma. EYES: PERRL, extraocular movements intact, sclera anicteric, conjunctiva clear. No ptosis. ENT: Ears normal, nares patent, oropharynx clear without exudates, moist mucous membranes. NECK: Trachea midline, full range of motion, supple. LUNGS: Breath sounds clear/diminished at the bases. lungs sounds improving since restart of lasix. ABDOMEN: Soft, nontender, nondistended, normoactive bowel sounds, no guarding, no rebound, no hepatosplenomegaly, no masses. EXTREMITIES: +2 bilateral lower ext edema NEUROLOGICAL: Normal speech, gait not observed. LABS Laboratory Results - last 24 hr 01/06/18 01/06/18 06:30 06:30 WBC 6.8 RBC 2.59 L Hgb 8.2 L Hct 24.8 L MCV 95.6 MCH 31.6 MCHC 33.1 RDW 19.0 H Plt Count 108 L MPV 9.4 Absolute Neuts (auto) 5.4 Neutrophils % 79.2 Lymphocytes % 10.4 Monocytes % 9.2 Eosinophils % 1.0 Basophils % 0.2 Nucleated RBC % 0 Sodium 139 Potassium 4.3 Chloride 103 Carbon Dioxide 29 Anion Gap 7 L BUN 54 H Creatinine 2.2 H Creat Clearance w eGFR 28.73 Random Glucose 96 Calcium 8.1 L HOSPITAL COURSE: Date of Admission:12/31/17 Date of Discharge: 01/06/18 ASSESSMENT/PLAN: Patient is a 82 year old male with past medical history of quadruple bypass ( 1989), prostate cancer, aortic and mitral valve replacement, PAD, atrial fib ( was on eliquis), with recent ablation and pacemaker placement on 12/16/17, left renal calculus s/p lithotripsy and ureteral stent (scheduled for a stent removal next week at [facility]), sigmoidoscopy w/ cauterization for rectal bleeding. He presents to the ED on 12/31/2017 with bright red rectal bleeding. Patient recently discharged on 12/29 after resolution of GI bleed s/p endoscopy. GI: GI bleed s/p sigmoidoscopy w/ cauterization for rectal bleeding, GI bleeding resolved. hmg/hct stable. s/p Rectal sol. Treated with Carafacte [place] ac/hs. Pt cannot undergo IR embolization due to endovascular stent. Patient tolerated advanced diet without difficulty. Patient will need to follow up with GI outpatient and in agreement. Renal FELICE on CKD, creat 2.2. Lasix given daily. Patient to follow up with Dr. Boles (has appointment) for repeat blood work and closer monitoring of renal function. Left renal calculus s/p lithotripsy and ureteral stent, stent removal outpatient. On flomax. Card: Atrial fib. Rate controlled with amiodorone. eliquis discontinued, patient no longer a candidate for AC. CAD: On coreg 3.125 mg BID Chronic systolic heart failure: lasix 40mg daily. Cardiology follow up outpatient. Discharge home with close follow up with cardiology, renal and PCP. Both and daughter at the bedside and have follow up appointments. Patient encouraged to follow up with Dr. Church within 2 weeks. Minutes to complete discharge: 60 Discharge Summary Reason For Visit: GASTROINTESTINAL BLEEDING Current Active Problems AICD (automatic cardioverter/defibrillator) present (Acute) Abnormal liver function tests (Acute) Acute on chronic congestive heart failure (Acute) Euaht-gv-ayarnlb renal failure (Acute) Atrial fibrillation (Acute) Cataract (Acute) Diverticula of colon (Acute) GI bleed (Acute) Glaucoma (Acute) Hematuria (Acute) History of AAA (abdominal aortic aneurysm) repair (Acute) History of CVA (cerebrovascular accident) without residual deficits (Acute) History of aortic valve replacement with porcine valve (Acute) History of mitral valve replacement with porcine valve (Acute) History of prostate cancer (Acute) Hyperlipidemia (Acute) Hypertension (Acute) Peripheral vascular disease (Acute) Radiation induced proctitis (Acute) Radiation proctitis (Acute) Renal insufficiency (Acute) S/P CABG (coronary artery bypass graft) (Acute) Condition: Stable - Instructions Diet, Activity, Other Instructions: Mr. Joiner: You were admitted on 12/31/17 with a gastrointestinal bleed which has now resolved. Please follow up with Dr. Church within two weeks of discharge (his contact information is enclosed). Your kidney function should be monitored closely while on the Lasix. Please see Dr. Boles as discussed. Please stop taking the Eliquis. You were seen by a institution director (Dr. Simms) who recommends that you no longer take this medication. Eliquis is a blood thinner and it may cause you to bleed if re-taken. Please follow up with your institution director within 1 week after discharge. New medications: Lasix 40mg daily. Please follow up with Dr. Reza as discussed for further lab work. Please call me with any questions that you may have. Svitlana Sanchezpaco Lambert, JUDAH [facility] [phone] Referrals: Jose Simms MD [Primary Care Provider] - 2 Weeks Oscar Church MD [Staff Physician] - 2 Weeks Francine Boles MD [Staff Physician] - Disposition: HOME - Home Medications Comprehensive Discharge Medication List: Ambulatory Orders Atorvastatin Ca [Lipitor] 40 mg PO HS 11/07/14 Tamsulosin HCl [Flomax] 0.4 mg PO DAILY 12/01/17 Apixaban [Eliquis -] 2.5 mg PO BID #60 tablet 12/28/17 Carvedilol [Coreg -] 3.125 mg PO BID #60 tablet 12/28/17 Furosemide [Lasix -] 20 mg PO DAILY #30 tablet 12/28/17 Mesalamine Enema [Rowasa Enema -] 4 gm [place] HS #52 enema 12/28/17 Mupirocin Ointment [Bactroban 2% Ointment -] 1 applic TP BID #1 applic 12/28/17 Sucralfate Oral Suspension [Carafate Oral Suspension -] 1 gm PO QID #28 ml 12/28 Amiodarone HCl 200 mg PO DAILY 12/31/17 Timolol 0.5% [Timoptic 0.5%] 1 drop OU BID 01/03/18 This patient is new to me today: No Emergency Visit: Yes ED Registration Date: 12/31/17 Care time: The patient presented to the Emergency Department on the above date and was hospitalized for further evaluation of their emergent condition. Critical Care patient: No - Discharge Referral Referred to [facility] Med P.C.: No
[2018-01-06] MEDS: MUPIROCIN 2% TOPICAL OINTMENT 22 GM TUBE TP SCH (13:28)
[2018-01-06] MEDS ORDERED: FUROSEMIDE 40 MG TABLET (FP) PO ONE (14:03)
[2018-01-06 14:49] VITALS: BP 89/58; PULSE 80; TEMP 97.6
== END 2018-01-06 15:44 | disposition home or self-care (01) | DRG 813 ==
LOC: JER 08:54 → JERBED 11:16 → J8W 18:36
PROVIDERS: ADMIT Internal Medicine; ATTEND Nurse Practitioner Family
DX: D68.32 Hemorrhagic disorder due to extrinsic circulating anticoagulants (principal); I50.23 Acute on chronic systolic (congestive) heart failure; N17.9 Acute kidney failure, unspecified; K62.5 Hemorrhage of anus and rectum; I13.0 Hypertensive heart and chronic kidney disease with heart failure and stage 1 through stage 4 chronic kidney disease, or unspecified chronic kidney disease; I47.2 Ventricular tachycardia; D62 Acute posthemorrhagic anemia; I48.2 Chronic atrial fibrillation; N18.3 Chronic kidney disease, stage 3 (moderate); T45.515A Adverse effect of anticoagulants, initial encounter; L89.322 Pressure ulcer of left buttock, stage 2; Z95.1 Presence of aortocoronary bypass graft; Z95.3 Presence of xenogenic heart valve; Z85.46 Personal history of malignant neoplasm of prostate; I73.9 Peripheral vascular disease, unspecified; Z95.0 Presence of cardiac pacemaker; L89.891 Pressure ulcer of other site, stage 1; S90.812A Abrasion, left foot, initial encounter; X58.XXXA Exposure to other specified factors, initial encounter; Y93.89 Activity, other specified; Y92.89 Other specified places as the place of occurrence of the external cause; Y99.8 Other external cause status; I25.10 Atherosclerotic heart disease of native coronary artery without angina pectoris; Z86.73 Personal history of transient ischemic attack (TIA), and cerebral infarction without residual deficits; Z86.718 Personal history of other venous thrombosis and embolism; N40.0 Benign prostatic hyperplasia without lower urinary tract symptoms; G47.00 Insomnia, unspecified; R94.5 Abnormal results of liver function studies
CPT/HCPCS: 36415; 71045-TC-FY; 76705-TC; 80048; 80053; 82728; 82977; 83516; 83540; 83550; 83735; 84100; 85025; 85027; 85610; 85730; 86038; 86704; 86706; 86708; 86803; 86850; 86900; 86901; 86922; 87340; 93005; 93010; 94010; 97116-GP; 97161-GP; 99283-25; J1756

== ENCOUNTER 2018-01-10 14:44 | Inpatient (IN) | payer OTHER, MEDICARE ==
--- NOTE | 2018-01-10 14:51 | PDOC ---
Attending Attestation - Resident Resident Name: Kvng Bustos - ED Attending Attestation I have performed the following: I have examined & evaluated the patient, The case was reviewed & discussed with the resident, I agree w/resident's findings & plan, Exceptions are as noted - HPI HPI: 01/12/18 00:12 Mr Joiner is an 82 yo M who presents via EMS to the ER due to bright red blood per rectum and hypotension He has a h/o quadruple bypass (1989), prostate cancer, aortic and mitral valve replacement, PAD, atrial fib (was on eliquis-stopped on last admission), sigmoidoscopy w/ cauterization for rectal bleeding. Patient was recently admitted to [facility] between 12/31-01/06/18 for rectal bleeding and discharged home on 01/06/2018 with outpatient follow up. Around 2pm today, patient again noted rectal bleeding - Physicial Exam PE: 01/10/18 17:19 GENERAL: The patient is in no acute distress Awake and answering examiners questions. LUNGS: Breath sounds equal, clear to auscultation bilaterally. HEART: Regular rate and rhythm, normal S1 and S2 without murmur, rub or gallop. ABDOMEN: Soft, nontender RECTAL: per resident examination EXTREMITIES: Normal range of motion NEUROLOGICAL: Cranial nerves II through XII grossly intact. Normal speech. SKIN: Warm, Dry, normal turgor, no rashes or lesions noted. 01/12/18 00:17 - Medical Decision Making 01/10/18 17:18 EKG: AV paced at 80 bpm 01/10/18 17:19 Laboratory Tests 01/10/18 01/10/18 01/10/18 15:05 15:05 15:05 WBC 5.4 Hgb 8.1 L Hct 24.5 L Plt Count 109 L INR 1.15 H Sodium 139 Potassium 3.7 Chloride 103 Carbon Dioxide 25 BUN 58 H Creatinine 2.5 H Random Glucose 144 H D Creatine Kinase 242 Creatine Kinase Index 1.7 CK-MB (CK-2) 4.24 H Troponin I 0.31 H 01/12/18 00:22 Pt pt , BP is close to his baseline Pt has BRBPR Case reviewed by Dr Bustos with Dr Church He is recommending a 30 F sol cathether with the balloon blown up Transfuse Clinical impression: rectal bleeding, repeat presentation
[2018-01-10 15:14] LABS: BASO % 0.2 % (0-2.0); EOS % 0.4 % (0-4.5); HEMATOCRIT 24.5 % (35.4-49); HEMOGLOBIN 8.1 GM/dL (11.7-16.9); LYMPH % 8.8 % (8-40); MCH 31.6 pg (25.7-33.7); MCHC 32.9 g/dl (32.0-35.9); MEAN CELL VOLUME 95.9 fl (80-96); MEAN PLT VOLUME 9.1 fl (7.5-11.1); MONO % 8.9 % (3.8-10.2); NEUT % 81.7 % (42.8-82.8); PLATELET COUNT 109 K/MM3 (134-434); RBC 2.55 M/mm3 (4.00-5.60); WHITE BLOOD COUNT 5.4 K/mm3 (4.0-10.0)
[2018-01-10] MEDS ORDERED: SODIUM CHLORIDE 0.9% 500 ML INFUS.BAG IV ONE (15:17)
--- NOTE | 2018-01-10 15:17 | PDOC ---
History of Present Illness - General Chief Complaint: Rectal Bleed Stated Complaint: RECTAL BLEED Time Seen by Provider: 01/10/18 14:51 History Source: Patient, Spouse Exam Limitations: No Limitations - History of Present Illness Initial Comments: 82 y/o male presenting to [facility] ER via ambulance from home complaining of spontaneous bright red blood per rectum. Bleeding was first noticed this afternoon while he was having a bowel movement, which he states was not difficult/require straining. He was discharged from this facility on 825 and after similar episodes. Most recently, the pt required transfusion and the bleeding was stopped by rectal placement of a sol catheter. Pt stopped taking Eliquis two weeks ago. Denies weakness, lightheadedness, shortness of breath, or syncope. PMH significant for: Quadruple bypass (1989) Prostate Cnacer Aortic Valve Replacement Mitral Valve Replacement A-Fib (s/p ablation and pacemaker palcement) PAD PCP: Jose Simms MD GI: Oscar Church MD Past History - Past Medical History Allergies/Adverse Reactions: Allergies Allergy/AdvReac Type Severity Reaction Status Date / Time No Known Drug Allergies Allergy Verified 01/10/18 14:49 Home Medications: Ambulatory Orders Atorvastatin Ca [Lipitor] 40 mg PO HS 11/07/14 Tamsulosin HCl [Flomax] 0.4 mg PO DAILY 12/01/17 Carvedilol [Coreg -] 3.125 mg PO BID #60 tablet 12/28/17 Mesalamine Enema [Rowasa Enema -] 4 gm [place] HS #52 enema 12/28/17 Mupirocin Ointment [Bactroban 2% Ointment -] 1 applic TP BID #1 applic 12/28/17 Sucralfate Oral Suspension [Carafate Oral Suspension -] 1 gm PO QID #28 ml 12/28 Amiodarone HCl 200 mg PO DAILY 12/31/17 Timolol 0.5% [Timoptic 0.5%] 1 drop OU BID 01/03/18 Furosemide [Lasix] 40 mg PO DAILY #30 tablet 01/06/18 Lidocaine 2% Jelly [Xylocaine 2% Jelly -] 1 applic MM DAILY #1 tube 01/06/18 Pantoprazole Sodium [Protonix] 40 mg PO DAILY #30 tablet. 01/06/18 Anemia: Yes Asthma: No Cancer: Yes (prostate cancer) Cardiac Disorders: Yes (cabg x4, AAA, mitral valve repair & aortic valve repair , bovine valve) CVA: Yes (12/2010) COPD: No CHF: Yes (v tach-TRANSFER TO [place] FOR ICD) Dementia: No Diabetes: No GI Disorders: Yes (GI bleed) Disorders: Yes (L urethral stent) HTN: Yes Hypercholesterolemia: Yes Liver Disease: No Seizures: No Thyroid Disease: No - Surgical History Abdominal Surgery: Yes Appendectomy: No Cardiac Surgery: Yes (VALVE REPAIR, DEFIB, AAA, BYPASS X 4. popliteal bypass 2016) Cholecystectomy: No Lung Surgery: No Neurologic Surgery: No Orthopedic Surgery: Yes (LEFT CARPAL TUNNEL, ACL REPAIR RIGHT KNEE) - Immunization History Immunization Up to Date: No - Suicide/Smoking/Psychosocial Hx Smoking Status: No Smoking History: Never smoked Have you smoked in the past 12 months: No Number of Cigarettes Smoked Daily: 0 Information on smoking cessation initiated: No Hx Alcohol Use: No Drug/Substance Use Hx: No Substance Use Type: None Hx Substance Use Treatment: No Review of Systems - Review of Systems Able to Perform ROS?: Yes Is the patient limited Slovak proficient: No Constitutional: No: Chills, Diaphoresis, Fever, Weakness HEENTM: No: Recent change in vision Respiratory: No: Shortness of Breath Cardiac (ROS): No: Chest Pain, Lightheadedness, Palpitations, Syncope ABD/GI: Yes: Rectal Bleeding. No: Constipated, Diarrhea, Nausea, Vomiting, Abdominal cramping : No: Burning, Dysuria, Frequency, Flank Pain, Hematuria Musculoskeletal: No: Back Pain Integumentary: Yes: Change in Color Neurological: No: Weakness Hematologic/Lymphatic: No: Easy Bruising *Physical Exam - Vital Signs Last Vital Signs Temp Pulse Resp BP Pulse Ox 99.5 F 80 20 92/58 97 01/10/18 14:50 01/10/18 14:50 01/10/18 14:50 01/10/18 14:50 01/10/18 14:50 - Physical Exam Comments: Constitutional: Well-developed, thin male in mild distress. Found semi fowlers on hospital bed Alert and oriented x4. Answered all questions appropriately and completely. Speech was non-labored, non-pressured. HEENT: Normocephalic. No obvious external signs of trauma. Hearing grossly normal. No nasal discharge. Neck is supple, trachea is midline. Cardiovascular: Irregularly irregular. No murmur, rubs, clicks, or gallops. Peripheral pulses: Radial pulses full. Pacemaker in left upper chest. Respiratory: Breathing unlabored. Equal chest rise and fall. Clear to auscultation bilaterally. No stridor, no wheezing, no rhonchi. Gastrointestinal: abdomen is soft, non-tender, non-distended. Neuro: Alert and oriented. Moving all four extremities spontaneously. Skin: Pale, warm, and dry. Psych: Affect: appropriate. Mood: normal MALE RECTAL: Good sphincter tone with no anal, perineal or rectal lesions. Active hematochezia and clots noted at sphincter. RN chaperoned exam. ED Treatment Course - LABORATORY CBC & Chemistry Diagram: 01/10/18 22:00 01/10/18 15:05 Medical Decision Making - Medical Decision Making *Reviewed nursing notes and prior visit documentation. 82 y/o male presenting with BRBPR in setting of multiple recent hospitalizations for similar. Not on anticoagulants. Vitals remarkable for borderline hypotension, though reports this is a normal range for him; supported by vitals trend in [facility] from prior visits. No tachypnea or altered mental status. Physical exam revealed gross hematochezia with large clots, pale conjunctiva and oral mucosal membranes. Vitals closely monitored and remained stable. 15:[address] Church. Is familiar with pt. Requested insertion of 30cc sol into rectum, repeat H/H in 6hrs, and one unit of blood given cardiac history. Would like pt to be admitted to ICU. 16:01 Sol inserted into rectum. Large clot was expressed. Bleeding appears to be tamponed. 17:12 Telephone consult w/ Dr. Beach agrees to ICU consultation team under attending Doug. Telephone consult with [facility] Hospitalist team who agrees to admit pt to inpatient ICU status. Pt left the department without further incident. *DC/Admit/Observation/Transfer Diagnosis at time of Disposition: GI bleed Qualifiers: GI bleed type/associated pathology: unspecified gastrointestinal hemorrhage type Qualified Code(s): K92.2 - Gastrointestinal hemorrhage, unspecified - Discharge Dispostion Condition at time of disposition: Fair Decision to Admit order: Yes - Referrals - Patient Instructions - Post Discharge Activity
[2018-01-10 15:25] LABS: INR 1.15 (0.83-1.09)
[2018-01-10] MEDS ORDERED: CEFTRIAXONE 1 GM/50 ML BAG ONE (15:26)
[2018-01-10 15:34] LABS: ALBUMIN 2.2 g/dl (3.4-5.0); ALK PHOS 206 U/L (45-117); BILIRUBIN,TOTAL 1.3 mg/dL (0.2-1.0); BLOOD UREA NITROGEN 58 mg/dL (7-18); CO2 25 mmol/L (21-32); CREATININE 2.5 mg/dL (0.7-1.3); GLUCOSE,RANDOM 144 mg/dL (74-106); SGOT/AST 72 U/L (15-37); SGPT/ALT 78 U/L (12-78); TOT PROT 5.2 g/dl (6.4-8.2)
[2018-01-10 15:48] LABS: ANION GAP 11 MMOL/L (8-16); CHLORIDE 103 mmol/L (98-107); POTASSIUM 3.7 mmol/L (3.5-5.1); SODIUM 139 mmol/L (136-145)
[2018-01-10] MEDS ORDERED: SODIUM CHLORIDE 1,000 ML IV SCH (17:15)
--- NOTE | 2018-01-10 17:15 | HP ---
CHIEF COMPLAINT: PCP: HISTORY OF PRESENT ILLNESS: Patient is a 82 year old male with past medical history of quadruple bypass ( 1989), prostate cancer, aortic and mitral valve replacement, PAD, atrial fib ( was on eliquis-stopped on last admission), with recent ablation and pacemaker placement on 12/16/17, left renal calculus s/p lithotripsy and ureteral stent ( scheduled for a stent removal next week at [facility]), sigmoidoscopy w/ cauterization for rectal bleeding. Patient was recently admitted to [facility] between 12/31-01/06/18 for rectal bleeding and discharged home on 01/06/2018 with outpatient follow up. Patient was also recently discharged on 12/29 after resolution of GI bleed s/p 12/25 endoscopy. Since last hospitalization, patient reports increased weakness and poor ambulatory status. He reports that last night he attempted to get out of bed and slipped on a loyd and fell onto his buttocks. He denies hitting his head or any other part of his body. It was hard for him to get up and it took him about half hour to get up from the fall. His assisted him. After this episode, he went to the bathroom to have a bowel movement and his noted a small amount of bleeding which stopped spontaneously. At around 2pm today, patient again went to sit on the toilet and began to have a rectal bleeding ( laura bright blood). called EMS and patient was brought here. In the ED a 30french rectal balloon tamponade was inserted into his rectum to stop the bleeding. Dr. Church was called by ED physician who recommended patient be admitted to the ICU. Patient is ordered for unit of prbc tonight with close cardiac monitoring. He will have repeat CBC after transfusion. ER course was notable for: (1) hmg/hct:8.1/24.5-symptomatic:fatigue (2) rectal balloon tamponade (3) bilateral lower ext edema (4) chest xray pending (5) creat 2.5 (6) tropo 0.31 Social History: Smoking: denies Alcohol: denies Drugs: denies Family History: Allergies No Known Drug Allergies Allergy (Verified 01/10/18 14:49) HOME MEDICATIONS: Home Medications Medication Instructions Recorded Atorvastatin Ca [Lipitor] 40 mg PO HS 11/07/14 Tamsulosin HCl [Flomax] 0.4 mg PO DAILY 12/01/17 Carvedilol [Coreg -] 3.125 mg PO BID #60 tablet 12/28/17 Mesalamine Enema [Rowasa Enema -] 4 gm [place] HS #52 enema 12/28/17 Mupirocin Ointment [Bactroban 2% 1 applic TP BID #1 applic 12/28/17 Ointment -] Sucralfate Oral Suspension 1 gm PO QID #28 ml 12/28/17 [Carafate Oral Suspension -] Amiodarone HCl 200 mg PO DAILY 12/31/17 Timolol 0.5% [Timoptic 0.5%] 1 drop OU BID 01/03/18 Furosemide [Lasix] 40 mg PO DAILY #30 tablet 01/06/18 Lidocaine 2% Jelly [Xylocaine 2% 1 applic MM DAILY #1 tube 01/06/18 Jelly -] Pantoprazole Sodium [Protonix] 40 mg PO DAILY #30 tablet. 01/06/18 PHYSICAL EXAMINATION Vital Signs - 24 hr 01/10/18 01/10/18 01/10/18 14:50 15:10 16:44 Temperature 99.5 F 98 F Pulse Rate 80 Pulse Rate [ 80 Apical] Respiratory 20 20 Rate Blood Pressure 92/58 Blood Pressure 93/55 [Left Arm] O2 Sat by Pulse 97 100 98 Oximetry (%) 01/10/18 16:55 Temperature Pulse Rate Pulse Rate [ 81 Apical] Respiratory 17 Rate Blood Pressure Blood Pressure 91/69 [Left Arm] O2 Sat by Pulse 99 Oximetry (%) GENERAL: The patient is awake, alert, and fully oriented, in no acute distress. HEAD: Normal with no signs of trauma. EYES: PERRL, extraocular movements intact, sclera anicteric, conjunctiva clear. No ptosis. ENT: Ears normal, nares patent, oropharynx clear without exudates, moist mucous membranes. NECK: Trachea midline, full range of motion, supple. LUNGS: Breath sounds clear/diminished at the bases. ABDOMEN: Soft, nontender, nondistended, normoactive bowel sounds, no guarding, no rebound, no hepatosplenomegaly, no masses. EXTREMITIES: bilateral lower ext edema, left heal with circular 3cm x 2cm ulceration with surround erythma and pain. NEUROLOGICAL: Normal speech, gait not observed. Laboratory Results - last 24 hr 01/10/18 01/10/18 01/10/18 15:05 15:05 15:05 WBC 5.4 RBC 2.55 L Hgb 8.1 L Hct 24.5 L MCV 95.9 MCH 31.6 MCHC 32.9 RDW 20.0 H Plt Count 109 L MPV 9.1 Absolute Neuts (auto) 4.4 Neutrophils % 81.7 Lymphocytes % 8.8 Monocytes % 8.9 Eosinophils % 0.4 Basophils % 0.2 Nucleated RBC % 0 PT with INR 13.00 INR 1.15 H Sodium 139 Potassium 3.7 Chloride 103 Carbon Dioxide 25 Anion Gap 11 BUN 58 H Creatinine 2.5 H Creat Clearance w eGFR 24.79 Random Glucose 144 H D Calcium 8.0 L Total Bilirubin 1.3 H AST 72 H D ALT 78 Alkaline Phosphatase 206 H Creatine Kinase 242 Creatine Kinase Index 1.7 CK-MB (CK-2) 4.24 H Troponin I 0.31 H Total Protein 5.2 L Albumin 2.2 L Crossmatch 01/10/18 15:05 WBC RBC Hgb Hct MCV MCH MCHC RDW Plt Count MPV Absolute Neuts (auto) Neutrophils % Lymphocytes % Monocytes % Eosinophils % Basophils % Nucleated RBC % PT with INR INR Sodium Potassium Chloride Carbon Dioxide Anion Gap BUN Creatinine Creat Clearance w eGFR Random Glucose Calcium Total Bilirubin AST ALT Alkaline Phosphatase Creatine Kinase Creatine Kinase Index CK-MB (CK-2) Troponin I Total Protein Albumin Crossmatch See Detail ASSESSMENT/PLAN: Patient is a 82 year old male with past medical history of quadruple bypass ( 1989), prostate cancer, aortic and mitral valve replacement, PAD, atrial fib ( was on eliquis-stopped on last admission), with recent ablation and pacemaker placement on 12/16/17, left renal calculus s/p lithotripsy and ureteral stent ( scheduled for a stent removal next week at [facility]), sigmoidoscopy w/ cauterization for rectal bleeding. Patient returns for an episode of GI bleed. GI: GI bleed s/p sigmoidoscopy w/ cauterization for rectal bleeding. Hmg/Hct 8.1/24.5 on admission, rectal tamponade inserted in the ED. Patient for 1 unit of prbc with repeat CBC in am. He will be monitored in the ICU overnight for acute bleeding episodes in the setting of extensive cardiac disease. GI consulted. Eliquis has been discontinued for history of GI bleed, patient on no anticoagulation for atrial fibrillation. Renal FELICE on CKD, creat 2.5. On home lasix 40mg daily. Will hold and re-consult renal. Left renal calculus s/p lithotripsy and ureteral stent, stent was scheduled for removal outpatient this week. On flomax. Card: Atrial fib. Rate controlled with amiodorone. eliquis discontinued on last admission. CAD: On coreg 3.125 mg BID Chronic systolic heart failure: monitor intake and output. chest xray pending. monitor renal function. daily weights. Cardiology consult. fen gently hydrate overnight while NPO with close monitoring for fluid overload monitor electrolytes NPO prophy chemical a/c contraindicated, SCD to right leg only, left leg with painful heal ulcer and redness of heal Protonix iv incentive spirometer full code Visit type - Emergency Visit Emergency Visit: Yes ED Registration Date: 01/10/18 Care time: The patient presented to the Emergency Department on the above date and was hospitalized for further evaluation of their emergent condition. - New Patient This patient is new to me today: Yes Date on this admission: 01/10/18 - Critical Care Critical Care patient: Yes Total Critical Care Time (in minutes): 60 Critical Care Statement: The care of this patient involved high complexity decision making to prevent further life threatening deterioration of the patient 's condition and/or to evaluate & treat vital organ system(s) failure or risk of failure. Hospitalist Screening - Colonoscopy Questionnaire Colonoscopy Questionnaire: Colonoscopy Questionnaire - Patient: 50 - 75 years old and never had a screening colonoscopy: Unknown History of colon or rectal polyps, or CA: Unknown History of IBD, Crohn's disease or UC: Unknown History of abdominal radiation therapy as a child: Unknown - Relative: 1 with colon or rectal CA, or polyps at age 60 or younger: Unknown Colon or rectal CA diagnosed at age 45 or younger: Unknown Multiple relatives with colon or rectal CA: Unknown - Outcome: Screening Result: Negative Screen
--- NOTE | 2018-01-10 17:55 | CONSULT ---
Consultation: REQUESTING PROVIDER: Dr. Church CONSULT REQUEST: We have been asked to medically evaluate this patient for ( specify). HISTORY OF PRESENT ILLNESS: Last night pt. was on the toilet and slipped on the loyd on the floor falling on his buttocks. Pt. did not hit any other part of his body. Pt. started to bleed rectally at ~11 am this morning, it was a small amount of blood that was stopped without any intervention. Around 2 pm the Pt. noticed that his diaper was full and spilling over with blood. Pt.'s tried to stop the bleed by applying pressure the the diaper with limited effect. The Pt.'s estimates about 1/2 cup of fast pouring laura blood. Pt. was brought in by ambulance to the ED where a 30f balloon tamponade was inserted into the rectum to good effect. REVIEW OF SYSTEMS: CONSTITUTIONAL: generalized weakness Absent: fever, chills, diaphoresis, malaise, loss of appetite, weight change HEENT: Absent: rhinorrhea, nasal congestion, throat pain, throat swelling, difficulty swallowing, mouth swelling, ear pain, eye pain, visual changes CARDIOVASCULAR: Absent: chest pain, syncope, palpitations, irregular heart rate, lightheadedness , peripheral edema RESPIRATORY: Absent: cough, shortness of breath, dyspnea with exertion, orthopnea, wheezing, stridor, hemoptysis GASTROINTESTINAL: hematochezia Absent: abdominal pain, abdominal distension, nausea, vomiting, diarrhea, constipation, melena, GENITOURINARY: Absent: dysuria, frequency, urgency, hesitancy, hematuria, flank pain, genital pain MUSCULOSKELETAL: Absent: myalgia, arthralgia, joint swelling, back pain, neck pain SKIN: leg ulcers Absent: rash, itching, pallor HEMATOLOGIC/IMMUNOLOGIC: easy bleeding Absent: , easy bruising, lymphadenopathy, frequent infections ENDOCRINE: Absent: unexplained weight gain, unexplained weight loss, heat intolerance, cold intolerance NEUROLOGIC: Absent: headache, focal weakness or paresthesias, dizziness, unsteady gait, seizure, mental status changes, bladder or bowel incontinence PSYCHIATRIC: Absent: anxiety, depression, suicidal or homicidal ideation, hallucinations. PHYSICAL EXAMINATION Vital Signs - 24 hr 01/10/18 01/10/18 01/10/18 14:50 15:10 16:44 Temperature 99.5 F 98 F Pulse Rate 80 Pulse Rate [ 80 Apical] Respiratory 20 20 Rate Blood Pressure 92/58 Blood Pressure 93/55 [Left Arm] O2 Sat by Pulse 97 100 98 Oximetry (%) 01/10/18 16:55 Temperature Pulse Rate Pulse Rate [ 81 Apical] Respiratory 17 Rate Blood Pressure Blood Pressure 91/69 [Left Arm] O2 Sat by Pulse 99 Oximetry (%) GENERAL: Awake, alert, and fully oriented, in no mild distress. HEAD: Normal with no signs of trauma. EYES: Pupils equal, round and reactive to light, extraocular movements intact, sclera anicteric but pale, conjunctiva clear. EARS, NOSE, THROAT: Ears normal, nares patent, oropharynx clear without exudates. dry mucous membranes. LUNGS: Breath sounds equal, clear to auscultation bilaterally. No wheezes, and no crackles. No accessory muscle use. HEART: Regular rate and rhythm, normal S1 and S2 with systolic murmur ABDOMEN: Soft, nontender, not distended, normoactive bowel sounds, no guarding, no rebound, no masses, tympanic to percussion. UPPER EXTREMITIES: warm, well-perfused. No peripheral edema. LOWER EXTREMITIES: 2+ dorsal pedal pulses, warm, well-perfused. No calf tenderness. 3+ LLE, 2+ RLE edema. 5/5 muscle strength b/l. NEUROLOGICAL: Cranial nerves II-XII intact. Normal speech. Normal gait. PSYCHIATRIC: Cooperative. Good eye contact. Appropriate mood and affect. SKIN: B/l ulcers on the heels with the left being deeper than the right. B/l blisters on the 3rd toe with the left being deeper than the right. Ulcers are tender to palpation. Laboratory Results - last 24 hr 01/10/18 01/10/18 01/10/18 15:05 15:05 15:05 WBC 5.4 RBC 2.55 L Hgb 8.1 L Hct 24.5 L MCV 95.9 MCH 31.6 MCHC 32.9 RDW 20.0 H Plt Count 109 L MPV 9.1 Absolute Neuts (auto) 4.4 Neutrophils % 81.7 Lymphocytes % 8.8 Monocytes % 8.9 Eosinophils % 0.4 Basophils % 0.2 Nucleated RBC % 0 PT with INR 13.00 INR 1.15 H Sodium 139 Potassium 3.7 Chloride 103 Carbon Dioxide 25 Anion Gap 11 BUN 58 H Creatinine 2.5 H Creat Clearance w eGFR 24.79 Random Glucose 144 H D Calcium 8.0 L Total Bilirubin 1.3 H AST 72 H D ALT 78 Alkaline Phosphatase 206 H Creatine Kinase 242 Creatine Kinase Index 1.7 CK-MB (CK-2) 4.24 H Troponin I 0.31 H Total Protein 5.2 L Albumin 2.2 L Crossmatch 01/10/18 15:05 WBC RBC Hgb Hct MCV MCH MCHC RDW Plt Count MPV Absolute Neuts (auto) Neutrophils % Lymphocytes % Monocytes % Eosinophils % Basophils % Nucleated RBC % PT with INR INR Sodium Potassium Chloride Carbon Dioxide Anion Gap BUN Creatinine Creat Clearance w eGFR Random Glucose Calcium Total Bilirubin AST ALT Alkaline Phosphatase Creatine Kinase Creatine Kinase Index CK-MB (CK-2) Troponin I Total Protein Albumin Crossmatch See Detail Active Medications Current Medications Acetaminophen (Tylenol -) 650 mg PO Q6H PRN PRN Reason: PAIN 1-3 Chlorhexidine Gluconate (Hibiclens For Decolonization -) 1 applic TP HS AUDIE Sodium Chloride (Normal Saline -) 1,000 mls @ 50 mls/hr IV ASDIR AUDIE Last Admin: 01/10/18 18:15 Dose: 50 mls/hr Mupirocin (Bactroban Ointment (For Decolonization) -) 1 applic NS BID AUDIE Stop: 01/15/18 21:59 ASSESSMENT/PLAN: 82 year old male with a PMH of CAD s/p CABG x 4 in 1989, sCHF (Ef 25%), bioprosthetic AVR, mitral valve repair, AAA s/p repair, VT in 2011 with ICD, afib (was on Eliquis), 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 Now presents with recurring acute Gi bleed. #Gastroenterology -Hx. of GI bleed- admitted to ICU for monitoring as Pt. has Hx. of arterial GI bleeding. -GI consult on board -Rectum is now balloon tamponaded -1 unit of pRBC ordered and set to be transfused -f/u CBC after transfusion -monitor H/H -NPO -Flex Sigmoidoscopy for 01/11/[address] Church -Hold all opioid medications for pain. Tylenol has been given for pain. #Cardiovascular -BP:103/59 -holding home medications -receiving 1 unit of pRBCs -monitor H/H -will restart home medications in AM- Pt. endorses taking daily medications today. -Lower extremity edema-Doppler negative for DVT. Pt. cannot be diuresed as Pt. is actively bleeding and has BP on the lower end of normal. #Renal -Cr. 2.2, Pt.'s new baseline as per records is ~2.0 -IVF as above -f/u UA -f/u Urine creatinine and sodium #F/E/N -NPO -NS @ 50ml/hr #DVT Ppx. -Right leg SCD -Left leg ulcer extends superiorly so much such that Pt. will not tolerate SCD -Active GI bleeding, not candidate for AC Visit type - Emergency Visit Emergency Visit: Yes ED Registration Date: 01/10/18 Care time: The patient presented to the Emergency Department on the above date and was hospitalized for further evaluation of their emergent condition. - New Patient This patient is new to me today: Yes Date on this admission: 01/10/18 - Critical Care Critical Care patient: No
[2018-01-10] MEDS ORDERED: ACETAMINOPHEN 325 MG TABLET (FP) PO PRN (18:10)
[2018-01-10] MEDS ORDERED: traMADol HCL 50 MG TABLET PO ONE (18:15)
[2018-01-10 21:16] LABS: URINE CREATININE 65.7 mg/dL (20-370)
[2018-01-10 21:44] LABS: URINE APPEARANCE CLOUDY; URINE BILIRUBIN NEGATIVE (<2.0 mg/dL); URINE COLOR AMBER; URINE GLUCOSE (UA) NEGATIVE (NEGATIVE); URINE KETONE NEGATIVE (NEGATIVE); URINE LEUK ESTERASE TRACE (NEGATIVE); URINE NITRITE NEGATIVE (NEGATIVE); URINE UROBILINOGEN NEGATIVE mg/dL (0.2-1.0)
[2018-01-10 21:48] LABS: URINE PROTEIN 2+ (NEGATIVE)
[2018-01-10 21:52] LABS: URINE MUCUS RARE
[2018-01-10] MEDS ORDERED: CHLORHEXIDINE GLUCONATE 4% CLEANSER FOR DECOLONIZATION TP SCH (22:00)
[2018-01-10] MEDS ORDERED: MUPIROCIN 2% TOPICAL OINTMENT FOR DECOLONIZATION NS SCH (22:00)
[2018-01-10 22:23] LABS: HEMATOCRIT 27.2 % (35.4-49); HEMOGLOBIN 9.1 GM/dL (11.7-16.9); MCHC 33.4 g/dl (32.0-35.9); MEAN CELL VOLUME 92.9 fl (80-96); MEAN PLT VOLUME 9.2 fl (7.5-11.1); PLATELET COUNT 101 K/MM3 (134-434); RBC 2.93 M/mm3 (4.00-5.60); RDW 20.2 % (11.9-15.9)
[2018-01-11 06:30] LABS: BASO % 0.1 % (0-2.0); EOS % 0.6 % (0-4.5); HEMATOCRIT 27.7 % (35.4-49); LYMPH % 11.5 % (8-40); MCH 30.2 pg (25.7-33.7); MCHC 32.3 g/dl (32.0-35.9); MEAN CELL VOLUME 93.4 fl (80-96); MEAN PLT VOLUME 9.1 fl (7.5-11.1); MONO % 8.5 % (3.8-10.2); NEUT % 79.3 % (42.8-82.8); PLATELET COUNT 84 K/MM3 (134-434); RBC 2.97 M/mm3 (4.00-5.60); WHITE BLOOD COUNT 6.2 K/mm3 (4.0-10.0)
[2018-01-11 06:49] LABS: ALBUMIN 2.3 g/dl (3.4-5.0); ALK PHOS 196 U/L (45-117); ANION GAP 8 MMOL/L (8-16); BILIRUBIN,TOTAL 1.7 mg/dL (0.2-1.0); BLOOD UREA NITROGEN 55 mg/dL (7-18); CALCIUM 7.9 mg/dL (8.5-10.1); CHLORIDE 105 mmol/L (98-107); CO2 28 mmol/L (21-32); CREATININE 2.4 mg/dL (0.7-1.3); GLUCOSE,RANDOM 92 mg/dL (74-106); MAGNESIUM 2.3 mg/dL (1.8-2.4); POTASSIUM 3.6 mmol/L (3.5-5.1); SGOT/AST 65 U/L (15-37); SGPT/ALT 72 U/L (12-78); SODIUM 141 mmol/L (136-145); TOT PROT 5.1 g/dl (6.4-8.2)
--- NOTE | 2018-01-11 09:15 | PN ---
Physical Exam: SUBJECTIVE: Patient seen and examined, at bedside. OBJECTIVE: for sigmoidoscopy today Vital Signs Period Temp Pulse Resp BP Sys/Rodrigues Pulse Ox Last 24 Hr 98 F-100.4 F 80-87 12-20 89-105/55-79 97-100 GENERAL: The patient is awake, alert, and fully oriented, in no acute distress. HEAD: Normal with no signs of trauma. EYES: PERRL, extraocular movements intact, sclera anicteric, conjunctiva clear. No ptosis. ENT: Ears normal, nares patent, oropharynx clear without exudates, moist mucous membranes. NECK: Trachea midline, full range of motion, supple. LUNGS: Breath sounds clear/diminished at the bases. ABDOMEN: Soft, nontender, nondistended, normoactive bowel sounds, no guarding, no rebound, no hepatosplenomegaly, no masses. EXTREMITIES: bilateral lower ext edema, left heal with circular 3cm x 2cm ulceration with surround erythma and pain. left foot 3rd and 4th toe ulceration , right foot 3rd digit discoloration. NEUROLOGICAL: Normal speech, gait not observed. Laboratory Results - last 24 hr 01/10/18 01/10/18 01/10/18 15:05 15:05 15:05 WBC 5.4 RBC 2.55 L Hgb 8.1 L Hct 24.5 L MCV 95.9 MCH 31.6 MCHC 32.9 RDW 20.0 H Plt Count 109 L MPV 9.1 Absolute Neuts (auto) 4.4 Neutrophils % 81.7 Lymphocytes % 8.8 Monocytes % 8.9 Eosinophils % 0.4 Basophils % 0.2 Nucleated RBC % 0 PT with INR 13.00 INR 1.15 H Sodium 139 Potassium 3.7 Chloride 103 Carbon Dioxide 25 Anion Gap 11 BUN 58 H Creatinine 2.5 H Creat Clearance w eGFR 24.79 Random Glucose 144 H D Calcium 8.0 L Phosphorus Magnesium Total Bilirubin 1.3 H AST 72 H D ALT 78 Alkaline Phosphatase 206 H Creatine Kinase 242 Creatine Kinase Index 1.7 CK-MB (CK-2) 4.24 H Troponin I 0.31 H Total Protein 5.2 L Albumin 2.2 L Urine Color Urine Appearance Urine pH Ur Specific [place] Urine Protein Urine Glucose (UA) Urine Ketones Urine Blood Urine Nitrite Urine Bilirubin Urine Urobilinogen Ur Leukocyte Esterase Urine WBC (Auto) Urine RBC (Auto) Urine Mucus Ur Random Sodium Urine Creatinine Blood Type Antibody Screen Crossmatch 01/10/18 01/10/18 01/10/18 15:05 19:20 19:20 WBC RBC Hgb Hct MCV MCH MCHC RDW Plt Count MPV Absolute Neuts (auto) Neutrophils % Lymphocytes % Monocytes % Eosinophils % Basophils % Nucleated RBC % PT with INR INR Sodium Potassium Chloride Carbon Dioxide Anion Gap BUN Creatinine Creat Clearance w eGFR Random Glucose Calcium Phosphorus Magnesium Total Bilirubin AST ALT Alkaline Phosphatase Creatine Kinase Creatine Kinase Index CK-MB (CK-2) Troponin I Total Protein Albumin Urine Color Deonna Urine Appearance Cloudy Urine pH 5.0 Ur Specific [place] 1.012 Urine Protein 2+ H Urine Glucose (UA) Negative Urine Ketones Negative Urine Blood 3+ H Urine Nitrite Negative Urine Bilirubin Negative Urine Urobilinogen Negative Ur Leukocyte Esterase Trace Urine WBC (Auto) 86 Urine RBC (Auto) 1528 Urine Mucus Rare Ur Random Sodium 18 Urine Creatinine 65.7 Blood Type A POSITIVE Antibody Screen Negative Crossmatch See Detail 01/10/18 01/10/18 01/11/18 22:00 22:00 05:30 WBC 7.0 6.2 RBC 2.93 L 2.97 L Hgb 9.1 L 9.0 L Hct 27.2 L 27.7 L MCV 92.9 93.4 MCH 31.0 30.2 MCHC 33.4 32.3 RDW 20.2 H 20.0 H Plt Count 101 L 84 L MPV 9.2 9.1 Absolute Neuts (auto) 4.9 Neutrophils % 79.3 Lymphocytes % 11.5 D Monocytes % 8.5 Eosinophils % 0.6 Basophils % 0.1 Nucleated RBC % 0 PT with INR INR Sodium Potassium Chloride Carbon Dioxide Anion Gap BUN Creatinine Creat Clearance w eGFR Random Glucose Calcium Phosphorus Magnesium Total Bilirubin AST ALT Alkaline Phosphatase Creatine Kinase 194 Creatine Kinase Index 1.8 CK-MB (CK-2) 3.66 H Troponin I 0.37 H Total Protein Albumin Urine Color Urine Appearance Urine pH Ur Specific [place] Urine Protein Urine Glucose (UA) Urine Ketones Urine Blood Urine Nitrite Urine Bilirubin Urine Urobilinogen Ur Leukocyte Esterase Urine WBC (Auto) Urine RBC (Auto) Urine Mucus Ur Random Sodium Urine Creatinine Blood Type Antibody Screen Crossmatch 01/11/18 05:30 WBC RBC Hgb Hct MCV MCH MCHC RDW Plt Count MPV Absolute Neuts (auto) Neutrophils % Lymphocytes % Monocytes % Eosinophils % Basophils % Nucleated RBC % PT with INR INR Sodium 141 Potassium 3.6 Chloride 105 Carbon Dioxide 28 Anion Gap 8 BUN 55 H Creatinine 2.4 H Creat Clearance w eGFR 25.98 Random Glucose 92 D Calcium 7.9 L Phosphorus 4.0 Magnesium 2.3 Total Bilirubin 1.7 H AST 65 H ALT 72 Alkaline Phosphatase 196 H D Creatine Kinase Creatine Kinase Index CK-MB (CK-2) Troponin I Total Protein 5.1 L Albumin 2.3 L Urine Color Urine Appearance Urine pH Ur Specific [place] Urine Protein Urine Glucose (UA) Urine Ketones Urine Blood Urine Nitrite Urine Bilirubin Urine Urobilinogen Ur Leukocyte Esterase Urine WBC (Auto) Urine RBC (Auto) Urine Mucus Ur Random Sodium Urine Creatinine Blood Type Antibody Screen Crossmatch Active Medications Generic Name Dose Route Start Last Admin Trade Name Freq PRN Reason Stop Dose Admin Acetaminophen 650 mg 01/10/18 18:10 01/11/18 01:46 Tylenol - PO 650 mg Q6H PRN Administration PAIN 1-3 Chlorhexidine Gluconate 1 applic 01/11/18 22:00 Hibiclens For Decolonization - TP HS AUDIE Sodium Chloride 1,000 mls @ 50 mls/hr 01/10/18 17:15 01/10/18 18:15 Normal Saline - IV 50 mls/hr ASDIR AUDIE Administration Mupirocin 1 applic 01/11/18 10:00 Bactroban Ointment (For Decolonization) - NS 01/16/18 09:59 BID AUDIE Pantoprazole Sodium 40 mg 01/11/18 10:00 Protonix Iv IVPUSH DAILY [facility] ASSESSMENT/PLAN: Patient is a 82 year old male with past medical history of quadruple bypass ( 1989), prostate cancer, aortic and mitral valve replacement, PAD, atrial fib ( was on eliquis-stopped on last admission), with recent ablation and pacemaker placement on 12/16/17, left renal calculus s/p lithotripsy and ureteral stent ( scheduled for a stent removal next week at [facility]), sigmoidoscopy w/ cauterization for rectal bleeding. Patient returns for an acute episode of GI bleed after a fall at home. GI: GI bleed s/p sigmoidoscopy w/ cauterization for rectal bleeding on 01/11/[address] Church. Endoscopy procedure shows/recommends > non bleeding proctoscopy, ulcerated and diffusely erythematous rectal mucosa found and 2 mos ago, no longer seen. No focal lesion with stigmata of impending bleeding were noted. Continue Rowesa q8 , diet as tolerated. Hmg/Hct 8.1/24.5 on admission, rectal tamponade inserted in the ED and given 1 unit of prbc overnight with hmg/hct now 9.0/27. has been discontinued for history of GI bleed, patient on no anticoagulation for atrial fibrillation. Renal FELICE on CKD, creat 2.4. On home lasix 40mg daily. Will hold and re-consult renal for further recommendations. Left renal calculus s/p lithotripsy and ureteral stent, stent was scheduled for removal outpatient this week. On flomax. Card: Atrial fib. Rate controlled with amiodorone. eliquis discontinued on last admission. CAD: On coreg 3.125 mg BID Chronic systolic heart failure: monitor intake and output. monitor renal function. daily weights. Podiatry: bilateral lower ext edema, left heal with circular 3cm x 2cm ulceration with surround erythma and pain. left foot 3rd and 4th toe ulceration, right foot 3rd digit discoloration. podiatry consulted. fen advance to regular diet per GI. monitor electrolytes prophy chemical a/c contraindicated, SCD to right leg only, left leg with painful heal ulcer and redness of heal, podiatry consulted. Protonix iv incentive spirometer full code Visit type - Emergency Visit Emergency Visit: Yes ED Registration Date: 01/10/18 Care time: The patient presented to the Emergency Department on the above date and was hospitalized for further evaluation of their emergent condition. - New Patient This patient is new to me today: No - Critical Care Critical Care patient: No - Discharge Referral Referred to [facility] Med P.C.: No
[2018-01-11] MEDS: MUPIROCIN 2% TOPICAL OINTMENT FOR DECOLONIZATION NS SCH ×2 (10:54→21:14)
[2018-01-11] MEDS: PANTOPRAZOLE SODIUM 40 MG VIAL IVPUSH SCH (10:54)
[2018-01-11] MEDS ORDERED: DEXTROSE 5%-WATER 500 ML PVC-FREE INFUS.BAG IV ONE (11:04)
[2018-01-11] MEDS ORDERED: DEXTROSE 5%-WATER - 1,000 ML IV SCH (11:45)
--- NOTE | 2018-01-11 11:54 | EKG ---
Test Reason : Blood Pressure : / mmHG Vent. Rate : 080 BPM Atrial Rate : 080 BPM P-R Int : 000 ms QRS Dur : 210 ms QT Int : 548 ms P-R-T Axes : 123 -64 114 degrees QTc Int : 632 ms AV dual-paced rhythm ABNORMAL ECG WHEN COMPARED WITH ECG OF 31-DEC-2017 09:10, VENT. RATE HAS DECREASED BY 2 BPM Confirmed by BERNY LUNA MD ([id number]) on 01/11/2018 11:54:34 AM Referred By: Confirmed By:BERNY LUNA MD
--- NOTE | 2018-01-11 12:01 | PN ---
Physical Exam: SUBJECTIVE: Patient seen and examined. Pt. kept NPO overnight for AM Flex sigmoidoscopy. Pt. received tap water enema x2. Pt. spiked a temperature to 100.4 over night. Pt. denies any problems overnight except hunger. Pt. denies dizziness, numbness or tingling. OBJECTIVE: Vital Signs Period Temp Pulse Resp BP Sys/Rodrigues Pulse Ox Last 24 Hr 98 F-100.4 F 80-87 12-20 89-105/55-93 97-100 GENERAL: The patient is awake, alert, and fully oriented, lying comfortably in bed in no acute distress. LUNGS: Breath sounds equal, clear to auscultation bilaterally, no wheezes, no crackles, no accessory muscle use. HEART: s1, s2 present with murmur, RRR- paced with ICD. Observed "VTach episode "- Pt. was asymptomatic and not in VTach. ABDOMEN: Soft, nontender, nondistended, bowel sounds positive, no guarding, no rebound. EXTREMITIES: 1+ pulses, warm, well-perfused, significantly decreased edema, b/l heel ulcers are bandaged with cushion dressings NEUROLOGICAL: Cranial nerves II through XII grossly intact. Normal speech, gait not observed. PSYCH: Normal mood, normal affect. SKIN: Warm, dry, normal turgor, no rashes or lesions noted Laboratory Results - last 24 hr 01/10/18 01/10/18 01/10/18 15:05 15:05 15:05 WBC 5.4 RBC 2.55 L Hgb 8.1 L Hct 24.5 L MCV 95.9 MCH 31.6 MCHC 32.9 RDW 20.0 H Plt Count 109 L MPV 9.1 Absolute Neuts (auto) 4.4 Neutrophils % 81.7 Lymphocytes % 8.8 Monocytes % 8.9 Eosinophils % 0.4 Basophils % 0.2 Nucleated RBC % 0 PT with INR 13.00 INR 1.15 H Sodium 139 Potassium 3.7 Chloride 103 Carbon Dioxide 25 Anion Gap 11 BUN 58 H Creatinine 2.5 H Creat Clearance w eGFR 24.79 Random Glucose 144 H D Calcium 8.0 L Phosphorus Magnesium Total Bilirubin 1.3 H AST 72 H D ALT 78 Alkaline Phosphatase 206 H Creatine Kinase 242 Creatine Kinase Index 1.7 CK-MB (CK-2) 4.24 H Troponin I 0.31 H Total Protein 5.2 L Albumin 2.2 L Urine Color Urine Appearance Urine pH Ur Specific [place] Urine Protein Urine Glucose (UA) Urine Ketones Urine Blood Urine Nitrite Urine Bilirubin Urine Urobilinogen Ur Leukocyte Esterase Urine WBC (Auto) Urine RBC (Auto) Urine Mucus Ur Random Sodium Urine Creatinine Blood Type Antibody Screen Crossmatch 01/10/18 01/10/18 01/10/18 15:05 19:20 19:20 WBC RBC Hgb Hct MCV MCH MCHC RDW Plt Count MPV Absolute Neuts (auto) Neutrophils % Lymphocytes % Monocytes % Eosinophils % Basophils % Nucleated RBC % PT with INR INR Sodium Potassium Chloride Carbon Dioxide Anion Gap BUN Creatinine Creat Clearance w eGFR Random Glucose Calcium Phosphorus Magnesium Total Bilirubin AST ALT Alkaline Phosphatase Creatine Kinase Creatine Kinase Index CK-MB (CK-2) Troponin I Total Protein Albumin Urine Color [place] Urine Appearance Cloudy Urine pH 5.0 Ur Specific [place] 1.012 Urine Protein 2+ H Urine Glucose (UA) Negative Urine Ketones Negative Urine Blood 3+ H Urine Nitrite Negative Urine Bilirubin Negative Urine Urobilinogen Negative Ur Leukocyte Esterase Trace Urine WBC (Auto) 86 Urine RBC (Auto) 1528 Urine Mucus Rare Ur Random Sodium 18 Urine Creatinine 65.7 Blood Type A POSITIVE Antibody Screen Negative Crossmatch See Detail 01/10/18 01/10/18 01/11/18 22:00 22:00 05:30 WBC 7.0 6.2 RBC 2.93 L 2.97 L Hgb 9.1 L 9.0 L Hct 27.2 L 27.7 L MCV 92.9 93.4 MCH 31.0 30.2 MCHC 33.4 32.3 RDW 20.2 H 20.0 H Plt Count 101 L 84 L MPV 9.2 9.1 Absolute Neuts (auto) 4.9 Neutrophils % 79.3 Lymphocytes % 11.5 D Monocytes % 8.5 Eosinophils % 0.6 Basophils % 0.1 Nucleated RBC % 0 PT with INR INR Sodium Potassium Chloride Carbon Dioxide Anion Gap BUN Creatinine Creat Clearance w eGFR Random Glucose Calcium Phosphorus Magnesium Total Bilirubin AST ALT Alkaline Phosphatase Creatine Kinase 194 Creatine Kinase Index 1.8 CK-MB (CK-2) 3.66 H Troponin I 0.37 H Total Protein Albumin Urine Color Urine Appearance Urine pH Ur Specific [place] Urine Protein Urine Glucose (UA) Urine Ketones Urine Blood Urine Nitrite Urine Bilirubin Urine Urobilinogen Ur Leukocyte Esterase Urine WBC (Auto) Urine RBC (Auto) Urine Mucus Ur Random Sodium Urine Creatinine Blood Type Antibody Screen Crossmatch 01/11/18 05:30 WBC RBC Hgb Hct MCV MCH MCHC RDW Plt Count MPV Absolute Neuts (auto) Neutrophils % Lymphocytes % Monocytes % Eosinophils % Basophils % Nucleated RBC % PT with INR INR Sodium 141 Potassium 3.6 Chloride 105 Carbon Dioxide 28 Anion Gap 8 BUN 55 H Creatinine 2.4 H Creat Clearance w eGFR 25.98 Random Glucose 92 D Calcium 7.9 L Phosphorus 4.0 Magnesium 2.3 Total Bilirubin 1.7 H AST 65 H ALT 72 Alkaline Phosphatase 196 H D Creatine Kinase Creatine Kinase Index CK-MB (CK-2) Troponin I Total Protein 5.1 L Albumin 2.3 L Urine Color Urine Appearance Urine pH Ur Specific [place] Urine Protein Urine Glucose (UA) Urine Ketones Urine Blood Urine Nitrite Urine Bilirubin Urine Urobilinogen Ur Leukocyte Esterase Urine WBC (Auto) Urine RBC (Auto) Urine Mucus Ur Random Sodium Urine Creatinine Blood Type Antibody Screen Crossmatch Active Medications Current Medications Acetaminophen (Tylenol -) 650 mg PO Q6H PRN PRN Reason: PAIN 1-3 Last Admin: 01/11/18 01:46 Dose: 650 mg Chlorhexidine Gluconate (Hibiclens For Decolonization -) 1 applic TP HS AUDIE Ceftriaxone Sodium 1 gm/ (Dextrose) 50 mls @ 100 mls/hr IVPB ONCE ONE Stop: 01/11/18 14:59 Mesalamine (Rowasa Enema -) 4 gm NE HS AUDIE Mupirocin (Bactroban Ointment (For Decolonization) -) 1 applic NS BID AUDIE Stop: 01/16/18 09:59 Last Admin: 01/11/18 10:54 Dose: 1 applic Pantoprazole Sodium (Protonix Iv) 40 mg IVPUSH DAILY [facility] Last Admin: 01/11/18 10:54 Dose: 40 mg ASSESSMENT/PLAN: 82 year old male with a PMH of CAD s/p CABG x 4 in 1989, sCHF (Ef 25%), bioprosthetic AVR, mitral valve repair, AAA s/p repair, VT in 2011 with ICD, afib (was on Eliquis), 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 Now presents with recurring acute Gi bleed. #Gastroenterology -LGI -Hx. of GI bleed- admitted to ICU for monitoring as Pt. has Hx. of arterial GI bleeding. -GI consult on board, recommends: Rowasa(Mesalamine) enema QHS, maintain soft stools. Diet as tolerated. -1 unit of pRBC ordered and set to be transfused -f/u CBC after transfusion -monitor H/H -Regular Diet -Flex Sigmoidoscopy completed: Defuse non-bleeding proctoscopy was found again. Ulcerated and diffusely erythematous rectal mucosa found on the exam 2 weeks ago is no longer present on this exam. No focal lesion with stigmata of impending bleeding were noted. -Tylenol and Tramadol has been given for pain. -Constipation -Ducolax, Senna and Docusate ordered #Cardiovascular -Hypotension -BP:103/59 -resuming Coreg 3.125mg with parameters: hold for SBP below 100 or HR below 60 -receiving 1 unit of pRBCs -monitor H/H -will restart home medications in AM- Pt. endorses taking daily medications today. -LE Doppler was not done, however edema has clinically improved with SCDs. Pt. cannot be diuresed as Pt. is actively bleeding and has BP on the lower end of normal. -Hold Lasix, as Pt. is not volume overloaded -Arrythmia -restart Amiodarone 200mg and Coreg 3.125mg -HLD -restart Atorvastatin 40mg #Renal -Suspected UTI -UA positive for WBC, LE, cloudy -started empiric Ceftriaxone 1gm. -f/u UCx.- can d/c Abx. if UCx. are negative as Pt. is asymptomatic for UTI. -FELICE -Cr. 2.2, Pt.'s new baseline as per records is ~2.0 -FeNA calculated to be 0.5% indicating pre-renal -f/u BMP in AM #F/E/N -started on regular diet -encourage PO intake -received 300ml D5W during procedure #DVT Ppx. -SCDs -Recent GI bleeding, not candidate for AC Visit type - Emergency Visit Emergency Visit: Yes ED Registration Date: 01/10/18 Care time: The patient presented to the Emergency Department on the above date and was hospitalized for further evaluation of their emergent condition. - New Patient This patient is new to me today: No - Critical Care Critical Care patient: No - Discharge Referral Referred to [facility] Med P.C.: No
--- NOTE | 2018-01-11 12:20 | PN ---
Teaching Attending Note Name of Resident: Wesley Rodriguez ATTENDING PHYSICIAN STATEMENT I saw and evaluated the patient. I reviewed the resident's note and discussed the case with the resident. I agree with the resident's findings and plan as documented. SUBJECTIVE: Pt seen and examined in the ICU. Ledesma tamponade in place. No bleeding noted. Denies shortness of breath or chest pain. OBJECTIVE: Vital Signs Period Temp Pulse Resp BP Sys/Rodrigues Pulse Ox Last 24 Hr 97.4 F-100.4 F 80-95 12-20 89-105/55-93 97-100 Intake & Output 01/08/18 01/09/18 01/10/18 01/11/18 23:59 23:59 23:59 23:59 Intake Total 500 500 Output Total 200 300 Balance 300 200 Weight 73.482 kg 74.026 kg Gen: NAD at rest Heart: irregular Lung: decreased breath sounds at the bases Abd: soft, nontender Ext: no edema CBC, BMP 01/11/18 05:30 01/11/18 05:30 Active Medications Acetaminophen (Tylenol -) 650 mg PO Q6H PRN PRN Reason: PAIN 1-3 Last Admin: 01/11/18 01:46 Dose: 650 mg Chlorhexidine Gluconate (Hibiclens For Decolonization -) 1 applic TP HS [facility]UDIE Dextrose (D5w -) 1,000 mls @ 100 mls/hr IV ASDIR AUDIE Ceftriaxone Sodium 1 gm/ (Dextrose) 50 mls @ 100 mls/hr IVPB ONCE ONE Stop: 01/11/18 12:59 Mupirocin (Bactroban Ointment (For Decolonization) -) 1 applic NS BID [facility] Stop: 01/16/18 09:59 Last Admin: 01/11/18 10:54 Dose: 1 applic Pantoprazole Sodium (Protonix Iv) 40 mg IVPUSH DAILY [facility] Last Admin: 01/11/18 10:54 Dose: 40 mg ASSESSMENT AND PLAN: Rcecurrent GI Bleed likely Lower Acute Blood Loss Anemia Radiation Proctitis Prostate Ca Atrial Fibrillation CAD s/p CABG LV Systolic Dysfunction s/p ICD h/o AVR h/o CVA Acute on CKD r/o UTI - monitor H/H - transfuse as needed - for sigmoidoscopy - ensure large bore peripheral access - empiric antibiotics - f/u cultures - protonix - DVT prophylaxis
[2018-01-11] MEDS ORDERED: CEFTRIAXONE 1 GM in DEXTROSE 5%-WATER - 50 ML IVPB ONE ×2 (12:30→14:30)
[2018-01-11] MEDS ORDERED: DEXTROSE 5%-NORMAL SALINE 1,000 ML IV SCH (12:30)
[2018-01-11] MEDS ORDERED: ETOMIDATE 20 MG/10 ML AMPUL IVPUSH ONE (12:34)
--- NOTE | 2018-01-11 12:55 | PROC ---
Endoscopy Procedure Endoscopy procedure completed. Please see scanned procedure report. Defuse non-bleeding proctoscopy was found again. Ulcerated and diffusely erythematous rectal mucosa found on the exam 2 weeks ago is no longer present on this exam. No focal lesion with stigmata of impending bleeding were noted. Recommend: continue Rowasa enema QSH, maintain soft stools. Diet as tolerated.
[2018-01-11] MEDS ORDERED: LIDOCAINE HCL 2% JELLY (30 ML/TUBE) MM ONE (14:59)
[2018-01-11] MEDS ORDERED: DOCUSATE SODIUM 100 MG CAPSULE (FP) PO PRN (15:07)
[2018-01-11] MEDS: AMIODARONE HCL 200 MG TABLET (FP) PO SCH (16:24)
--- NOTE | 2018-01-11 17:34 | CONSULT ---
Consult Consult Specialty:: Nephrology Reason for Consultation:: FELICE - History of Present Illness Chief Complaint: GI bleed History of Present Illness: Pt is an 82 year old male with pmhx of CKD and GI bleed who returned to ER after seeing blood in the stool. He has had two recent admissions this months for GI bleed. I was called to evaluate him for elevated creatinine. He does have CKD and is on home lasix. He was taking 40 mg of lasix daily. He denies shortness of breath and currently does not have any lower ext edema. 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: CVA (left hemiparesis in 2010 which completely resolved) Cardio/Vascular: Yes: AFIB (ablation performed at [facility] Dr Pearce 11/29, has AICD locked into maritime engineer pacing mode, originally placed 12/24), Aneurysm (stented AAA 04/17), Aortic Stenosis (porcine AVR 05/17 [facility]), CAD (CABG [employer]), Deep Vein Thrombosis, HTN, Hyperlipdemia, Mitral Insufficiency ( porcine MVR 05/17 [facility]), Other (peripheral vascular disease with left fem- pop bypass [address] Dr Blakely) Gastrointestinal: Yes: Diverticulosis, GI Bleed (12/25/17 heater probe cautery by flex sig to control rectal arterial bleed in setting of RT proctitis) Renal/: Yes: Renal Inusuff, BPH, Renal Calculi (ureteral stone lithotripsy and stenting 10/30 with hematuria since then) Additional Medical History: prostate cancer S/p Lupron & RT 20 years ago, casodex. glaucoma. cataracts. DVT LE. 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 History of Recent Travel: No Home Medications - Allergies Allergies/Adverse Reactions: Allergies Allergy/AdvReac Type Severity Reaction Status Date / Time No Known Drug Allergies Allergy Verified 01/10/18 14:49 - Home Medications Home Medications: Ambulatory Orders Atorvastatin Ca [Lipitor] 40 mg PO HS 11/07/14 Tamsulosin HCl [Flomax] 0.4 mg PO DAILY 12/01/17 Carvedilol [Coreg -] 3.125 mg PO BID #60 tablet 12/28/17 Mesalamine Enema [Rowasa Enema -] 4 gm [place] HS #52 enema 12/28/17 Mupirocin Ointment [Bactroban 2% Ointment -] 1 applic TP BID #1 applic 12/28/17 Sucralfate Oral Suspension [Carafate Oral Suspension -] 1 gm PO QID #28 ml 12/28 Amiodarone HCl 200 mg PO DAILY 12/31/17 Timolol 0.5% [Timoptic 0.5%] 1 drop OU BID 01/03/18 Furosemide [Lasix] 40 mg PO DAILY #30 tablet 01/06/18 Lidocaine 2% Jelly [Xylocaine 2% Jelly -] 1 applic MM DAILY #1 tube 01/06/18 Pantoprazole Sodium [Protonix] 40 mg PO DAILY #30 tablet. 01/06/18 Family Disease History - Family Disease History Family Disease History: Heart Disease: Mother ( 83 of [place]), Other: Father ( lived to 90), Mother Review of Systems - Review of Systems Constitutional: reports: Malaise Cardiovascular: reports: No Symptoms Gastrointestinal: reports: Rectal Bleeding Genitourinary: reports: No Symptoms Musculoskeletal: reports: No Symptoms Integumentary: reports: No Symptoms Physical Exam Vital Signs: Vital Signs Temperature 97.8 F 01/11/18 16:00 Pulse Rate 80 01/11/18 16:00 Respiratory Rate 14 01/11/18 16:00 Blood Pressure 96/67 01/11/18 16:00 O2 Sat by Pulse Oximetry (%) 98 01/11/18 10:00 Constitutional: Yes: Calm Eyes: Yes: Conjunctiva Clear HENT: Yes: Atraumatic Neck: Yes: Supple Cardiovascular: Yes: S1, S2 Respiratory: Yes: On Nasal O2 Gastrointestinal: Yes: Normal Bowel Sounds, Soft Renal/: Yes: WNL Musculoskeletal: Yes: WNL Edema: No Neurological: Yes: Oriented Psychiatric: Yes: Oriented Labs: CBC, BMP 01/11/18 05:30 01/11/18 05:30 Laboratory Tests 01/01/18 01/01/18 01/01/18 07:30 07:30 07:30 Hgb 8.5 L BUN Creatinine 1.8 H Urine Protein VINCENT Screen Pending 01/02/18 01/02/18 01/05/18 07:25 07:25 06:00 Hgb 8.5 L BUN Creatinine 1.7 H 2.2 H Urine Protein VINCENT Screen 01/10/18 01/10/18 01/10/18 15:05 15:05 19:20 Hgb 8.1 L BUN Creatinine 2.5 H Urine Protein 2+ H VINCENT Screen 01/10/18 01/11/18 01/11/18 22:00 05:30 05:30 Hgb 9.1 L 9.0 L BUN 55 H Creatinine 2.4 H Urine Protein VINCENT Screen Assessment/Plan Current Medications Generic Name Dose Route Start Last Admin Trade Name Freq PRN Reason Stop Dose Admin Acetaminophen 650 mg 01/10/18 18:10 01/11/18 01:46 Tylenol - PO 650 mg Q6H PRN Administration PAIN 1-3 Amiodarone HCl 200 mg 01/11/18 15:00 01/11/18 16:24 Cordarone - PO 200 mg DAILY [facility] Administration Atorvastatin Calcium 40 mg 01/11/18 22:00 Lipitor - PO HS [facility] Carvedilol 3.125 mg 01/11/18 22:00 Coreg - PO BID [facility] Chlorhexidine Gluconate 1 applic 01/11/18 22:00 Hibiclens For Decolonization - TP HS [facility] Docusate Sodium 100 mg 01/11/18 15:07 Colace - PO Q8H PRN CONSTIPATION Mesalamine 4 gm 01/11/18 22:00 Rowasa Enema - [place] HS [facility] Mupirocin 1 applic 01/11/18 10:00 01/11/18 10:54 Bactroban Ointment (For Decolonization) - NS 01/16/18 09:59 1 applic BID AUDIE Administration Pantoprazole Sodium 40 mg 01/11/18 10:00 01/11/18 10:54 Protonix Iv IVPUSH 40 mg DAILY [facility]UDIE Administration Senna 1 tab 01/11/18 22:00 Senna - PO HS AUDIE Sucralfate 1 gm 01/11/18 18:00 Carafate Oral Suspension - PO QID AUDIE Tamsulosin HCl 0.4 mg 01/12/18 08:30 Flomax - PO DAILY@0830 [facility] Timolol Maleate 1 drop 01/11/18 22:00 Timoptic 0.5% OU BID AUDIE Impression 1. CKD 2. hx prostate cancer 3. GI bleed 4. anemia 5. HLD 6. valvular heart disease 7. nephrolithiasis s/p stent Plan - renal function starting to improve - agree with holding lasix - repeat labs in am - monitor hg - will follow
--- NOTE | 2018-01-11 17:41 | CONSULT ---
Consult - text type - Consultation Consultation Note: Patient seen in bed with his daughter present. Has decubitis wounds of heels after being at [facility] for 2 weeks. Also has wounds of some toes on both feet. vss tmax 98.1 +heel decubitii b/l, +superficial wounds of toes b/l feet, decreased nvs b/l r/o om pvd Foot xray both feet. Heel padding b/l. Santyl to all foot wounds. Will follow.
[2018-01-11] MEDS: SUCRALFATE 1 GM/10 ML UNIT DOSE CUPS PO SCH ×2 (18:45→19:09)
[2018-01-11] MEDS ORDERED: traMADol HCL 50 MG TABLET PO ONE (20:30)
[2018-01-11] MEDS: SENNOSIDES 8.6MG TABLET (FP) PO SCH ×2 (21:00→21:12)
[2018-01-11] MEDS: CARVEDILOL 3.125 MG TABLET (FP) PO SCH (21:12)
[2018-01-11] MEDS: ATORVASTATIN CA 40 MG TABLET (FP) PO SCH (21:12)
[2018-01-11] MEDS: TIMOLOL 0.5% OPHTHALMIC SOL 5 ML BOTTLE OU SCH (21:12)
[2018-01-11] MEDS ORDERED: CHLORHEXIDINE GLUCONATE 4% CLEANSER FOR DECOLONIZATION TP SCH (22:00)
[2018-01-11] MEDS ORDERED: MESALAMINE 4 GM/60 ML ENEMA PR SCH (22:00)
[2018-01-12 06:07] LABS: BASO % 0.1 % (0-2.0); EOS % 0.5 % (0-4.5); HEMATOCRIT 27.6 % (35.4-49); HEMOGLOBIN 9.2 GM/dL (11.7-16.9); LYMPH % 8.5 % (8-40); MCH 31.1 pg (25.7-33.7); MCHC 33.3 g/dl (32.0-35.9); MEAN CELL VOLUME 93.4 fl (80-96); MEAN PLT VOLUME 8.8 fl (7.5-11.1); MONO % 7.7 % (3.8-10.2); NEUT % 83.2 % (42.8-82.8); PLATELET COUNT 84 K/MM3 (134-434); RBC 2.95 M/mm3 (4.00-5.60); RDW 20.1 % (11.9-15.9); WHITE BLOOD COUNT 6.8 K/mm3 (4.0-10.0)
[2018-01-12 06:21] LABS: ANION GAP 9 MMOL/L (8-16); BLOOD UREA NITROGEN 52 mg/dL (7-18); CALCIUM 8.2 mg/dL (8.5-10.1); CHLORIDE 105 mmol/L (98-107); CO2 27 mmol/L (21-32); GLUCOSE,RANDOM 108 mg/dL (74-106); MAGNESIUM 2.4 mg/dL (1.8-2.4); SODIUM 141 mmol/L (136-145)
[2018-01-12 06:23] LABS: CREATININE 2.1 mg/dL (0.7-1.3); PHOSPHOROUS 3.8 mg/dL (2.5-4.9)
--- NOTE | 2018-01-12 08:14 | CON.GI ---
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: CVA (left hemiparesis in 2010 which completely resolved) Cardio/Vascular: Yes: AFIB (ablation performed at [facility] Dr Pearce 11/29, has AICD locked into time stamp assembler pacing mode, originally placed 12/24), Aneurysm (stented AAA 04/17), Aortic Stenosis (porcine AVR 05/17 [facility]), CAD (CABG [place]), Deep Vein Thrombosis, HTN, Hyperlipdemia, Mitral Insufficiency ( porcine MVR 05/17 [facility]), Other (peripheral vascular disease with left fem- pop bypass [address] Dr Blakely) Gastrointestinal: Yes: Diverticulosis, GI Bleed (12/25/17 heater probe cautery by flex sig to control rectal arterial bleed in setting of RT proctitis) Renal/: Yes: Renal Inusuff, BPH, Renal Calculi (ureteral stone lithotripsy and stenting 10/30 with hematuria since then) Additional Medical History: prostate cancer S/p Lupron & RT 20 years ago, casodex. glaucoma. cataracts. DVT LE. 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 History of Recent Travel: No Home Medications - Allergies Allergies/Adverse Reactions: Allergies Allergy/AdvReac Type Severity Reaction Status Date / Time No Known Drug Allergies Allergy Verified 01/10/18 14:49 - Home Medications Home Medications: Ambulatory Orders Atorvastatin Ca [Lipitor] 40 mg PO HS 11/07/14 Tamsulosin HCl [Flomax] 0.4 mg PO DAILY 12/01/17 Carvedilol [Coreg -] 3.125 mg PO BID #60 tablet 12/28/17 Mesalamine Enema [Rowasa Enema -] 4 gm [place] HS #52 enema 12/28/17 Mupirocin Ointment [Bactroban 2% Ointment -] 1 applic TP BID #1 applic 12/28/17 Amiodarone HCl 200 mg PO DAILY 12/31/17 Timolol 0.5% [Timoptic 0.5%] 1 drop OU BID 01/03/18 Furosemide [Lasix] 40 mg PO DAILY #30 tablet 01/06/18 Lidocaine 2% Jelly [Xylocaine 2% Jelly -] 1 applic MM DAILY #1 tube 01/06/18 Pantoprazole Sodium [Protonix] 40 mg PO DAILY #30 tablet. 01/06/18 Family Disease History - Family Disease History Family Disease History: Heart Disease: Mother ( 83 of [place]), Other: Father ( lived to 90), Mother Physical Exam-GI Vital Signs: Vital Signs Temperature 97.5 F L 01/12/18 06:00 Pulse Rate 80 01/12/18 06:00 Respiratory Rate 17 01/12/18 06:00 Blood Pressure 101/60 01/12/18 06:00 O2 Sat by Pulse Oximetry (%) 98 01/11/18 21:00 Labs: CBC, BMP 01/12/18 05:30 01/12/18 05:30 INR, PTT INR 1.15 (0.83-1.09) H 01/10/18 15:05 Assessment/Plan please see endoscopy report 01/11 and encounters over the last 2 weeks.
--- NOTE | 2018-01-12 09:29 | PN ---
Teaching Attending Note Name of Resident: Wesley Rodriguez ATTENDING PHYSICIAN STATEMENT I saw and evaluated the patient. I reviewed the resident's note and discussed the case with the resident. I agree with the resident's findings and plan as documented. SUBJECTIVE: Pt seen and examined in the ICU. s/p sigmoidoscopy which showed blood but no obvious source of bleeding. Small bloody bowel movement overnight. Did not require further transfusions. OBJECTIVE: Vital Signs Period Temp Pulse Resp BP Sys/Rodrigues Pulse Ox Last 24 Hr 97.3 F-98.7 F 80-100 12-24 89-107/59-85 98-98 Intake & Output 01/09/18 01/10/18 01/11/18 01/12/18 23:59 23:59 23:59 23:59 Intake Total 500 1960 120 Output Total 200 900 200 Balance 300 1060 -80 Weight 73.482 kg 74.026 kg 76.022 kg Gen: NAD at rest Heart: RRR Lung: decreased breath sounds at the bases Abd: soft, nontender Ext: no edema CBC, BMP 01/12/18 05:30 01/12/18 05:30 Active Medications Acetaminophen (Tylenol -) 650 mg PO Q6H PRN PRN Reason: PAIN 1-3 Last Admin: 01/11/18 01:46 Dose: 650 mg Amiodarone HCl (Cordarone -) 200 mg PO DAILY [facility] Last Admin: 01/11/18 16:24 Dose: 200 mg Atorvastatin Calcium (Lipitor -) 40 mg PO HS [facility] Last Admin: 01/11/18 21:12 Dose: 40 mg Carvedilol (Coreg -) 3.125 mg PO BID [facility] Last Admin: 01/11/18 21:12 Dose: 3.125 mg Chlorhexidine Gluconate (Hibiclens For Decolonization -) 1 applic TP HS [facility] Last Admin: 01/11/18 21:12 Dose: 1 applic Collagenase (Santyl -) 1 applic TP DAILY [facility]; Protocol Docusate Sodium (Colace -) 100 mg PO Q8H PRN PRN Reason: CONSTIPATION Mesalamine (Rowasa Enema -) 4 gm [place] HS AUDIE Last Admin: 01/11/18 21:12 Dose: 4 gm Mupirocin (Bactroban Ointment (For Decolonization) -) 1 applic NS BID [facility] Stop: 01/16/18 09:59 Last Admin: 01/11/18 21:14 Dose: 1 applic Pantoprazole Sodium (Protonix Iv) 40 mg IVPUSH DAILY [facility] Last Admin: 01/11/18 10:54 Dose: 40 mg Senna (Senna -) 1 tab PO HS [facility] Last Admin: 01/11/18 21:00 Dose: Not Given Tamsulosin HCl (Flomax -) 0.4 mg PO DAILY@0830 [facility] Timolol Maleate (Timoptic 0.5%) 1 drop OU BID [facility] Last Admin: 01/11/18 21:12 Dose: 1 drop ASSESSMENT AND PLAN: Rcecurrent GI Bleed likely Lower Acute Blood Loss Anemia Radiation Proctitis Prostate Ca Atrial Fibrillation CAD s/p CABG LV Systolic Dysfunction s/p ICD h/o AVR h/o CVA Acute on CKD r/o UTI - monitor H/H - transfuse as needed - ensure large bore peripheral access - empiric antibiotics - f/u cultures - protonix - DVT prophylaxis - can monitor on floor
[2018-01-12] MEDS ORDERED: PT OWN MED DRAWER 7, Y5N ONE (09:30)
[2018-01-12] MEDS: PANTOPRAZOLE SODIUM 40 MG VIAL IVPUSH SCH (09:34)
[2018-01-12] MEDS: CARVEDILOL 3.125 MG TABLET (FP) PO SCH ×2 (09:34→21:27)
[2018-01-12] MEDS: TAMSULOSIN HCL 0.4 MG CAP PO SCH (09:34)
[2018-01-12] MEDS: AMIODARONE HCL 200 MG TABLET (FP) PO SCH (09:34)
[2018-01-12] MEDS: MUPIROCIN 2% TOPICAL OINTMENT FOR DECOLONIZATION NS SCH (09:35)
[2018-01-12] MEDS: TIMOLOL 0.5% OPHTHALMIC SOL 5 ML BOTTLE OU SCH ×2 (09:42→21:55)
--- NOTE | 2018-01-12 10:13 | PN ---
Physical Exam: SUBJECTIVE: Patient seen and examined. No acute events overnight. Pt. slept the "best he has slept in a month." Pt. had a small BM with a small amount of blood noted by the nurse. Pt. was unaware. Pt. refused Senna overnight. Pt. received 1 dose of Tramadol overnight for pain. Pt. denies fever, chills, CP, SOB or abdominal pain. OBJECTIVE: Vital Signs Period Temp Pulse Resp BP Sys/Rodrigues Pulse Ox Last 24 Hr 97.3 F-98.1 F 80-100 12- 89-107/59-85 98-100 GENERAL: The patient is awake, alert, and fully oriented, in no acute distress. LUNGS: Breath sounds equal, clear to auscultation bilaterally, no wheezes, no crackles, no accessory muscle use. HEART: Regular rate and rhythm, S1, S2 with murmur. ABDOMEN: Soft, nontender, nondistended, normoactive bowel sounds, no guarding, no rebound EXTREMITIES: cool to touch, no dorsal pulses appreciated, no edema. PSYCH: Normal mood, normal affect. SKIN: Warm, dry, normal turgor Laboratory Results - last 24 hr 01/11/18 01/12/18 01/12/18 19:30 05:30 05:30 WBC 6.8 RBC 2.95 L Hgb 9.2 L Hct 27.6 L MCV 93.4 MCH 31.1 MCHC 33.3 RDW 20.1 H Plt Count 84 L MPV 8.8 Absolute Neuts (auto) 5.6 Neutrophils % 83.2 H Lymphocytes % 8.5 D Monocytes % 7.7 Eosinophils % 0.5 Basophils % 0.1 Nucleated RBC % 0 Sodium 141 Potassium 4.0 Chloride 105 Carbon Dioxide 27 Anion Gap 9 BUN 52 H Creatinine 2.1 H Creat Clearance w eGFR 30.31 Random Glucose 108 H Calcium 8.2 L Phosphorus 3.8 Magnesium 2.4 Stool Occult Blood Positive Active Medications Current Medications Acetaminophen (Tylenol -) 650 mg PO Q6H PRN PRN Reason: PAIN 1-3 Last Admin: 01/11/18 01:46 Dose: 650 mg Amiodarone HCl (Cordarone -) 200 mg PO DAILY [facility] Last Admin: 01/12/18 09:34 Dose: 200 mg Atorvastatin Calcium (Lipitor -) 40 mg PO HS [facility] Last Admin: 01/11/18 21:12 Dose: 40 mg Carvedilol (Coreg -) 3.125 mg PO BID [facility] Last Admin: 01/12/18 09:34 Dose: 3.125 mg Chlorhexidine Gluconate (Hibiclens For Decolonization -) 1 applic TP HS [facility] Last Admin: 01/11/18 21:12 Dose: 1 applic Collagenase (Santyl -) 1 applic TP DAILY [facility]; Protocol Docusate Sodium (Colace -) 100 mg PO Q8H PRN PRN Reason: CONSTIPATION Mesalamine (Rowasa Enema -) 4 gm [place] HS [facility] Last Admin: 01/11/18 21:12 Dose: 4 gm Mupirocin (Bactroban Ointment (For Decolonization) -) 1 applic NS BID [facility] Stop: 01/16/18 09:59 Last Admin: 01/12/18 09:35 Dose: 1 applic Pantoprazole Sodium (Protonix Iv) 40 mg IVPUSH DAILY [facility] Last Admin: 01/12/18 09:34 Dose: 40 mg Senna (Senna -) 1 tab PO HS [facility] Last Admin: 01/11/18 21:00 Dose: Not Given Tamsulosin HCl (Flomax -) 0.4 mg PO DAILY@0830 [facility] Last Admin: 01/12/18 09:34 Dose: 0.4 mg Timolol Maleate (Timoptic 0.5%) 1 drop OU BID [facility] Last Admin: 01/12/18 09:42 Dose: 1 drop ASSESSMENT/PLAN: 82 year old male with a PMH of CAD s/p CABG x 4 in 1989, sCHF (Ef 25%), bioprosthetic AVR, mitral valve repair, AAA s/p repair, VT in 2011 with ICD, afib (was on Eliquis), prostate CA complicated by radiation proctitis, s/p CVA in 2010, PVD and DVT, CKD, left renal calculus s/p lithotripsy and ureteral stent placement and removal (at [facility]), recently discharged on 12/29 from [facility] after resolution of GI bleed s/p 12/25 endoscopy: pulsating bleeding vessel in rectum with hemostasis achieved; presented to ED with recurring acute GI bleed. Pt. is hemodynamically stable. #Gastroenterology -LGI Bleed Flex Sigmoidoscopy completed: Defuse non-bleeding proctoscopy was found again. Ulcerated and diffusely erythematous rectal mucosa found on the exam 2 weeks ago is no longer present on this exam. No focal lesion with stigmata of impending bleeding were noted. GI consult on board, recommends: Rowasa(Mesalamine) enema QHS, maintain soft stools. Diet as tolerated. Regular Diet -Constipation Pt had small BM with small amount of blood as per nursing note, Pt. was unaware. Ducolax, Senna and Docusate ordered. #Cardiovascular -Hypotension 2/2 to acute blood loss resolved, however BP is lower end of normal so held Lasix monitor H/H and BP -Arrythmia c/w Amiodarone 200mg and Coreg 3.125mg with parameters: hold for SBP below 100 or HR below 60 -HLD c/w Atorvastatin 40mg #Renal -FELICE resolving, Cr. 2.1, Pt.'s new baseline as per records is ~2.0 FeNA calculated to be 0.5% indicating pre-renal f/u BMP in AM -Positive UA given Ceftriaxone 1gm empirically. UCx. not collected, low suspicion for UTI. #F/E/N -regular diet -encourage PO intake -received 300ml D5W during procedure #DVT Ppx. -SCDs -Recent GI bleeding, not candidate for AC #Disp -Med/Surg Visit type - Emergency Visit Emergency Visit: Yes ED Registration Date: 01/10/18 Care time: The patient presented to the Emergency Department on the above date and was hospitalized for further evaluation of their emergent condition. - New Patient This patient is new to me today: No - Critical Care Critical Care patient: No - Discharge Referral Referred to [facility] Med P.C.: No
--- NOTE | 2018-01-12 10:15 | PN ---
Physical Exam: SUBJECTIVE: Patient seen and examined in the ICU, for transfer to floor today. OBJECTIVE: s/p sigmoidoscopy on 01/11/18 which showed blood but no bleeding source. small dark red stool reported overnight, hmg/hct stable. Vital Signs Period Temp Pulse Resp BP Sys/Rodrigues Pulse Ox Last 24 Hr 97.3 F-98.1 F 80-100 12-24 89-107/59-85 98-100 GENERAL: The patient is awake, alert, and fully oriented, in no acute distress. HEAD: Normal with no signs of trauma. EYES: PERRL, extraocular movements intact, sclera anicteric, conjunctiva clear. No ptosis. ENT: Ears normal, nares patent, oropharynx clear without exudates, moist mucous membranes. NECK: Trachea midline, full range of motion, supple. LUNGS: Breath sounds clear/diminished at the bases. ABDOMEN: Soft, nontender, nondistended, normoactive bowel sounds, no guarding, no rebound, no hepatosplenomegaly, no masses. EXTREMITIES: bilateral lower ext edema, left heal with circular 3cm x 2cm ulceration with surround erythma and pain. left foot 3rd and 4th toe ulceration , right foot 3rd digit discoloration. NEUROLOGICAL: Normal speech, gait not observed. Laboratory Results - last 24 hr 01/11/18 01/12/18 01/12/18 19:30 05:30 05:30 WBC 6.8 RBC 2.95 L Hgb 9.2 L Hct 27.6 L MCV 93.4 MCH 31.1 MCHC 33.3 RDW 20.1 H Plt Count 84 L MPV 8.8 Absolute Neuts (auto) 5.6 Neutrophils % 83.2 H Lymphocytes % 8.5 D Monocytes % 7.7 Eosinophils % 0.5 Basophils % 0.1 Nucleated RBC % 0 Sodium 141 Potassium 4.0 Chloride 105 Carbon Dioxide 27 Anion Gap 9 BUN 52 H Creatinine 2.1 H Creat Clearance w eGFR 30.31 Random Glucose 108 H Calcium 8.2 L Phosphorus 3.8 Magnesium 2.4 Stool Occult Blood Positive Active Medications Generic Name Dose Route Start Last Admin Trade Name Freq PRN Reason Stop Dose Admin Acetaminophen 650 mg 01/10/18 18:10 01/11/18 01:46 Tylenol - PO 650 mg Q6H PRN Administration PAIN 1-3 Amiodarone HCl 200 mg 01/11/18 15:00 01/12/18 09:34 Cordarone - PO 200 mg DAILY AUDIE Administration Atorvastatin Calcium 40 mg 01/11/18 22:00 01/11/18 21:12 Lipitor - PO 40 mg HS AUDIE Administration Carvedilol 3.125 mg 01/11/18 22:00 01/12/18 09:34 Coreg - PO 3.125 mg BID AUDIE Administration Chlorhexidine Gluconate 1 applic 01/11/18 22:00 01/11/18 21:12 Hibiclens For Decolonization - TP 1 applic HS AUDIE Administration Collagenase 1 applic 01/12/18 10:00 Santyl - TP DAILY AUDIE Protocol Docusate Sodium 100 mg 01/11/18 15:07 Colace - PO Q8H PRN CONSTIPATION Mesalamine 4 gm 01/11/18 22:00 01/11/18 21:12 Rowasa Enema - OR 4 gm HS AUDIE Administration Mupirocin 1 applic 01/11/18 10:00 01/12/18 09:35 Bactroban Ointment (For Decolonization) - NS 01/16/18 09:59 1 applic BID AUDIE Administration Pantoprazole Sodium 40 mg 01/11/18 10:00 01/12/18 09:34 Protonix Iv IVPUSH 40 mg DAILY AUDIE Administration Senna 1 tab 01/11/18 22:00 01/11/18 21:00 Senna - PO Not Given HS AUDIE Tamsulosin HCl 0.4 mg 01/12/18 08:30 01/12/18 09:34 Flomax - PO 0.4 mg DAILY@0830 AUDIE Administration Timolol Maleate 1 drop 01/11/18 22:00 01/12/18 09:42 Timoptic 0.5% OU 1 drop BID AUDIE Administration ASSESSMENT/PLAN: Patient is a 82 year old male with past medical history of quadruple bypass ( 1989), prostate cancer, aortic and mitral valve replacement, PAD, atrial fib ( was on eliquis-stopped on last admission), with recent ablation and pacemaker placement on 12/16/17, left renal calculus s/p lithotripsy and ureteral stent ( scheduled for a stent removal next week at [facility]), sigmoidoscopy w/ cauterization for rectal bleeding. Patient returns for an acute episode of GI bleed after a fall at home. GI: GI bleed s/p sigmoidoscopy w/ cauterization for rectal bleeding on 01/11/[address] Church. s/p sigmoidoscopy 01/11/2018: which showed blood but no bleeding source. had small bm with blood overnight. hmg/hct remains stable. No abdominal pain, no further bleeding. tolerating diet. On Rowesa q8. Hmg/Hct 8.1/24.5 on admission and s/p 1 unit of blood with good results. Rectal tamponade removed. Renal FELICE on CKD, creat 2.1. On home lasix 40mg daily. Will hold lasix and restart tomorrow per renal recommendations. Left renal calculus s/p lithotripsy and ureteral stent, stent was scheduled for removal outpatient this week. On flomax. Card: Atrial fib. Rate controlled with amiodorone. eliquis discontinued on last admission. CAD: On coreg 3.125 mg BID Chronic systolic heart failure: monitor intake and output. monitor renal function. daily weights. Podiatry: bilateral lower ext edema, left heal with circular 3cm x 2cm ulceration with surround erythma and pain. left foot 3rd and 4th toe ulceration, right foot 3rd digit discoloration. podiatry consulted, santyl ordered. fen regular diet monitor electrolytes prophy chemical a/c contraindicated, SCD to right leg only, left leg with painful heal ulcer and redness of heal, podiatry consulted. Protonix iv incentive spirometer full code Visit type - Emergency Visit Emergency Visit: Yes ED Registration Date: 01/10/18 Care time: The patient presented to the Emergency Department on the above date and was hospitalized for further evaluation of their emergent condition. - New Patient This patient is new to me today: No - Critical Care Critical Care patient: Yes Total Critical Care Time (in minutes): 45 Critical Care Statement: The care of this patient involved high complexity decision making to prevent further life threatening deterioration of the patient 's condition and/or to evaluate & treat vital organ system(s) failure or risk of failure.
[2018-01-12 13:45] VITALS: BMI 25.0
[2018-01-12] MEDS: COLLAGENASE CLOSTRIDIUM HIST. 30 GRAMS TUBE TP SCH (15:20)
--- NOTE | 2018-01-12 15:26 | PN ---
Progress Note, Physician History of Present Illness: Pt seen and examined at bedside. He is awake and alert. He is tolerating diet. - Current Medication List Current Medications: Active Medications Acetaminophen (Tylenol -) 650 mg PO Q6H PRN PRN Reason: PAIN 1-3 Last Admin: 01/11/18 01:46 Dose: 650 mg Amiodarone HCl (Cordarone -) 200 mg PO DAILY [facility] Last Admin: 01/12/18 09:34 Dose: 200 mg Atorvastatin Calcium (Lipitor -) 40 mg PO HS [facility] Last Admin: 01/11/18 21:12 Dose: 40 mg Carvedilol (Coreg -) 3.125 mg PO BID [facility] Last Admin: 01/12/18 09:34 Dose: 3.125 mg Chlorhexidine Gluconate (Hibiclens For Decolonization -) 1 applic TP HS [facility] Last Admin: 01/11/18 21:12 Dose: 1 applic Collagenase (Santyl -) 1 applic TP DAILY [facility]; Protocol Docusate Sodium (Colace -) 100 mg PO Q8H PRN PRN Reason: CONSTIPATION Mesalamine (Rowasa Enema -) 4 gm DE HS [facility] Last Admin: 01/11/18 21:12 Dose: 4 gm Mupirocin (Bactroban Ointment (For Decolonization) -) 1 applic NS BID [facility] Stop: 01/16/18 09:59 Last Admin: 01/12/18 09:35 Dose: 1 applic Pantoprazole Sodium (Protonix Iv) 40 mg IVPUSH DAILY [facility] Last Admin: 01/12/18 09:34 Dose: 40 mg Senna (Senna -) 1 tab PO HS [facility] Last Admin: 01/11/18 21:00 Dose: Not Given Tamsulosin HCl (Flomax -) 0.4 mg PO DAILY@0830 [facility] Last Admin: 01/12/18 09:34 Dose: 0.4 mg Timolol Maleate (Timoptic 0.5%) 1 drop OU BID [facility] Last Admin: 01/12/18 09:42 Dose: 1 drop - Objective Vital Signs: Vital Signs Temperature 98.0 F 01/12/18 14:00 Pulse Rate 91 H 01/12/18 14:00 Respiratory Rate 18 01/12/18 10:00 Blood Pressure 95/63 01/12/18 14:00 O2 Sat by Pulse Oximetry (%) 100 01/12/18 10:00 Constitutional: Yes: Calm Eyes: Yes: Conjunctiva Clear Cardiovascular: Yes: S1, S2 Respiratory: Yes: CTA Bilaterally, On Nasal O2 Gastrointestinal: Yes: Soft Genitourinary: Yes: WNL Musculoskeletal: Yes: WNL Edema: No Neurological: Yes: Oriented Labs: CBC, BMP 01/12/18 05:30 01/12/18 05:30 INR, PTT INR 1.15 (0.83-1.09) H 01/10/18 15:05 Problem List - Problems (1) GI bleed Code(s): K92.2 - GASTROINTESTINAL HEMORRHAGE, UNSPECIFIED Qualifiers: GI bleed type/associated pathology: unspecified gastrointestinal hemorrhage type Qualified Code(s): K92.2 - Gastrointestinal hemorrhage, unspecified (2) Renal insufficiency Code(s): N28.9 - DISORDER OF KIDNEY AND URETER, UNSPECIFIED Assessment/Plan Current Medications Generic Name Dose Route Start Last Admin Trade Name Freq PRN Reason Stop Dose Admin Acetaminophen 650 mg 01/10/18 18:10 01/11/18 01:46 Tylenol - PO 650 mg Q6H PRN Administration PAIN 1-3 Amiodarone HCl 200 mg 01/11/18 15:00 01/12/18 09:34 Cordarone - PO 200 mg DAILY AUDIE Administration Atorvastatin Calcium 40 mg 01/11/18 22:00 01/11/18 21:12 Lipitor - PO 40 mg HS AUDIE Administration Carvedilol 3.125 mg 01/11/18 22:00 01/12/18 09:34 Coreg - PO 3.125 mg BID AUDIE Administration Chlorhexidine Gluconate 1 applic 01/11/18 22:00 01/11/18 21:12 Hibiclens For Decolonization - TP 1 applic HS AUDIE Administration Collagenase 1 applic 01/12/18 10:00 Santyl - TP DAILY AUDIE Protocol Docusate Sodium 100 mg 01/11/18 15:07 Colace - PO Q8H PRN CONSTIPATION Mesalamine 4 gm 01/11/18 22:00 01/11/18 21:12 Rowasa Enema - DE 4 gm HS AUDIE Administration Mupirocin 1 applic 01/11/18 10:00 01/12/18 09:35 Bactroban Ointment (For Decolonization) - NS 01/16/18 09:59 1 applic BID AUDIE Administration Pantoprazole Sodium 40 mg 01/11/18 10:00 01/12/18 09:34 Protonix Iv IVPUSH 40 mg DAILY AUDIE Administration Senna 1 tab 01/11/18 22:00 01/11/18 21:00 Senna - PO Not Given HS AUDIE Tamsulosin HCl 0.4 mg 01/12/18 08:30 01/12/18 09:34 Flomax - PO 0.4 mg DAILY@0830 AUDIE Administration Timolol Maleate 1 drop 01/11/18 22:00 01/12/18 09:42 Timoptic 0.5% OU 1 drop BID AUDIE Administration Impression 1. CKD 2. hx prostate cancer 3. GI bleed 4. anemia 5. HLD 6. valvular heart disease 7. 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
--- NOTE | 2018-01-12 17:16 | PN ---
Progress Note (short form) - Note Progress Note: [facility] Pt seen and examined. Stage 2 ulcers bl heels. Good granulation. Start santyl to both heels. Apply heel pads to off load. Francois Ontiveros DO
[2018-01-12] MEDS: MESALAMINE 4 GM/60 ML ENEMA PR SCH (21:21)
[2018-01-12] MEDS: SENNOSIDES 8.6MG TABLET (FP) PO SCH (21:45)
[2018-01-12] MEDS: ATORVASTATIN CA 40 MG TABLET (FP) PO SCH (21:55)
[2018-01-12] MEDS ORDERED: CHLORHEXIDINE GLUCONATE 4% CLEANSER FOR DECOLONIZATION TP SCH (22:00)
[2018-01-12] MEDS ORDERED: MUPIROCIN 2% TOPICAL OINTMENT FOR DECOLONIZATION NS SCH (22:00)
[2018-01-12] MEDS: ACETAMINOPHEN 325 MG TABLET (FP) PO PRN (22:50)
[2018-01-13 07:13] LABS: BASO % 0.2 % (0-2.0); EOS % 0.8 % (0-4.5); HEMATOCRIT 27.3 % (35.4-49); HEMOGLOBIN 9.1 GM/dL (11.7-16.9); LYMPH % 9.9 % (8-40); MCH 30.9 pg (25.7-33.7); MCHC 33.2 g/dl (32.0-35.9); MEAN CELL VOLUME 93.2 fl (80-96); MEAN PLT VOLUME 9.5 fl (7.5-11.1); MONO % 9.2 % (3.8-10.2); NEUT % 79.9 % (42.8-82.8); PLATELET COUNT 82 K/MM3 (134-434); RBC 2.93 M/mm3 (4.00-5.60); RDW 19.9 % (11.9-15.9); WHITE BLOOD COUNT 6.7 K/mm3 (4.0-10.0)
[2018-01-13 07:58] LABS: ALBUMIN 2.1 g/dl (3.4-5.0); ALK PHOS 218 U/L (45-117); ANION GAP 10 MMOL/L (8-16); BILIRUBIN,TOTAL 1.3 mg/dL (0.2-1.0); BLOOD UREA NITROGEN 52 mg/dL (7-18); CALCIUM 7.9 mg/dL (8.5-10.1); CHLORIDE 106 mmol/L (98-107); CO2 25 mmol/L (21-32); CREATININE 2.1 mg/dL (0.7-1.3); GLUCOSE,RANDOM 118 mg/dL (74-106); MAGNESIUM 2.4 mg/dL (1.8-2.4); PHOSPHOROUS 3.2 mg/dL (2.5-4.9); POTASSIUM 4.2 mmol/L (3.5-5.1); SGOT/AST 49 U/L (15-37); SGPT/ALT 63 U/L (12-78); SODIUM 141 mmol/L (136-145); TOT PROT 4.8 g/dl (6.4-8.2)
[2018-01-13] MEDS ORDERED: PT OWN MED DRAWER 7, Y5N ONE ×3 (09:24→22:45)
[2018-01-13] MEDS: TAMSULOSIN HCL 0.4 MG CAP PO SCH (09:37)
[2018-01-13] MEDS: AMIODARONE HCL 200 MG TABLET (FP) PO SCH (09:37)
[2018-01-13] MEDS: CARVEDILOL 3.125 MG TABLET (FP) PO SCH ×2 (09:37→23:48)
[2018-01-13] MEDS: TIMOLOL 0.5% OPHTHALMIC SOL 5 ML BOTTLE OU SCH ×2 (09:37→23:49)
[2018-01-13] MEDS: PANTOPRAZOLE SODIUM 40 MG VIAL IVPUSH SCH (12:02)
--- NOTE | 2018-01-13 14:00 | PN ---
Progress Note, Physician History of Present Illness: Pt seen and examined at bedside. He is awake and alert. He complains of pain from his legs. He denies shortness of breath. - Current Medication List Current Medications: Active Medications Acetaminophen (Tylenol -) 650 mg PO Q6H PRN PRN Reason: PAIN 1-3 Last Admin: 01/12/18 22:50 Dose: 650 mg Amiodarone HCl (Cordarone -) 200 mg PO DAILY [facility] Last Admin: 01/13/18 09:37 Dose: 200 mg Atorvastatin Calcium (Lipitor -) 40 mg PO HS [facility] Last Admin: 01/12/18 21:55 Dose: 40 mg Carvedilol (Coreg -) 3.125 mg PO BID [facility] Last Admin: 01/13/18 09:37 Dose: 3.125 mg Collagenase (Santyl -) 1 applic TP DAILY [facility]; Protocol Last Admin: 01/12/18 15:20 Dose: 1 applic Docusate Sodium (Colace -) 100 mg PO Q8H PRN PRN Reason: CONSTIPATION Mesalamine (Rowasa Enema -) 4 gm CO HS [facility] Last Admin: 01/12/18 21:21 Dose: 4 gm Pantoprazole Sodium (Protonix Iv) 40 mg IVPUSH DAILY [facility] Last Admin: 01/13/18 12:02 Dose: 40 mg Senna (Senna -) 1 tab PO HS [facility] Last Admin: 01/12/18 21:45 Dose: Not Given Tamsulosin HCl (Flomax -) 0.4 mg PO DAILY@0830 [facility] Last Admin: 01/13/18 09:37 Dose: 0.4 mg Timolol Maleate (Timoptic 0.5%) 1 drop OU BID [facility] Last Admin: 01/13/18 09:37 Dose: 1 drop - Objective Vital Signs: Vital Signs Temperature 97.9 F 01/13/18 06:00 Pulse Rate 92 H 01/13/18 06:00 Respiratory Rate 20 01/13/18 06:00 Blood Pressure 98/55 01/13/18 06:00 O2 Sat by Pulse Oximetry (%) 95 01/12/18 21:00 Constitutional: Yes: Calm Eyes: Yes: Conjunctiva Clear HENT: Yes: Atraumatic Neck: Yes: Supple Cardiovascular: Yes: S1, S2 Respiratory: Yes: CTA Bilaterally Gastrointestinal: Yes: Normal Bowel Sounds, Soft Genitourinary: Yes: WNL Musculoskeletal: Yes: WNL Edema: No Integumentary: Yes: Venous Stasis Changes Neurological: Yes: Oriented Psychiatric: Yes: Oriented Labs: CBC, BMP 01/13/18 06:00 01/13/18 06:00 INR, PTT INR 1.15 (0.83-1.09) H 01/10/18 15:05 Problem List - Problems (1) GI bleed Code(s): K92.2 - GASTROINTESTINAL HEMORRHAGE, UNSPECIFIED Qualifiers: GI bleed type/associated pathology: unspecified gastrointestinal hemorrhage type Qualified Code(s): K92.2 - Gastrointestinal hemorrhage, unspecified (2) Renal insufficiency Code(s): N28.9 - DISORDER OF KIDNEY AND URETER, UNSPECIFIED Assessment/Plan Current Medications Generic Name Dose Route Start Last Admin Trade Name Freq PRN Reason Stop Dose Admin Acetaminophen 650 mg 01/12/18 16:59 01/12/18 22:50 Tylenol - PO 650 mg Q6H PRN Administration PAIN 1-3 Amiodarone HCl 200 mg 01/11/18 15:00 01/13/18 09:37 Cordarone - PO 200 mg DAILY AUDIE Administration Atorvastatin Calcium 40 mg 01/11/18 22:00 01/12/18 21:55 Lipitor - PO 40 mg HS AUDIE Administration Carvedilol 3.125 mg 01/11/18 22:00 01/13/18 09:37 Coreg - PO 3.125 mg BID AUDIE Administration Collagenase 1 applic 01/12/18 10:00 01/12/18 15:20 Santyl - TP 1 applic DAILY AUDIE Administration Protocol Docusate Sodium 100 mg 01/11/18 15:07 Colace - PO Q8H PRN CONSTIPATION Mesalamine 4 gm 01/12/18 22:00 01/12/18 21:21 Rowasa Enema - CO 4 gm HS AUDIE Administration Pantoprazole Sodium 40 mg 01/13/18 10:00 01/13/18 12:02 Protonix Iv IVPUSH 40 mg DAILY AUDIE Administration Senna 1 tab 01/11/18 22:00 01/12/18 21:45 Senna - PO Not Given HS AUDIE Tamsulosin HCl 0.4 mg 01/12/18 08:30 01/13/18 09:37 Flomax - PO 0.4 mg DAILY@0830 AUDIE Administration Timolol Maleate 1 drop 08/30/18 22:00 01/13/18 09:37 Timoptic 0.5% OU 1 drop BID AUDIE Administration Impression 1. CKD 2. hx prostate cancer 3. GI bleed 4. anemia 5. HLD 6. valvular heart disease 7. nephrolithiasis s/p stent Plan - renal function stabilizing - volume status stable - will hold lasix today to avoid dehydration - pain control, pt says tylenol is not helping. Avoid nsaids - avoid constipation - monitor for bleeding - will follow
[2018-01-13] MEDS: traMADol HCL 50 MG TABLET PO PRN ×2 (15:30→23:48)
[2018-01-13] MEDS: COLLAGENASE CLOSTRIDIUM HIST. 30 GRAMS TUBE TP SCH (15:31)
--- NOTE | 2018-01-13 16:04 | PN ---
Physical Exam: SUBJECTIVE: Patient seen and examined at bedside. present. Complaining of bilateral heel pain. OBJECTIVE: Vital Signs Period Temp Pulse Resp BP Sys/Rodrigues Pulse Ox Last 24 Hr 97.5 F-97.9 F 80-93 17-20 92-118/55-70 95-97 GENERAL: The patient is awake, alert, and fully oriented, in no acute distress. LUNGS: Breath sounds equal, clear to auscultation bilaterally HEART: Regular rate and rhythm, S1, S2 ABDOMEN: Soft, nontender, nondistended EXTREMITIES: 2+ pulses, warm, well-perfused, no edema. NEUROLOGICAL: Cranial nerves II through XII grossly intact. Normal speech, gait not observed. SKIN: (1) DTI lateral aspect of right foot above the heel (2) Stage III left heel, slough in wound bed (this was present on previous admission, unchanged on this admission) Laboratory Results - last 24 hr 01/13/18 01/13/18 06:00 06:00 WBC 6.7 RBC 2.93 L Hgb 9.1 L Hct 27.3 L MCV 93.2 MCH 30.9 MCHC 33.2 RDW 19.9 H Plt Count 82 L MPV 9.5 Absolute Neuts (auto) 5.4 Neutrophils % 79.9 Lymphocytes % 9.9 Monocytes % 9.2 Eosinophils % 0.8 Basophils % 0.2 Nucleated RBC % 0 Sodium 141 Potassium 4.2 Chloride 106 Carbon Dioxide 25 Anion Gap 10 BUN 52 H Creatinine 2.1 H Creat Clearance w eGFR 30.31 Random Glucose 118 H Calcium 7.9 L Phosphorus 3.2 Magnesium 2.4 Total Bilirubin 1.3 H AST 49 H D ALT 63 Alkaline Phosphatase 218 H D Total Protein 4.8 L Albumin 2.1 L Active Medications Generic Name Dose Route Start Last Admin Trade Name Freq PRN Reason Stop Dose Admin Acetaminophen 650 mg 01/12/18 16:59 01/12/18 22:50 Tylenol - PO 650 mg Q6H PRN Administration PAIN 1-3 Amiodarone HCl 200 mg 01/11/18 15:00 01/13/18 09:37 Cordarone - PO 200 mg DAILY AUDIE Administration Atorvastatin Calcium 40 mg 01/11/18 22:00 01/12/18 21:55 Lipitor - PO 40 mg HS AUDIE Administration Carvedilol 3.125 mg 01/11/18 22:00 01/13/18 09:37 Coreg - PO 3.125 mg BID AUDIE Administration Collagenase 1 applic 01/12/18 10:00 01/13/18 15:31 Santyl - TP 1 applic DAILY AUDIE Administration Protocol Docusate Sodium 100 mg 01/11/18 15:07 Colace - PO Q8H PRN CONSTIPATION Mesalamine 4 gm 01/12/18 22:00 01/12/18 21:21 Rowasa Enema - MS 4 gm HS AUDIE Administration Pantoprazole Sodium 40 mg 01/13/18 10:00 01/13/18 12:02 Protonix Iv IVPUSH 40 mg DAILY AUDIE Administration Senna 1 tab 01/11/18 22:00 01/12/18 21:45 Senna - PO Not Given HS AUDIE Tamsulosin HCl 0.4 mg 01/12/18 08:30 01/13/18 09:37 Flomax - PO 0.4 mg DAILY@0830 AUDIE Administration Timolol Maleate 1 drop 01/11/18 22:00 01/13/18 09:37 Timoptic 0.5% OU 1 drop BID AUDIE Administration Tramadol HCl 50 mg 01/13/18 14:20 01/13/18 15:30 Ultram - PO 50 mg Q6H PRN Administration PAIN LEVEL 6-10 ASSESSMENT/PLAN 82 year old male with a PMH of CAD s/p CABG x 4 in 1989, sHF (EF 25%), bioprosthetic AVR, mitral valve repair, AAA s/p repair, VT in 2011 with ICD, afib not on anti-coagulation, 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 Rectal bleeding --transfused 1U PRBC on 01/10 --s/p sigmoidoscopy with cauterization on 01/11 --no further bleeding episodes --h/h stable --continue mesalamine MS QHS FELICE on CKD --creat 2.1, close to baseline --continue to hold lasix Left renal calculus s/p lithotripsy and ureteral stent --stent scheduled for removal this week as outpatient --continue Flomax Atrial fibrillation --continue amiodarone --rate well-controlled --not on anticoagulation Chronic systolic heart failure --continue to hold Lasix --daily weights Bilateral foot pressure ulcers --Stage III pressure ulcer left heel which was present on this admission; patient familiar to this provider and I examined this patient during his recent previous admission and it was a Stage III at that time --DTI left lateral foot Coronary artery disease --no ASA due to bleeding --continue statin Peripheral vascular disease s/p left ilio-fem bypass --has been treated in past by Dr. Blakely; outpatient followup FEN Fluids: PO intake adequate Electrolytes: replete as indicated Nutrition: regular DVT prophylaxis: SCDs, oob, ambulation Physical therapy Dispo: continues to require inpatient care. Full code. Visit type - Emergency Visit Emergency Visit: Yes ED Registration Date: 01/10/18 Care time: The patient presented to the Emergency Department on the above date and was hospitalized for further evaluation of their emergent condition. - New Patient This patient is new to me today: Yes Date on this admission: 01/14/18 - Critical Care Critical Care patient: No
--- NOTE | 2018-01-13 17:04 | PN ---
Progress Note (short form) - Note Progress Note: Patient seen with presents. Complains of left foot pain sporadically. Prescribed ultram. +b/l heel wound grade 1-2, -om on xray, +wounds 3rd toes b/l, -drainage, -mal odor. wbc=6.7 heel wounds toe wounds b/l Santyl dressing changes to all wounds. Offload heels. Will follow.
[2018-01-13] MEDS: MESALAMINE 4 GM/60 ML ENEMA PR SCH (23:49)
[2018-01-13] MEDS: ATORVASTATIN CA 40 MG TABLET (FP) PO SCH (23:49)
[2018-01-13] MEDS: SENNOSIDES 8.6MG TABLET (FP) PO SCH (23:50)
[2018-01-14] MEDS ORDERED: PT OWN MED DRAWER 7, Y5N ONE ×2 (09:06→20:58)
[2018-01-14] MEDS: PANTOPRAZOLE SODIUM 40 MG VIAL IVPUSH SCH (09:19)
[2018-01-14] MEDS: TAMSULOSIN HCL 0.4 MG CAP PO SCH (09:20)
[2018-01-14] MEDS: CARVEDILOL 3.125 MG TABLET (FP) PO SCH ×4 (09:20→21:39)
[2018-01-14] MEDS: AMIODARONE HCL 200 MG TABLET (FP) PO SCH (09:20)
[2018-01-14] MEDS: TIMOLOL 0.5% OPHTHALMIC SOL 5 ML BOTTLE OU SCH ×2 (09:22→21:59)
--- NOTE | 2018-01-14 10:29 | PN ---
Physical Exam: SUBJECTIVE: Patient seen and examined. Slept for 3 hours after ultram, says it is too sedating for him. OBJECTIVE: Vital Signs Period Temp Pulse Resp BP Sys/Rodrigues Pulse Ox Last 24 Hr 97.5 F-98.9 F 81-93 17-18 92-105/57-81 97 GENERAL: The patient is awake, alert, and fully oriented, in no acute distress. LUNGS: Breath sounds equal, clear to auscultation bilaterally HEART: Regular rate and rhythm, S1, S2 ABDOMEN: Soft, nontender, nondistended EXTREMITIES: 2+ pulses, warm, well-perfused, no edema. NEUROLOGICAL: Cranial nerves II through XII grossly intact. Normal speech, gait not observed. CBCD WBC 6.7 K/mm3 (4.0-10.0) 01/13/18 06:00 RBC 2.93 M/mm3 (4.00-5.60) L 01/13/18 06:00 Hgb 9.1 GM/dL (11.7-16.9) L 01/13/18 06:00 Hct 27.3 % (35.4-49) L 01/13/18 06:00 MCV 93.2 fl (80-96) 01/13/18 06:00 MCHC 33.2 g/dl (32.0-35.9) 01/13/18 06:00 RDW 19.9 % (11.9-15.9) H 01/13/18 06:00 Plt Count 82 K/MM3 (134-434) L 01/13/18 06:00 MPV 9.5 fl (7.5-11.1) 01/13/18 06:00 CMP Sodium 141 mmol/L (136-145) 01/13/18 06:00 Potassium 4.2 mmol/L (3.5-5.1) 01/13/18 06:00 Chloride 106 mmol/L (98-107) 01/13/18 06:00 Carbon Dioxide 25 mmol/L (21-32) 01/13/18 06:00 Anion Gap 10 MMOL/L (8-16) 01/13/18 06:00 BUN 52 mg/dL (7-18) H 01/13/18 06:00 Creatinine 2.1 mg/dL (0.7-1.3) H 01/13/18 06:00 Creat Clearance w eGFR 30.31 (>60) 01/13/18 06:00 Calcium 7.9 mg/dL (8.5-10.1) L 01/13/18 06:00 Total Bilirubin 1.3 mg/dL (0.2-1.0) H 01/13/18 06:00 AST 49 U/L (15-37) H D 01/13/18 06:00 ALT 63 U/L (12-78) 01/13/18 06:00 Alkaline Phosphatase 218 U/L (45-117) H D 01/13/18 06:00 Total Protein 4.8 g/dl (6.4-8.2) L 01/13/18 06:00 Albumin 2.1 g/dl (3.4-5.0) L 01/13/18 06:00 Laboratory Results - last 24 hr 01/10/18 15:05 Blood Type A POSITIVE Antibody Screen Negative Crossmatch See Detail Active Medications Generic Name Dose Route Start Last Admin Trade Name Freq PRN Reason Stop Dose Admin Acetaminophen 650 mg 01/12/18 16:59 01/12/18 22:50 Tylenol - PO 650 mg Q6H PRN Administration PAIN 1-3 Amiodarone HCl 200 mg 01/11/18 15:00 01/14/18 09:20 Cordarone - PO 200 mg DAILY AUDIE Administration Atorvastatin Calcium 40 mg 01/11/18 22:00 01/13/18 23:49 Lipitor - PO 40 mg HS AUDIE Administration Carvedilol 3.125 mg 01/11/18 22:00 01/14/18 09:28 Coreg - PO 3.125 mg BID AUDIE Administration Collagenase 1 applic 01/12/18 10:00 01/13/18 15:31 Santyl - TP 1 applic DAILY AUDIE Administration Protocol Docusate Sodium 100 mg 01/11/18 15:07 Colace - PO Q8H PRN CONSTIPATION Mesalamine 4 gm 01/12/18 22:00 01/13/18 23:49 Rowasa Enema - MT 4 gm HS AUDIE Administration Pantoprazole Sodium 40 mg 01/13/18 10:00 01/14/18 09:19 Protonix Iv IVPUSH 40 mg DAILY AUDIE Administration Senna 1 tab 01/11/18 22:00 01/13/18 23:50 Senna - PO Not Given HS AUDIE Tamsulosin HCl 0.4 mg 01/12/18 08:30 01/14/18 09:20 Flomax - PO 0.4 mg DAILY@0830 AUDIE Administration Timolol Maleate 1 drop 01/11/18 22:00 01/14/18 09:22 Timoptic 0.5% OU 1 drop BID AUDIE Administration Tramadol HCl 50 mg 01/13/18 14:20 01/13/18 23:48 Ultram - PO 50 mg Q6H PRN Administration PAIN LEVEL 6-10 ASSESSMENT/PLAN: 82 year old male with a PMH of CAD s/p CABG x 4 in 1989, sHF (EF 25%), bioprosthetic AVR, mitral valve repair, AAA s/p repair, VT in 2011 with ICD, afib not on anti-coagulation, 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 Rectal bleeding --transfused 1U PRBC on 01/10 --s/p sigmoidoscopy with cauterization on 01/11 --no further bleeding episodes --h/h stable --continue mesalamine [place] QHS FELICE on CKD --creat 2.1, close to baseline --continue to hold lasix Left renal calculus s/p lithotripsy and ureteral stent --stent scheduled for removal this week as outpatient --continue Flomax Atrial fibrillation --continue amiodarone --rate well-controlled --not on anticoagulation Chronic systolic heart failure --continue to hold Lasix --daily weights Bilateral foot pressure ulcers --Stage III pressure ulcer left heel which was present on this admission; patient familiar to this provider and I examined this patient during his recent previous admission and it was a Stage III at that time --DTI left lateral foot --collagenase daily Coronary artery disease --no ASA due to bleeding --continue statin Peripheral vascular disease s/p left ilio-fem bypass --has been treated in past by Dr. Blakely; outpatient followup FEN Fluids: PO intake adequate Electrolytes: replete as indicated Nutrition: regular DVT prophylaxis: SCDs, oob, ambulation Physical therapy Dispo: continues to require inpatient care. Full code. Visit type - Emergency Visit Emergency Visit: Yes ED Registration Date: 01/10/18 Care time: The patient presented to the Emergency Department on the above date and was hospitalized for further evaluation of their emergent condition. - New Patient This patient is new to me today: No - Critical Care Critical Care patient: No
--- NOTE | 2018-01-14 13:13 | PN ---
Progress Note (short form) - Note Progress Note: Patient seen with presents. States left foot pain better this morning. +b/l heel wound grade 1-2, -om on xray, +wounds 3rd toes b/l, -drainage, -mal odor. wbc=6.7 heel wounds toe wounds b/l Santyl dressing changes to all wounds. Offload heels. Will follow. Vascular on case.
[2018-01-14] MEDS: traMADol HCL 50 MG TABLET PO PRN ×2 (13:58→21:39)
[2018-01-14] MEDS: COLLAGENASE CLOSTRIDIUM HIST. 30 GRAMS TUBE TP SCH (13:59)
--- NOTE | 2018-01-14 14:32 | PN ---
Progress Note, Physician History of Present Illness: Pt seen and examined at bedside. He is awake and alert. He feels that the pain is improved. - Current Medication List Current Medications: Active Medications Acetaminophen (Tylenol -) 650 mg PO Q6H PRN PRN Reason: PAIN 1-3 Last Admin: 01/12/18 22:50 Dose: 650 mg Amiodarone HCl (Cordarone -) 200 mg PO DAILY [facility] Last Admin: 01/14/18 09:20 Dose: 200 mg Atorvastatin Calcium (Lipitor -) 40 mg PO HS [facility] Last Admin: 01/13/18 23:49 Dose: 40 mg Carvedilol (Coreg -) 3.125 mg PO BID [facility] Last Admin: 01/14/18 09:28 Dose: 3.125 mg Collagenase (Santyl -) 1 applic TP DAILY [facility]; Protocol Last Admin: 01/14/18 13:59 Dose: 1 applic Docusate Sodium (Colace -) 100 mg PO Q8H PRN PRN Reason: CONSTIPATION Mesalamine (Rowasa Enema -) 4 gm NC HS [facility] Last Admin: 01/13/18 23:49 Dose: 4 gm Pantoprazole Sodium (Protonix Iv) 40 mg IVPUSH DAILY [facility] Last Admin: 01/14/18 09:19 Dose: 40 mg Senna (Senna -) 1 tab PO HS [facility] Last Admin: 01/13/18 23:50 Dose: Not Given Tamsulosin HCl (Flomax -) 0.4 mg PO DAILY@0830 [facility] Last Admin: 01/14/18 09:20 Dose: 0.4 mg Timolol Maleate (Timoptic 0.5%) 1 drop OU BID [facility] Last Admin: 01/14/18 09:22 Dose: 1 drop Tramadol HCl (Ultram -) 50 mg PO Q6H PRN PRN Reason: PAIN LEVEL 6-10 Last Admin: 01/14/18 13:58 Dose: 50 mg - Objective Vital Signs: Vital Signs Temperature 97.5 F L 01/14/18 07:00 Pulse Rate 81 01/14/18 09:00 Respiratory Rate 18 01/14/18 09:00 Blood Pressure 97/81 01/14/18 09:00 O2 Sat by Pulse Oximetry (%) 97 01/14/18 09:00 Constitutional: Yes: Calm Eyes: Yes: Conjunctiva Clear HENT: Yes: Atraumatic Neck: Yes: Supple Cardiovascular: Yes: S1, S2 Respiratory: Yes: CTA Bilaterally Gastrointestinal: Yes: Soft Genitourinary: Yes: WNL Edema: Yes Edema: LLE: 1+, RLE: 1+ Neurological: Yes: Oriented Psychiatric: Yes: Oriented Labs: CBC, BMP 01/13/18 06:00 01/13/18 06:00 INR, PTT INR 1.15 (0.83-1.09) H 01/10/18 15:05 Problem List - Problems (1) GI bleed Code(s): K92.2 - GASTROINTESTINAL HEMORRHAGE, UNSPECIFIED Qualifiers: GI bleed type/associated pathology: unspecified gastrointestinal hemorrhage type Qualified Code(s): K92.2 - Gastrointestinal hemorrhage, unspecified (2) Renal insufficiency Code(s): N28.9 - DISORDER OF KIDNEY AND URETER, UNSPECIFIED Assessment/Plan Current Medications Generic Name Dose Route Start Last Admin Trade Name Freq PRN Reason Stop Dose Admin Acetaminophen 650 mg 01/12/18 16:59 01/12/18 22:50 Tylenol - PO 650 mg Q6H PRN Administration PAIN 1-3 Amiodarone HCl 200 mg 01/11/18 15:00 01/14/18 09:20 Cordarone - PO 200 mg DAILY [facility]IE Administration Atorvastatin Calcium 40 mg 01/11/18 22:00 01/13/18 23:49 Lipitor - PO 40 mg HS [facility]IE Administration Carvedilol 3.125 mg 01/11/18 22:00 01/14/18 09:28 Coreg - PO 3.125 mg BID [facility]IE Administration Collagenase 1 applic 01/12/18 10:00 01/14/18 13:59 Santyl - TP 1 applic DAILY [facility] Administration Protocol Docusate Sodium 100 mg 01/11/18 15:07 Colace - PO Q8H PRN CONSTIPATION Mesalamine 4 gm 01/12/18 22:00 01/13/18 23:49 Rowasa Enema - NC 4 gm HS [facility]IE Administration Pantoprazole Sodium 40 mg 01/13/18 10:00 01/14/18 09:19 Protonix Iv IVPUSH 40 mg DAILY [facility]IE Administration Senna 1 tab 01/11/18 22:00 01/13/18 23:50 Senna - PO Not Given HS AUDIE Tamsulosin HCl 0.4 mg 01/12/18 08:30 01/14/18 09:20 Flomax - PO 0.4 mg DAILY@0830 [facility] Administration Timolol Maleate 1 drop 01/11/18 22:00 01/14/18 09:22 Timoptic 0.5% OU 1 drop BID [facility]IE Administration Tramadol HCl 50 mg 01/13/18 14:20 01/14/18 13:58 Ultram - PO 50 mg Q6H PRN Administration PAIN LEVEL 6-10 Impression 1. CKD 2. hx prostate cancer 3. GI bleed 4. anemia 5. HLD 6. valvular heart disease 7. nephrolithiasis s/p stent Plan - restart lasix, will give 20 mg daily starting today - monitor renal function - repeat labs in am - discussed plan with pt and family - monitor for bleeding - will follow
[2018-01-14] MEDS: FUROSEMIDE 20 MG TABLET (FP) PO SCH (16:10)
[2018-01-14] MEDS: ATORVASTATIN CA 40 MG TABLET (FP) PO SCH (21:39)
[2018-01-14] MEDS: SENNOSIDES 8.6MG TABLET (FP) PO SCH (21:40)
[2018-01-14] MEDS: MESALAMINE 4 GM/60 ML ENEMA PR SCH (21:40)
[2018-01-15 07:57] LABS: ANION GAP 12 MMOL/L (8-16); BLOOD UREA NITROGEN 59 mg/dL (7-18); CALCIUM 8.1 mg/dL (8.5-10.1); CHLORIDE 105 mmol/L (98-107); CO2 22 mmol/L (21-32); CREATININE 2.1 mg/dL (0.7-1.3); GLUCOSE,RANDOM 99 mg/dL (74-106); POTASSIUM 4.8 mmol/L (3.5-5.1); SODIUM 139 mmol/L (136-145)
[2018-01-15] MEDS ORDERED: PT OWN MED DRAWER 7, Y5N ONE (09:06)
[2018-01-15] MEDS: PANTOPRAZOLE SODIUM 40 MG VIAL IVPUSH SCH (09:26)
[2018-01-15] MEDS: TAMSULOSIN HCL 0.4 MG CAP PO SCH (09:27)
[2018-01-15] MEDS: FUROSEMIDE 20 MG TABLET (FP) PO SCH (09:27)
[2018-01-15] MEDS: CARVEDILOL 3.125 MG TABLET (FP) PO SCH ×2 (09:27→21:51)
[2018-01-15] MEDS: COLLAGENASE CLOSTRIDIUM HIST. 30 GRAMS TUBE TP SCH (09:27)
[2018-01-15] MEDS: AMIODARONE HCL 200 MG TABLET (FP) PO SCH (09:27)
[2018-01-15] MEDS: TIMOLOL 0.5% OPHTHALMIC SOL 5 ML BOTTLE OU SCH ×2 (09:30→21:51)
--- NOTE | 2018-01-15 09:41 | PN ---
Physical Exam: SUBJECTIVE: Patient seen and examined. Family present. They observe leg swelling has increased. OBJECTIVE: Vital Signs Period Temp Pulse Resp BP Sys/Rodrigues Pulse Ox Last 24 Hr 97.6 F-97.9 F 82-90 18-18 98-104/57-59 96 GENERAL: The patient is awake, alert, and fully oriented, in no acute distress. LUNGS: Breath sounds equal, clear to auscultation bilaterally HEART: Regular rate and rhythm, S1, S2 ABDOMEN: Soft, nontender, nondistended EXTREMITIES: 3+ pitting edema bilaterally L>R NEUROLOGICAL: Cranial nerves II through XII grossly intact. Normal speech, gait not observed. SKIN: heel wound dressings c/d/i Laboratory Results - last 24 hr 01/15/18 06:30 Sodium 139 Potassium 4.8 Chloride 105 Carbon Dioxide 22 Anion Gap 12 BUN 59 H Creatinine 2.1 H Creat Clearance w eGFR 30.31 Random Glucose 99 Calcium 8.1 L Active Medications Generic Name Dose Route Start Last Admin Trade Name Freq PRN Reason Stop Dose Admin Acetaminophen 650 mg 01/12/18 16:59 01/12/18 22:50 Tylenol - PO 650 mg Q6H PRN Administration PAIN 1-3 Amiodarone HCl 200 mg 01/11/18 15:00 01/15/18 09:27 Cordarone - PO 200 mg DAILY [facility] Administration Atorvastatin Calcium 40 mg 01/11/18 22:00 01/14/18 21:39 Lipitor - PO 40 mg HS [facility]IE Administration Carvedilol 3.125 mg 01/11/18 22:00 01/15/18 09:27 Coreg - PO 3.125 mg BID [facility] Administration Collagenase 1 applic 01/12/18 10:00 01/15/18 09:27 Santyl - TP 1 applic DAILY [facility] Administration Protocol Docusate Sodium 100 mg 01/11/18 15:07 Colace - PO Q8H PRN CONSTIPATION Furosemide 20 mg 01/14/18 14:45 01/15/18 09:27 Lasix - PO 20 mg DAILY [facility] Administration Mesalamine 4 gm 01/12/18 22:00 01/14/18 21:40 Rowasa Enema - MS Not Given HS [facility]IE Pantoprazole Sodium 40 mg 01/13/18 10:00 01/15/18 09:26 Protonix Iv IVPUSH 40 mg DAILY [facility] Administration Senna 1 tab 01/11/18 22:00 01/14/18 21:40 Senna - PO Not Given HS [facility]IE Tamsulosin HCl 0.4 mg 01/12/18 08:30 01/15/18 09:27 Flomax - PO 0.4 mg DAILY@0830 [facility] Administration Timolol Maleate 1 drop 01/11/18 22:00 01/15/18 09:30 Timoptic 0.5% OU 1 drop BID [facility] Administration Tramadol HCl 50 mg 01/13/18 14:20 01/14/18 21:39 Ultram - PO 50 mg Q6H PRN Administration PAIN LEVEL 6-10 ASSESSMENT/PLAN: 82 year old male with a PMH of CAD s/p CABG x 4 in 1989, sHF (EF 25%), bioprosthetic AVR, mitral valve repair, AAA s/p repair, VT in 2011 with ICD, afib not on anti-coagulation, 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 Rectal bleeding --transfused 1U PRBC on 01/10 --s/p sigmoidoscopy with cauterization on 01/11 --no further bleeding episodes --h/h stable --continue mesalamine MS QHS Atrial fibrillation --continue amiodarone, carvedilol --rate well-controlled --not on anticoagulation Chronic systolic heart failure --worsening lower extremity edema over past 24 hours --increase lasix PO 40mg daily Coronary artery disease --no ASA due to bleeding --continue statin Peripheral vascular disease s/p left ilio-fem bypass --has been treated in past by Dr. Blakely; outpatient followup FELICE on CKD --creat 2.1, close to baseline Left renal calculus s/p lithotripsy and ureteral stent --stent scheduled for removal this week as outpatient --continue Flomax Bilateral foot pressure ulcers --Stage III pressure ulcer left heel which was present on this admission --DTI left lateral foot --collagenase daily FEN Fluids: PO intake adequate Electrolytes: replete as indicated Nutrition: regular DVT prophylaxis: SCDs, oob, ambulation Physical therapy Dispo: continues to require inpatient care. Full code. Visit type - Emergency Visit Emergency Visit: Yes ED Registration Date: 01/10/18 Care time: The patient presented to the Emergency Department on the above date and was hospitalized for further evaluation of their emergent condition. - New Patient This patient is new to me today: No - Critical Care Critical Care patient: No
--- NOTE | 2018-01-15 12:34 | PN ---
Progress Note, Physician History of Present Illness: Pt seen and examined at bedside. He is awake and alert. He denies shortness of breath. - Current Medication List Current Medications: Active Medications Acetaminophen (Tylenol -) 650 mg PO Q6H PRN PRN Reason: PAIN 1-3 Last Admin: 01/12/18 22:50 Dose: 650 mg Amiodarone HCl (Cordarone -) 200 mg PO DAILY [facility] Last Admin: 01/15/18 09:27 Dose: 200 mg Atorvastatin Calcium (Lipitor -) 40 mg PO HS [facility] Last Admin: 01/14/18 21:39 Dose: 40 mg Carvedilol (Coreg -) 3.125 mg PO BID [facility] Last Admin: 01/15/18 09:27 Dose: 3.125 mg Collagenase (Santyl -) 1 applic TP DAILY [facility]; Protocol Last Admin: 01/15/18 09:27 Dose: 1 applic Docusate Sodium (Colace -) 100 mg PO Q8H PRN PRN Reason: CONSTIPATION Furosemide (Lasix -) 20 mg PO DAILY [facility] Last Admin: 01/15/18 09:27 Dose: 20 mg Mesalamine (Rowasa Enema -) 4 gm NC HS [facility] Last Admin: 01/14/18 21:40 Dose: Not Given Senna (Senna -) 1 tab PO HS [facility] Last Admin: 01/14/18 21:40 Dose: Not Given Tamsulosin HCl (Flomax -) 0.4 mg PO DAILY@0830 [facility] Last Admin: 01/15/18 09:27 Dose: 0.4 mg Timolol Maleate (Timoptic 0.5%) 1 drop OU BID [facility] Last Admin: 01/15/18 09:30 Dose: 1 drop Tramadol HCl (Ultram -) 50 mg PO Q6H PRN PRN Reason: PAIN LEVEL 6-10 Last Admin: 01/14/18 21:39 Dose: 50 mg - Objective Vital Signs: Vital Signs Temperature 97.6 F 01/15/18 05:16 Pulse Rate 82 01/15/18 05:16 Respiratory Rate 18 01/15/18 05:16 Blood Pressure 104/57 01/15/18 05:16 O2 Sat by Pulse Oximetry (%) 96 01/14/18 21:00 Constitutional: Yes: Calm Eyes: Yes: Conjunctiva Clear HENT: Yes: Atraumatic Neck: Yes: Supple Cardiovascular: Yes: S1, S2 Respiratory: Yes: CTA Bilaterally Gastrointestinal: Yes: Normal Bowel Sounds, Soft Genitourinary: Yes: WNL Edema: Yes Edema: LLE: 1+, RLE: 1+ Neurological: Yes: Oriented Psychiatric: Yes: Oriented Labs: CBC, BMP 01/13/18 06:00 01/15/18 06:30 INR, PTT INR 1.15 (0.83-1.09) H 01/10/18 15:05 Problem List - Problems (1) GI bleed Code(s): K92.2 - GASTROINTESTINAL HEMORRHAGE, UNSPECIFIED Qualifiers: GI bleed type/associated pathology: unspecified gastrointestinal hemorrhage type Qualified Code(s): K92.2 - Gastrointestinal hemorrhage, unspecified (2) Renal insufficiency Code(s): N28.9 - DISORDER OF KIDNEY AND URETER, UNSPECIFIED Assessment/Plan Current Medications Generic Name Dose Route Start Last Admin Trade Name Freq PRN Reason Stop Dose Admin Acetaminophen 650 mg 01/12/18 16:59 01/12/18 22:50 Tylenol - PO 650 mg Q6H PRN Administration PAIN 1-3 Amiodarone HCl 200 mg 01/11/18 15:00 01/15/18 09:27 Cordarone - PO 200 mg DAILY [facility]IE Administration Atorvastatin Calcium 40 mg 01/11/18 22:00 01/14/18 21:39 Lipitor - PO 40 mg HS [facility]UDIE Administration Carvedilol 3.125 mg 01/11/18 22:00 01/15/18 09:27 Coreg - PO 3.125 mg BID [facility]UDIE Administration Collagenase 1 applic 01/12/18 10:00 01/15/18 09:27 Santyl - TP 1 applic DAILY [facility] Administration Protocol Docusate Sodium 100 mg 01/11/18 15:07 Colace - PO Q8H PRN CONSTIPATION Furosemide 20 mg 01/14/18 14:45 01/15/18 09:27 Lasix - PO 20 mg DAILY [facility] Administration Mesalamine 4 gm 01/12/18 22:00 01/14/18 21:40 Rowasa Enema - NC Not Given HS AUDIE Senna 1 tab 01/11/18 22:00 01/14/18 21:40 Senna - PO Not Given HS AUDIE Tamsulosin HCl 0.4 mg 01/12/18 08:30 09/03/18 09:27 Flomax - PO 0.4 mg DAILY@0830 [facility]UDIE Administration Timolol Maleate 1 drop 01/11/18 22:00 01/15/18 09:30 Timoptic 0.5% OU 1 drop BID [facility]IE Administration Tramadol HCl 50 mg 01/13/18 14:20 01/14/18 21:39 Ultram - PO 50 mg Q6H PRN Administration PAIN LEVEL 6-10 Impression 1. CKD 2. hx prostate cancer 3. GI bleed 4. anemia 5. HLD 6. valvular heart disease 7. nephrolithiasis s/p stent Plan - cont with lasix - may need higher dose of edema worsens - monitor renal function - discussed plan with pt and family - monitor for bleeding - will follow
[2018-01-15] MEDS ORDERED: FUROSEMIDE 20 MG TABLET (FP) PO STA (13:19)
--- NOTE | 2018-01-15 16:03 | PN ---
Progress Note (short form) - Note Progress Note: Patient seen with and daughter present. No pain left foot. +b/l heel wound grade 1-2, -om on xray, +wounds 3rd toes b/l, -drainage, -mal odor. wbc=6.7 heel wounds toe wounds b/l Santyl dressing changes to all wounds. Offload heels. Will follow. Vascular on case. Awaiting there recommendation as far as intervention concerned.
[2018-01-15] MEDS: SENNOSIDES 8.6MG TABLET (FP) PO SCH ×2 (21:51→22:04)
[2018-01-15] MEDS: MESALAMINE 4 GM/60 ML ENEMA PR SCH (21:51)
[2018-01-15] MEDS: ATORVASTATIN CA 40 MG TABLET (FP) PO SCH (21:51)
[2018-01-16 06:43] LABS: BASO % 0.3 % (0-2.0); EOS % 0.5 % (0-4.5); HEMATOCRIT 28.2 % (35.4-49); HEMOGLOBIN 9.2 GM/dL (11.7-16.9); LYMPH % 10.2 % (8-40); MCH 30.7 pg (25.7-33.7); MCHC 32.7 g/dl (32.0-35.9); MEAN PLT VOLUME 9.5 fl (7.5-11.1); MONO % 6.6 % (3.8-10.2); NEUT % 82.4 % (42.8-82.8); PLATELET COUNT 86 K/MM3 (134-434); RBC 2.99 M/mm3 (4.00-5.60); RDW 20.7 % (11.9-15.9); WHITE BLOOD COUNT 7.5 K/mm3 (4.0-10.0)
[2018-01-16 06:52] LABS: ADD RBC MORPHOLOGY YES
[2018-01-16 07:17] LABS: CHLORIDE 102 mmol/L (98-107); POTASSIUM 4.9 mmol/L (3.5-5.1); SODIUM 137 mmol/L (136-145)
[2018-01-16 07:33] LABS: ALBUMIN 2.1 g/dl (3.4-5.0); ALK PHOS 224 U/L (45-117); ANION GAP 11 MMOL/L (8-16); BILIRUBIN,TOTAL 1.8 mg/dL (0.2-1.0); BLOOD UREA NITROGEN 65 mg/dL (7-18); CALCIUM 8.1 mg/dL (8.5-10.1); CO2 24 mmol/L (21-32); CREATININE 2.2 mg/dL (0.7-1.3); GLUCOSE,RANDOM 93 mg/dL (74-106); MAGNESIUM 2.4 mg/dL (1.8-2.4); SGOT/AST 66 U/L (15-37); SGPT/ALT 73 U/L (12-78); TOT PROT 5.3 g/dl (6.4-8.2)
[2018-01-16] MEDS: TAMSULOSIN HCL 0.4 MG CAP PO SCH (08:30)
--- NOTE | 2018-01-16 09:39 | PN ---
Physical Exam: SUBJECTIVE: Patient seen and examined at the bedside. Awaiting final decision from [facility] for [facility]. denies shortness of breath OBJECTIVE: Vital Signs Period Temp Pulse Resp BP Sys/Rodrigues Pulse Ox Last 24 Hr 97.6 F-98.4 F 80-85 16-20 100-117/48-68 96 GENERAL: The patient is awake, alert, and fully oriented, in no acute distress. HEAD: Normal with no signs of trauma. EYES: PERRL, extraocular movements intact, sclera anicteric, conjunctiva clear. No ptosis. ENT: Ears normal, nares patent, oropharynx clear without exudates, moist mucous membranes. NECK: Trachea midline, full range of motion, supple. LUNGS: Breath sounds clear/diminished at the bases. ABDOMEN: Soft, nontender, nondistended, normoactive bowel sounds, no guarding, no rebound, no hepatosplenomegaly, no masses. EXTREMITIES: bilateral lower ext edema, left heal with circular 3cm x 2cm ulceration with surround erythma and pain. left foot 3rd and 4th toe ulceration , right foot 3rd digit discoloration. NEUROLOGICAL: Normal speech, gait not observed. Laboratory Results - last 24 hr 01/16/18 01/16/18 06:30 06:30 WBC 7.5 RBC 2.99 L Hgb 9.2 L Hct 28.2 L MCV 94.0 MCH 30.7 MCHC 32.7 RDW 20.7 H Plt Count 86 L MPV 9.5 Absolute Neuts (auto) 6.2 Neutrophils % 82.4 Lymphocytes % 10.2 Monocytes % 6.6 Eosinophils % 0.5 Basophils % 0.3 Nucleated RBC % 0 Sodium 137 Potassium 4.9 Chloride 102 Carbon Dioxide 24 Anion Gap 11 BUN 65 H Creatinine 2.2 H Creat Clearance w eGFR 28.73 Random Glucose 93 Calcium 8.1 L Magnesium 2.4 Total Bilirubin 1.8 H AST 66 H D ALT 73 Alkaline Phosphatase 224 H Total Protein 5.3 L Albumin 2.1 L Active Medications Generic Name Dose Route Start Last Admin Trade Name Freq PRN Reason Stop Dose Admin Acetaminophen 650 mg 01/12/18 16:59 01/12/18 22:50 Tylenol - PO 650 mg Q6H PRN Administration PAIN 1-3 Amiodarone HCl 200 mg 01/11/18 15:00 09/03/18 09:27 Cordarone - PO 200 mg DAILY [facility]IE Administration Atorvastatin Calcium 40 mg 01/11/18 22:00 01/15/18 21:51 Lipitor - PO 40 mg HS [facility]IE Administration Carvedilol 3.125 mg 01/11/18 22:00 01/15/18 21:51 Coreg - PO 3.125 mg BID [facility]UDIE Administration Collagenase 1 applic 01/12/18 10:00 01/15/18 09:27 Santyl - TP 1 applic DAILY [facility] Administration Protocol Docusate Sodium 100 mg 01/11/18 15:07 Colace - PO Q8H PRN CONSTIPATION Furosemide 40 mg 01/16/18 10:00 Lasix - PO DAILY [facility]UDIE Mesalamine 4 gm 01/12/18 22:00 01/15/18 21:51 Rowasa Enema - [place] 4 gm HS [facility]UDIE Administration Senna 1 tab 01/11/18 22:00 01/15/18 22:04 Senna - PO Not Given HS AUDIE Tamsulosin HCl 0.4 mg 01/12/18 08:30 01/16/18 08:30 Flomax - PO 0.4 mg DAILY@0830 [facility] Administration Timolol Maleate 1 drop 01/11/18 22:00 01/15/18 21:51 Timoptic 0.5% OU 1 drop BID [facility]IE Administration Tramadol HCl 50 mg 01/13/18 14:20 01/14/18 21:39 Ultram - PO 50 mg Q6H PRN Administration PAIN LEVEL 6-10 ASSESSMENT/PLAN: Patient is a 82 year old male with past medical history of quadruple bypass ( 1989), prostate cancer, aortic and mitral valve replacement, PAD, atrial fib ( was on eliquis-stopped on last admission), with recent ablation and pacemaker placement on 12/16/17, left renal calculus s/p lithotripsy and ureteral stent ( scheduled for a stent removal next week at [facility]), sigmoidoscopy w/ cauterization for rectal bleeding. Patient returns for an acute episode of GI bleed after a fall at home. GI: GI bleed s/p sigmoidoscopy w/ cauterization for rectal bleeding on 01/11/[address] Church. s/p sigmoidoscopy 01/11/2018: which showed blood but no bleeding source. hmg/ hct remains stable. No abdominal pain, no further bleeding. tolerating diet. On Rowesa q8.. s/p 1 unit of blood with good results. Rectal tamponade removed. Renal FELICE on CKD, creat 2.2. On home lasix 40mg daily. Left renal calculus s/p lithotripsy and ureteral stent, stent was scheduled for removal outpatient this week. On flomax. Card: Atrial fib. Rate controlled with amiodorone. eliquis discontinued on last admission. CAD: On coreg 3.125 mg BID Chronic systolic heart failure: monitor intake and output. monitor renal function. daily weights. Podiatry: bilateral lower ext edema, left heal with circular 3cm x 2cm ulceration with surround erythma and pain. left foot 3rd and 4th toe ulceration, right foot 3rd digit discoloration. podiatry following, on santyl Vascular: Peripheral vascular disease s/p left ilio-fem bypass, outpatient follow up with Dr. Blakely. fen regular diet monitor electrolytes prophy chemical a/c contraindicated, SCD to right leg only, left leg with painful heal ulcer and redness of heal, Protonix iv incentive spirometer full code Visit type - Emergency Visit Emergency Visit: Yes ED Registration Date: 01/10/18 Care time: The patient presented to the Emergency Department on the above date and was hospitalized for further evaluation of their emergent condition. - New Patient This patient is new to me today: No - Critical Care Critical Care patient: No - Discharge Referral Referred to [facility] No
[2018-01-16] MEDS ORDERED: PT OWN MED DRAWER 7, Y5N ONE ×2 (10:16→22:19)
[2018-01-16] MEDS: AMIODARONE HCL 200 MG TABLET (FP) PO SCH (10:27)
[2018-01-16] MEDS: COLLAGENASE CLOSTRIDIUM HIST. 30 GRAMS TUBE TP SCH (10:27)
[2018-01-16] MEDS: CARVEDILOL 3.125 MG TABLET (FP) PO SCH ×2 (10:27→23:03)
[2018-01-16] MEDS: TIMOLOL 0.5% OPHTHALMIC SOL 5 ML BOTTLE OU SCH ×2 (10:28→23:03)
[2018-01-16] MEDS ORDERED: ACETAMINOPHEN 500 MG TABLET (FP) PO ONE (10:42)
[2018-01-16 10:45] LABS: ACANTHOCYTES 1+; ANISOCYTOSIS 1+; MACROCYTOSIS 1+; PLATELET ESTIMATE DECREASED
[2018-01-16] MEDS: FUROSEMIDE 20 MG TABLET (FP) PO SCH (11:21)
--- NOTE | 2018-01-16 15:35 | PN ---
Progress Note, Physician History of Present Illness: Pt seen and examined at bedside. He is out of bed to chair. He denies shortness of breath. - Current Medication List Current Medications: Active Medications Acetaminophen (Tylenol -) 650 mg PO Q6H PRN PRN Reason: PAIN 1-3 Last Admin: 01/12/18 22:50 Dose: 650 mg Amiodarone HCl (Cordarone -) 200 mg PO DAILY [facility] Last Admin: 01/16/18 10:27 Dose: 200 mg Atorvastatin Calcium (Lipitor -) 40 mg PO HS [facility] Last Admin: 01/15/18 21:51 Dose: 40 mg Carvedilol (Coreg -) 3.125 mg PO BID [facility] Last Admin: 01/16/18 10:27 Dose: 3.125 mg Collagenase (Santyl -) 1 applic TP DAILY [facility]; Protocol Last Admin: 01/16/18 10:27 Dose: 1 applic Docusate Sodium (Colace -) 100 mg PO Q8H PRN PRN Reason: CONSTIPATION Furosemide (Lasix -) 40 mg PO DAILY [facility] Last Admin: 01/16/18 11:21 Dose: 40 mg Mesalamine (Rowasa Enema -) 4 gm AK HS [facility] Last Admin: 01/15/18 21:51 Dose: 4 gm Senna (Senna -) 1 tab PO HS [facility] Last Admin: 01/15/18 22:04 Dose: Not Given Tamsulosin HCl (Flomax -) 0.4 mg PO DAILY@0830 [facility] Last Admin: 01/16/18 08:30 Dose: 0.4 mg Timolol Maleate (Timoptic 0.5%) 1 drop OU BID [facility] Last Admin: 01/16/18 10:28 Dose: 1 drop Tramadol HCl (Ultram -) 50 mg PO Q6H PRN PRN Reason: PAIN LEVEL 6-10 Last Admin: 01/14/18 21:39 Dose: 50 mg - Objective Vital Signs: Vital Signs Temperature 97.3 F L 01/16/18 10:08 Pulse Rate 83 01/16/18 10:08 Respiratory Rate 22 01/16/18 09:00 Blood Pressure 108/61 01/16/18 10:08 O2 Sat by Pulse Oximetry (%) 97 01/16/18 09:00 Constitutional: Yes: Calm Eyes: Yes: Conjunctiva Clear HENT: Yes: Atraumatic Neck: Yes: Supple Cardiovascular: Yes: S1, S2 Respiratory: Yes: CTA Bilaterally Gastrointestinal: Yes: Soft Genitourinary: Yes: WNL Musculoskeletal: Yes: WNL Edema: No Neurological: Yes: Oriented Psychiatric: Yes: Oriented Labs: CBC, BMP 01/16/18 06:30 01/16/18 06:30 INR, PTT INR 1.15 (0.83-1.09) H 01/10/18 15:05 Problem List - Problems (1) GI bleed Code(s): K92.2 - GASTROINTESTINAL HEMORRHAGE, UNSPECIFIED Qualifiers: GI bleed type/associated pathology: unspecified gastrointestinal hemorrhage type Qualified Code(s): K92.2 - Gastrointestinal hemorrhage, unspecified (2) Renal insufficiency Code(s): N28.9 - DISORDER OF KIDNEY AND URETER, UNSPECIFIED Assessment/Plan Current Medications Generic Name Dose Route Start Last Admin Trade Name Freq PRN Reason Stop Dose Admin Acetaminophen 650 mg 01/12/18 16:59 01/12/18 22:50 Tylenol - PO 650 mg Q6H PRN Administration PAIN 1-3 Amiodarone HCl 200 mg 01/11/18 15:00 01/16/18 10:27 Cordarone - PO 200 mg DAILY [facility]IE Administration Atorvastatin Calcium 40 mg 01/11/18 22:00 01/15/18 21:51 Lipitor - PO 40 mg HS AUDIE Administration Carvedilol 3.125 mg 01/11/18 22:00 01/16/18 10:27 Coreg - PO 3.125 mg BID AUDIE Administration Collagenase 1 applic 01/12/18 10:00 01/16/18 10:27 Santyl - TP 1 applic DAILY [facility] Administration Protocol Docusate Sodium 100 mg 01/11/18 15:07 Colace - PO Q8H PRN CONSTIPATION Furosemide 40 mg 01/16/18 10:00 01/16/18 11:21 Lasix - PO 40 mg DAILY [facility]IE Administration Mesalamine 4 gm 01/12/18 22:00 01/15/18 21:51 Rowasa Enema - [place] 4 gm HS AUDIE Administration Senna 1 tab 01/11/18 22:00 01/15/18 22:04 Senna - PO Not Given HS AUDIE Tamsulosin HCl 0.4 mg 01/12/18 08:30 01/16/18 08:30 Flomax - PO 0.4 mg DAILY@0830 [facility]UDIE Administration Timolol Maleate 1 drop 01/11/18 22:00 01/16/18 10:28 Timoptic 0.5% OU 1 drop BID AUDIE Administration Tramadol HCl 50 mg 01/13/18 14:20 01/14/18 21:39 Ultram - PO 50 mg Q6H PRN Administration PAIN LEVEL 6-10 Impression 1. CKD 2. hx prostate cancer 3. GI bleed 4. anemia 5. HLD 6. valvular heart disease 7. nephrolithiasis s/p stent Plan - discussed diuretic dose, pt was not responding to 20 mg, will increase to 40 mg daily - monitor volume status - discussed with family - monitor renal function - monitor for bleeding - will follow
[2018-01-16] MEDS: ATORVASTATIN CA 40 MG TABLET (FP) PO SCH (23:03)
[2018-01-16] MEDS: SENNOSIDES 8.6MG TABLET (FP) PO SCH (23:03)
[2018-01-16] MEDS: MESALAMINE 4 GM/60 ML ENEMA PR SCH (23:06)
[2018-01-16 23:37] LABS: BASO % 0.2 % (0-2.0); EOS % 1.4 % (0-4.5); HEMATOCRIT 26.3 % (35.4-49); HEMOGLOBIN 8.7 GM/dL (11.7-16.9); LYMPH % 7.7 % (8-40); MEAN CELL VOLUME 93.8 fl (80-96); MONO % 7.5 % (3.8-10.2); NEUT % 83.2 % (42.8-82.8); PLATELET COUNT 93 K/MM3 (134-434); RDW 20.4 % (11.9-15.9); WHITE BLOOD COUNT 7.3 K/mm3 (4.0-10.0)
--- NOTE | 2018-01-17 00:57 | HOSP ---
Subjective - Review of Symptoms Events since last encounter: Hospitalist Encounter Notified by RN that the patient had episodes of BRPR with clots after BM Orders given by CADDY/CADDIE SUPERVISOR Abrahan Topete for stat CBC, BP monitoring. Was asked to see the patient by the RN for feelings of anxiousness. Other Systems: Psychological: Anxious Physical Examination Vital Signs: Vital Signs Temperature 98.5 F 01/16/18 23:40 Pulse Rate 84 01/16/18 23:40 Respiratory Rate 17 01/16/18 23:40 Blood Pressure 99/61 01/16/18 23:40 O2 Sat by Pulse Oximetry (%) 97 01/16/18 21:00 Constitutional: Yes: Anxious Eyes: Yes: Conjunctiva Clear, EOM Intact, PERRL HENT: Yes: WNL, Atraumatic, Normocephalic Neck: Yes: WNL, Supple, Trachea Midline Cardiovascular: Yes: Pulse Irregular, S1, S2 Respiratory: Yes: WNL, Regular, CTA Bilaterally Gastrointestinal: Yes: Normal Bowel Sounds, Soft. No: Rectal Bleeding, Tenderness ...Rectal Exam: Yes: Sphincter Tone Normal Renal/: Yes: WNL Breast(s): Yes: WNL Musculoskeletal: Yes: WNL Extremities: Yes: Other (left heal with circular ulceration 3x2 cm, +erythema, pain on palpation. left foot 3rd and 4th digit ulceration. right foot 3rd digit discoloration.) Edema: Yes Edema: LLE: 1+, RLE: 1+ Peripheral Pulses WNL: Yes Wound/Incision: Yes: Dressing Dry and Intact Neurological: Yes: Alert, Oriented, Cran Nerves II-XII Intact ...Motor Strength: WNL Psychiatric: Yes: WNL, Alert, Oriented Labs: CBC, BMP 01/16/18 23:15 01/16/18 06:30 Hospitalist Encounter Assessment: This is an 82 y/o man with a PMHx of Quadruple Bypass (1989), Prostate Ca, Aortic/Mitral Valve replacement, PAD, Afib( no AC since last admission), s/p Ablation PPM 12/26/17, L- Renal Calculus s/p lithotripsy, Ureteral Stent, Sigmoidoscopy w/cauterization (Rectal Bleeding, 01/11/18). Admitted for acute episode GI Bleed s/p Fall at home. Outcome: BP improved Reviewed H/H 8.6/26.3 No active rectal bleeding Supportive measures provided
[2018-01-17] MEDS ORDERED: SODIUM CHLORIDE 250 ML IV STA (06:20)
[2018-01-17] MEDS ORDERED: PT OWN MED DRAWER 7, Y5N ONE ×2 (09:58→15:17)
[2018-01-17] MEDS: AMIODARONE HCL 200 MG TABLET (FP) PO SCH (10:31)
[2018-01-17] MEDS: CARVEDILOL 3.125 MG TABLET (FP) PO SCH ×2 (10:32→21:21)
[2018-01-17] MEDS: TAMSULOSIN HCL 0.4 MG CAP PO SCH (10:32)
[2018-01-17] MEDS: ACETAMINOPHEN 325 MG TABLET (FP) PO PRN ×2 (10:32→19:29)
[2018-01-17 10:44] LABS: BASO % 0.1 % (0-2.0); EOS % 0.5 % (0-4.5); HEMATOCRIT 26.3 % (35.4-49); HEMOGLOBIN 8.7 GM/dL (11.7-16.9); LYMPH % 7.4 % (8-40); MCH 31.4 pg (25.7-33.7); MCHC 33.3 g/dl (32.0-35.9); MEAN CELL VOLUME 94.3 fl (80-96); MEAN PLT VOLUME 9.6 fl (7.5-11.1); MONO % 5.4 % (3.8-10.2); NEUT % 86.6 % (42.8-82.8); PLATELET COUNT 82 K/MM3 (134-434); RBC 2.78 M/mm3 (4.00-5.60); WHITE BLOOD COUNT 6.8 K/mm3 (4.0-10.0)
[2018-01-17 10:56] LABS: CHLORIDE 104 mmol/L (98-107); SODIUM 138 mmol/L (136-145)
[2018-01-17 11:28] LABS: ALBUMIN 2.1 g/dl (3.4-5.0); ALK PHOS 218 U/L (45-117); ANION GAP 10 MMOL/L (8-16); BILIRUBIN,TOTAL 1.8 mg/dL (0.2-1.0); BLOOD UREA NITROGEN 69 mg/dL (7-18); CALCIUM 8.2 mg/dL (8.5-10.1); CO2 24 mmol/L (21-32); CREATININE 2.3 mg/dL (0.7-1.3); GLUCOSE,RANDOM 135 mg/dL (74-106); MAGNESIUM 2.4 mg/dL (1.8-2.4); SGOT/AST 74 U/L (15-37); SGPT/ALT 73 U/L (12-78); TOT PROT 5.1 g/dl (6.4-8.2)
[2018-01-17] MEDS ORDERED: diazePAM 2 MG TABLET PO PRN (11:47)
--- NOTE | 2018-01-17 12:09 | PN ---
Progress Note, Physician History of Present Illness: Pt seen and examined at bedside. He had another GI bleed overnight. He appears fatigued. - Current Medication List Current Medications: Active Medications Acetaminophen (Tylenol -) 650 mg PO Q6H PRN PRN Reason: PAIN 1-3 Last Admin: 01/17/18 10:32 Dose: 650 mg Amiodarone HCl (Cordarone -) 200 mg PO DAILY [facility] Last Admin: 01/17/18 10:31 Dose: 200 mg Atorvastatin Calcium (Lipitor -) 40 mg PO HS [facility] Last Admin: 01/16/18 23:03 Dose: 40 mg Carvedilol (Coreg -) 3.125 mg PO BID [facility] Last Admin: 01/17/18 10:32 Dose: 3.125 mg Collagenase (Santyl -) 1 applic TP DAILY [facility]; Protocol Last Admin: 01/16/18 10:27 Dose: 1 applic Diazepam (Valium -) 2 mg PO BID PRN PRN Reason: ANXIETY Docusate Sodium (Colace -) 100 mg PO Q8H PRN PRN Reason: CONSTIPATION Furosemide (Lasix -) 40 mg PO DAILY [facility] Last Admin: 01/16/18 11:21 Dose: 40 mg Mesalamine (Rowasa Enema -) 4 gm ME HS [facility] Last Admin: 01/16/18 23:06 Dose: 4 gm Senna (Senna -) 1 tab PO HS [facility] Last Admin: 01/16/18 23:03 Dose: 1 tab Tamsulosin HCl (Flomax -) 0.4 mg PO DAILY@0830 [facility] Last Admin: 01/17/18 10:32 Dose: 0.4 mg Timolol Maleate (Timoptic 0.5%) 1 drop OU BID [facility] Last Admin: 01/16/18 23:03 Dose: 1 drop Tramadol HCl (Ultram -) 50 mg PO Q6H PRN PRN Reason: PAIN LEVEL 6-10 Last Admin: 01/14/18 21:39 Dose: 50 mg - Objective Vital Signs: Vital Signs Temperature 98 F 01/17/18 10:22 Pulse Rate 77 01/17/18 10:22 Respiratory Rate 18 01/17/18 10:22 Blood Pressure 121/60 01/17/18 10:22 O2 Sat by Pulse Oximetry (%) 97 01/16/18 21:00 Constitutional: Yes: Calm Eyes: Yes: Conjunctiva Clear HENT: Yes: Atraumatic Cardiovascular: Yes: S1, S2 Respiratory: Yes: CTA Bilaterally, On Nasal O2 Gastrointestinal: Yes: Soft Genitourinary: Yes: WNL Musculoskeletal: Yes: WNL Edema: Yes Edema: LLE: 1+, RLE: 1+ Integumentary: Yes: Erythema Neurological: Yes: Oriented Psychiatric: Yes: Oriented Labs: CBC, BMP 01/17/18 10:09 01/17/18 10:09 INR, PTT INR 1.15 (0.83-1.09) H 01/10/18 15:05 Problem List - Problems (1) GI bleed Code(s): K92.2 - GASTROINTESTINAL HEMORRHAGE, UNSPECIFIED Qualifiers: GI bleed type/associated pathology: unspecified gastrointestinal hemorrhage type Qualified Code(s): K92.2 - Gastrointestinal hemorrhage, unspecified (2) Renal insufficiency Code(s): N28.9 - DISORDER OF KIDNEY AND URETER, UNSPECIFIED Assessment/Plan Current Medications Generic Name Dose Route Start Last Admin Trade Name Freq PRN Reason Stop Dose Admin Acetaminophen 650 mg 01/12/18 16:59 01/17/18 10:32 Tylenol - PO 650 mg Q6H PRN Administration PAIN 1-3 Amiodarone HCl 200 mg 01/11/18 15:00 01/17/18 10:31 Cordarone - PO 200 mg DAILY [facility]IE Administration Atorvastatin Calcium 40 mg 01/11/18 22:00 01/16/18 23:03 Lipitor - PO 40 mg HS AUDIE Administration Carvedilol 3.125 mg 01/11/18 22:00 01/17/18 10:32 Coreg - PO 3.125 mg BID AUDIE Administration Collagenase 1 applic 01/12/18 10:00 01/16/18 10:27 Santyl - TP 1 applic DAILY [facility]IE Administration Protocol Diazepam 2 mg 01/17/18 11:47 Valium - PO BID PRN ANXIETY Docusate Sodium 100 mg 01/11/18 15:07 Colace - PO Q8H PRN CONSTIPATION Furosemide 40 mg 01/16/18 10:00 01/16/18 11:21 Lasix - PO 40 mg DAILY [facility]UDIE Administration Mesalamine 4 gm 01/12/18 22:00 01/16/18 23:06 Rowasa Enema - ME 4 gm HS [facility]UDIE Administration Senna 1 tab 01/11/18 22:00 01/16/18 23:03 Senna - PO 1 tab HS [facility]IE Administration Tamsulosin HCl 0.4 mg 01/12/18 08:30 01/17/18 10:32 Flomax - PO 0.4 mg DAILY@0830 [facility] Administration Timolol Maleate 1 drop 01/11/18 22:00 01/16/18 23:03 Timoptic 0.5% OU 1 drop BID [facility]IE Administration Tramadol HCl 50 mg 01/13/18 14:20 01/14/18 21:39 Ultram - PO 50 mg Q6H PRN Administration PAIN LEVEL 6-10 Impression 1. CKD 2. hx prostate cancer 3. GI bleed 4. anemia 5. HLD 6. valvular heart disease 7. nephrolithiasis s/p stent Plan - will hold diuretics as he has had a bleed - GI follow up - monitor hg - may need lasix with blood if he gets transfused - discussed with family - cont to monitor renal function - will follow
--- NOTE | 2018-01-17 16:53 | PN ---
Physical Exam: SUBJECTIVE: Patient seen and examined at the bedside. Reported to have an acute episode of bleeding overnight, now resolved. hmg/hct stable. OBJECTIVE: Vital Signs Period Temp Pulse Resp BP Sys/Rodrigues Pulse Ox Last 24 Hr 96.3 F-98.5 F 69-86 17-20 82-121/46-71 97-97 GENERAL: The patient is awake, alert, and fully oriented, in no acute distress. HEAD: Normal with no signs of trauma. EYES: PERRL, extraocular movements intact, sclera anicteric, conjunctiva clear. No ptosis. ENT: Ears normal, nares patent, oropharynx clear without exudates, moist mucous membranes. NECK: Trachea midline, full range of motion, supple. LUNGS: Breath sounds clear/diminished at the bases. ABDOMEN: Soft, nontender, nondistended, normoactive bowel sounds, no guarding, no rebound, no hepatosplenomegaly, no masses. EXTREMITIES: bilateral lower ext edema, left heal with circular 3cm x 2cm ulceration with surround erythma and pain. left foot 3rd and 4th toe ulceration , right foot 3rd digit discoloration. NEUROLOGICAL: Normal speech, gait not observed. Laboratory Results - last 24 hr 01/16/18 01/17/18 01/17/18 23:15 10:09 10:09 WBC 7.3 6.8 RBC 2.80 L 2.78 L Hgb 8.7 L 8.7 L Hct 26.3 L 26.3 L MCV 93.8 94.3 MCH 31.0 31.4 MCHC 33.0 33.3 RDW 20.4 H 20.0 H Plt Count 93 L 82 L MPV 10.0 9.6 Absolute Neuts (auto) 6.1 5.9 Neutrophils % 83.2 H 86.6 H Lymphocytes % 7.7 L D 7.4 L Monocytes % 7.5 5.4 Eosinophils % 1.4 D 0.5 Basophils % 0.2 0.1 Nucleated RBC % 1 H 0 Sodium 138 Potassium 5.0 Chloride 104 Carbon Dioxide 24 Anion Gap 10 BUN 69 H Creatinine 2.3 H Creat Clearance w eGFR 27.29 Random Glucose 135 H D Calcium 8.2 L Magnesium 2.4 Total Bilirubin 1.8 H AST 74 H ALT 73 Alkaline Phosphatase 218 H Total Protein 5.1 L Albumin 2.1 L Active Medications Generic Name Dose Route Start Last Admin Trade Name Freq PRN Reason Stop Dose Admin Acetaminophen 650 mg 01/12/18 16:59 01/17/18 10:32 Tylenol - PO 650 mg Q6H PRN Administration PAIN 1-3 Amiodarone HCl 200 mg 01/11/18 15:00 01/17/18 10:31 Cordarone - PO 200 mg DAILY [facility] Administration Atorvastatin Calcium 40 mg 01/11/18 22:00 01/16/18 23:03 Lipitor - PO 40 mg HS [facility]IE Administration Carvedilol 3.125 mg 01/11/18 22:00 01/17/18 10:32 Coreg - PO 3.125 mg BID A[facility]IE Administration Collagenase 1 applic 01/12/18 10:00 01/16/18 10:27 Santyl - TP 1 applic DAILY [facility] Administration Protocol Diazepam 2 mg 01/17/18 11:47 Valium - PO BID PRN ANXIETY Docusate Sodium 100 mg 01/11/18 15:07 Colace - PO Q8H PRN CONSTIPATION Furosemide 40 mg 01/16/18 10:00 01/16/18 11:21 Lasix - PO 40 mg DAILY [facility] Administration Mesalamine 4 gm 01/12/18 22:00 01/16/18 23:06 Rowasa Enema - NE 4 gm HS [facility]UDIE Administration Senna 1 tab 01/11/18 22:00 01/16/18 23:03 Senna - PO 1 tab HS [facility]IE Administration Tamsulosin HCl 0.4 mg 01/12/18 08:30 01/17/18 10:32 Flomax - PO 0.4 mg DAILY@0830 [facility] Administration Timolol Maleate 1 drop 01/11/18 22:00 01/16/18 23:03 Timoptic 0.5% OU 1 drop BID [facility] Administration Tramadol HCl 50 mg 01/13/18 14:20 01/14/18 21:39 Ultram - PO 50 mg Q6H PRN Administration PAIN LEVEL 6-10 ASSESSMENT/PLAN: Patient is a 82 year old male with past medical history of quadruple bypass ( 1989), prostate cancer, aortic and mitral valve replacement, PAD, atrial fib ( was on eliquis-stopped on last admission), with recent ablation and pacemaker placement on 12/16/17, left renal calculus s/p lithotripsy and ureteral stent ( scheduled for a stent removal next week at [facility]), sigmoidoscopy w/ cauterization for rectal bleeding. Patient returns for an acute episode of GI bleed after a fall at home. GI: GI bleed s/p sigmoidoscopy w/ cauterization for rectal bleeding on 01/11/[address] Church. one episode of rectal bleeding reported overnight. s/p sigmoidoscopy 01/11/2018: which showed blood but no bleeding source. hmg/ hct remains stable. No abdominal pain. tolerating diet. On Rowesa q8.. s/p 1 unit of blood with good results. Renal FELICE on CKD, creat 2.2. On home lasix 40mg daily. Left renal calculus s/p lithotripsy and ureteral stent, stent was scheduled for removal outpatient this week. On flomax. Card: Atrial fib. Rate controlled with amiodorone. eliquis discontinued on last admission. CAD: On coreg 3.125 mg BID Chronic systolic heart failure: monitor intake and output. monitor renal function. daily weights. Podiatry: bilateral lower ext edema, left heal with circular 3cm x 2cm ulceration with surround erythma and pain. left foot 3rd and 4th toe ulceration, right foot 3rd digit discoloration. podiatry following, on santyl Vascular: Peripheral vascular disease s/p left ilio-fem bypass, outpatient follow up with Dr. Blakely. fen regular diet monitor electrolytes prophy chemical a/c contraindicated, SCD to right leg only, left leg with painful heal ulcer and redness of heal, Protonix iv incentive spirometer full code Visit type - Emergency Visit Emergency Visit: Yes ED Registration Date: 01/10/18 Care time: The patient presented to the Emergency Department on the above date and was hospitalized for further evaluation of their emergent condition. - New Patient This patient is new to me today: No - Critical Care Critical Care patient: No - Discharge Referral Referred to [facility] No
--- NOTE | 2018-01-17 17:30 | PN ---
Progress Note (short form) - Note Progress Note: No further episodes of bleeding since last night. Main complainant today - b/l foot ulcers pain. Pt's at bedside corroborated no bleeding per rectum today. Asymptomatic from GI perspective. HGB remains unchanged. Will reevaluate in AM.
[2018-01-17] MEDS: FUROSEMIDE 20 MG TABLET (FP) PO SCH (17:53)
[2018-01-17] MEDS: TIMOLOL 0.5% OPHTHALMIC SOL 5 ML BOTTLE OU SCH ×2 (18:38→21:22)
[2018-01-17] MEDS: COLLAGENASE CLOSTRIDIUM HIST. 30 GRAMS TUBE TP SCH (18:40)
[2018-01-17] MEDS: ATORVASTATIN CA 40 MG TABLET (FP) PO SCH (21:21)
[2018-01-17] MEDS: MESALAMINE 4 GM/60 ML ENEMA PR SCH (21:22)
[2018-01-17] MEDS: SENNOSIDES 8.6MG TABLET (FP) PO SCH (21:22)
[2018-01-18] MEDS ORDERED: PT OWN MED DRAWER 7, Y5N ONE ×2 (07:06→09:31)
[2018-01-18 08:20] LABS: BASO % 0.2 % (0-2.0); EOS % 0.8 % (0-4.5); HEMATOCRIT 26.3 % (35.4-49); HEMOGLOBIN 8.4 GM/dL (11.7-16.9); LYMPH % 9.3 % (8-40); MCH 30.3 pg (25.7-33.7); MEAN CELL VOLUME 94.7 fl (80-96); MEAN PLT VOLUME 9.3 fl (7.5-11.1); MONO % 5.8 % (3.8-10.2); NEUT % 83.9 % (42.8-82.8); PLATELET COUNT 77 K/MM3 (134-434); RBC 2.78 M/mm3 (4.00-5.60); WHITE BLOOD COUNT 7.7 K/mm3 (4.0-10.0)
[2018-01-18 08:54] LABS: ALBUMIN 2.1 g/dl (3.4-5.0); BLOOD UREA NITROGEN 66 mg/dL (7-18); CALCIUM 8.3 mg/dL (8.5-10.1); CHLORIDE 105 mmol/L (98-107); POTASSIUM 5.4 mmol/L (3.5-5.1); SODIUM 140 mmol/L (136-145)
[2018-01-18 08:57] LABS: ALK PHOS 216 U/L (45-117); ANION GAP 12 MMOL/L (8-16); CO2 23 mmol/L (21-32); CREATININE 2.2 mg/dL (0.7-1.3); GLUCOSE,RANDOM 90 mg/dL (74-106); MAGNESIUM 2.6 mg/dL (1.8-2.4); SGOT/AST 82 U/L (15-37); SGPT/ALT 78 U/L (12-78)
[2018-01-18] MEDS: TAMSULOSIN HCL 0.4 MG CAP PO SCH (09:29)
[2018-01-18] MEDS: AMIODARONE HCL 200 MG TABLET (FP) PO SCH (09:40)
[2018-01-18] MEDS: TIMOLOL 0.5% OPHTHALMIC SOL 5 ML BOTTLE OU SCH ×2 (09:41→21:58)
[2018-01-18] MEDS: COLLAGENASE CLOSTRIDIUM HIST. 30 GRAMS TUBE TP SCH (10:06)
[2018-01-18] MEDS ORDERED: ACETAMINOPHEN 1000 MG/100 ML VIAL (NON FORMULARY) IVPB ONE (12:01)
--- NOTE | 2018-01-18 12:06 | PN ---
Progress Note (short form) - Note Progress Note: Had another brisk episode of painless BRBP last night while maintaining stable HGB. Suspect IH bleed rather than rad. proctopathy. Discussed with the patient and his . APC, should we need to go in that direction, was discussed with the pt's . Continue to observe. CBCD WBC 7.7 K/mm3 (4.0-10.0) 01/18/18 06:20 RBC 2.78 M/mm3 (4.00-5.60) L 01/18/18 06:20 Hgb 8.4 GM/dL (11.7-16.9) L 01/18/18 06:20 Hct 26.3 % (35.4-49) L 01/18/18 06:20 MCV 94.7 fl (80-96) 01/18/18 06:20 MCHC 32.0 g/dl (32.0-35.9) 01/18/18 06:20 RDW 21.0 % (11.9-15.9) H 01/18/18 06:20 Plt Count 77 K/MM3 (134-434) L 01/18/18 06:20 MPV 9.3 fl (7.5-11.1) 01/18/18 06:20 CMP Sodium 140 mmol/L (136-145) 01/18/18 06:20 Potassium 5.4 mmol/L (3.5-5.1) H 01/18/18 06:20 Chloride 105 mmol/L (98-107) 01/18/18 06:20 Carbon Dioxide 23 mmol/L (21-32) 01/18/18 06:20 Anion Gap 12 MMOL/L (8-16) 01/18/18 06:20 BUN 66 mg/dL (7-18) H 01/18/18 06:20 Creatinine 2.2 mg/dL (0.7-1.3) H 01/18/18 06:20 Creat Clearance w eGFR 28.73 (>60) 01/18/18 06:20 Calcium 8.3 mg/dL (8.5-10.1) L 01/18/18 06:20 Total Bilirubin 2.0 mg/dL (0.2-1.0) H 01/18/18 06:20 AST 82 U/L (15-37) H 01/18/18 06:20 ALT 78 U/L (12-78) 01/18/18 06:20 Alkaline Phosphatase 216 U/L (45-117) H 01/18/18 06:20 Total Protein 5.0 g/dl (6.4-8.2) L 01/18/18 06:20 Albumin 2.1 g/dl (3.4-5.0) L 01/18/18 06:20
[2018-01-18] MEDS: ACETAMINOPHEN 325 MG TABLET (FP) PO PRN (12:21)
[2018-01-18] MEDS ORDERED: FUROSEMIDE 40 MG/4 ML INJECTABLE VIAL IVPUSH ONE (13:00)
[2018-01-18] MEDS ORDERED: ALBUTEROL SO4 2.5/IPRATROPIUM 0.5 INH SOL 3 ML VIAL.NEB. NEB ONE (13:02)
[2018-01-18] MEDS ORDERED: DEXTROSE 50%-WATER - 25 GM/50 ML VIAL IVPUSH ONE (13:05)
[2018-01-18] MEDS ORDERED: INSULIN REGULAR HUMAN 100 UNITS/ML *VIAL IVPUSH ONE (13:15)
[2018-01-18] MEDS ORDERED: CALCIUM GLUCONATE 10% - 1,000 MG/10 ML VIAL IVPB ONE (13:24)
--- NOTE | 2018-01-18 13:25 | PN ---
Physical Exam: SUBJECTIVE: Patient seen and examined at the bedside. OBJECTIVE: Lethargic today, noted to have a K of 5.4, then 6.1 with repeat. ekg with no changes given d50, novolog 10u, lasix 40mg iv x 1 and calcium gluconate. then had a large bm now more awake and alert will repeat K and monitor. Vital Signs Period Temp Pulse Resp BP Sys/Rodrigues Pulse Ox Last 24 Hr 97.3 F-697.5 F 77-85 18-20 85-132/46-75 98 GENERAL: The patient is awake, alert, and fully oriented, in no acute distress. HEAD: Normal with no signs of trauma. EYES: PERRL, extraocular movements intact, sclera anicteric, conjunctiva clear. No ptosis. ENT: Ears normal, nares patent, oropharynx clear without exudates, moist mucous membranes. NECK: Trachea midline, full range of motion, supple. LUNGS: Breath sounds equal/diminished but clear to auscultation bilaterally HEART: Regular rate and rhythm, S1, S2 without murmur, rub or gallop. ABDOMEN: Soft, nontender, nondistended, normoactive bowel sounds, no guarding EXTREMITIES: bilateral lower ext edema, non pitting. NEUROLOGICAL: Normal speech, gait not observed. PSYCH: Normal mood, normal affect. SKIN: bilateral foot and toe wounds, podiatry following. Laboratory Results - last 24 hr 01/18/18 01/18/18 01/18/18 06:20 06:20 12:10 WBC 7.7 RBC 2.78 L Hgb 8.4 L Hct 26.3 L MCV 94.7 MCH 30.3 MCHC 32.0 RDW 21.0 H Plt Count 77 L MPV 9.3 Absolute Neuts (auto) 6.5 Neutrophils % 83.9 H Lymphocytes % 9.3 D Monocytes % 5.8 Eosinophils % 0.8 Basophils % 0.2 Nucleated RBC % 0 Sodium 140 Potassium 5.4 H 6.1 H* Chloride 105 Carbon Dioxide 23 Anion Gap 12 BUN 66 H Creatinine 2.2 H Creat Clearance w eGFR 28.73 Random Glucose 90 D Calcium 8.3 L Magnesium 2.6 H Total Bilirubin 2.0 H AST 82 H ALT 78 Alkaline Phosphatase 216 H Total Protein 5.0 L Albumin 2.1 L Active Medications Generic Name Dose Route Start Last Admin Trade Name Freq PRN Reason Stop Dose Admin Acetaminophen 650 mg 01/12/18 16:59 01/18/18 12:21 Tylenol - PO 650 mg Q6H PRN Administration PAIN 1-3 Amiodarone HCl 200 mg 01/11/18 15:00 01/18/18 09:40 Cordarone - PO 200 mg DAILY [facility] Administration Atorvastatin Calcium 40 mg 01/11/18 22:00 01/17/18 21:21 Lipitor - PO 40 mg HS AUDIE Administration Calcium Gluconate 1,000 mg 01/18/18 13:24 Calcium Gluconate 10% - IVPB 01/18/18 13:25 ONCE ONE Carvedilol 3.125 mg 01/11/18 22:00 01/17/18 21:21 Coreg - PO Not Given BID AUDIE Collagenase 1 applic 01/12/18 10:00 01/17/18 18:40 Santyl - TP 1 applic DAILY AUDIE Administration Protocol Diphenhydramine HCl 25 mg 01/18/18 22:00 Benadryl - PO HS AUDIE Docusate Sodium 100 mg 01/11/18 15:07 Colace - PO Q8H PRN CONSTIPATION Furosemide 40 mg 01/19/18 10:00 Lasix - PO DAILY AUDIE Mesalamine 4 gm 01/12/18 22:00 01/17/18 21:22 Rowasa Enema - DE 4 gm HS AUDIE Administration Tamsulosin HCl 0.4 mg 01/12/18 08:30 01/18/18 09:29 Flomax - PO 0.4 mg DAILY@0830 AUDIE Administration Timolol Maleate 1 drop 01/11/18 22:00 01/18/18 09:41 Timoptic 0.5% OU 1 drop BID AUDIE Administration Tramadol HCl 50 mg 01/13/18 14:20 01/14/18 21:39 Ultram - PO 50 mg Q6H PRN Administration PAIN LEVEL 6-10 ASSESSMENT/PLAN: Patient is a 82 year old male with past medical history of quadruple bypass ( 1989), prostate cancer, aortic and mitral valve replacement, PAD, atrial fib ( was on eliquis-stopped on last admission), with recent ablation and pacemaker placement on 12/16/17, left renal calculus s/p lithotripsy and ureteral stent ( scheduled for a stent removal next week at [facility]), sigmoidoscopy w/ cauterization for rectal bleeding. Patient returns for an acute episode of GI bleed after a fall at home. Today he was noted to have an elevated potassium of 5.4, then 6.1 with repeat. given d50, 10 units of novolog (novolog and lasix iv pushed by me), calcium gluconate ivpb, lasix 40mg iv x1. Awaiting K repeat. GI: GI bleed s/p sigmoidoscopy w/ cauterization for rectal bleeding on 01/11/[address] Church. small clots seen in BM overnight. s/p sigmoidoscopy 01/11/2018: which showed blood but no bleeding source. hmg/ hct remains stable. No abdominal pain. tolerating diet. On Rowesa q8.s/p 1 unit of blood with good results. Renal FELICE on CKD, creat 2.2. On home lasix 40mg daily. given 40mg iv push x 1 today. Card: Atrial fib. Rate controlled with amiodorone. eliquis discontinued on last admission 06/16 to gi bleed. CAD: On coreg 3.125 mg BID Chronic systolic heart failure: monitor intake and output. monitor renal function. daily weights. Podiatry: bilateral lower ext edema, left heal with circular 3cm x 2cm ulceration with surround erythma and pain. left foot 3rd and 4th toe ulceration, right foot 3rd digit discoloration. podiatry following, on santyl. daily wound care. Vascular: Peripheral vascular disease s/p left ilio-fem bypass, outpatient follow up with Dr. Blakely. fen regular diet monitor electrolytes prophy chemical a/c contraindicated, SCD to right leg only, left leg with painful heal ulcer and redness of heal, Protonix iv incentive spirometer full code Visit type - Emergency Visit Emergency Visit: Yes ED Registration Date: 01/10/18 Care time: The patient presented to the Emergency Department on the above date and was hospitalized for further evaluation of their emergent condition. - New Patient This patient is new to me today: No - Critical Care Critical Care patient: No - Discharge Referral Referred to [facility] No
--- NOTE | 2018-01-18 13:46 | EKG ---
Test Reason : Blood Pressure : / mmHG Vent. Rate : 082 BPM Atrial Rate : 094 BPM P-R Int : 000 ms QRS Dur : 184 ms QT Int : 524 ms P-R-T Axes : 000 -56 104 degrees QTc Int : 612 ms Ventricular-paced rhythm ABNORMAL ECG WHEN COMPARED WITH ECG OF 10-JAN-2018 14:58, VENT. RATE HAS INCREASED BY 2 BPM Confirmed by BERNY LUNA MD ([id number]) on 01/18/2018 1:46:37 PM Referred By: TRELL SHAW DR Confirmed By:BERNY LUNA MD
--- NOTE | 2018-01-18 16:09 | PN ---
Progress Note, Physician History of Present Illness: Pt seen and examined at bedside. He is awake and appears comfortable. He denies chest pain or palpitations. - Current Medication List Current Medications: Active Medications Acetaminophen (Tylenol -) 650 mg PO Q6H PRN PRN Reason: PAIN 1-3 Last Admin: 01/18/18 12:21 Dose: 650 mg Amiodarone HCl (Cordarone -) 200 mg PO DAILY [facility] Last Admin: 01/18/18 09:40 Dose: 200 mg Atorvastatin Calcium (Lipitor -) 40 mg PO HS [facility] Last Admin: 01/17/18 21:21 Dose: 40 mg Carvedilol (Coreg -) 3.125 mg PO BID [facility] Last Admin: 01/17/18 21:21 Dose: Not Given Collagenase (Santyl -) 1 applic TP DAILY [facility]; Protocol Last Admin: 01/18/18 10:06 Dose: 1 applic Diphenhydramine HCl (Benadryl -) 25 mg PO HS [facility] Docusate Sodium (Colace -) 100 mg PO Q8H PRN PRN Reason: CONSTIPATION Furosemide (Lasix -) 40 mg PO DAILY [facility] Mesalamine (Rowasa Enema -) 4 gm MS HS [facility] Last Admin: 01/17/18 21:22 Dose: 4 gm Tamsulosin HCl (Flomax -) 0.4 mg PO DAILY@0830 [facility] Last Admin: 01/18/18 09:29 Dose: 0.4 mg Timolol Maleate (Timoptic 0.5%) 1 drop OU BID [facility] Last Admin: 01/18/18 09:41 Dose: 1 drop Tramadol HCl (Ultram -) 50 mg PO Q6H PRN PRN Reason: PAIN LEVEL 6-10 Last Admin: 01/14/18 21:39 Dose: 50 mg - Objective Vital Signs: Vital Signs Temperature 97.3 F L 01/18/18 15:53 Pulse Rate 84 01/18/18 15:53 Respiratory Rate 20 01/18/18 15:53 Blood Pressure 134/66 01/18/18 15:53 O2 Sat by Pulse Oximetry (%) 98 01/17/18 21:00 Constitutional: Yes: Calm Eyes: Yes: Conjunctiva Clear HENT: Yes: Atraumatic Neck: Yes: Supple Cardiovascular: Yes: S1, S2 Respiratory: Yes: CTA Bilaterally Gastrointestinal: Yes: Soft Genitourinary: Yes: WNL Edema: Yes Edema: LLE: 2+, RLE: 2+ Neurological: Yes: Oriented Psychiatric: Yes: Oriented Labs: CBC, BMP 01/18/18 06:20 01/18/18 12:10 INR, PTT INR 1.15 (0.83-1.09) H 01/10/18 15:05 Problem List - Problems (1) GI bleed Code(s): K92.2 - GASTROINTESTINAL HEMORRHAGE, UNSPECIFIED Qualifiers: GI bleed type/associated pathology: unspecified gastrointestinal hemorrhage type Qualified Code(s): K92.2 - Gastrointestinal hemorrhage, unspecified (2) Renal insufficiency Code(s): N28.9 - DISORDER OF KIDNEY AND URETER, UNSPECIFIED Assessment/Plan Current Medications Generic Name Dose Route Start Last Admin Trade Name Freq PRN Reason Stop Dose Admin Acetaminophen 650 mg 01/12/18 16:59 01/18/18 12:21 Tylenol - PO 650 mg Q6H PRN Administration PAIN 1-3 Amiodarone HCl 200 mg 01/11/18 15:00 01/18/18 09:40 Cordarone - PO 200 mg DAILY AUDIE Administration Atorvastatin Calcium 40 mg 01/11/18 22:00 01/17/18 21:21 Lipitor - PO 40 mg HS AUDIE Administration Carvedilol 3.125 mg 01/11/18 22:00 01/17/18 21:21 Coreg - PO Not Given BID AUDIE Collagenase 1 applic 01/12/18 10:00 01/18/18 10:06 Santyl - TP 1 applic DAILY AUDIE Administration Protocol Diphenhydramine HCl 25 mg 01/18/18 22:00 Benadryl - PO HS AUDIE Docusate Sodium 100 mg 01/11/18 15:07 Colace - PO Q8H PRN CONSTIPATION Furosemide 40 mg 01/19/18 10:00 Lasix - PO DAILY AUDIE Mesalamine 4 gm 01/12/18 22:00 01/17/18 21:22 Rowasa Enema - MS 4 gm HS AUDIE Administration Tamsulosin HCl 0.4 mg 01/12/18 08:30 01/18/18 09:29 Flomax - PO 0.4 mg DAILY@0830 AUDIE Administration Timolol Maleate 1 drop 01/11/18 22:00 01/18/18 09:41 Timoptic 0.5% OU 1 drop BID AUDIE Administration Tramadol HCl 50 mg 01/13/18 14:20 01/14/18 21:39 Ultram - PO 50 mg Q6H PRN Administration PAIN LEVEL 6-10 Impression 1. CKD 2. hx prostate cancer 3. GI bleed 4. anemia 5. HLD 6. valvular heart disease 7. nephrolithiasis s/p stent 8. hyperkalemia Plan - potassium treated medically - d50, insulin, caclium, lasix, albuterol given - pt had a bowel movement - renal diet - repeat potassium level - discussed with medical team - discussed with family - cont to monitor renal function - will follow
[2018-01-18 17:34] LABS: ALK PHOS 212 U/L (45-117); ANION GAP 11 MMOL/L (8-16); BILIRUBIN,TOTAL 1.8 mg/dL (0.2-1.0); BLOOD UREA NITROGEN 69 mg/dL (7-18); CALCIUM 8.3 mg/dL (8.5-10.1); CHLORIDE 105 mmol/L (98-107); CO2 23 mmol/L (21-32); CREATININE 2.4 mg/dL (0.7-1.3); GLUCOSE,RANDOM 71 mg/dL (74-106); POTASSIUM 4.9 mmol/L (3.5-5.1); SGOT/AST 83 U/L (15-37); SGPT/ALT 82 U/L (12-78); SODIUM 139 mmol/L (136-145); TOT PROT 4.8 g/dl (6.4-8.2)
[2018-01-18] MEDS: FUROSEMIDE 20 MG TABLET (FP) PO SCH (17:40)
[2018-01-18] MEDS: CARVEDILOL 3.125 MG TABLET (FP) PO SCH ×2 (17:44→21:58)
--- NOTE | 2018-01-18 20:08 | PN ---
Progress Note (short form) - Note Progress Note: Laboratory Tests 01/18/18 15:30 Potassium 4.9 labs reviewed, potassium normalized, repeat in am. Problem List - Problems (1) GI bleed Code(s): K92.2 - GASTROINTESTINAL HEMORRHAGE, UNSPECIFIED Qualifiers: GI bleed type/associated pathology: unspecified gastrointestinal hemorrhage type Qualified Code(s): K92.2 - Gastrointestinal hemorrhage, unspecified (2) Renal insufficiency Code(s): N28.9 - DISORDER OF KIDNEY AND URETER, UNSPECIFIED
[2018-01-18 21:56] LABS: ANION GAP 12 MMOL/L (8-16); BILIRUBIN,TOTAL 1.7 mg/dL (0.2-1.0); BLOOD UREA NITROGEN 70 mg/dL (7-18); CALCIUM 8.2 mg/dL (8.5-10.1); CHLORIDE 104 mmol/L (98-107); CO2 22 mmol/L (21-32); CREATININE 2.5 mg/dL (0.7-1.3); GLUCOSE,RANDOM 115 mg/dL (74-106); POTASSIUM 5.1 mmol/L (3.5-5.1); SGOT/AST 87 U/L (15-37); SGPT/ALT 85 U/L (12-78); SODIUM 138 mmol/L (136-145)
[2018-01-18 21:57] LABS: ALK PHOS 225 U/L (45-117)
[2018-01-18] MEDS: ATORVASTATIN CA 40 MG TABLET (FP) PO SCH (21:57)
[2018-01-18] MEDS: MESALAMINE 4 GM/60 ML ENEMA PR SCH (21:58)
[2018-01-18] MEDS ORDERED: diphenhydrAMINE HCL 25 MG CAPSULE (FP) PO SCH (22:00)
--- NOTE | 2018-01-19 08:57 | DS ---
Physical Exam: SUBJECTIVE: Patient seen and examined at the bedside. Feels well, denies chest pain or shortness of breath. In no acute distress. OBJECTIVE: Vital Signs Period Temp Pulse Resp BP Sys/Rodrigues Pulse Ox Last 24 Hr 97.3 F-97.7 F 69-85 18-21 90-137/59-75 98-98 PHYSICAL EXAM GENERAL: The patient is awake, alert, and fully oriented, in no acute distress. HEAD: Normal with no signs of trauma. EYES: PERRL, extraocular movements intact, sclera anicteric, conjunctiva clear. No ptosis. ENT: Ears normal, nares patent, oropharynx clear without exudates, moist mucous membranes. NECK: Trachea midline, full range of motion, supple. LUNGS: Breath sounds equal/diminished but clear to auscultation bilaterally HEART: Regular rate and rhythm, S1, S2 without murmur, rub or gallop. ABDOMEN: Soft, nontender, nondistended, normoactive bowel sounds, no guarding EXTREMITIES: bilateral lower ext edema, non pitting. NEUROLOGICAL: Normal speech, gait not observed. PSYCH: Normal mood, normal affect. SKIN: bilateral foot and toe wounds, podiatry following. LABS Laboratory Results - last 24 hr 01/18/18 01/18/18 01/18/18 06:20 12:10 15:20 Sodium 140 Potassium 5.4 H 6.1 H* Chloride 105 Carbon Dioxide 23 Anion Gap 12 BUN 66 H Creatinine 2.2 H Creat Clearance w eGFR 28.73 POC Glucometer 103 Random Glucose 90 D Calcium 8.3 L Magnesium 2.6 H Total Bilirubin 2.0 H AST 82 H ALT 78 Alkaline Phosphatase 216 H Total Protein 5.0 L Albumin 2.1 L 01/18/18 01/18/18 01/18/18 15:30 20:12 20:55 Sodium 139 138 Potassium 4.9 5.1 Chloride 105 104 Carbon Dioxide 23 22 Anion Gap 11 12 BUN 69 H 70 H Creatinine 2.4 H 2.5 H Creat Clearance w eGFR 25.98 24.79 POC Glucometer 126 Random Glucose 71 L D 115 H D Calcium 8.3 L 8.2 L Magnesium Total Bilirubin 1.8 H 1.7 H AST 83 H 87 H ALT 82 H 85 H Alkaline Phosphatase 212 H 225 H D Total Protein 4.8 L 5.0 L Albumin 2.0 L 2.0 L 01/18/18 01/18/18 01/19/18 20:55 23:28 05:13 Sodium Potassium Chloride Carbon Dioxide Anion Gap BUN Creatinine Creat Clearance w eGFR POC Glucometer 119 101 Random Glucose Calcium Magnesium 2.4 Total Bilirubin AST ALT Alkaline Phosphatase Total Protein Albumin HOSPITAL COURSE: Date of Admission:01/10/18 Date of Discharge: 01/19/18 ASSESSMENT/PLAN: Patient is a 82 year old male with past medical history of quadruple bypass ( 1989), prostate cancer, aortic and mitral valve replacement, PAD, atrial fib ( was on eliquis-stopped on last admission), with recent ablation and pacemaker placement on 12/16/17, left renal calculus s/p lithotripsy and ureteral stent ( scheduled for a stent removal next week at [facility]), sigmoidoscopy w/ cauterization for rectal bleeding. Patient returns for an acute episode of GI bleed after a fall at home. GI: GI bleed s/p sigmoidoscopy w/cauterization for rectal bleeding on 01/11/[address] Church. GI BLEEDING RESOLVED. s/p sigmoidoscopy 01/11/2018: which showed blood but no bleeding source. hmg/ hct remains stable. No abdominal pain. tolerating diet. On Rowesa q8.s/p 1 unit of blood with good results. No further bleeding episodes. hmg/hct remains low stable. continue iron supplements. Follow up with Dr. Church as an outpatient. Renal FELICE on CKD, creat 2.5. On home lasix 40mg daily. Renal followed during hospitalization. Patient to make appointment within 1 week after discharge with Dr. Peterson. Card: Atrial fib. Rate controlled with amiodorone. eliquis discontinued on last admission 06/16 to gi bleed. Patient no longer a candidate for anticoagulation. CAD: On coreg 3.125 mg BID, lipitor Chronic systolic heart failure: monitor intake and output. monitor renal function. daily weights. Cardiology follow up with Dr. Varma. Podiatry: bilateral lower ext edema, left heal with circular 3cm x 2cm ulceration with surround erythma and pain. left foot 3rd and 4th toe ulceration, right foot 3rd digit discoloration. on santyl. daily wound care. Podiatry outpatient follow up. Vascular: Peripheral vascular disease s/p left ilio-fem bypass, outpatient follow up with Dr. Blakely. Patient stable for discharge to [facility]. Discussed labs and plan of care with patient's and she is in agreement to discharge to [facility]. Minutes to complete discharge: 60 Discharge Summary Reason For Visit: GASTROINTESTINAL HEMORRHAGE Current Active Problems GI bleed (Acute) Condition: Improved - Instructions Diet, Activity, Other Instructions: Mr. Joiner: You were admitted on 01/10/2018 for gastrointestinal hemorrhage. You had a sigmoidoscopy on 01/11/2018: which showed blood but no bleeding source. Your blood counts remain stable. Continue Rowesa q8. Do NOT resume Eliquis. Please have your blood work repeated this week to assure that it continues to remain stable. Please follow up with Dr. Church within 1-2 weeks of discharge. Wound care: bilateral lower ext edema with toe discolorations and foot wounds. continue to off load the foot when in bed apply santyl to wounds daily. Allyven to heals. Please follow up with Dr. Bowen at the wound care clinic. Please have your lab work monitored at the rehab facility. It is important that your kidney function continues to be monitored closely. Dr. Boles would like for you to see him within 1 week of discharge. Please call for an appointment. Thank you for allowing us to care for you. Referrals: Robson Varma MD [Primary Care Provider] - Oscar Church MD [Staff Physician] - 2 Weeks Francine Boles MD [Staff Physician] - 1 Week Disposition: CARE HOME FACILITY - Home Medications Comprehensive Discharge Medication List: Ambulatory Orders Atorvastatin Ca [Lipitor] 40 mg PO HS 11/07/14 Tamsulosin HCl [Flomax] 0.4 mg PO DAILY 12/01/17 Carvedilol [Coreg -] 3.125 mg PO BID #60 tablet 12/28/17 Mesalamine Enema [Rowasa Enema -] 4 gm PA HS #52 enema 12/28/17 Mupirocin Ointment [Bactroban 2% Ointment -] 1 applic TP BID #1 applic 12/28/17 Amiodarone HCl 200 mg PO DAILY 12/31/17 Timolol 0.5% [Timoptic 0.5%] 1 drop OU BID 01/03/18 Furosemide [Lasix] 40 mg PO DAILY #30 tablet 01/06/18 Lidocaine 2% Jelly [Xylocaine 2% Jelly -] 1 applic MM DAILY #1 tube 01/06/18 Pantoprazole Sodium [Protonix] 40 mg PO DAILY #30 tablet. 01/06/18 This patient is new to me today: No Emergency Visit: Yes ED Registration Date: 01/10/18 Care time: The patient presented to the Emergency Department on the above date and was hospitalized for further evaluation of their emergent condition. Critical Care patient: No - Discharge Referral Referred to [facility] Med [facility].C.: No
[2018-01-19] MEDS ORDERED: PT OWN MED DRAWER 7, Y5N ONE (09:25)
[2018-01-19] MEDS: TAMSULOSIN HCL 0.4 MG CAP PO SCH (09:35)
[2018-01-19] MEDS: COLLAGENASE CLOSTRIDIUM HIST. 30 GRAMS TUBE TP SCH (09:54)
[2018-01-19] MEDS: AMIODARONE HCL 200 MG TABLET (FP) PO SCH (09:54)
[2018-01-19] MEDS: TIMOLOL 0.5% OPHTHALMIC SOL 5 ML BOTTLE OU SCH (09:55)
[2018-01-19 09:56] VITALS: BP 99/85
[2018-01-19] MEDS ORDERED: FUROSEMIDE 20 MG TABLET (FP) PO SCH (10:00)
[2018-01-19 10:56] LABS: BASO % 0.2 % (0-2.0); EOS % 0.2 % (0-4.5); HEMATOCRIT 25.1 % (35.4-49); HEMOGLOBIN 8.1 GM/dL (11.7-16.9); LYMPH % 7.9 % (8-40); MCH 30.4 pg (25.7-33.7); MCHC 32.1 g/dl (32.0-35.9); MEAN CELL VOLUME 94.9 fl (80-96); MEAN PLT VOLUME 9.2 fl (7.5-11.1); MONO % 5.8 % (3.8-10.2); NEUT % 85.9 % (42.8-82.8); PLATELET COUNT 74 K/MM3 (134-434); RBC 2.65 M/mm3 (4.00-5.60); RDW 20.8 % (11.9-15.9); WHITE BLOOD COUNT 7.5 K/mm3 (4.0-10.0)
[2018-01-19] MEDS: CARVEDILOL 3.125 MG TABLET (FP) PO SCH ×2 (10:57→18:25)
[2018-01-19 11:28] LABS: ALBUMIN 2.1 g/dl (3.4-5.0); ALK PHOS 222 U/L (45-117); ANION GAP 11 MMOL/L (8-16); BLOOD UREA NITROGEN 73 mg/dL (7-18); CALCIUM 8.4 mg/dL (8.5-10.1); CHLORIDE 104 mmol/L (98-107); CO2 22 mmol/L (21-32); CREATININE 2.6 mg/dL (0.7-1.3); GLUCOSE,RANDOM 101 mg/dL (74-106); MAGNESIUM 2.5 mg/dL (1.8-2.4); POTASSIUM 5.2 mmol/L (3.5-5.1); SGOT/AST 94 U/L (15-37); SGPT/ALT 90 U/L (12-78); SODIUM 137 mmol/L (136-145); TOT PROT 5.2 g/dl (6.4-8.2)
[2018-01-19] MEDS: ACETAMINOPHEN 325 MG TABLET (FP) PO PRN (11:56)
[2018-01-19] MEDS ORDERED: SODIUM BICARBONATE 650 MG TABLET PO ONE (14:19)
--- NOTE | 2018-01-19 14:21 | PN ---
Progress Note, Physician History of Present Illness: Pt seen and examined at bedside. He has not had any bleeding. He denies shortness of breath. He denies chest pain or palpitations. - Current Medication List Current Medications: Active Medications Acetaminophen (Tylenol -) 650 mg PO Q6H PRN PRN Reason: PAIN 1-3 Last Admin: 01/19/18 11:56 Dose: 650 mg Amiodarone HCl (Cordarone -) 200 mg PO DAILY [facility] Last Admin: 01/19/18 09:54 Dose: 200 mg Atorvastatin Calcium (Lipitor -) 40 mg PO HS [facility] Last Admin: 01/18/18 21:57 Dose: 40 mg Carvedilol (Coreg -) 3.125 mg PO BID [facility] Last Admin: 01/19/18 10:57 Dose: Not Given Collagenase (Santyl -) 1 applic TP DAILY [facility]; Protocol Last Admin: 01/19/18 09:54 Dose: 1 applic Diphenhydramine HCl (Benadryl -) 25 mg PO HS [facility] Last Admin: 01/18/18 21:57 Dose: 25 mg Docusate Sodium (Colace -) 100 mg PO Q8H PRN PRN Reason: CONSTIPATION Furosemide (Lasix -) 40 mg PO DAILY [facility] Last Admin: 01/19/18 09:53 Dose: 40 mg Mesalamine (Rowasa Enema -) 4 gm WI HS [facility] Last Admin: 01/18/18 21:58 Dose: 4 gm Tamsulosin HCl (Flomax -) 0.4 mg PO DAILY@0830 [facility] Last Admin: 01/19/18 09:35 Dose: 0.4 mg Timolol Maleate (Timoptic 0.5%) 1 drop OU BID [facility] Last Admin: 01/19/18 09:55 Dose: 1 drop Tramadol HCl (Ultram -) 50 mg PO Q6H PRN PRN Reason: PAIN LEVEL 6-10 Last Admin: 01/14/18 21:39 Dose: 50 mg - Objective Vital Signs: Vital Signs Temperature 97.8 F 01/19/18 09:56 Pulse Rate 73 01/19/18 09:56 Respiratory Rate 19 01/19/18 09:56 Blood Pressure 99/85 01/19/18 09:56 O2 Sat by Pulse Oximetry (%) 98 01/19/18 09:00 Constitutional: Yes: Calm Eyes: Yes: Conjunctiva Clear HENT: Yes: Atraumatic Neck: Yes: Supple Cardiovascular: Yes: S1, S2 Respiratory: Yes: CTA Bilaterally, On Nasal O2 Gastrointestinal: Yes: Soft Genitourinary: Yes: WNL Edema: Yes Edema: LLE: 1+, RLE: 1+ Neurological: Yes: Oriented Psychiatric: Yes: Oriented Labs: CBC, BMP 01/19/18 10:00 01/19/18 10:00 INR, PTT INR 1.15 (0.83-1.09) H 01/10/18 15:05 Problem List - Problems (1) GI bleed Code(s): K92.2 - GASTROINTESTINAL HEMORRHAGE, UNSPECIFIED Qualifiers: GI bleed type/associated pathology: unspecified gastrointestinal hemorrhage type Qualified Code(s): K92.2 - Gastrointestinal hemorrhage, unspecified (2) Renal insufficiency Code(s): N28.9 - DISORDER OF KIDNEY AND URETER, UNSPECIFIED Assessment/Plan Current Medications Generic Name Dose Route Start Last Admin Trade Name Freq PRN Reason Stop Dose Admin Acetaminophen 650 mg 01/12/18 16:59 01/19/18 11:56 Tylenol - PO 650 mg Q6H PRN Administration PAIN 1-3 Amiodarone HCl 200 mg 01/11/18 15:00 01/19/18 09:54 Cordarone - PO 200 mg DAILY AUDIE Administration Atorvastatin Calcium 40 mg 01/11/18 22:00 01/18/18 21:57 Lipitor - PO 40 mg HS AUDIE Administration Carvedilol 3.125 mg 01/11/18 22:00 01/19/18 10:57 Coreg - PO Not Given BID AUDIE Collagenase 1 applic 01/12/18 10:00 01/19/18 09:54 Santyl - TP 1 applic DAILY AUDIE Administration Protocol Diphenhydramine HCl 25 mg 01/18/18 22:00 01/18/18 21:57 Benadryl - PO 25 mg HS AUDIE Administration Docusate Sodium 100 mg 01/11/18 15:07 Colace - PO Q8H PRN CONSTIPATION Furosemide 40 mg 01/19/18 10:00 01/19/18 09:53 Lasix - PO 40 mg DAILY AUDIE Administration Mesalamine 4 gm 01/12/18 22:00 01/18/18 21:58 Rowasa Enema - [place] 4 gm HS AUDIE Administration Tamsulosin HCl 0.4 mg 01/12/18 08:30 01/19/18 09:35 Flomax - PO 0.4 mg DAILY@0830 AUDIE Administration Timolol Maleate 1 drop 01/11/18 22:00 01/19/18 09:55 Timoptic 0.5% OU 1 drop BID AUIDE Administration Tramadol HCl 50 mg 01/13/18 14:20 01/14/18 21:39 Ultram - PO 50 mg Q6H PRN Administration PAIN LEVEL 6-10 Impression 1. CKD 2. hx prostate cancer 3. GI bleed 4. anemia 5. HLD 6. valvular heart disease 7. nephrolithiasis s/p stent 8. hyperkalemia Plan - cont with lasix daily - low potassium diet - avoid constipation - will add PO sodium bicarb - will need to monitor lytes and renal function closely - renal diet - discussed with medical team - discussed with family - spoke to pt and about findings, they want to go to rehab today. Recommend that his labs are checked more frequently - will follow
[2018-01-19 16:47] VITALS: PULSE 86; TEMP 98.5
== END 2018-01-19 18:40 | DRG 377 ==
LOC: JER 14:44 → JERBED 15:47 → JICU 18:20 → J7W 01-12 16:45 → J5S 01-12 16:46
PROVIDERS: ADMIT Internal Medicine; ATTEND Nurse Practitioner Family
PROC: 30233N1 Transfusion of Nonautologous Red Blood Cells into Peripheral Vein, Percutaneous Approach (ICD-10-PCS; 2018-01-10)
PROC: 0DJD8ZZ Inspection of Lower Intestinal Tract, Via Natural or Artificial Opening Endoscopic (ICD-10-PCS; principal; 2018-01-11 12:30)
DX: K92.2 Gastrointestinal hemorrhage, unspecified (principal); L89.623 Pressure ulcer of left heel, stage 3; L89.613 Pressure ulcer of right heel, stage 3; N17.9 Acute kidney failure, unspecified; D62 Acute posthemorrhagic anemia; I50.32 Chronic diastolic (congestive) heart failure; I25.10 Atherosclerotic heart disease of native coronary artery without angina pectoris; I48.91 Unspecified atrial fibrillation; I73.9 Peripheral vascular disease, unspecified; K62.7 Radiation proctitis; N40.0 Benign prostatic hyperplasia without lower urinary tract symptoms; N18.9 Chronic kidney disease, unspecified; N20.0 Calculus of kidney; K64.8 Other hemorrhoids; E87.5 Hyperkalemia; Z86.73 Personal history of transient ischemic attack (TIA), and cerebral infarction without residual deficits; Z85.46 Personal history of malignant neoplasm of prostate; Z95.0 Presence of cardiac pacemaker; Z95.1 Presence of aortocoronary bypass graft; Z86.718 Personal history of other venous thrombosis and embolism; Z95.2 Presence of prosthetic heart valve
CPT/HCPCS: 36415; 36430; 71045-TC-FY; 73630-TC-LT; 73630-TC-RT-FY; 80048; 80053; 81003; 81015; 82272; 82550; 82553; 82570; 82962; 83735; 84100; 84132; 84300; 84484; 85025; 85027; 85610; 86850; 86900; 86901; 86922; 87086; 93005; 93010; 94010; 94640; 97116-GP; 99284-25; J0131; J7030; P9038; P9058